=== PATIENT | male | born 1980 | race Caucasian/White ===

== ENCOUNTER → 2022-12-09 11:47 | Inpatient (IN) | payer MEDICAID, SELFPAY ==
[2021-09-30] MEDS: ACETAMINOPHEN 500 MG TABLET 1000 MG PO ×3 (07:15→19:26)
[2021-09-30] MEDS: polyethylene glycoL 238 GM BULK BOTTLE 17 GM PO (07:15)
[2021-09-30] MEDS: OXYCODONE 5 MG TABLET 10 MG PO (07:16)
[2021-09-30] MEDS: DOLUTEGRAVIR 50 MG 1 EACH PO ×2 (07:16→15:59)
[2021-09-30] MEDS: ESCITALOPRAM 20 MG TABLET 1 EACH PO (07:16)
[2021-09-30] MEDS: OXYCODONE 5 MG TABLET PO ×2 (11:57→19:26)
[2021-09-30 16:00] VITALS: TEMP 36.8; O2SAT 96
[2021-10-01] MEDS: DOLUTEGRAVIR 50 MG 1 EACH PO ×2 (07:20→15:34)
[2021-10-01] MEDS: ACETAMINOPHEN 500 MG TABLET 1000 MG PO ×3 (07:20→19:34)
[2021-10-01] MEDS: polyethylene glycoL 238 GM BULK BOTTLE 17 GM PO (07:20)
[2021-10-01] MEDS: OXYCODONE 5 MG TABLET 10 MG PO (07:21)
[2021-10-01] MEDS: ESCITALOPRAM 20 MG TABLET 1 EACH PO (07:21)
[2021-10-01] MEDS: OXYCODONE 5 MG TABLET PO ×3 (09:50→19:35)
--- NOTE | 2021-10-01 13:42 | PC.NURSE ---
Pain-Right hand noted to have slight edema present, when hand was elevated resident jerked hand away and moaned, when asked if having pain stated Oh Tamiko pain medication was given obtained relief.
[2021-10-01 14:08] VITALS: BP 110/63; PULSE 72; RESP 16; TEMP 36.1; O2SAT 97
[2021-10-01 16:00] VITALS: TEMP 36.6; O2SAT 99
[2021-10-02] MEDS: polyethylene glycoL 238 GM BULK BOTTLE 17 GM PO (08:24)
[2021-10-02] MEDS: ACETAMINOPHEN 500 MG TABLET 1000 MG PO ×3 (08:24→19:29)
[2021-10-02] MEDS: ESCITALOPRAM 20 MG TABLET 1 EACH PO (08:24)
[2021-10-02] MEDS: DOLUTEGRAVIR 50 MG 1 EACH PO ×2 (08:25→15:33)
[2021-10-02] MEDS: OXYCODONE 5 MG TABLET 10 MG PO (08:26)
[2021-10-02] MEDS: OXYCODONE 5 MG TABLET PO ×2 (11:53→19:29)
--- NOTE | 2021-10-02 14:26 | PC.PHA ---
Pharmacy Review ~ Patient taking oxycodone tid and acetaminophen tid with prn oxycodone. As needed use of oxycodone remain stable to decreased comparing August and September MARs. Antivirals for HIV continue and [facility] is no longer following patient per family request. Drug monitoring of antivirals will be reviewed by proposal lead writer.
[2021-10-02 16:00] VITALS: TEMP 36.2; O2SAT 95
[2021-10-03] MEDS: polyethylene glycoL 238 GM BULK BOTTLE 17 GM PO (07:28)
[2021-10-03] MEDS: DOLUTEGRAVIR 50 MG 1 EACH PO ×2 (07:28→15:25)
[2021-10-03] MEDS: ACETAMINOPHEN 500 MG TABLET 1000 MG PO ×3 (07:28→19:19)
[2021-10-03] MEDS: ESCITALOPRAM 20 MG TABLET 1 EACH PO (07:28)
[2021-10-03] MEDS: OXYCODONE 5 MG TABLET 10 MG PO (07:28)
[2021-10-03] MEDS: OXYCODONE 5 MG TABLET PO ×2 (12:15→19:19)
[2021-10-03 16:43] VITALS: TEMP 37.1; O2SAT 95
[2021-10-04] MEDS: ESCITALOPRAM 20 MG TABLET 1 EACH PO (08:18)
[2021-10-04] MEDS: polyethylene glycoL 238 GM BULK BOTTLE 17 GM PO (08:18)
[2021-10-04] MEDS: ACETAMINOPHEN 500 MG TABLET 1000 MG PO ×3 (08:18→19:27)
[2021-10-04] MEDS: DOLUTEGRAVIR 50 MG 1 EACH PO ×2 (08:18→15:01)
[2021-10-04] MEDS: OXYCODONE 5 MG TABLET 10 MG PO (08:18)
[2021-10-04] MEDS: OXYCODONE 5 MG TABLET PO ×2 (11:46→19:27)
[2021-10-04 16:00] VITALS: TEMP 36.6; O2SAT 98
[2021-10-05] MEDS: ACETAMINOPHEN 500 MG TABLET 1000 MG PO ×3 (07:22→19:53)
[2021-10-05] MEDS: ESCITALOPRAM 20 MG TABLET 1 EACH PO (07:23)
[2021-10-05] MEDS: OXYCODONE 5 MG TABLET 10 MG PO (07:23)
[2021-10-05] MEDS: DOLUTEGRAVIR 50 MG 1 EACH PO ×2 (07:23→15:15)
[2021-10-05] MEDS: polyethylene glycoL 238 GM BULK BOTTLE 17 GM PO (07:23)
[2021-10-05] MEDS: OXYCODONE 5 MG TABLET PO ×2 (11:34→19:53)
[2021-10-05 16:00] VITALS: TEMP 36.2; O2SAT 96
[2021-10-06] MEDS: DOLUTEGRAVIR 50 MG 1 EACH PO ×2 (07:31→15:57)
[2021-10-06] MEDS: OXYCODONE 5 MG TABLET 10 MG PO (07:31)
[2021-10-06] MEDS: polyethylene glycoL 238 GM BULK BOTTLE 17 GM PO (07:31)
[2021-10-06] MEDS: ACETAMINOPHEN 500 MG TABLET 1000 MG PO ×3 (07:31→19:08)
[2021-10-06] MEDS: ESCITALOPRAM 20 MG TABLET 1 EACH PO (07:32)
[2021-10-06] MEDS: OXYCODONE 5 MG TABLET PO ×2 (11:22→19:09)
[2021-10-06 16:20] VITALS: TEMP 36.5; O2SAT 96
[2021-10-07] MEDS: ACETAMINOPHEN 500 MG TABLET 1000 MG PO ×3 (07:42→19:22)
[2021-10-07] MEDS: polyethylene glycoL 238 GM BULK BOTTLE 17 GM PO (07:43)
[2021-10-07] MEDS: DOLUTEGRAVIR 50 MG 1 EACH PO ×2 (07:44→15:56)
[2021-10-07] MEDS: ESCITALOPRAM 20 MG TABLET 1 EACH PO (07:44)
[2021-10-07] MEDS: OXYCODONE 5 MG TABLET 10 MG PO (07:46)
[2021-10-07] MEDS: OXYCODONE 5 MG TABLET PO ×2 (11:26→19:22)
[2021-10-07 15:00] VITALS: TEMP 36.6; O2SAT 100
[2021-10-07 16:00] VITALS: TEMP 36.6; O2SAT 100
--- NOTE | 2021-10-08 01:13 | PC.NURSE ---
Week #1: Care Plan problems #1-19 and temporary care plan reviewed. No changes made to care plan at this time. Pain is managed with schedule Acetaminophen, PRN/scheduled Oxycodone, and non-pharmacological intervention including repositioning. No pain reported at this time. Resident sleeps through the night.
[2021-10-08] MEDS: OXYCODONE 5 MG TABLET 10 MG PO (07:17)
[2021-10-08] MEDS: polyethylene glycoL 238 GM BULK BOTTLE 17 GM PO (07:19)
[2021-10-08] MEDS: ACETAMINOPHEN 500 MG TABLET 1000 MG PO ×3 (07:19→19:15)
[2021-10-08] MEDS: ESCITALOPRAM 20 MG TABLET 1 EACH PO (07:19)
[2021-10-08] MEDS: DOLUTEGRAVIR 50 MG 1 EACH PO ×2 (07:19→15:28)
[2021-10-08 10:47] VITALS: BP 107/71; PULSE 78; RESP 18; TEMP 36.6; O2SAT 92
[2021-10-08] MEDS: OXYCODONE 5 MG TABLET PO ×2 (11:19→19:15)
--- NOTE | 2021-10-08 12:51 | PC.NURSE ---
Weekly Week #1: Vital signs reviewed with no issues. Resident does have pain at times with prn oxycodone being effective. Temporary care plan reviewed with no changes. Care plan problems #1-19 reviewed with no changes made Is total assist with dressing and grooming, eating
[2021-10-08 16:29] VITALS: TEMP 36.2; O2SAT 96
[2021-10-09] MEDS: ACETAMINOPHEN 500 MG TABLET 1000 MG PO ×3 (07:45→20:04)
[2021-10-09] MEDS: ESCITALOPRAM 20 MG TABLET 1 EACH PO (07:45)
[2021-10-09] MEDS: polyethylene glycoL 238 GM BULK BOTTLE 17 GM PO (07:45)
[2021-10-09] MEDS: OXYCODONE 5 MG TABLET 10 MG PO (07:46)
[2021-10-09] MEDS: DOLUTEGRAVIR 50 MG 1 EACH PO ×2 (07:46→15:33)
[2021-10-09] MEDS: OXYCODONE 5 MG TABLET PO ×2 (11:49→20:04)
[2021-10-09 16:32] VITALS: TEMP 36.6; O2SAT 96
[2021-10-10] MEDS: OXYCODONE 5 MG TABLET 10 MG PO (07:55)
[2021-10-10] MEDS: polyethylene glycoL 238 GM BULK BOTTLE 17 GM PO (07:56)
[2021-10-10] MEDS: DOLUTEGRAVIR 50 MG 1 EACH PO ×2 (07:56→15:13)
[2021-10-10] MEDS: ESCITALOPRAM 20 MG TABLET 1 EACH PO (07:56)
[2021-10-10] MEDS: ACETAMINOPHEN 500 MG TABLET 1000 MG PO ×3 (07:56→19:53)
[2021-10-10] MEDS: OXYCODONE 5 MG TABLET PO ×2 (11:32→19:53)
[2021-10-10 21:37] VITALS: TEMP 36.5; O2SAT 96
[2021-10-11] MEDS: DOLUTEGRAVIR 50 MG 1 EACH PO ×2 (07:26→15:38)
[2021-10-11] MEDS: polyethylene glycoL 238 GM BULK BOTTLE 17 GM PO (07:26)
[2021-10-11] MEDS: ACETAMINOPHEN 500 MG TABLET 1000 MG PO ×3 (07:26→19:47)
[2021-10-11] MEDS: ESCITALOPRAM 20 MG TABLET 1 EACH PO (07:27)
[2021-10-11] MEDS: OXYCODONE 5 MG TABLET 10 MG PO (07:27)
[2021-10-11] MEDS: OXYCODONE 5 MG TABLET PO ×2 (11:28→19:47)
[2021-10-11 18:16] VITALS: TEMP 36.1; O2SAT 95
[2021-10-12] MEDS: ACETAMINOPHEN 500 MG TABLET 1000 MG PO ×3 (08:33→20:16)
[2021-10-12] MEDS: OXYCODONE 5 MG TABLET 10 MG PO (08:34)
[2021-10-12] MEDS: DOLUTEGRAVIR 50 MG 1 EACH PO ×2 (08:34→15:42)
[2021-10-12] MEDS: ESCITALOPRAM 20 MG TABLET 1 EACH PO (08:34)
[2021-10-12] MEDS: polyethylene glycoL 238 GM BULK BOTTLE 17 GM PO (08:34)
[2021-10-12] MEDS: OXYCODONE 5 MG TABLET PO ×2 (11:50→20:16)
[2021-10-12 16:00] VITALS: TEMP 36.4; O2SAT 98
[2021-10-13] MEDS: ACETAMINOPHEN 500 MG TABLET 1000 MG PO ×3 (07:05→19:43)
[2021-10-13] MEDS: ESCITALOPRAM 20 MG TABLET 1 EACH PO (07:05)
[2021-10-13] MEDS: DOLUTEGRAVIR 50 MG 1 EACH PO ×2 (07:05→15:12)
[2021-10-13] MEDS: polyethylene glycoL 238 GM BULK BOTTLE 17 GM PO (07:05)
[2021-10-13] MEDS: OXYCODONE 5 MG TABLET 10 MG PO (07:05)
[2021-10-13] MEDS: OXYCODONE 5 MG TABLET PO ×2 (11:57→19:47)
[2021-10-13 21:26] VITALS: TEMP 36.5; O2SAT 98
--- NOTE | 2021-10-13 21:40 | PC.NURSE ---
Skin: No new skin concerns.
[2021-10-14] MEDS: OXYCODONE 5 MG TABLET 10 MG PO (07:09)
[2021-10-14] MEDS: DOLUTEGRAVIR 50 MG 1 EACH PO ×2 (07:09→16:13)
[2021-10-14] MEDS: ESCITALOPRAM 20 MG TABLET 1 EACH PO (07:09)
[2021-10-14] MEDS: ACETAMINOPHEN 500 MG TABLET 1000 MG PO ×3 (07:09→19:24)
[2021-10-14] MEDS: polyethylene glycoL 238 GM BULK BOTTLE 17 GM PO (07:09)
[2021-10-14] MEDS: OXYCODONE 5 MG TABLET PO ×2 (12:16→19:24)
[2021-10-14 13:15] VITALS: TEMP 37; O2SAT 97
[2021-10-14 16:00] VITALS: TEMP 36.7; O2SAT 99
[2021-10-14 23:00] VITALS: TEMP 35.8; O2SAT 94
--- NOTE | 2021-10-15 01:50 | PC.NURSE ---
Week #2---care plan problems #20-29 reviewed. No changes made. Nothing added to temporary care plan. Does not get out of bed at [facility]. Is able to make small changes to his position himself. Is turned side to side by staff for pad and linen changes x 2. No pillows used to prop him. Only 1 pillow under his head. EZ positioner to move res. up in bed. Is checked on q hour to be sure he is centered in the bed. Falls---no falls this past month. Is a low fall risk according to assessment done on 09/11/21.
[2021-10-15 07:00] VITALS: TEMP 36.9; O2SAT 97
[2021-10-15] MEDS: polyethylene glycoL 238 GM BULK BOTTLE 17 GM PO (07:02)
[2021-10-15] MEDS: DOLUTEGRAVIR 50 MG 1 EACH PO ×2 (07:02→15:29)
[2021-10-15] MEDS: ESCITALOPRAM 20 MG TABLET 1 EACH PO (07:02)
[2021-10-15] MEDS: OXYCODONE 5 MG TABLET 10 MG PO (07:02)
[2021-10-15] MEDS: ACETAMINOPHEN 500 MG TABLET 1000 MG PO ×3 (07:02→20:36)
[2021-10-15] MEDS: OXYCODONE 5 MG TABLET PO ×2 (11:49→20:36)
--- NOTE | 2021-10-15 21:08 | PC.NURSE ---
Week #2: Fall summary: Resident is a fall risk. Has had no falls in the last month. Temporary care plan reviewed, no change. Care plan reviewed no change. Bed mobility: Resident needs two assist and Srikanth lift for all transfers and, 1-2 assist for bed transfers.
[2021-10-15 21:53] VITALS: BP 102/70; PULSE 75; RESP 16; TEMP 36.3; O2SAT 94
[2021-10-15 23:00] VITALS: TEMP 35.9; O2SAT 94
[2021-10-16] MEDS: ACETAMINOPHEN 500 MG TABLET 1000 MG PO ×3 (07:23→20:10)
[2021-10-16] MEDS: ESCITALOPRAM 20 MG TABLET 1 EACH PO (07:24)
[2021-10-16] MEDS: polyethylene glycoL 238 GM BULK BOTTLE 17 GM PO (07:26)
[2021-10-16] MEDS: DOLUTEGRAVIR 50 MG 1 EACH PO ×2 (07:26→16:08)
[2021-10-16] MEDS: OXYCODONE 5 MG TABLET 10 MG PO (07:28)
[2021-10-16 10:34] VITALS: TEMP 36.6; O2SAT 98
[2021-10-16] MEDS: OXYCODONE 5 MG TABLET PO ×2 (11:31→20:10)
[2021-10-16 19:46] LABS: SARS PCR* Negative SARS-CoV-2 (Negative)
[2021-10-16 21:31] VITALS: TEMP 36.2; O2SAT 95
[2021-10-16 23:00] VITALS: TEMP 36.3; O2SAT 95
[2021-10-17 07:00] VITALS: TEMP 37.1; O2SAT 97
[2021-10-17] MEDS: DOLUTEGRAVIR 50 MG 1 EACH PO ×2 (07:23→15:25)
[2021-10-17] MEDS: ESCITALOPRAM 20 MG TABLET 1 EACH PO (07:23)
[2021-10-17] MEDS: ACETAMINOPHEN 500 MG TABLET 1000 MG PO ×3 (07:23→20:24)
[2021-10-17] MEDS: OXYCODONE 5 MG TABLET 10 MG PO (07:23)
[2021-10-17] MEDS: polyethylene glycoL 238 GM BULK BOTTLE 17 GM PO (07:23)
[2021-10-17] MEDS: OXYCODONE 5 MG TABLET PO ×2 (11:57→20:24)
[2021-10-17 21:16] VITALS: TEMP 36.1; O2SAT 95
[2021-10-17 23:00] VITALS: TEMP 36.2; O2SAT 96
[2021-10-18 07:00] VITALS: TEMP 36.6; O2SAT 98
[2021-10-18] MEDS: polyethylene glycoL 238 GM BULK BOTTLE 17 GM PO (07:02)
[2021-10-18] MEDS: DOLUTEGRAVIR 50 MG 1 EACH PO ×2 (07:02→15:24)
[2021-10-18] MEDS: ESCITALOPRAM 20 MG TABLET 1 EACH PO (07:02)
[2021-10-18] MEDS: ACETAMINOPHEN 500 MG TABLET 1000 MG PO ×3 (07:02→20:00)
[2021-10-18] MEDS: OXYCODONE 5 MG TABLET 10 MG PO (07:02)
[2021-10-18] MEDS: OXYCODONE 5 MG TABLET PO ×2 (11:48→20:00)
[2021-10-18 21:24] VITALS: TEMP 36.4; O2SAT 99
[2021-10-18 23:00] VITALS: TEMP 36.4; O2SAT 97
[2021-10-19 07:00] VITALS: TEMP 37.1; O2SAT 98
[2021-10-19] MEDS: DOLUTEGRAVIR 50 MG 1 EACH PO ×2 (07:33→15:25)
[2021-10-19] MEDS: polyethylene glycoL 238 GM BULK BOTTLE 17 GM PO (07:33)
[2021-10-19] MEDS: ACETAMINOPHEN 500 MG TABLET 1000 MG PO ×3 (07:33→19:57)
[2021-10-19] MEDS: ESCITALOPRAM 20 MG TABLET 1 EACH PO (07:34)
[2021-10-19] MEDS: OXYCODONE 5 MG TABLET 10 MG PO (07:34)
[2021-10-19] MEDS: OXYCODONE 5 MG TABLET PO ×2 (11:44→19:57)
[2021-10-19 21:10] VITALS: TEMP 36.3; O2SAT 98
[2021-10-19 23:00] VITALS: TEMP 36.7; O2SAT 96
[2021-10-20] MEDS: ESCITALOPRAM 20 MG TABLET 1 EACH PO (07:09)
[2021-10-20] MEDS: DOLUTEGRAVIR 50 MG 1 EACH PO ×2 (07:09→15:29)
[2021-10-20] MEDS: OXYCODONE 5 MG TABLET 10 MG PO (07:09)
[2021-10-20] MEDS: ACETAMINOPHEN 500 MG TABLET 1000 MG PO ×3 (07:09→19:23)
[2021-10-20] MEDS: polyethylene glycoL 238 GM BULK BOTTLE 17 GM PO (07:09)
[2021-10-20] MEDS: OXYCODONE 5 MG TABLET PO ×2 (11:22→19:23)
[2021-10-20 13:32] VITALS: TEMP 37.2; O2SAT 99
[2021-10-20 14:48] LABS: SARS PCR* Negative SARS-CoV-2 (Negative)
[2021-10-20 21:24] VITALS: TEMP 36.3; O2SAT 94
[2021-10-20 23:00] VITALS: TEMP 36.6; O2SAT 95
[2021-10-21] MEDS: ESCITALOPRAM 20 MG TABLET 1 EACH PO (07:15)
[2021-10-21] MEDS: DOLUTEGRAVIR 50 MG 1 EACH PO ×2 (07:15→16:06)
[2021-10-21] MEDS: ACETAMINOPHEN 500 MG TABLET 1000 MG PO ×3 (07:15→19:50)
[2021-10-21] MEDS: polyethylene glycoL 238 GM BULK BOTTLE 17 GM PO (07:15)
[2021-10-21] MEDS: OXYCODONE 5 MG TABLET 10 MG PO (07:15)
--- NOTE | 2021-10-21 11:07 | PC.NURSE ---
Late Entry for 10/17/22: Recert Visit. Resident seen by Dr. Curtis. Order reviewed and renewed of 75 days without changes.
[2021-10-21] MEDS: OXYCODONE 5 MG TABLET PO ×2 (12:22→19:50)
[2021-10-21 15:00] VITALS: TEMP 36.6; O2SAT 97
[2021-10-21 23:00] VITALS: TEMP 36.3; O2SAT 96
--- NOTE | 2021-10-22 03:10 | PC.NURSE ---
Week #3---care plan problems #30-39 reviewed. No changes made. Nothing added to temporary care plan. Remains incont. of B and B. Wears an xlg brief with a UG which is managed by staff. Is checked and changed on 1st and 3rd rounds. All pericare done by staff. Skin---no issues at this time.
[2021-10-22] MEDS: ACETAMINOPHEN 500 MG TABLET 1000 MG PO ×3 (08:43→19:35)
[2021-10-22] MEDS: ESCITALOPRAM 20 MG TABLET 1 EACH PO (08:43)
[2021-10-22] MEDS: polyethylene glycoL 238 GM BULK BOTTLE 17 GM PO (08:44)
[2021-10-22] MEDS: DOLUTEGRAVIR 50 MG 1 EACH PO ×2 (08:44→16:03)
[2021-10-22] MEDS: OXYCODONE 5 MG TABLET 10 MG PO (08:46)
--- NOTE | 2021-10-22 09:02 | PC.NURSE ---
Week #3: Care plan problems 30-39 and temporary care plan reviewed. No changes made. Nothing added to temporary care plan. Resident is incontinent of bowel & bladder. Needs total assist wit all toileting needs. Does not use the toilet. Staff to check and change as needed by 0700, before/after meals. Wears xlg briefs. Pads, anel cares, clothing adjustment managed by staff. Skin: No issues at this time. Skin is checked routinely during cares & baths
[2021-10-22 10:42] VITALS: BP 104/71; PULSE 71; RESP 12; TEMP 36.5; O2SAT 97
[2021-10-22] MEDS: OXYCODONE 5 MG TABLET PO ×2 (11:45→19:36)
--- NOTE | 2021-10-22 15:28 | PC.PHA ---
Pharmacy Review~Patient continues on same medication regimen with only one dose of prn oxycodone need since 10/01/21.
[2021-10-22 21:40] VITALS: TEMP 36.4; O2SAT 95
[2021-10-22 23:00] VITALS: TEMP 36; O2SAT 95
[2021-10-23 07:00] VITALS: TEMP 36.8; O2SAT 97
[2021-10-23] MEDS: ESCITALOPRAM 20 MG TABLET 1 EACH PO (08:39)
[2021-10-23] MEDS: OXYCODONE 5 MG TABLET 10 MG PO (08:39)
[2021-10-23] MEDS: DOLUTEGRAVIR 50 MG 1 EACH PO ×2 (08:39→15:30)
[2021-10-23] MEDS: ACETAMINOPHEN 500 MG TABLET 1000 MG PO ×3 (08:39→19:39)
[2021-10-23] MEDS: polyethylene glycoL 238 GM BULK BOTTLE 17 GM PO (08:39)
--- NOTE | 2021-10-23 08:59 | PC.SPIRITC ---
Late Entry ? met with resident for connection and support on 10/22/21.
--- NOTE | 2021-10-23 09:00 | PC.SPIRITC ---
Late Entry ? met with resident for connection and support on 10/22/21.
[2021-10-23] MEDS: OXYCODONE 5 MG TABLET PO ×2 (11:56→19:39)
[2021-10-23 21:24] VITALS: TEMP 36.2; O2SAT 99
[2021-10-23 23:00] VITALS: TEMP 36.1; O2SAT 97
[2021-10-24] VITALS (8 sets, daily range): BP systolic 95–132; BP diastolic 64–72; PULSE 65–81; RESP 16–18; TEMP 36.1–36.9; O2SAT 94–97
--- NOTE | 2021-10-24 06:40 | LTC.FALL ---
Addendum entered by Cyndi Gaona RN 10/24/21 07:59: Correction: Ganesh slide is used to assist move resident up in bed not for transfers. Original Note: [facility] Fall Note: o Fall Date: 10/24/21 o Fall Time: 0630 o What happened? Found on the floor o Who found the resident and who responded? SOLUTIONS SALES CONSULTANT, Nurses o What was the resident doing? Was in bed when last checked @ 0610 o How the resident was found (knees, left side, arm under them), any hazards (cords, objects, nonskid slippers) brakes on? Proper equipment? Found laying flat in the floor by the sink side, legs crossed, with head on the bed foot part, laughing. o Did you assess for head trauma, spinal injuries, skeletal injuries, neurological changes and status, and head and neck pain? What did you find? Yes. No evidence of injuries noted. No barnett/redness. o Did you assess ROM in shoulders, elbows, hips, knees, any other affected areas, unless there is suspected spinal injury. Yes.ROM to UE's & LE's done, within his normal limit. o Did you Assess for pain or discomfort? Yes. No noted pain/discomfort. Resident denies, giggling during the entire assessment. o What are the injuries and how are they being treated? Check VS Q4H X 72H o How was the resident transferred from the floor? Was transferred with a deandre lift and 3 assists to bed. o Did you call the MD or put a note in the LUMBER YARD WORKER book? Message left in the LUMBER YARD WORKER book. o Enter vital signs. T-97.6 BP-132/72 P-81 RR-18 02 sat-96% RA o Did you notify family? Will notify o What was the root cause of the fall? Why did it happen? Slid from the bed d/t EZ positioner pad. o Create an IMMEDIATE INTERVENTION to ensure that this won't immediately happen again. (Put in temporary care plan too) Remove the EZ positioner. Use ganesh pad for transfers o Complete Safety report and huddle (now one form) o If resident is seen in ED or fractured something, note that you started a [facility] Report process. Instructions are at the East nurse's desk in a red binder labeled [facility] report.
[2021-10-24] MEDS: OXYCODONE 5 MG TABLET 10 MG PO (07:20)
[2021-10-24] MEDS: polyethylene glycoL 238 GM BULK BOTTLE 17 GM PO (07:20)
[2021-10-24] MEDS: ACETAMINOPHEN 500 MG TABLET 1000 MG PO ×3 (07:20→20:04)
[2021-10-24] MEDS: DOLUTEGRAVIR 50 MG 1 EACH PO ×2 (07:21→15:26)
[2021-10-24] MEDS: ESCITALOPRAM 20 MG TABLET 1 EACH PO (07:21)
--- NOTE | 2021-10-24 08:26 | PC.NURSE ---
Family Update: Father, Chau contacted and updated of fall.
--- NOTE | 2021-10-24 10:33 | PC.NURSE ---
Status: Dr. Curtis updated of fall.
[2021-10-24] MEDS: OXYCODONE 5 MG TABLET PO ×2 (11:07→20:04)
--- NOTE | 2021-10-24 12:32 | PC.NURSE ---
Fall F/U: Vitals taken and charted, ROM good, hand grasps equal, unable to assess DUGLAS. Resident has been smiling and laughing when asked if he has pain
--- NOTE | 2021-10-24 14:55 | PC.NURSE ---
Fall Follow-up: Resident is alert. Cognition remains per baseline. Uncooperative with neuro assessment at this time - will reproach. Vitals signs WNL. No new concerns, relating to fall fall incident, noted at this time.
--- NOTE | 2021-10-24 21:45 | PC.NURSE ---
Fall F/U: VSS and ROM WNL. Neuro check done PERRL. Hand grasps equal and strong per baseline. Resident denies any pain or discomfort. Vital Signs Temp Pulse Resp BP Pulse Ox 10/24/21 21:04 97.3 F L 77 16 101/70 96 10/24/21 14:53 98.5 F 70 18 95/64 10/24/21 12:31 98 F 74 16 126/66 94 10/24/21 10:08 98 F 94
[2021-10-25] VITALS (8 sets, daily range): BP systolic 114–140; BP diastolic 60–76; PULSE 64–78; RESP 16–18; TEMP 35.7–36.6; O2SAT 94–98
--- NOTE | 2021-10-25 01:00 | PC.NURSE ---
Fall f/u for 2229---Lying in bed awake. VS stable. Would not cooperate with neuro checks. Would pinch his eyes shut tightly. Laughed when asked about pain. No apparent injuries.
--- NOTE | 2021-10-25 02:56 | PC.NURSE ---
Fall f/u for 229----Awakens easily for VS. Continues to not cooperate with neuro checks. Usual level of alertness. Moving extremities per res. baseline.
--- NOTE | 2021-10-25 06:30 | PC.NURSE ---
Addendum entered by Gregoria Thompson LPN 10/25/21 12:29: Vitals taken, unable to do neuros. Resident is up and ready for breakfast Original Note: Fall F/U:
[2021-10-25] MEDS: DOLUTEGRAVIR 50 MG 1 EACH PO ×2 (07:11→15:55)
[2021-10-25] MEDS: OXYCODONE 5 MG TABLET 10 MG PO (07:11)
[2021-10-25] MEDS: polyethylene glycoL 238 GM BULK BOTTLE 17 GM PO (07:11)
[2021-10-25] MEDS: ACETAMINOPHEN 500 MG TABLET 1000 MG PO ×3 (07:11→19:48)
[2021-10-25] MEDS: ESCITALOPRAM 20 MG TABLET 1 EACH PO (07:11)
[2021-10-25] MEDS: OXYCODONE 5 MG TABLET PO ×2 (11:15→19:48)
--- NOTE | 2021-10-25 12:26 | PC.NURSE ---
Fall F/U: Vitals taken and charted, hand grasps equal, unable to assess any other neuros. Resident is at baseline, laughing and smiling with no nonverbal s/s of pain
--- NOTE | 2021-10-25 22:18 | PC.NURSE ---
Fall F/U: VSS and ROM WNL. Unable to assess neuros. Resident would not grab speech writer's hands to assess strength. Laughing and smiling per usual behavior. Resident denies pain or discomfort.
--- NOTE | 2021-10-26 01:06 | PC.NURSE ---
Fall f/u for 2229---Lying in bed awake. Laughs when questioned about pain. Unable to do hand grasps. EMIL.
[2021-10-26 02:30] VITALS: BP 98/66; PULSE 76; RESP 16; TEMP 36.8; O2SAT 95
--- NOTE | 2021-10-26 02:57 | PC.NURSE ---
Fall f/u for 229---Sleeping well. Awakens easily. Would not cooperate with neuro checks this time. No apparent pain.
--- NOTE | 2021-10-26 06:30 | PC.NURSE ---
Fall F/U: Vitals done and charted. Resident shows no s/s of pain from fall
[2021-10-26 06:32] VITALS: BP 120/64; PULSE 82; RESP 16; TEMP 36.3; O2SAT 94
[2021-10-26] MEDS: bisacodyL 10 MG SUPP.RECT PR (06:34)
[2021-10-26] MEDS: ESCITALOPRAM 20 MG TABLET 1 EACH PO (07:20)
[2021-10-26] MEDS: OXYCODONE 5 MG TABLET 10 MG PO (07:20)
[2021-10-26] MEDS: DOLUTEGRAVIR 50 MG 1 EACH PO ×2 (07:20→15:57)
[2021-10-26] MEDS: ACETAMINOPHEN 500 MG TABLET 1000 MG PO ×3 (07:20→19:19)
[2021-10-26] MEDS: polyethylene glycoL 238 GM BULK BOTTLE 17 GM PO (07:20)
[2021-10-26 09:48] VITALS: BP 126/64; PULSE 82; RESP 18; TEMP 36.3; TEMP 36.9; O2SAT 94
[2021-10-26] MEDS: OXYCODONE 5 MG TABLET PO ×2 (11:09→19:19)
[2021-10-26 15:00] VITALS: TEMP 36.2; O2SAT 96
[2021-10-26 23:00] VITALS: TEMP 36.1; O2SAT 93
[2021-10-27] MEDS: DOLUTEGRAVIR 50 MG 1 EACH PO ×2 (07:32→15:22)
[2021-10-27] MEDS: polyethylene glycoL 238 GM BULK BOTTLE 17 GM PO (07:32)
[2021-10-27] MEDS: OXYCODONE 5 MG TABLET 10 MG PO (07:32)
[2021-10-27] MEDS: ACETAMINOPHEN 500 MG TABLET 1000 MG PO ×3 (07:32→19:36)
[2021-10-27] MEDS: ESCITALOPRAM 20 MG TABLET 1 EACH PO (07:32)
[2021-10-27] MEDS: OXYCODONE 5 MG TABLET PO ×2 (11:24→19:36)
[2021-10-27 13:23] VITALS: TEMP 36.6; O2SAT 96
[2021-10-27 20:32] VITALS: TEMP 36.4; O2SAT 96
[2021-10-27 21:03] LABS: SARS PCR* Negative SARS-CoV-2 (Negative)
[2021-10-27 23:00] VITALS: TEMP 37; O2SAT 96
[2021-10-28 07:00] VITALS: TEMP 37.1; O2SAT 97
[2021-10-28] MEDS: ACETAMINOPHEN 500 MG TABLET 1000 MG PO ×3 (07:29→19:48)
[2021-10-28] MEDS: DOLUTEGRAVIR 50 MG 1 EACH PO ×2 (07:30→15:39)
[2021-10-28] MEDS: ESCITALOPRAM 20 MG TABLET 1 EACH PO (07:30)
[2021-10-28] MEDS: OXYCODONE 5 MG TABLET 10 MG PO (07:30)
[2021-10-28] MEDS: polyethylene glycoL 238 GM BULK BOTTLE 17 GM PO (07:30)
[2021-10-28] MEDS: OXYCODONE 5 MG TABLET PO ×2 (11:58→19:48)
[2021-10-28 15:00] VITALS: TEMP 36.2; O2SAT 99
[2021-10-28 23:00] VITALS: TEMP 36.3; O2SAT 94
--- NOTE | 2021-10-29 02:01 | PC.NURSE ---
Week #4---care plan problems #40+ reviewed. No changes made. Nothing added to temporary care plan. Does not use call light. All needs anticipated by staff. No changes noted in hearing, vision, or orientation. No behavior problems at noc this past month. Sleeps between cares. Continues on Escitalopram 20 mg qd with no adverse effects noted.
[2021-10-29] MEDS: ESCITALOPRAM 20 MG TABLET 1 EACH PO (07:18)
[2021-10-29] MEDS: ACETAMINOPHEN 500 MG TABLET 1000 MG PO ×3 (07:18→19:48)
[2021-10-29] MEDS: polyethylene glycoL 238 GM BULK BOTTLE 17 GM PO (07:18)
[2021-10-29] MEDS: DOLUTEGRAVIR 50 MG 1 EACH PO ×2 (07:18→15:38)
[2021-10-29] MEDS: OXYCODONE 5 MG TABLET 10 MG PO (07:19)
--- NOTE | 2021-10-29 07:23 | PC.NURSE ---
Week #4: Care plan problems 40-119 and temporary care plan reviewed. No changes made. Nothing added to temporary care plan. No change in communication, hearing, vision & orientation. Needs anticipated by staff. Does not use the call light & not able to verbalize needs. Vision & hearing are fine. Chronic health condition stable. Has dementia. Is not able to self administer medications. Mood/Behavior: No issues. Continues on Escitalopram 20mg daily. No adverse effects noted. Has no change in medication.
[2021-10-29] MEDS: OXYCODONE 5 MG TABLET PO ×3 (10:40→19:48)
[2021-10-29 16:00] VITALS: TEMP 36.5; O2SAT 96
[2021-10-30] MEDS: DOLUTEGRAVIR 50 MG 1 EACH PO ×2 (07:12→15:00)
[2021-10-30] MEDS: polyethylene glycoL 238 GM BULK BOTTLE 17 GM PO (07:12)
[2021-10-30] MEDS: ESCITALOPRAM 20 MG TABLET 1 EACH PO (07:12)
[2021-10-30] MEDS: ACETAMINOPHEN 500 MG TABLET 1000 MG PO ×3 (07:12→19:36)
[2021-10-30] MEDS: OXYCODONE 5 MG TABLET 10 MG PO (07:12)
[2021-10-30] MEDS: OXYCODONE 5 MG TABLET PO ×2 (11:08→19:36)
[2021-10-30 21:31] VITALS: BP 102/64; PULSE 76; RESP 18; TEMP 36.2; O2SAT 95
[2021-10-30 21:37] VITALS: TEMP 36.2; O2SAT 96
[2021-10-31] MEDS: ACETAMINOPHEN 500 MG TABLET 1000 MG PO ×3 (07:08→20:25)
[2021-10-31] MEDS: OXYCODONE 5 MG TABLET 10 MG PO (07:09)
[2021-10-31] MEDS: ESCITALOPRAM 20 MG TABLET 1 EACH PO (07:09)
[2021-10-31] MEDS: polyethylene glycoL 238 GM BULK BOTTLE 17 GM PO (07:09)
[2021-10-31] MEDS: DOLUTEGRAVIR 50 MG 1 EACH PO ×2 (07:09→15:06)
[2021-10-31] MEDS: OXYCODONE 5 MG TABLET PO ×2 (11:46→20:25)
[2021-10-31 16:00] VITALS: TEMP 36.5; O2SAT 96
[2021-11-01] MEDS: DOLUTEGRAVIR 50 MG 1 EACH PO ×2 (08:56→15:30)
[2021-11-01] MEDS: polyethylene glycoL 238 GM BULK BOTTLE 17 GM PO (08:56)
[2021-11-01] MEDS: ACETAMINOPHEN 500 MG TABLET 1000 MG PO ×3 (08:56→20:01)
[2021-11-01] MEDS: ESCITALOPRAM 20 MG TABLET 1 EACH PO (08:57)
[2021-11-01] MEDS: OXYCODONE 5 MG TABLET 10 MG PO (08:57)
[2021-11-01] MEDS: OXYCODONE 5 MG TABLET PO ×2 (11:55→20:01)
[2021-11-01 21:13] VITALS: TEMP 36.4; O2SAT 99
[2021-11-02] MEDS: DOLUTEGRAVIR 50 MG 1 EACH PO ×2 (07:03→15:15)
[2021-11-02] MEDS: OXYCODONE 5 MG TABLET 10 MG PO (07:03)
[2021-11-02] MEDS: ACETAMINOPHEN 500 MG TABLET 1000 MG PO ×3 (07:03→19:59)
[2021-11-02] MEDS: ESCITALOPRAM 20 MG TABLET 1 EACH PO (07:03)
[2021-11-02] MEDS: polyethylene glycoL 238 GM BULK BOTTLE 17 GM PO (07:03)
[2021-11-02] MEDS: OXYCODONE 5 MG TABLET PO ×3 (09:50→19:59)
[2021-11-02 21:11] VITALS: TEMP 36.5; O2SAT 97
[2021-11-03] MEDS: DOLUTEGRAVIR 50 MG 1 EACH PO ×2 (07:51→15:26)
[2021-11-03] MEDS: polyethylene glycoL 238 GM BULK BOTTLE 17 GM PO (07:51)
[2021-11-03] MEDS: ACETAMINOPHEN 500 MG TABLET 1000 MG PO ×3 (07:51→19:48)
[2021-11-03] MEDS: OXYCODONE 5 MG TABLET 10 MG PO (07:51)
[2021-11-03] MEDS: ESCITALOPRAM 20 MG TABLET 1 EACH PO (07:51)
[2021-11-03] MEDS: OXYCODONE 5 MG TABLET PO ×2 (11:10→19:48)
[2021-11-03 21:27] VITALS: TEMP 36.3; O2SAT 99
[2021-11-04] MEDS: OXYCODONE 5 MG TABLET 10 MG PO (07:20)
[2021-11-04] MEDS: polyethylene glycoL 238 GM BULK BOTTLE 17 GM PO (07:20)
[2021-11-04] MEDS: DOLUTEGRAVIR 50 MG 1 EACH PO ×2 (07:20→15:52)
[2021-11-04] MEDS: ACETAMINOPHEN 500 MG TABLET 1000 MG PO ×3 (07:20→19:43)
[2021-11-04] MEDS: ESCITALOPRAM 20 MG TABLET 1 EACH PO (07:20)
[2021-11-04] MEDS: OXYCODONE 5 MG TABLET PO ×2 (12:19→19:43)
[2021-11-04 16:00] VITALS: TEMP 36.7; O2SAT 96
--- NOTE | 2021-11-05 02:13 | PC.NURSE ---
Week #1---care plan problems #1-19 reviewed. No changes made. Nothing added to temporary care plan. Staff offer res. a drink of water with cares. He will take only a tiny sip or refuse altogether. Pain---no pain at noc this past month. Continues on the following for pain control: Tylenol 1000 mg tid and Oxycodone 10 mg at 0800, 5 mg at 1200 and 2000, and 5 mg q6h prn.
--- NOTE | 2021-11-05 07:13 | PC.NURSE ---
Week #1: Care plan problems 1-19 and temporary care plan reviewed. No changes made. Nothing added to temporary care plan. Resident needs 1-2 assists with dressing and bathing, one assist with grooming, oral cares and feeding. Is on regular diet, soft & bite sized texture. No problems noted with chewing or swallowing. Resident needs reminder at times to chew foods. Pain: No pain this past month. Pain is controlled with Tylenol 1000mg TID, Oxycodone 10mg @ 08, 5mg @ 1200 & 2000 and Q6H PRN. Staff anticipate needs as he is not able to verbally communicate.
[2021-11-05] MEDS: polyethylene glycoL 238 GM BULK BOTTLE 17 GM PO (07:19)
[2021-11-05] MEDS: OXYCODONE 5 MG TABLET 10 MG PO (07:19)
[2021-11-05] MEDS: ESCITALOPRAM 20 MG TABLET 1 EACH PO (07:19)
[2021-11-05] MEDS: DOLUTEGRAVIR 50 MG 1 EACH PO ×2 (07:19→15:19)
[2021-11-05] MEDS: ACETAMINOPHEN 500 MG TABLET 1000 MG PO ×3 (07:19→19:55)
[2021-11-05 09:53] VITALS: TEMP 37
--- NOTE | 2021-11-05 09:53 | PC.NURSE ---
Cough-Was being fed breakfast had some eggs in his mouth and started to laugh, coughed on food lasting 2 mins , face turned red, had a episode of clear phlegm coming from nose after coughing, during episode was able to speak, will check temp and LS x3 days.
[2021-11-05] MEDS: OXYCODONE 5 MG TABLET PO ×2 (11:48→19:55)
--- NOTE | 2021-11-05 13:09 | PC.NURSE ---
F/U-No problems with swallowing or chewing food at lunch, when checking LS resident started to grimace, when asked if having pain stated Ya man PRN Oxycodone given
[2021-11-05 21:11] VITALS: TEMP 36.2; O2SAT 97
[2021-11-05 21:12] VITALS: TEMP 36.2
--- NOTE | 2021-11-06 02:34 | PC.NURSE ---
Assessment Q shift d/t laughing, choking episode during day shift. Lungs are clear, 97.8, 113/77, 77, 16 O2 sat 95%
[2021-11-06] MEDS: polyethylene glycoL 238 GM BULK BOTTLE 17 GM PO (07:02)
[2021-11-06] MEDS: OXYCODONE 5 MG TABLET 10 MG PO (07:02)
[2021-11-06] MEDS: ACETAMINOPHEN 500 MG TABLET 1000 MG PO ×3 (07:02→20:03)
[2021-11-06] MEDS: DOLUTEGRAVIR 50 MG 1 EACH PO ×2 (07:02→15:36)
[2021-11-06] MEDS: ESCITALOPRAM 20 MG TABLET 1 EACH PO (07:02)
[2021-11-06 10:21] VITALS: TEMP 37
[2021-11-06] MEDS: OXYCODONE 5 MG TABLET PO ×2 (11:28→20:03)
[2021-11-06 21:42] VITALS: TEMP 36.5; O2SAT 97
[2021-11-07 03:42] VITALS: TEMP 35.8
[2021-11-07] MEDS: polyethylene glycoL 238 GM BULK BOTTLE 17 GM PO (07:24)
[2021-11-07] MEDS: ACETAMINOPHEN 500 MG TABLET 1000 MG PO ×3 (07:24→19:37)
[2021-11-07] MEDS: ESCITALOPRAM 20 MG TABLET 1 EACH PO (07:24)
[2021-11-07] MEDS: DOLUTEGRAVIR 50 MG 1 EACH PO ×2 (07:24→15:37)
[2021-11-07] MEDS: OXYCODONE 5 MG TABLET 10 MG PO (07:24)
[2021-11-07] MEDS: OXYCODONE 5 MG TABLET PO ×2 (11:21→19:37)
[2021-11-07 13:03] VITALS: TEMP 36.4
[2021-11-07 16:00] VITALS: TEMP 36; O2SAT 96
[2021-11-07 21:19] VITALS: TEMP 36
--- NOTE | 2021-11-07 21:21 | PC.NURSE ---
Status: Temperature and lung sounds assessment q shift. Temp is 96.8. Lung sounds clear throughout. No episodes of choking while being fed dinner this evening.
[2021-11-08 03:58] VITALS: TEMP 35.8
[2021-11-08] MEDS: DOLUTEGRAVIR 50 MG 1 EACH PO ×2 (07:17→15:39)
[2021-11-08] MEDS: polyethylene glycoL 238 GM BULK BOTTLE 17 GM PO (07:17)
[2021-11-08] MEDS: OXYCODONE 5 MG TABLET 10 MG PO (07:17)
[2021-11-08] MEDS: ESCITALOPRAM 20 MG TABLET 1 EACH PO (07:17)
[2021-11-08] MEDS: ACETAMINOPHEN 500 MG TABLET 1000 MG PO ×3 (07:17→19:28)
[2021-11-08 10:00] VITALS: TEMP 36.4
[2021-11-08] MEDS: OXYCODONE 5 MG TABLET PO ×2 (11:12→19:28)
[2021-11-08 16:00] VITALS: TEMP 36.6; O2SAT 99
[2021-11-09] MEDS: ACETAMINOPHEN 500 MG TABLET 1000 MG PO ×3 (07:12→19:15)
[2021-11-09] MEDS: ESCITALOPRAM 20 MG TABLET 1 EACH PO (07:14)
[2021-11-09] MEDS: OXYCODONE 5 MG TABLET 10 MG PO (07:14)
[2021-11-09] MEDS: polyethylene glycoL 238 GM BULK BOTTLE 17 GM PO (07:14)
[2021-11-09] MEDS: DOLUTEGRAVIR 50 MG 1 EACH PO ×2 (07:14→16:01)
[2021-11-09] MEDS: OXYCODONE 5 MG TABLET PO ×2 (11:09→19:15)
[2021-11-09 16:00] VITALS: TEMP 36.5; O2SAT 99
[2021-11-10] MEDS: DOLUTEGRAVIR 50 MG 1 EACH PO ×2 (07:17→15:22)
[2021-11-10] MEDS: polyethylene glycoL 238 GM BULK BOTTLE 17 GM PO (07:17)
[2021-11-10] MEDS: ACETAMINOPHEN 500 MG TABLET 1000 MG PO ×3 (07:17→19:44)
[2021-11-10] MEDS: OXYCODONE 5 MG TABLET 10 MG PO (07:18)
[2021-11-10] MEDS: ESCITALOPRAM 20 MG TABLET 1 EACH PO (07:18)
[2021-11-10] MEDS: OXYCODONE 5 MG TABLET PO ×2 (11:34→19:44)
[2021-11-10 21:20] VITALS: TEMP 36.2; O2SAT 97
[2021-11-10 23:00] VITALS: TEMP 36.3; O2SAT 97
[2021-11-11 07:00] VITALS: TEMP 37.1; O2SAT 98
[2021-11-11] MEDS: ACETAMINOPHEN 500 MG TABLET 1000 MG PO ×3 (07:13→19:40)
[2021-11-11] MEDS: polyethylene glycoL 238 GM BULK BOTTLE 17 GM PO (07:13)
[2021-11-11] MEDS: ESCITALOPRAM 20 MG TABLET 1 EACH PO (07:14)
[2021-11-11] MEDS: DOLUTEGRAVIR 50 MG 1 EACH PO ×2 (07:14→15:56)
[2021-11-11] MEDS: OXYCODONE 5 MG TABLET 10 MG PO (07:14)
[2021-11-11] MEDS: OXYCODONE 5 MG TABLET PO ×2 (12:02→19:40)
[2021-11-11 15:00] VITALS: TEMP 36.6; O2SAT 98
[2021-11-11 23:00] VITALS: TEMP 37.1; O2SAT 94
--- NOTE | 2021-11-12 03:25 | PC.NURSE ---
Week #2---care plan problems #20-29 reviewed. No changes made. Nothing added to temporary care plan. Does not get out of bed during the noc. Is repositioned from side to side on 1st and 3rd rounds for pad changes. No pillows used to prop him in bed. Checked on q hour to be sure he is centered in the bed. Top siderails up. Falls---had a fall from bed on 10/24/21. EZ positioner was removed from bed. Staff will use Rowan Slide to move res up in bed. Remains a low fall risk according to assessment done on 09/11/21.
[2021-11-12] MEDS: polyethylene glycoL 238 GM BULK BOTTLE 17 GM PO (07:12)
[2021-11-12] MEDS: ACETAMINOPHEN 500 MG TABLET 1000 MG PO ×3 (07:12→19:37)
[2021-11-12] MEDS: DOLUTEGRAVIR 50 MG 1 EACH PO ×2 (07:13→16:33)
[2021-11-12] MEDS: ESCITALOPRAM 20 MG TABLET 1 EACH PO (07:13)
[2021-11-12] MEDS: OXYCODONE 5 MG TABLET 10 MG PO (07:13)
[2021-11-12 09:54] LABS: SARS PCR* Negative SARS-CoV-2 (Negative)
[2021-11-12] MEDS: OXYCODONE 5 MG TABLET PO ×3 (09:55→19:37)
[2021-11-12 10:08] LABS: Chloride* 107 mmol/L (96-114)
[2021-11-12 10:09] LABS: Sodium* 141 mmol/L (135-149)
[2021-11-12 10:11] LABS: Creatinine* 0.7 mg/dL (0.5-1.5); Est. Creatinine Clearance* 153.97; Estimated Glomerular Filt Rate 119 ml/min
[2021-11-12 10:12] LABS: Blood Urea Nitrogen* 16 mg/dL (5-24); Calcium* 9.1 mg/dL (8.4-10.6); Carbon Dioxide* 25 mmol/L (20-32); Glucose* 127 mg/dL (60-115)
[2021-11-12 10:47] VITALS: TEMP 36.4; O2SAT 96
--- NOTE | 2021-11-12 13:54 | PC.NURSE ---
Status-Color pale all shift, has been sleeping off and on, appetite fair, VS have been stable and has been afebrile, T-98.6, SATS 96% on R/A, when transferring was moaning PRN pain medication given for general discomfort obtained relief.
[2021-11-12 21:11] LABS: SARS PCR* Negative SARS-CoV-2 (Negative)
[2021-11-12 21:31] VITALS: TEMP 36.9; O2SAT 97
--- NOTE | 2021-11-12 21:59 | PC.NURSE ---
Status: Resident in room and audible sneezing is heard from hallway. Has runny nose. Color is pale. No c/o pain or discomfort. COVID nasal swab completed and taken to lab. Results are negative. Did have good appetite and ate 100% of dinner. No further issues or symptoms are observed this shift.
[2021-11-12 23:00] VITALS: TEMP 36.8; O2SAT 96
[2021-11-13] MEDS: polyethylene glycoL 238 GM BULK BOTTLE 17 GM PO (07:59)
[2021-11-13] MEDS: ESCITALOPRAM 20 MG TABLET 1 EACH PO (07:59)
[2021-11-13] MEDS: ACETAMINOPHEN 500 MG TABLET 1000 MG PO ×3 (07:59→19:56)
[2021-11-13] MEDS: OXYCODONE 5 MG TABLET 10 MG PO (07:59)
[2021-11-13] MEDS: DOLUTEGRAVIR 50 MG 1 EACH PO ×2 (07:59→15:18)
[2021-11-13] MEDS: OXYCODONE 5 MG TABLET PO ×2 (12:21→19:56)
[2021-11-13 12:43] LABS: Influenza Type A Negative (Negative); Influenza Type B Negative (Negative)
[2021-11-13 15:00] VITALS: TEMP 36.6; O2SAT 96
[2021-11-13 21:51] VITALS: BP 104/73; PULSE 68; RESP 16; TEMP 36.6; O2SAT 96
[2021-11-13 23:00] VITALS: TEMP 36.9; O2SAT 96
[2021-11-14] MEDS: bisacodyL 10 MG SUPP.RECT PR (07:52)
[2021-11-14] MEDS: ESCITALOPRAM 20 MG TABLET 1 EACH PO (07:57)
[2021-11-14] MEDS: OXYCODONE 5 MG TABLET 10 MG PO (07:57)
[2021-11-14] MEDS: polyethylene glycoL 238 GM BULK BOTTLE 17 GM PO (07:57)
[2021-11-14] MEDS: DOLUTEGRAVIR 50 MG 1 EACH PO ×2 (07:57→15:04)
[2021-11-14] MEDS: ACETAMINOPHEN 500 MG TABLET 1000 MG PO ×3 (07:57→19:45)
[2021-11-14] MEDS: OXYCODONE 5 MG TABLET PO ×3 (11:00→19:45)
[2021-11-14 21:31] VITALS: TEMP 37.1; O2SAT 98
[2021-11-15 01:10] VITALS: TEMP 36.6; O2SAT 94
[2021-11-15 07:00] VITALS: TEMP 37.7; O2SAT 95
[2021-11-15] MEDS: ESCITALOPRAM 20 MG TABLET 1 EACH PO (07:38)
[2021-11-15] MEDS: DOLUTEGRAVIR 50 MG 1 EACH PO ×2 (07:38→15:28)
[2021-11-15] MEDS: polyethylene glycoL 238 GM BULK BOTTLE 17 GM PO (07:38)
[2021-11-15] MEDS: OXYCODONE 5 MG TABLET 10 MG PO (07:38)
[2021-11-15] MEDS: ACETAMINOPHEN 500 MG TABLET 1000 MG PO ×3 (07:38→19:23)
[2021-11-15 10:34] LABS: PCR FLU A Negative PCR FLU A (Negative); PCR FLU B Negative PCR FLU B (Negative); SARS PCR* POSITIVE SARS-CoV-2 (Negative)
[2021-11-15] MEDS: OXYCODONE 5 MG TABLET PO ×2 (10:40→11:44)
--- NOTE | 2021-11-15 13:05 | PC.NURSE ---
Status-Noted @ 0845 face flushed, skin warm to the touch, T-99.8 occ's cough is audible along with sneezing, appearance is lethargic, swabbed for Covid,Flu @ 0900 return test came back positive, Isolation was set-up, resident's dad was called and updated, ate well for breakfast, placed in bed had mod loose stool, slept till 1230 then placed in W/C for lunch ate fair. T-99.7. At present is laying in bed resting comfortable.
--- NOTE | 2021-11-15 13:22 | PC.NURSE ---
Loose BM was around 1045 this AM
[2021-11-15 15:00] VITALS: TEMP 35.9; O2SAT 96
[2021-11-15] MEDS: OXYCODONE 5 MG TABLET 2.5 MG PO (19:23)
--- NOTE | 2021-11-15 21:46 | PC.NURSE ---
Sat level 96% in RA, afebrile, no indication of pain or discomfort or SOB, awake and resting on his bed during this time. Ate part of his meal during supper and he was encouraged to drink plenty of fluids during this shift. Took scheduled meds without any issue.
[2021-11-15 23:00] VITALS: TEMP 36.6; O2SAT 93
[2021-11-16 07:00] VITALS: TEMP 36.9; O2SAT 91
[2021-11-16] MEDS: ESCITALOPRAM 20 MG TABLET 1 EACH PO (08:00)
[2021-11-16] MEDS: DOLUTEGRAVIR 50 MG 1 EACH PO ×2 (08:00→16:18)
[2021-11-16] MEDS: polyethylene glycoL 238 GM BULK BOTTLE 17 GM PO (08:00)
[2021-11-16] MEDS: OXYCODONE 5 MG TABLET PO ×2 (08:00→12:21)
[2021-11-16] MEDS: ACETAMINOPHEN 500 MG TABLET 1000 MG PO ×3 (08:00→19:55)
--- NOTE | 2021-11-16 11:53 | PC.NURSE ---
Dad updated on 11/15 on status and test results
[2021-11-16] MEDS: OXYCODONE 5 MG TABLET 2.5 MG PO ×2 (12:17→19:55)
[2021-11-16 16:37] VITALS: TEMP 36.7; O2SAT 98
[2021-11-16 23:00] VITALS: TEMP 36.4; O2SAT 97
[2021-11-17] MEDS: OXYCODONE 5 MG TABLET PO (07:53)
[2021-11-17] MEDS: ACETAMINOPHEN 500 MG TABLET 1000 MG PO ×3 (07:56→20:29)
[2021-11-17] MEDS: polyethylene glycoL 238 GM BULK BOTTLE 17 GM PO (07:56)
[2021-11-17] MEDS: DOLUTEGRAVIR 50 MG 1 EACH PO ×2 (07:56→15:57)
[2021-11-17] MEDS: ESCITALOPRAM 20 MG TABLET 1 EACH PO (07:56)
[2021-11-17 10:15] VITALS: TEMP 36.6; O2SAT 95
[2021-11-17] MEDS: OXYCODONE 5 MG TABLET 2.5 MG PO ×2 (11:22→20:29)
--- NOTE | 2021-11-17 14:49 | PC.NURSE ---
Spoke to infectious disease provider at [facility] Dr. Rosenberg who has replaced the previous provider that the resident was seeing. The recommendations given. Start Paxlovid-this has been done, wait 20 days, give Evusheld, wait 2 weeks, give 4th booster. When series complete make an appt to be seen at the infectious disease clinic. Infectious disease nurse at [facility] updated on plan.
[2021-11-17 16:39] VITALS: TEMP 36.8; O2SAT 91
--- NOTE | 2021-11-17 17:04 | PC.NURSE ---
Medication: Scheduled 1600 meds given to Theron Florian RN to administer.
--- NOTE | 2021-11-17 21:45 | PC.NURSE ---
Medication: Resident's scheduled 20:00 meds given to Jayro Rizvi BUSINESS PROJECT ANALYST to administer.
[2021-11-17 23:00] VITALS: TEMP 36.2; O2SAT 93
[2021-11-18] MEDS: ACETAMINOPHEN 500 MG TABLET 1000 MG PO ×3 (07:52→19:37)
[2021-11-18] MEDS: ESCITALOPRAM 20 MG TABLET 1 EACH PO (07:52)
[2021-11-18] MEDS: DOLUTEGRAVIR 50 MG 1 EACH PO ×2 (07:53→16:20)
[2021-11-18] MEDS: OXYCODONE 5 MG TABLET PO (07:55)
[2021-11-18] MEDS: OXYCODONE 5 MG TABLET 2.5 MG PO ×2 (11:25→19:37)
[2021-11-18 21:26] VITALS: TEMP 36.8; O2SAT 92
[2021-11-18 23:00] VITALS: TEMP 36.2; O2SAT 92
--- NOTE | 2021-11-19 02:56 | PC.NURSE ---
Week #3---care plan problems #30-39 reviewed. No changes made. Temporary care plan updated re: is currently Covid positive and on isolation. Receiving Paxlovid. Continues to be incont. of B and B. Wears an xlg brief with a UG which is managed by staff. Checked and changed on 1st and 3rd rounds. All pericare done by staff. Skin---no issues at this time.
[2021-11-19] MEDS: ESCITALOPRAM 20 MG TABLET 1 EACH PO (07:10)
[2021-11-19] MEDS: DOLUTEGRAVIR 50 MG 1 EACH PO ×2 (07:10→15:18)
[2021-11-19] MEDS: polyethylene glycoL 238 GM BULK BOTTLE 17 GM PO (07:10)
[2021-11-19] MEDS: ACETAMINOPHEN 500 MG TABLET 1000 MG PO ×3 (07:10→19:12)
[2021-11-19] MEDS: OXYCODONE 5 MG TABLET PO (07:10)
[2021-11-19 09:44] VITALS: BP 135/65; PULSE 65; RESP 12; TEMP 36.7; O2SAT 96
--- NOTE | 2021-11-19 10:43 | PC.NURSE ---
Status-No cough is audible, color pale, appetite is good, eats 100%, has increase lethargy, afebrile 98.6
[2021-11-19] MEDS: OXYCODONE 5 MG TABLET 2.5 MG PO ×2 (12:12→19:12)
--- NOTE | 2021-11-19 17:02 | PC.NURSE ---
Medication: Dolutegravir 50mg and Paxlovid administered by Krystyna Carreno RN @ 15:18.
[2021-11-19 20:53] VITALS: TEMP 36.6; O2SAT 97
--- NOTE | 2021-11-19 21:48 | PC.NURSE ---
Medication: Resident's HS meds administered by Lionel Carreno RN @ 19:12.
[2021-11-19 23:00] VITALS: TEMP 36.2; O2SAT 93
[2021-11-20 07:00] VITALS: TEMP 36.2; O2SAT 97
[2021-11-20] MEDS: ACETAMINOPHEN 500 MG TABLET 1000 MG PO ×3 (07:28→19:54)
[2021-11-20] MEDS: ESCITALOPRAM 20 MG TABLET 1 EACH PO (07:29)
[2021-11-20] MEDS: DOLUTEGRAVIR 50 MG 1 EACH PO ×2 (07:29→15:39)
[2021-11-20] MEDS: OXYCODONE 5 MG TABLET PO ×2 (07:29→10:30)
[2021-11-20] MEDS: OXYCODONE 5 MG TABLET 2.5 MG PO ×2 (12:02→19:54)
--- NOTE | 2021-11-20 17:00 | PC.NURSE ---
Meds administered by Ericka Proctor LPN.
[2021-11-20 17:14] VITALS: TEMP 37; O2SAT 94
--- NOTE | 2021-11-20 22:09 | PC.NURSE ---
Status: resident had 75% of dinner. Got bed bath. Skin looks good. No covid symptoms.
[2021-11-20 23:00] VITALS: TEMP 36.4; O2SAT 96
[2021-11-21 07:00] VITALS: TEMP 36.8; O2SAT 97
[2021-11-21] MEDS: OXYCODONE 5 MG TABLET PO (07:05)
[2021-11-21] MEDS: ESCITALOPRAM 20 MG TABLET 1 EACH PO (07:05)
[2021-11-21] MEDS: ACETAMINOPHEN 500 MG TABLET 1000 MG PO ×3 (07:05→19:28)
[2021-11-21] MEDS: DOLUTEGRAVIR 50 MG 1 EACH PO ×2 (07:05→16:28)
[2021-11-21] MEDS: polyethylene glycoL 238 GM BULK BOTTLE 17 GM PO (07:05)
--- NOTE | 2021-11-21 10:05 | PC.NURSE ---
Medications given by Jayro Martínez RN
[2021-11-21] MEDS: OXYCODONE 5 MG TABLET 2.5 MG PO ×2 (11:16→19:28)
[2021-11-21 15:00] VITALS: TEMP 36.8; O2SAT 98
--- NOTE | 2021-11-21 21:42 | PC.NURSE ---
Status: Medications administered by Ashlee Martínez RN.
[2021-11-21 23:00] VITALS: TEMP 36.3
[2021-11-22] MEDS: DOLUTEGRAVIR 50 MG 1 EACH PO ×2 (07:06→15:17)
[2021-11-22] MEDS: ACETAMINOPHEN 500 MG TABLET 1000 MG PO ×3 (07:06→19:47)
[2021-11-22] MEDS: ESCITALOPRAM 20 MG TABLET 1 EACH PO (07:06)
[2021-11-22] MEDS: OXYCODONE 5 MG TABLET PO (07:06)
[2021-11-22] MEDS: polyethylene glycoL 238 GM BULK BOTTLE 17 GM PO (07:06)
[2021-11-22 10:25] VITALS: TEMP 36.6; O2SAT 96
[2021-11-22] MEDS: OXYCODONE 5 MG TABLET 2.5 MG PO ×2 (11:09→19:47)
[2021-11-22 16:29] VITALS: TEMP 36.7; O2SAT 95
[2021-11-22 23:00] VITALS: TEMP 36.1; O2SAT 94
[2021-11-23] MEDS: DOLUTEGRAVIR 50 MG 1 EACH PO ×2 (07:24→16:13)
[2021-11-23] MEDS: ACETAMINOPHEN 500 MG TABLET 1000 MG PO ×3 (07:24→20:03)
[2021-11-23] MEDS: ESCITALOPRAM 20 MG TABLET 1 EACH PO (07:24)
[2021-11-23] MEDS: polyethylene glycoL 238 GM BULK BOTTLE 17 GM PO (07:24)
[2021-11-23] MEDS: OXYCODONE 5 MG TABLET PO (07:25)
[2021-11-23 10:20] VITALS: TEMP 36.3; O2SAT 95
[2021-11-23] MEDS: OXYCODONE 5 MG TABLET 2.5 MG PO ×2 (11:15→20:04)
[2021-11-23 17:26] VITALS: TEMP 36.7; O2SAT 94
--- NOTE | 2021-11-23 21:23 | PC.NURSE ---
Medications administered by Ericka Proctor LPN.
[2021-11-23 23:00] VITALS: TEMP 36.8; O2SAT 94
[2021-11-24 07:00] VITALS: TEMP 36.7; O2SAT 96
[2021-11-24] MEDS: polyethylene glycoL 238 GM BULK BOTTLE 17 GM PO (07:23)
[2021-11-24] MEDS: DOLUTEGRAVIR 50 MG 1 EACH PO ×2 (07:23→16:42)
[2021-11-24] MEDS: ACETAMINOPHEN 500 MG TABLET 1000 MG PO ×3 (07:23→19:45)
[2021-11-24] MEDS: ESCITALOPRAM 20 MG TABLET 1 EACH PO (07:23)
[2021-11-24] MEDS: OXYCODONE 5 MG TABLET 10 MG PO (07:24)
[2021-11-24] MEDS: OXYCODONE 5 MG TABLET PO ×2 (12:09→19:45)
--- NOTE | 2021-11-24 13:49 | PC.NURSE ---
Status-Alert, responds to conversation without problem, appetite was good, Noted to have discomfort when turning resident during care's. placed into recliner for meals, tolerated well.
[2021-11-24 15:00] VITALS: TEMP 36.6; O2SAT 90
[2021-11-24] MEDS: bisacodyL 10 MG SUPP.RECT PR (16:42)
--- NOTE | 2021-11-24 21:22 | PC.NURSE ---
Status: Resident has emesis at 1620 was washed up changed and put in bed. No further emesis.
[2021-11-24 23:00] VITALS: TEMP 36.8; O2SAT 92
[2021-11-25 07:00] VITALS: TEMP 36.6; O2SAT 97
[2021-11-25] MEDS: ACETAMINOPHEN 500 MG TABLET 1000 MG PO ×3 (07:20→19:04)
[2021-11-25] MEDS: OXYCODONE 5 MG TABLET 10 MG PO (07:20)
[2021-11-25] MEDS: polyethylene glycoL 238 GM BULK BOTTLE 17 GM PO (07:20)
[2021-11-25] MEDS: ESCITALOPRAM 20 MG TABLET 1 EACH PO (07:20)
[2021-11-25] MEDS: DOLUTEGRAVIR 50 MG 1 EACH PO ×2 (07:20→15:31)
[2021-11-25] MEDS: OXYCODONE 5 MG TABLET PO ×2 (12:10→19:04)
--- NOTE | 2021-11-25 14:00 | PC.NURSE ---
Spoke with [facility] for Evusheild dosing information fax number and provider to send it to. Given information. Information faxed. Paperwork in CHEMICAL RECOVERY OPERATOR office. Will await response.
[2021-11-25 20:09] VITALS: TEMP 36.6; O2SAT 96
[2021-11-25 23:00] VITALS: TEMP 36.1; O2SAT 96
--- NOTE | 2021-11-26 02:55 | PC.NURSE ---
Week #4---care plan problems #40+ reviewed. No changes made. Nothing added to temporary care plan. Res. remains on isolation due to having Covid and being immunocompromised. Does not use call light. All needs anticipated by staff. No changes in hearing, vision, or orientation reported. No behavior problems at [facility]. Sleeping well. Continues on Escitalopram 20 mg qd with no adverse effects noted.
[2021-11-26] MEDS: OXYCODONE 5 MG TABLET 10 MG PO (07:26)
[2021-11-26] MEDS: ACETAMINOPHEN 500 MG TABLET 1000 MG PO ×3 (07:26→20:19)
[2021-11-26] MEDS: DOLUTEGRAVIR 50 MG 1 EACH PO ×2 (07:26→15:59)
[2021-11-26] MEDS: ESCITALOPRAM 20 MG TABLET 1 EACH PO (07:26)
[2021-11-26] MEDS: polyethylene glycoL 238 GM BULK BOTTLE 17 GM PO (07:26)
[2021-11-26] MEDS: OXYCODONE 5 MG TABLET PO ×3 (10:40→20:19)
[2021-11-26 13:41] VITALS: TEMP 36.6; O2SAT 97
[2021-11-26 19:36] VITALS: BP 138/90; PULSE 68; RESP 16; TEMP 36.7; O2SAT 97
--- NOTE | 2021-11-26 21:44 | PC.NURSE ---
Week #4---care plan problems #40+ reviewed.? No changes made.? Nothing added to temporary care plan.? Res. remains on isolation due to having Covid and being immunocompromised.? Does not use call light.? All needs anticipated by staff.? No changes in hearing, vision, or orientation reported. No behavior problems noted. Continues on Escitalopram 20 mg qd with no adverse effects noted.
[2021-11-26 23:00] VITALS: TEMP 36.5; O2SAT 94
[2021-11-27 07:00] VITALS: TEMP 36.9; O2SAT 95
[2021-11-27] MEDS: polyethylene glycoL 238 GM BULK BOTTLE 17 GM PO (07:55)
[2021-11-27] MEDS: DOLUTEGRAVIR 50 MG 1 EACH PO ×2 (07:55→16:00)
[2021-11-27] MEDS: ESCITALOPRAM 20 MG TABLET 1 EACH PO (07:55)
[2021-11-27] MEDS: ACETAMINOPHEN 500 MG TABLET 1000 MG PO ×3 (07:55→19:50)
[2021-11-27] MEDS: OXYCODONE 5 MG TABLET 10 MG PO (07:55)
[2021-11-27] MEDS: OXYCODONE 5 MG TABLET PO ×2 (11:21→19:50)
--- NOTE | 2021-11-27 13:20 | PC.NURSE ---
Medications administered by Ashlee Martínez RN.
[2021-11-27 21:17] VITALS: TEMP 36.5; O2SAT 96; BMI 31.3
[2021-11-27 23:00] VITALS: TEMP 36.6; O2SAT 95
[2021-11-28 07:00] VITALS: TEMP 36.9; O2SAT 96
[2021-11-28] MEDS: OXYCODONE 5 MG TABLET 10 MG PO (07:12)
[2021-11-28] MEDS: ACETAMINOPHEN 500 MG TABLET 1000 MG PO ×3 (07:12→20:07)
[2021-11-28] MEDS: DOLUTEGRAVIR 50 MG 1 EACH PO ×2 (07:12→16:21)
[2021-11-28] MEDS: ESCITALOPRAM 20 MG TABLET 1 EACH PO (07:12)
[2021-11-28] MEDS: polyethylene glycoL 238 GM BULK BOTTLE 17 GM PO (07:12)
[2021-11-28] MEDS: OXYCODONE 5 MG TABLET PO ×3 (10:20→20:07)
[2021-11-28 18:05] VITALS: TEMP 36.6; O2SAT 95
[2021-11-28 23:00] VITALS: TEMP 36.6; O2SAT 98
[2021-11-29] MEDS: polyethylene glycoL 238 GM BULK BOTTLE 17 GM PO (07:27)
[2021-11-29] MEDS: DOLUTEGRAVIR 50 MG 1 EACH PO ×2 (07:28→15:59)
[2021-11-29] MEDS: OXYCODONE 5 MG TABLET 10 MG PO (07:28)
[2021-11-29] MEDS: ESCITALOPRAM 20 MG TABLET 1 EACH PO (08:51)
[2021-11-29] MEDS: ACETAMINOPHEN 500 MG TABLET 1000 MG PO ×3 (08:51→20:25)
[2021-11-29] MEDS: OXYCODONE 5 MG TABLET PO ×2 (11:47→20:25)
--- NOTE | 2021-11-29 13:13 | PC.NURSE ---
Status-Appetite has decreased for past 3 days, taking just bite's of meal's, when food offered will shake head back and forth, refusing to eat, needs much encouragement to drink fluids, sleeps off and on, when turning in bed from side to side for care's will wince in pain, face will turn red,Occ's will moan. PRN pain medication with relief.
[2021-11-29 15:00] VITALS: TEMP 37.1; O2SAT 96
[2021-11-30 00:28] VITALS: TEMP 36; O2SAT 94
[2021-11-30 07:00] VITALS: TEMP 36.9; O2SAT 97
[2021-11-30] MEDS: DOLUTEGRAVIR 50 MG 1 EACH PO ×2 (07:14→16:03)
[2021-11-30] MEDS: ACETAMINOPHEN 500 MG TABLET 1000 MG PO ×3 (07:14→20:25)
[2021-11-30] MEDS: OXYCODONE 5 MG TABLET 10 MG PO (07:14)
[2021-11-30] MEDS: ESCITALOPRAM 20 MG TABLET 1 EACH PO (07:14)
[2021-11-30] MEDS: OXYCODONE 5 MG TABLET PO ×2 (11:58→20:25)
--- NOTE | 2021-11-30 13:18 | PC.NURSE ---
Status-Ate 100% of breakfast drank all fluids, refused lunch, took sips of fluids, color is good afebrile 98.4.
[2021-11-30 21:48] VITALS: TEMP 36.4; O2SAT 98
[2021-11-30 23:00] VITALS: TEMP 36.3; O2SAT 95
[2021-12-01] MEDS: OXYCODONE 5 MG TABLET 10 MG PO (07:16)
[2021-12-01] MEDS: ACETAMINOPHEN 500 MG TABLET 1000 MG PO ×3 (07:17→19:38)
[2021-12-01] MEDS: DOLUTEGRAVIR 50 MG 1 EACH PO ×2 (07:17→16:25)
[2021-12-01] MEDS: polyethylene glycoL 238 GM BULK BOTTLE 17 GM PO (07:17)
[2021-12-01] MEDS: ESCITALOPRAM 20 MG TABLET 1 EACH PO (07:18)
[2021-12-01 10:49] VITALS: TEMP 36.3; O2SAT 94
[2021-12-01] MEDS: OXYCODONE 5 MG TABLET PO ×2 (11:13→19:38)
--- NOTE | 2021-12-01 13:18 | PC.NURSE ---
Status: Resident refused breakfast but did eat 25% of lunch. Temp 97.4 O2 94% on room air
[2021-12-01 21:08] VITALS: TEMP 36.2; O2SAT 92; BMI 31.1
[2021-12-01 23:00] VITALS: TEMP 36; O2SAT 94
[2021-12-02 07:00] VITALS: TEMP 37; O2SAT 97
[2021-12-02] MEDS: polyethylene glycoL 238 GM BULK BOTTLE 17 GM PO (07:06)
[2021-12-02] MEDS: ACETAMINOPHEN 500 MG TABLET 1000 MG PO ×3 (07:06→19:54)
[2021-12-02] MEDS: DOLUTEGRAVIR 50 MG 1 EACH PO ×2 (07:06→15:43)
[2021-12-02] MEDS: ESCITALOPRAM 20 MG TABLET 1 EACH PO (07:07)
[2021-12-02] MEDS: OXYCODONE 5 MG TABLET 10 MG PO (07:07)
[2021-12-02] MEDS: OXYCODONE 5 MG TABLET PO ×2 (11:48→19:54)
--- NOTE | 2021-12-02 11:53 | PC.SPIRITC ---
provided visit for connection.
[2021-12-02 15:00] VITALS: TEMP 36.6; O2SAT 97
--- NOTE | 2021-12-02 15:00 | PC.NURSE ---
CARE CONFERENCE: meeting held with care team members from nursing, dietary, activities and social welfare clerk. Family did not attend. Family does visit regularly. Brother Odell and NAKITA have taken over guardianship recently for resident. Resident recently has had COVID without any adverse effects. Nursing is following up on Evusheld infusion. Nursing reviewed that resident continues to need 2 ALLEN total assistance with dressing, grooming, mobility and bathing. Propelled by staff in wheelchair to and from activities. Dietary advised weights are stable and we have seen a slight decrease. SS updated that mood is stable and no concerns at this time. POLST reviewed. Is DNR/DNI. Uses no restraints. Does use 2 side rails up to assist with positioning. Medications administered by nurse. Vulnerability- is at risk for being harmed due to mobility limitations and cognition. There are no discharge plans.
[2021-12-02 15:38] VITALS: BMI 31.1
[2021-12-02 23:00] VITALS: TEMP 35.8; O2SAT 92
[2021-12-03 07:00] VITALS: TEMP 36.8; O2SAT 97
[2021-12-03] MEDS: polyethylene glycoL 238 GM BULK BOTTLE 17 GM PO (07:37)
[2021-12-03] MEDS: DOLUTEGRAVIR 50 MG 1 EACH PO ×2 (07:37→15:42)
[2021-12-03] MEDS: ACETAMINOPHEN 500 MG TABLET 1000 MG PO ×3 (07:37→19:41)
[2021-12-03] MEDS: ESCITALOPRAM 20 MG TABLET 1 EACH PO (07:37)
[2021-12-03] MEDS: OXYCODONE 5 MG TABLET 10 MG PO (07:37)
[2021-12-03] MEDS: OXYCODONE 5 MG TABLET PO ×2 (11:53→19:41)
--- NOTE | 2021-12-03 14:00 | PC.NURSE ---
Father updated via phone call from social service assistant yesterday that staff is wanting to speak with him about Evusheld infusion per recommendations from [facility] provider. Today did not hear back from father. Have sent an email with consent form and information facts about Evusheld via email for signature and advised to call with any questions/concerns. Will await response from father.
[2021-12-03 15:00] VITALS: TEMP 36.5; O2SAT 97
--- NOTE | 2021-12-03 18:41 | REH.OT ---
Addendum entered by Nicky Matthews RN 02/06/22 10:34: Hot Liquid Assessment: Resident needs to be seated at a table with staff assist due to cognitive and physical deficits. Does NOT use a covered mug. Addendum entered and electronically signed by LARRY Fleming/Chelsie 12/05/21 12:23: Patient needs staff assistance with hot liquids. Original Note: Hot Beverage Assessment: The patient requires be seated at table with covered mug due to cognitive and physical deficits.
[2021-12-03 23:00] VITALS: TEMP 35.8; O2SAT 94
[2021-12-04] MEDS: ESCITALOPRAM 20 MG TABLET 1 EACH PO (07:18)
[2021-12-04] MEDS: ACETAMINOPHEN 500 MG TABLET 1000 MG PO ×3 (07:18→19:37)
[2021-12-04] MEDS: DOLUTEGRAVIR 50 MG 1 EACH PO ×2 (07:18→15:26)
[2021-12-04] MEDS: polyethylene glycoL 238 GM BULK BOTTLE 17 GM PO (07:18)
[2021-12-04] MEDS: OXYCODONE 5 MG TABLET 10 MG PO (07:19)
[2021-12-04 10:41] VITALS: TEMP 36.6; O2SAT 94
[2021-12-04] MEDS: OXYCODONE 5 MG TABLET PO ×2 (11:29→19:37)
[2021-12-04 21:43] VITALS: TEMP 36.2; O2SAT 96; BMI 18.3
[2021-12-04 23:00] VITALS: TEMP 36.4; O2SAT 94
[2021-12-05] MEDS: ESCITALOPRAM 20 MG TABLET 1 EACH PO (07:14)
[2021-12-05] MEDS: DOLUTEGRAVIR 50 MG 1 EACH PO ×2 (07:14→15:45)
[2021-12-05] MEDS: polyethylene glycoL 238 GM BULK BOTTLE 17 GM PO (07:14)
[2021-12-05] MEDS: OXYCODONE 5 MG TABLET 10 MG PO (07:14)
[2021-12-05] MEDS: ACETAMINOPHEN 500 MG TABLET 1000 MG PO ×3 (07:14→20:18)
[2021-12-05] MEDS: MAGNESIUM HYDROXIDE 30 ML ORAL.SUSP PO (10:38)
[2021-12-05 10:41] VITALS: TEMP 36.6; O2SAT 96
[2021-12-05] MEDS: OXYCODONE 5 MG TABLET PO ×2 (11:23→20:18)
--- NOTE | 2021-12-05 13:40 | PC.NURSE ---
Father Chau left a message that his son Odell is now the court appointed POA for resident. Have updated S.S. Odell called and updated on need for court paperwork to be sent to the care center as well as discussion about Evusheld to be administered if family feels appropriate. Will await response.
[2021-12-05 16:00] VITALS: TEMP 36.2; O2SAT 98
--- NOTE | 2021-12-05 21:32 | PC.NURSE ---
Resident has 2 cm scratch that is HILL on right temporal scalp. Denies any pain or discomfort. Intervention in place to monitor.
[2021-12-06] MEDS: ACETAMINOPHEN 500 MG TABLET 1000 MG PO ×3 (07:19→20:05)
[2021-12-06] MEDS: polyethylene glycoL 238 GM BULK BOTTLE 17 GM PO (07:19)
[2021-12-06] MEDS: DOLUTEGRAVIR 50 MG 1 EACH PO ×2 (07:20→15:57)
[2021-12-06] MEDS: OXYCODONE 5 MG TABLET 10 MG PO (07:20)
[2021-12-06] MEDS: ESCITALOPRAM 20 MG TABLET 1 EACH PO (07:20)
[2021-12-06] MEDS: OXYCODONE 5 MG TABLET PO ×2 (11:18→20:05)
[2021-12-06 16:00] VITALS: TEMP 36.2; O2SAT 98
[2021-12-07] MEDS: DOLUTEGRAVIR 50 MG 1 EACH PO ×2 (07:20→15:43)
[2021-12-07] MEDS: ACETAMINOPHEN 500 MG TABLET 1000 MG PO ×3 (07:20→19:21)
[2021-12-07] MEDS: polyethylene glycoL 238 GM BULK BOTTLE 17 GM PO (07:20)
[2021-12-07] MEDS: OXYCODONE 5 MG TABLET 10 MG PO (07:21)
[2021-12-07] MEDS: ESCITALOPRAM 20 MG TABLET 1 EACH PO (07:21)
[2021-12-07] MEDS: OXYCODONE 5 MG TABLET PO ×2 (11:12→19:21)
[2021-12-07 16:00] VITALS: TEMP 36.6; O2SAT 96
[2021-12-08] MEDS: ACETAMINOPHEN 500 MG TABLET 1000 MG PO ×3 (07:04→19:54)
[2021-12-08] MEDS: OXYCODONE 5 MG TABLET 10 MG PO (07:04)
[2021-12-08] MEDS: ESCITALOPRAM 20 MG TABLET 1 EACH PO (07:04)
[2021-12-08] MEDS: polyethylene glycoL 238 GM BULK BOTTLE 17 GM PO (07:04)
[2021-12-08] MEDS: DOLUTEGRAVIR 50 MG 1 EACH PO ×2 (07:04→15:03)
[2021-12-08] MEDS: OXYCODONE 5 MG TABLET PO ×2 (12:02→19:54)
[2021-12-08 16:00] VITALS: TEMP 36.6; O2SAT 97
[2021-12-08 21:46] VITALS: BMI 31.6
[2021-12-09] MEDS: OXYCODONE 5 MG TABLET 10 MG PO (07:02)
[2021-12-09] MEDS: DOLUTEGRAVIR 50 MG 1 EACH PO ×2 (07:02→16:09)
[2021-12-09] MEDS: ACETAMINOPHEN 500 MG TABLET 1000 MG PO ×3 (07:02→19:27)
[2021-12-09] MEDS: polyethylene glycoL 238 GM BULK BOTTLE 17 GM PO (07:02)
[2021-12-09] MEDS: ESCITALOPRAM 20 MG TABLET 1 EACH PO (07:02)
--- NOTE | 2021-12-09 10:38 | PC.NURSE ---
Skin-Scab present on temporal area will D/C monitoring.
[2021-12-09] MEDS: OXYCODONE 5 MG TABLET PO ×2 (11:49→19:27)
[2021-12-09 21:38] VITALS: TEMP 36.3; O2SAT 97
--- NOTE | 2021-12-10 03:24 | PC.NURSE ---
Week #1---care plan problems #1-19 reviewed. No changes made. Temporary care plan updated re: has recovered from Covid 19. Staff cont. to offer res. a drink of water with cares but he usually refuses. Pain---no apparent pain at noc this past month. Continues to receive the following pain meds: Tylenol 1000 mg tid and Oxycodone 10 mg at 0800, 5 mg at 1200 and 2000, and 5 mg q6h prn.
[2021-12-10] MEDS: ACETAMINOPHEN 500 MG TABLET 1000 MG PO ×3 (06:59→19:00)
[2021-12-10] MEDS: DOLUTEGRAVIR 50 MG 1 EACH PO ×2 (07:00→16:16)
[2021-12-10] MEDS: polyethylene glycoL 238 GM BULK BOTTLE 17 GM PO (07:00)
[2021-12-10] MEDS: ESCITALOPRAM 20 MG TABLET 1 EACH PO (07:00)
[2021-12-10] MEDS: OXYCODONE 5 MG TABLET 10 MG PO (07:02)
--- NOTE | 2021-12-10 09:31 | PC.NURSE ---
Week #1: Care plan problems 1-19 and temporary care plan reviewed. No changes made. Nothing added to temporary care plan. Resident needs 1-2 assists with dressing and bathing, one assist with grooming, oral cares and feeding. Is on regular diet, soft & bite sized texture. No problems noted with chewing or swallowing. Resident needs reminder at times to chew foods & take time to swallow. Pain: No pain this past month. Pain is controlled with Tylenol 1000mg TID, Oxycodone 10mg @ 08, 5mg @ 1200 & 2000 and Q6H PRN. Staff anticipate needs as he is not able to verbally communicate.
[2021-12-10] MEDS: OXYCODONE 5 MG TABLET PO ×2 (11:26→19:00)
[2021-12-10 16:00] VITALS: TEMP 36.2; O2SAT 95
[2021-12-10 21:37] VITALS: BP 101/69; PULSE 74; RESP 16; TEMP 36.6; O2SAT 95
[2021-12-11] MEDS: ACETAMINOPHEN 500 MG TABLET 1000 MG PO ×3 (07:24→19:38)
[2021-12-11] MEDS: DOLUTEGRAVIR 50 MG 1 EACH PO ×2 (07:25→15:10)
[2021-12-11] MEDS: polyethylene glycoL 238 GM BULK BOTTLE 17 GM PO (07:25)
[2021-12-11] MEDS: ESCITALOPRAM 20 MG TABLET 1 EACH PO (07:25)
[2021-12-11] MEDS: OXYCODONE 5 MG TABLET 10 MG PO (07:25)
[2021-12-11] MEDS: OXYCODONE 5 MG TABLET PO ×2 (11:08→19:38)
[2021-12-11 15:00] VITALS: BMI 31.6
[2021-12-11 16:00] VITALS: TEMP 36.4; O2SAT 96
[2021-12-12] MEDS: ESCITALOPRAM 20 MG TABLET 1 EACH PO (08:34)
[2021-12-12] MEDS: ACETAMINOPHEN 500 MG TABLET 1000 MG PO ×3 (08:34→20:21)
[2021-12-12] MEDS: polyethylene glycoL 238 GM BULK BOTTLE 17 GM PO (08:36)
[2021-12-12] MEDS: OXYCODONE 5 MG TABLET 10 MG PO (08:36)
[2021-12-12] MEDS: DOLUTEGRAVIR 50 MG 1 EACH PO ×2 (08:36→15:55)
--- NOTE | 2021-12-12 11:55 | PC.NURSE ---
MDS clarification: Reviewed MDS ADL charting for CAITLYN 11/28-12/04, noted to have inconsistent charting. Interviewed NARs and determined that errors were made. Reviewed with staff. Resident uses total assist of 2 with bed, transfers, hygiene and dressing. Resident uses total assist of 1 with locomotion in w/c, resident is checked and changed in bed. Resident incontinent of B&B. Resident is non ambulatory. Resident needs assist of 1 with eating. At times can use finger foods. Coded as such in MDS.
[2021-12-12] MEDS: OXYCODONE 5 MG TABLET PO ×2 (12:12→20:21)
[2021-12-12 21:14] VITALS: TEMP 36; O2SAT 97
[2021-12-13] MEDS: ACETAMINOPHEN 500 MG TABLET 1000 MG PO ×3 (07:36→19:28)
[2021-12-13] MEDS: ESCITALOPRAM 20 MG TABLET 1 EACH PO (07:38)
[2021-12-13] MEDS: DOLUTEGRAVIR 50 MG 1 EACH PO ×2 (07:38→15:11)
[2021-12-13] MEDS: polyethylene glycoL 238 GM BULK BOTTLE 17 GM PO (07:38)
[2021-12-13] MEDS: OXYCODONE 5 MG TABLET 10 MG PO (07:40)
[2021-12-13] MEDS: OXYCODONE 5 MG TABLET PO ×2 (11:19→19:28)
[2021-12-13 21:04] VITALS: TEMP 36.3; O2SAT 98
[2021-12-14] MEDS: ACETAMINOPHEN 500 MG TABLET 1000 MG PO ×3 (07:33→19:30)
[2021-12-14] MEDS: ESCITALOPRAM 20 MG TABLET 1 EACH PO (07:34)
[2021-12-14] MEDS: polyethylene glycoL 238 GM BULK BOTTLE 17 GM PO (07:35)
[2021-12-14] MEDS: DOLUTEGRAVIR 50 MG 1 EACH PO ×2 (07:35→15:53)
[2021-12-14] MEDS: OXYCODONE 5 MG TABLET 10 MG PO (07:37)
[2021-12-14] MEDS: OXYCODONE 5 MG TABLET PO ×2 (11:23→19:30)
[2021-12-14 21:30] VITALS: TEMP 36; O2SAT 97
[2021-12-15] MEDS: ACETAMINOPHEN 500 MG TABLET 1000 MG PO ×3 (07:27→20:05)
[2021-12-15] MEDS: polyethylene glycoL 238 GM BULK BOTTLE 17 GM PO (07:27)
[2021-12-15] MEDS: ESCITALOPRAM 20 MG TABLET 1 EACH PO (07:28)
[2021-12-15] MEDS: OXYCODONE 5 MG TABLET 10 MG PO (07:28)
[2021-12-15] MEDS: DOLUTEGRAVIR 50 MG 1 EACH PO ×2 (07:28→15:43)
[2021-12-15] MEDS: OXYCODONE 5 MG TABLET PO ×2 (11:23→20:06)
[2021-12-15 16:50] VITALS: TEMP 36.1; O2SAT 96
[2021-12-16] MEDS: ESCITALOPRAM 20 MG TABLET 1 EACH PO (07:58)
[2021-12-16] MEDS: polyethylene glycoL 238 GM BULK BOTTLE 17 GM PO (07:58)
[2021-12-16] MEDS: OXYCODONE 5 MG TABLET 10 MG PO (07:58)
[2021-12-16] MEDS: DOLUTEGRAVIR 50 MG 1 EACH PO ×2 (07:58→16:07)
[2021-12-16] MEDS: ACETAMINOPHEN 500 MG TABLET 1000 MG PO ×3 (07:58→19:13)
--- NOTE | 2021-12-16 11:08 | PC.NURSE ---
Week #2: Care plan problems - and temporary care plan reviewed. No changes made. Nothing added to temporary care plan. Resident is non ambulatory. Transfers with a deandre lift with 2 assists. Is able to wheel self without a purpose. Staff to propel to meals and activities. He can make slight changes in positioning. Staff to make sure resident make significant changes in positioning every 2 hours. Top side rails up to aid for positioning. No alarms. Fall: No falls this past month. Is a low fall risk according to assessment done on 12/04/21.
[2021-12-16] MEDS: OXYCODONE 5 MG TABLET PO ×2 (11:16→19:13)
[2021-12-16 16:00] VITALS: TEMP 36.7; O2SAT 97
--- NOTE | 2021-12-17 01:29 | PC.NURSE ---
Week #2: Fall summary: Resident is a low fall risk per the assessment done on 09/11/21. Is on hourly visual checks. Has had no falls in the past month. Temporary care plan reviewed, no change. Care plan reviewed, no change. Bed mobility: Resident is total assist for bed mobility and a two assist with deandre for all transfers.
[2021-12-17] MEDS: DOLUTEGRAVIR 50 MG 1 EACH PO ×2 (07:25→16:02)
[2021-12-17] MEDS: ACETAMINOPHEN 500 MG TABLET 1000 MG PO ×3 (07:25→19:39)
[2021-12-17] MEDS: polyethylene glycoL 238 GM BULK BOTTLE 17 GM PO (07:25)
[2021-12-17] MEDS: ESCITALOPRAM 20 MG TABLET 1 EACH PO (07:25)
[2021-12-17] MEDS: OXYCODONE 5 MG TABLET 10 MG PO (07:26)
[2021-12-17 10:19] VITALS: BP 97/65; PULSE 78; RESP 16; TEMP 36.6; O2SAT 96
[2021-12-17] MEDS: OXYCODONE 5 MG TABLET PO ×2 (11:44→19:39)
[2021-12-17 16:00] VITALS: TEMP 36.5; O2SAT 96
[2021-12-18] MEDS: ACETAMINOPHEN 500 MG TABLET 1000 MG PO ×3 (07:10→19:01)
[2021-12-18] MEDS: DOLUTEGRAVIR 50 MG 1 EACH PO ×2 (07:11→16:16)
[2021-12-18] MEDS: polyethylene glycoL 238 GM BULK BOTTLE 17 GM PO (07:11)
[2021-12-18] MEDS: ESCITALOPRAM 20 MG TABLET 1 EACH PO (07:12)
[2021-12-18] MEDS: OXYCODONE 5 MG TABLET 10 MG PO (07:20)
[2021-12-18] MEDS: bisacodyL 10 MG SUPP.RECT PR (10:37)
[2021-12-18] MEDS: OXYCODONE 5 MG TABLET PO ×2 (11:28→19:01)
[2021-12-18 15:00] VITALS: BMI 31.4
[2021-12-18 16:00] VITALS: TEMP 36.8; O2SAT 96
[2021-12-19] MEDS: ACETAMINOPHEN 500 MG TABLET 1000 MG PO ×3 (07:40→21:14)
[2021-12-19] MEDS: OXYCODONE 5 MG TABLET 10 MG PO (07:41)
[2021-12-19] MEDS: DOLUTEGRAVIR 50 MG 1 EACH PO ×2 (07:41→15:30)
[2021-12-19] MEDS: polyethylene glycoL 238 GM BULK BOTTLE 17 GM PO (07:41)
[2021-12-19] MEDS: ESCITALOPRAM 20 MG TABLET 1 EACH PO (07:41)
--- NOTE | 2021-12-19 10:05 | PC.NURSE ---
Spoke to Dr. Curtis on Evusheld infusion per infusion centers request for provider information to be given to family before infusion can take place. Dr. Curtis advised that residents infectious disease provider at [facility] be updated to give information to family.
[2021-12-19] MEDS: OXYCODONE 5 MG TABLET PO ×2 (11:10→21:15)
[2021-12-19 16:00] VITALS: TEMP 36.6; O2SAT 98
[2021-12-20] MEDS: ACETAMINOPHEN 500 MG TABLET 1000 MG PO ×3 (08:40→19:50)
[2021-12-20] MEDS: polyethylene glycoL 238 GM BULK BOTTLE 17 GM PO (08:40)
[2021-12-20] MEDS: ESCITALOPRAM 20 MG TABLET 1 EACH PO (08:40)
[2021-12-20] MEDS: OXYCODONE 5 MG TABLET 10 MG PO (08:40)
[2021-12-20] MEDS: DOLUTEGRAVIR 50 MG 1 EACH PO ×2 (08:40→15:28)
[2021-12-20] MEDS: OXYCODONE 5 MG TABLET PO ×2 (11:17→19:50)
[2021-12-20 17:01] VITALS: TEMP 36.8; O2SAT 95
[2021-12-21] MEDS: DOLUTEGRAVIR 50 MG 1 EACH PO ×2 (08:26→15:26)
[2021-12-21] MEDS: polyethylene glycoL 238 GM BULK BOTTLE 17 GM PO (08:26)
[2021-12-21] MEDS: ESCITALOPRAM 20 MG TABLET 1 EACH PO (08:26)
[2021-12-21] MEDS: OXYCODONE 5 MG TABLET 10 MG PO (08:26)
[2021-12-21] MEDS: ACETAMINOPHEN 500 MG TABLET 1000 MG PO ×3 (08:26→20:02)
[2021-12-21] MEDS: OXYCODONE 5 MG TABLET PO ×2 (11:10→20:02)
[2021-12-21 16:29] VITALS: TEMP 36.6; O2SAT 98
[2021-12-22] MEDS: ACETAMINOPHEN 500 MG TABLET 1000 MG PO ×3 (07:18→19:40)
[2021-12-22] MEDS: OXYCODONE 5 MG TABLET 10 MG PO (07:19)
[2021-12-22] MEDS: ESCITALOPRAM 20 MG TABLET 1 EACH PO (07:19)
[2021-12-22] MEDS: polyethylene glycoL 238 GM BULK BOTTLE 17 GM PO (07:19)
[2021-12-22] MEDS: DOLUTEGRAVIR 50 MG 1 EACH PO ×2 (07:19→16:14)
[2021-12-22] MEDS: OXYCODONE 5 MG TABLET PO ×2 (11:15→19:41)
[2021-12-22 15:00] VITALS: BMI 31.4
--- NOTE | 2021-12-22 15:00 | PC.NURSE ---
Spoke to infectious disease clinic at [facility] about the information on Evusheld that needs to be given to family by a provider before infusion can take place. Nurse stated she would talk with team and provider about this issue and return call later in the week. Will await phone call.
[2021-12-22 17:23] VITALS: TEMP 36.9; O2SAT 91
[2021-12-23] MEDS: OXYCODONE 5 MG TABLET 10 MG PO (07:18)
[2021-12-23] MEDS: ESCITALOPRAM 20 MG TABLET 1 EACH PO (07:21)
[2021-12-23] MEDS: polyethylene glycoL 238 GM BULK BOTTLE 17 GM PO (07:21)
[2021-12-23] MEDS: ACETAMINOPHEN 500 MG TABLET 1000 MG PO ×3 (07:21→19:21)
[2021-12-23] MEDS: DOLUTEGRAVIR 50 MG 1 EACH PO ×2 (07:21→15:53)
[2021-12-23] MEDS: OXYCODONE 5 MG TABLET PO ×2 (12:19→19:21)
[2021-12-23 16:00] VITALS: TEMP 36.6; O2SAT 97
[2021-12-24 01:56] VITALS: TEMP 36.2; O2SAT 96
--- NOTE | 2021-12-24 02:10 | PC.NURSE ---
Week #3---care plan problems #30-39 reviewed.? No changes made.? Temporary care plan updated. Continues to be incontinent of bladder and bowel.? Wears an xlg brief with a UG which is managed by staff.? Checked and changed on 1st and 3rd rounds.? All pericare done by staff. Skin---no issues at this time.
[2021-12-24] MEDS: polyethylene glycoL 238 GM BULK BOTTLE 17 GM PO (08:26)
[2021-12-24] MEDS: OXYCODONE 5 MG TABLET 10 MG PO (08:26)
[2021-12-24] MEDS: DOLUTEGRAVIR 50 MG 1 EACH PO ×2 (08:26→14:59)
[2021-12-24] MEDS: ESCITALOPRAM 20 MG TABLET 1 EACH PO (08:26)
[2021-12-24] MEDS: ACETAMINOPHEN 500 MG TABLET 1000 MG PO ×3 (08:26→19:18)
[2021-12-24 10:00] VITALS: BP 106/64; PULSE 64; RESP 16; TEMP 36.6; O2SAT 98
[2021-12-24 10:47] VITALS: TEMP 36; O2SAT 95
[2021-12-24] MEDS: OXYCODONE 5 MG TABLET PO ×2 (12:10→19:18)
--- NOTE | 2021-12-24 13:35 | PC.PHA ---
Pharmacy Review ~ Patient completed Paxlovid regimen in November for Covid-19. Pain medication regimen of scheduled and prn oxycodone continues. Need for prn oxycodone order increased November but he has not needed thus far in December. Cornelia and Francoise continue for HIV.
[2021-12-24 15:00] VITALS: TEMP 36.6; O2SAT 98
--- NOTE | 2021-12-24 22:47 | PC.NURSE ---
Week #3: Care plan problems 30-39 and temporary care plan reviewed. No changes made. Nothing added to temporary care plan. Resident is incontinent of bowel & bladder. Needs total assist wit all toileting needs. Does not use the toilet. Staff to check and change as needed by 0700, before/after meals. Wears xlg briefs. Pads, anel cares, clothing adjustment managed by staff. Skin: Had scratch to right temporal scalp on 12/08/21 that has resolved. No issues at this time. Skin is checked routinely during cares & baths.
[2021-12-25 03:27] VITALS: TEMP 36.1; O2SAT 94
[2021-12-25] MEDS: ESCITALOPRAM 20 MG TABLET 1 EACH PO (07:24)
[2021-12-25] MEDS: ACETAMINOPHEN 500 MG TABLET 1000 MG PO ×3 (07:24→21:04)
[2021-12-25] MEDS: OXYCODONE 5 MG TABLET 10 MG PO (07:24)
[2021-12-25] MEDS: DOLUTEGRAVIR 50 MG 1 EACH PO ×2 (07:24→15:03)
[2021-12-25] MEDS: polyethylene glycoL 238 GM BULK BOTTLE 17 GM PO (07:24)
[2021-12-25] MEDS: MAGNESIUM HYDROXIDE 30 ML ORAL.SUSP PO (09:22)
[2021-12-25 09:41] VITALS: TEMP 36.4; O2SAT 94
--- NOTE | 2021-12-25 09:45 | PC.NURSE ---
COVID OUTBREAK TESTING: Resident was excluded from testing d/t recent COVID+ status. Testing will resume after 90 days from positive test result.
[2021-12-25] MEDS: OXYCODONE 5 MG TABLET PO ×2 (11:06→21:04)
[2021-12-25 15:00] VITALS: TEMP 36.4; O2SAT 94; BMI 31.6
[2021-12-26 04:05] VITALS: TEMP 36.1; O2SAT 93
[2021-12-26] MEDS: polyethylene glycoL 238 GM BULK BOTTLE 17 GM PO (07:12)
[2021-12-26] MEDS: OXYCODONE 5 MG TABLET 10 MG PO (07:12)
[2021-12-26] MEDS: DOLUTEGRAVIR 50 MG 1 EACH PO ×2 (07:12→15:35)
[2021-12-26] MEDS: ACETAMINOPHEN 500 MG TABLET 1000 MG PO ×3 (07:12→19:12)
[2021-12-26] MEDS: ESCITALOPRAM 20 MG TABLET 1 EACH PO (07:12)
[2021-12-26] MEDS: bisacodyL 10 MG SUPP.RECT PR (09:34)
[2021-12-26 10:40] VITALS: TEMP 36.4; O2SAT 93
[2021-12-26] MEDS: OXYCODONE 5 MG TABLET PO ×2 (11:48→19:12)
[2021-12-26 15:00] VITALS: TEMP 36.7; O2SAT 95
[2021-12-27 00:23] VITALS: TEMP 36.6; O2SAT 97
[2021-12-27] MEDS: DOLUTEGRAVIR 50 MG 1 EACH PO ×2 (07:29→16:14)
[2021-12-27] MEDS: OXYCODONE 5 MG TABLET 10 MG PO (07:29)
[2021-12-27] MEDS: ACETAMINOPHEN 500 MG TABLET 1000 MG PO ×3 (07:29→19:18)
[2021-12-27] MEDS: polyethylene glycoL 238 GM BULK BOTTLE 17 GM PO (07:29)
[2021-12-27] MEDS: ESCITALOPRAM 20 MG TABLET 1 EACH PO (08:28)
[2021-12-27 10:02] VITALS: TEMP 36.2; O2SAT 94
[2021-12-27] MEDS: OXYCODONE 5 MG TABLET PO ×2 (11:14→19:18)
[2021-12-27 15:00] VITALS: TEMP 36.6; O2SAT 97
[2021-12-28 02:08] VITALS: TEMP 36.4; O2SAT 96
[2021-12-28] MEDS: ACETAMINOPHEN 500 MG TABLET 1000 MG PO ×3 (07:26→20:49)
[2021-12-28] MEDS: DOLUTEGRAVIR 50 MG 1 EACH PO ×2 (07:26→15:49)
[2021-12-28] MEDS: polyethylene glycoL 238 GM BULK BOTTLE 17 GM PO (07:26)
[2021-12-28] MEDS: OXYCODONE 5 MG TABLET 10 MG PO (07:26)
[2021-12-28] MEDS: ESCITALOPRAM 20 MG TABLET 1 EACH PO (07:26)
[2021-12-28 10:20] VITALS: TEMP 36.8; O2SAT 96
[2021-12-28] MEDS: OXYCODONE 5 MG TABLET PO ×2 (11:47→20:49)
[2021-12-28 21:20] VITALS: TEMP 36.8; O2SAT 98
[2021-12-28 23:00] VITALS: TEMP 36.2; O2SAT 95
[2021-12-29] MEDS: polyethylene glycoL 238 GM BULK BOTTLE 17 GM PO (08:06)
[2021-12-29] MEDS: DOLUTEGRAVIR 50 MG 1 EACH PO ×2 (08:06→15:48)
[2021-12-29] MEDS: ESCITALOPRAM 20 MG TABLET 1 EACH PO (08:06)
[2021-12-29] MEDS: ACETAMINOPHEN 500 MG TABLET 1000 MG PO ×3 (08:06→19:52)
[2021-12-29] MEDS: OXYCODONE 5 MG TABLET 10 MG PO (08:06)
[2021-12-29 10:12] VITALS: TEMP 36.4; O2SAT 96
--- NOTE | 2021-12-29 10:49 | PC.NURSE ---
COVID OUTBREAK TESTING: Resident was excluded from testing d/t recent COVID+ status. Testing will resume after 90 days from positive test result.
[2021-12-29] MEDS: OXYCODONE 5 MG TABLET PO ×2 (11:32→19:52)
[2021-12-29 21:30] VITALS: TEMP 36.6; O2SAT 94
[2021-12-29 21:34] VITALS: BMI 31.4
[2021-12-30 04:02] VITALS: TEMP 36.2; O2SAT 95
[2021-12-30] MEDS: ACETAMINOPHEN 500 MG TABLET 1000 MG PO ×3 (07:00→19:53)
[2021-12-30] MEDS: polyethylene glycoL 238 GM BULK BOTTLE 17 GM PO (07:00)
[2021-12-30] MEDS: ESCITALOPRAM 20 MG TABLET 1 EACH PO (07:01)
[2021-12-30] MEDS: DOLUTEGRAVIR 50 MG 1 EACH PO ×2 (07:01→15:32)
[2021-12-30] MEDS: OXYCODONE 5 MG TABLET 10 MG PO (07:01)
[2021-12-30] MEDS: OXYCODONE 5 MG TABLET PO ×2 (11:47→19:53)
[2021-12-30] MEDS: bisacodyL 10 MG SUPP.RECT PR (13:27)
[2021-12-30 13:38] VITALS: TEMP 36.1; O2SAT 95
[2021-12-30 15:11] VITALS: TEMP 36.6; O2SAT 96
--- NOTE | 2021-12-31 01:07 | PC.NURSE ---
Week #4: Mood/Behavior: No concerns/ changes in mood/behavior on NOC. Is on Escitalopram 20mg Daily. No adverse side effects noted. Temporary care plan reviewed, no change. Care plan 40-119 reviewed, no change. Communication: Resident is unable to communicate needs. Staff to anticipate needs. No change in medication, can not self admin.
[2021-12-31 03:47] VITALS: TEMP 35.9; O2SAT 96
[2021-12-31] MEDS: ACETAMINOPHEN 500 MG TABLET 1000 MG PO ×3 (08:21→19:45)
[2021-12-31] MEDS: ESCITALOPRAM 20 MG TABLET 1 EACH PO (08:22)
[2021-12-31] MEDS: polyethylene glycoL 238 GM BULK BOTTLE 17 GM PO (08:22)
[2021-12-31] MEDS: DOLUTEGRAVIR 50 MG 1 EACH PO ×2 (08:22→15:45)
[2021-12-31] MEDS: OXYCODONE 5 MG TABLET 10 MG PO (08:24)
[2021-12-31 09:57] VITALS: TEMP 36.4; O2SAT 97
[2021-12-31] MEDS: OXYCODONE 5 MG TABLET PO ×2 (11:26→19:45)
--- NOTE | 2021-12-31 13:40 | PC.NURSE ---
Week #4:Care plan 40-119 reviewed, no change.Temporary care plan reviewed, no change Mood/Behavior: No concerns/ changes in mood/behavior. Is on Escitalopram 20mg Daily. No adverse side effects noted. Communication: Resident is unable to communicate needs. Staff to anticipate needs. No change in medication, can not self admin.
[2021-12-31 13:56] VITALS: BP 128/82; PULSE 78; RESP 20; TEMP 36.6; O2SAT 96
[2021-12-31 15:00] VITALS: TEMP 36.5; O2SAT 96
[2022-01-01 03:40] VITALS: TEMP 36.9; O2SAT 96
[2022-01-01] MEDS: ACETAMINOPHEN 500 MG TABLET 1000 MG PO ×3 (08:08→19:35)
[2022-01-01] MEDS: DOLUTEGRAVIR 50 MG 1 EACH PO ×2 (08:11→15:57)
[2022-01-01] MEDS: ESCITALOPRAM 20 MG TABLET 1 EACH PO (08:11)
[2022-01-01] MEDS: polyethylene glycoL 238 GM BULK BOTTLE 17 GM PO (08:11)
[2022-01-01] MEDS: OXYCODONE 5 MG TABLET 10 MG PO (08:13)
[2022-01-01] MEDS: OXYCODONE 5 MG TABLET PO ×2 (11:39→19:35)
[2022-01-01 13:09] VITALS: TEMP 36.2; O2SAT 96
--- NOTE | 2022-01-01 13:15 | PC.NURSE ---
FLU VACCINE: Resident was given flu vaccine today at 10am. Order is not built in [facility] for regular dose vaccine, will document when it is built.
[2022-01-01 15:00] VITALS: TEMP 36.9; O2SAT 98; BMI 31.4
[2022-01-01 23:00] VITALS: TEMP 36.6; O2SAT 96
[2022-01-02] MEDS: ACETAMINOPHEN 500 MG TABLET 1000 MG PO ×3 (08:18→19:27)
[2022-01-02] MEDS: OXYCODONE 5 MG TABLET 10 MG PO (08:20)
[2022-01-02] MEDS: polyethylene glycoL 238 GM BULK BOTTLE 17 GM PO (08:20)
[2022-01-02] MEDS: DOLUTEGRAVIR 50 MG 1 EACH PO ×2 (08:20→15:19)
[2022-01-02] MEDS: ESCITALOPRAM 20 MG TABLET 1 EACH PO (08:20)
[2022-01-02 10:59] VITALS: TEMP 36.3; O2SAT 95
[2022-01-02] MEDS: OXYCODONE 5 MG TABLET PO ×2 (11:38→19:27)
[2022-01-02 21:21] VITALS: TEMP 36.2; O2SAT 96
[2022-01-03 03:59] VITALS: TEMP 36.6; O2SAT 95
[2022-01-03] MEDS: OXYCODONE 5 MG TABLET 10 MG PO (08:14)
[2022-01-03] MEDS: ACETAMINOPHEN 500 MG TABLET 1000 MG PO ×3 (08:14→19:39)
[2022-01-03] MEDS: polyethylene glycoL 238 GM BULK BOTTLE 17 GM PO (08:14)
[2022-01-03] MEDS: DOLUTEGRAVIR 50 MG 1 EACH PO ×2 (08:14→15:53)
[2022-01-03] MEDS: ESCITALOPRAM 20 MG TABLET 1 EACH PO (08:14)
[2022-01-03 10:50] VITALS: TEMP 36.1; O2SAT 96
[2022-01-03] MEDS: OXYCODONE 5 MG TABLET PO ×2 (11:54→19:39)
[2022-01-03 15:00] VITALS: TEMP 36.1; O2SAT 97
[2022-01-03 23:00] VITALS: TEMP 36.4; O2SAT 95
[2022-01-04 07:00] VITALS: TEMP 36.3; O2SAT 97
[2022-01-04] MEDS: ACETAMINOPHEN 500 MG TABLET 1000 MG PO ×3 (07:22→19:40)
[2022-01-04] MEDS: polyethylene glycoL 238 GM BULK BOTTLE 17 GM PO (07:22)
[2022-01-04] MEDS: DOLUTEGRAVIR 50 MG 1 EACH PO ×2 (07:22→15:22)
[2022-01-04] MEDS: OXYCODONE 5 MG TABLET 10 MG PO (07:23)
[2022-01-04] MEDS: ESCITALOPRAM 20 MG TABLET 1 EACH PO (07:23)
[2022-01-04] MEDS: OXYCODONE 5 MG TABLET PO ×2 (12:21→19:40)
[2022-01-04 15:00] VITALS: TEMP 36.6; O2SAT 96
[2022-01-05 02:53] VITALS: TEMP 36.2; O2SAT 93
[2022-01-05] MEDS: ACETAMINOPHEN 500 MG TABLET 1000 MG PO ×3 (07:10→19:53)
[2022-01-05] MEDS: polyethylene glycoL 238 GM BULK BOTTLE 17 GM PO (07:11)
[2022-01-05] MEDS: DOLUTEGRAVIR 50 MG 1 EACH PO ×2 (07:11→15:25)
[2022-01-05] MEDS: OXYCODONE 5 MG TABLET 10 MG PO (07:11)
[2022-01-05] MEDS: ESCITALOPRAM 20 MG TABLET 1 EACH PO (07:11)
[2022-01-05] MEDS: MAGNESIUM HYDROXIDE 30 ML ORAL.SUSP PO (08:38)
[2022-01-05 10:43] VITALS: TEMP 36; O2SAT 96
[2022-01-05] MEDS: OXYCODONE 5 MG TABLET PO ×2 (11:20→19:54)
[2022-01-05 16:46] VITALS: TEMP 36.4; O2SAT 95
[2022-01-05 16:47] VITALS: BMI 31.7
[2022-01-05 16:52] VITALS: BP 108/68; PULSE 88; RESP 29; TEMP 36.6; O2SAT 95
[2022-01-06 06:43] VITALS: TEMP 37; O2SAT 95
[2022-01-06] MEDS: DOLUTEGRAVIR 50 MG 1 EACH PO ×2 (07:42→16:04)
[2022-01-06] MEDS: ESCITALOPRAM 20 MG TABLET 1 EACH PO (07:42)
[2022-01-06] MEDS: ACETAMINOPHEN 500 MG TABLET 1000 MG PO ×3 (07:42→19:05)
[2022-01-06] MEDS: OXYCODONE 5 MG TABLET 10 MG PO (07:42)
[2022-01-06] MEDS: polyethylene glycoL 238 GM BULK BOTTLE 17 GM PO (07:42)
[2022-01-06 10:41] VITALS: TEMP 36.7; O2SAT 97
[2022-01-06] MEDS: bisacodyL 10 MG SUPP.RECT PR (10:41)
[2022-01-06] MEDS: OXYCODONE 5 MG TABLET PO ×2 (11:25→19:05)
[2022-01-06 15:00] VITALS: TEMP 36.2; O2SAT 97
--- NOTE | 2022-01-07 00:21 | PC.NURSE ---
Week #1---care plan problems #1-19 reviewed. No changes made.?Care plan reviewed. No changes made. Pain Management: Receives Tylenol 1000 mg tid and Oxycodone 10 mg at 0800, 5 mg at 1200 and 2000, and 5 mg Q6h PRN. Good control of pain with the current medication. No c/o pain in the past month. Resident is incontinent of bladder and bowels and he is 1 assist with his cares at night.
[2022-01-07 01:36] VITALS: TEMP 36.6; O2SAT 96
[2022-01-07] MEDS: polyethylene glycoL 238 GM BULK BOTTLE 17 GM PO (07:24)
[2022-01-07] MEDS: ACETAMINOPHEN 500 MG TABLET 1000 MG PO ×3 (07:24→19:31)
[2022-01-07] MEDS: DOLUTEGRAVIR 50 MG 1 EACH PO ×2 (07:25→16:14)
[2022-01-07] MEDS: OXYCODONE 5 MG TABLET 10 MG PO (07:25)
[2022-01-07] MEDS: ESCITALOPRAM 20 MG TABLET 1 EACH PO (07:25)
[2022-01-07] MEDS: OXYCODONE 5 MG TABLET PO ×2 (11:23→19:31)
[2022-01-07 11:51] VITALS: TEMP 36.8; O2SAT 96
[2022-01-07 15:00] VITALS: TEMP 36.8; O2SAT 96
[2022-01-08 03:39] VITALS: TEMP 36.3; O2SAT 94
[2022-01-08] MEDS: DOLUTEGRAVIR 50 MG 1 EACH PO ×2 (07:25→15:27)
[2022-01-08] MEDS: polyethylene glycoL 238 GM BULK BOTTLE 17 GM PO (07:25)
[2022-01-08] MEDS: OXYCODONE 5 MG TABLET 10 MG PO (07:25)
[2022-01-08] MEDS: ACETAMINOPHEN 500 MG TABLET 1000 MG PO ×3 (07:25→19:32)
[2022-01-08] MEDS: ESCITALOPRAM 20 MG TABLET 1 EACH PO (07:25)
[2022-01-08 10:41] VITALS: TEMP 36.6; O2SAT 94
[2022-01-08] MEDS: OXYCODONE 5 MG TABLET PO ×2 (11:44→19:32)
[2022-01-08 15:00] VITALS: TEMP 36.5; O2SAT 96
[2022-01-08 17:14] VITALS: BP 101/66; PULSE 61; RESP 16; TEMP 36.6; O2SAT 97
[2022-01-09 02:27] VITALS: TEMP 35.7; O2SAT 97
[2022-01-09] MEDS: DOLUTEGRAVIR 50 MG 1 EACH PO ×2 (07:11→16:06)
[2022-01-09] MEDS: polyethylene glycoL 238 GM BULK BOTTLE 17 GM PO (07:11)
[2022-01-09] MEDS: ACETAMINOPHEN 500 MG TABLET 1000 MG PO ×3 (07:11→19:30)
[2022-01-09] MEDS: OXYCODONE 5 MG TABLET 10 MG PO (07:12)
[2022-01-09] MEDS: ESCITALOPRAM 20 MG TABLET 1 EACH PO (07:12)
[2022-01-09 10:29] VITALS: TEMP 36.6; O2SAT 97
[2022-01-09] MEDS: OXYCODONE 5 MG TABLET PO ×2 (11:33→19:30)
[2022-01-09 15:00] VITALS: TEMP 36.5; O2SAT 97
[2022-01-10 02:45] VITALS: TEMP 36.6; O2SAT 95
[2022-01-10 07:00] VITALS: TEMP 36.2; O2SAT 96
[2022-01-10] MEDS: DOLUTEGRAVIR 50 MG 1 EACH PO ×2 (07:52→15:57)
[2022-01-10] MEDS: polyethylene glycoL 238 GM BULK BOTTLE 17 GM PO (07:52)
[2022-01-10] MEDS: ACETAMINOPHEN 500 MG TABLET 1000 MG PO ×3 (07:52→19:23)
[2022-01-10] MEDS: ESCITALOPRAM 20 MG TABLET 1 EACH PO (07:53)
[2022-01-10] MEDS: OXYCODONE 5 MG TABLET 10 MG PO (07:53)
[2022-01-10] MEDS: OXYCODONE 5 MG TABLET PO ×2 (11:39→19:23)
[2022-01-10 15:00] VITALS: TEMP 36.2; O2SAT 96
[2022-01-10 23:00] VITALS: TEMP 36.4; O2SAT 96
[2022-01-11 07:00] VITALS: TEMP 36.7; O2SAT 97
[2022-01-11] MEDS: OXYCODONE 5 MG TABLET 10 MG PO (08:30)
[2022-01-11] MEDS: ESCITALOPRAM 20 MG TABLET 1 EACH PO (08:30)
[2022-01-11] MEDS: polyethylene glycoL 238 GM BULK BOTTLE 17 GM PO (08:30)
[2022-01-11] MEDS: ACETAMINOPHEN 500 MG TABLET 1000 MG PO ×3 (08:30→19:36)
[2022-01-11] MEDS: DOLUTEGRAVIR 50 MG 1 EACH PO ×2 (08:30→15:41)
[2022-01-11] MEDS: OXYCODONE 5 MG TABLET PO ×2 (11:49→19:36)
[2022-01-11 13:28] VITALS: TEMP 36.7; O2SAT 97
[2022-01-11 23:00] VITALS: TEMP 35.6; O2SAT 95
[2022-01-12] MEDS: ACETAMINOPHEN 500 MG TABLET 1000 MG PO ×3 (07:15→19:20)
[2022-01-12] MEDS: OXYCODONE 5 MG TABLET 10 MG PO (07:16)
[2022-01-12] MEDS: ESCITALOPRAM 20 MG TABLET 1 EACH PO (07:16)
[2022-01-12] MEDS: polyethylene glycoL 238 GM BULK BOTTLE 17 GM PO (07:16)
[2022-01-12] MEDS: DOLUTEGRAVIR 50 MG 1 EACH PO ×2 (07:16→15:31)
--- NOTE | 2022-01-12 10:06 | PC.NURSE ---
Skin: Was reported by BRAZING MACHINE TENDER that resident received two skin abrasions on his left llamas over the weekend which were reported to the nurse. Unknown how it happened. One in the middle of the llamas measuring 2.5cm x 1.5cm and one under that measuring 5.0cm x 3.0cm. Incident report filed and intervention set up. JAVA J2EE TECHNICAL LEAD updated
[2022-01-12] MEDS: OXYCODONE 5 MG TABLET PO ×2 (11:30→19:21)
--- NOTE | 2022-01-12 12:00 | PC.NURSE ---
[facility] provider Dr. Leigh Ann Potter called and advised that patient needs to have a follow up appointment scheduled. Would like orders CD4 count, HIV RNA, CMC, CMP. METAL FABRICATION SUPERVISOR binder updated will be reviewed tomorrow. Results will be gone over with [facility] provider. Family called and updated on appointment needed to be made.
[2022-01-12 13:02] VITALS: TEMP 36.6; O2SAT 94
[2022-01-12] MEDS: MAGNESIUM HYDROXIDE 30 ML ORAL.SUSP PO (13:13)
--- NOTE | 2022-01-12 16:06 | PC.NURSE ---
COVID OUTBREAK TESTING: Resident was excluded from testing d/t recent COVID+ status. Testing will resume after 90 days from positive test result.
[2022-01-12 16:57] VITALS: TEMP 36.6; O2SAT 95
[2022-01-12 17:00] VITALS: BP 124/70; PULSE 76; RESP 20; TEMP 36.6; O2SAT 97
[2022-01-13 02:36] VITALS: TEMP 35.9; O2SAT 94
[2022-01-13] MEDS: OXYCODONE 5 MG TABLET 10 MG PO (07:44)
[2022-01-13] MEDS: DOLUTEGRAVIR 50 MG 1 EACH PO ×2 (07:47→15:28)
[2022-01-13] MEDS: polyethylene glycoL 238 GM BULK BOTTLE 17 GM PO (07:47)
[2022-01-13] MEDS: ACETAMINOPHEN 500 MG TABLET 1000 MG PO ×3 (07:47→19:24)
[2022-01-13] MEDS: ESCITALOPRAM 20 MG TABLET 1 EACH PO (07:48)
--- NOTE | 2022-01-13 09:00 | PC.NURSE ---
Appointment: virtual appointment with [facility] provider will be held on 01/15/22 @ 4pm, with family also on virtual appointment. Staff will be present. Calendar updated. Labs to be drawn on 01/14/22 per providers request and Evusheild to be discussed.
[2022-01-13 10:24] VITALS: TEMP 36.6; O2SAT 97
[2022-01-13] MEDS: OXYCODONE 5 MG TABLET PO ×2 (11:17→19:25)
--- NOTE | 2022-01-13 11:24 | PC.SPIRITC ---
Skin Fitter provided visit for support and connection.
--- NOTE | 2022-01-13 12:00 | PC.NURSE ---
Order: Triamcinolone Cream 0.1% to rash on feet @ HS X 14 days, Labs 01/14/22.
[2022-01-13 16:24] VITALS: TEMP 36.3; O2SAT 96
[2022-01-13 23:00] VITALS: TEMP 36; O2SAT 94
--- NOTE | 2022-01-14 01:00 | PC.NURSE ---
Week #2: Resident is a low fall risk, has had no falls in the last month. Is on hourly visual safety checks. Temporary care plan reviewed, no change. Care plan reviewed, no change. Resident is one assist for bed mobility, is laying on a reposition sheet. Is Srikanth lift for transfers Does have range of motion in the right upper extremity BID.
--- NOTE | 2022-01-14 07:14 | PC.NURSE ---
Week #2: Care plan problems - and temporary care plan reviewed. No changes made. Nothing added to temporary care plan. Resident is non ambulatory. Transfers with a deandre lift with 2 assists. Is able to wheel self without a purpose. Staff to propel to meals and activities. He can make slight changes in positioning. Staff to make sure resident make significant changes in positioning every 2 hours. Top side rails up to aid for positioning.?ROM to (R) upper extremity by staff BID. No alarms. Fall: No falls this past month. Is a low fall risk according to assessment done on 12/04/21.
[2022-01-14 08:11] LABS: Basophils Absolute Auto 0.02 K/uL (0.00-0.30); Basophils Percent Auto 0.4 % (0.0-3.0); Eosinophils Absolute Auto 0.09 K/uL (0.00-0.50); Eosinophils Percent Auto 1.8 % (0.0-7.0); Hematocrit 44.7 % (37.0-53.0); Hemoglobin* 15.3 gm/dL (13.5-17.5); Lymphocytes Absolute Auto 1.54 K/uL (0.90-2.90); Lymphocytes Percent Auto 30.2 % (20-44); Mean Corpuscular HGB Conc 34 gm/dL (32-36); Mean Corpuscular Hemoglobin 33 pg (26-34); Mean Corpuscular Volume 95 fL (80-100); Monocytes Percent Auto 6.5 % (0.0-11.0); Neutrophils Absolute Auto 3.12 K/uL (1.7-7.0); Neutrophils Percent Auto 61.1 % (42.0-72.0); Platelet Count* 195 K/uL (140-440); RDW Coefficient of Variation % 11.8 % (11.5-15.5); Red Blood Count 4.69 m/uL (4.30-5.90)
[2022-01-14 08:20] LABS: Slide Review Reflex No
[2022-01-14] MEDS: ACETAMINOPHEN 500 MG TABLET 1000 MG PO ×3 (08:43→20:03)
[2022-01-14] MEDS: polyethylene glycoL 238 GM BULK BOTTLE 17 GM PO (08:44)
[2022-01-14] MEDS: DOLUTEGRAVIR 50 MG 1 EACH PO ×2 (08:45→15:03)
[2022-01-14] MEDS: ESCITALOPRAM 20 MG TABLET 1 EACH PO (08:45)
[2022-01-14] MEDS: OXYCODONE 5 MG TABLET 10 MG PO (08:50)
[2022-01-14 08:58] LABS: Albumin* 4.4 g/dL (3.3-5.0); Chloride* 107 mmol/L (96-114); Sodium* 140 mmol/L (135-149)
[2022-01-14 08:59] LABS: Potassium* 4.1 mmol/L (3.6-5.1)
[2022-01-14 09:01] LABS: Alanine Aminotransferase* 33 U/L (4-50); Alkaline Phosphatase* 85 U/L (40-150); Aspartate Amino Transferase* 43 U/L (12-35); Bilirubin Total* 0.6 mg/dL (0.1-1.5); Blood Urea Nitrogen* 12 mg/dL (5-24); Carbon Dioxide* 24 mmol/L (20-32); Creatinine* 0.7 mg/dL (0.5-1.5); Est. Creatinine Clearance* 152.43; Estimated Glomerular Filt Rate 119 ml/min; Glucose* 92 mg/dL (60-115); Total Protein* 7.2 g/dL (6.0-8.3)
[2022-01-14 09:02] LABS: Calcium* 9.4 mg/dL (8.4-10.6)
[2022-01-14 10:51] VITALS: TEMP 36.7; O2SAT 97
[2022-01-14] MEDS: OXYCODONE 5 MG TABLET PO ×2 (11:45→20:03)
[2022-01-14 15:00] VITALS: TEMP 36.6; O2SAT 98
[2022-01-14] MEDS: TRIAMCINOLONE ACETONIDE CREAM 0.1 % 1 APPLIC TOPICAL (21:15)
[2022-01-14 23:00] VITALS: TEMP 36.6; O2SAT 97
[2022-01-15] MEDS: ESCITALOPRAM 20 MG TABLET 1 EACH PO (08:42)
[2022-01-15] MEDS: DOLUTEGRAVIR 50 MG 1 EACH PO ×2 (08:42→15:32)
[2022-01-15] MEDS: ACETAMINOPHEN 500 MG TABLET 1000 MG PO ×3 (08:42→20:49)
[2022-01-15] MEDS: OXYCODONE 5 MG TABLET 10 MG PO (08:42)
[2022-01-15] MEDS: polyethylene glycoL 238 GM BULK BOTTLE 17 GM PO (08:42)
[2022-01-15] MEDS: OXYCODONE 5 MG TABLET PO ×2 (11:21→20:50)
[2022-01-15 12:34] VITALS: TEMP 36.6; O2SAT 96
[2022-01-15 15:00] VITALS: TEMP 36.6; O2SAT 98
[2022-01-15] MEDS: TRIAMCINOLONE ACETONIDE CREAM 0.1 % 1 APPLIC TOPICAL (20:50)
[2022-01-15 23:00] VITALS: TEMP 36.6; O2SAT 98
[2022-01-16] MEDS: OXYCODONE 5 MG TABLET 10 MG PO (07:14)
[2022-01-16] MEDS: ESCITALOPRAM 20 MG TABLET 1 EACH PO (07:14)
[2022-01-16] MEDS: polyethylene glycoL 238 GM BULK BOTTLE 17 GM PO (07:14)
[2022-01-16] MEDS: ACETAMINOPHEN 500 MG TABLET 1000 MG PO ×3 (07:14→19:33)
[2022-01-16] MEDS: DOLUTEGRAVIR 50 MG 1 EACH PO ×2 (07:14→17:20)
[2022-01-16 09:23] LABS: Absolute CD3 1193 cells/uL (570-2400); Absolute CD4:CD8 Ratio 0.53 ratio (0.80-3.90); Absolute CD8 779 cells/uL (210-1200)
[2022-01-16] MEDS: OXYCODONE 5 MG TABLET PO ×2 (11:38→19:33)
[2022-01-16 13:15] VITALS: TEMP 36.1; O2SAT 94
[2022-01-16] MEDS: TRIAMCINOLONE ACETONIDE CREAM 0.1 % 1 APPLIC TOPICAL (19:33)
[2022-01-16 21:55] VITALS: TEMP 36.6; O2SAT 98
[2022-01-16 23:00] VITALS: TEMP 35.8; O2SAT 95
[2022-01-17] MEDS: ESCITALOPRAM 20 MG TABLET 1 EACH PO (07:35)
[2022-01-17] MEDS: DOLUTEGRAVIR 50 MG 1 EACH PO ×2 (07:35→16:54)
[2022-01-17] MEDS: polyethylene glycoL 238 GM BULK BOTTLE 17 GM PO (07:35)
[2022-01-17] MEDS: OXYCODONE 5 MG TABLET 10 MG PO (07:35)
[2022-01-17] MEDS: ACETAMINOPHEN 500 MG TABLET 1000 MG PO ×3 (07:35→19:50)
[2022-01-17 10:52] VITALS: TEMP 36.2; O2SAT 96
[2022-01-17] MEDS: OXYCODONE 5 MG TABLET PO ×2 (11:24→19:50)
[2022-01-17 15:00] VITALS: TEMP 36.6; O2SAT 96
[2022-01-17] MEDS: TRIAMCINOLONE ACETONIDE CREAM 0.1 % 1 APPLIC TOPICAL (19:50)
[2022-01-17 23:00] VITALS: TEMP 36.4; O2SAT 91
[2022-01-18] MEDS: polyethylene glycoL 238 GM BULK BOTTLE 17 GM PO (08:23)
[2022-01-18] MEDS: ACETAMINOPHEN 500 MG TABLET 1000 MG PO ×3 (08:23→19:04)
[2022-01-18] MEDS: DOLUTEGRAVIR 50 MG 1 EACH PO ×2 (08:23→14:59)
[2022-01-18] MEDS: ESCITALOPRAM 20 MG TABLET 1 EACH PO (08:23)
[2022-01-18] MEDS: OXYCODONE 5 MG TABLET 10 MG PO (08:23)
[2022-01-18] MEDS: OXYCODONE 5 MG TABLET PO ×2 (11:30→19:04)
[2022-01-18 13:13] VITALS: TEMP 36.2; O2SAT 96
[2022-01-18 15:00] VITALS: TEMP 36.5; O2SAT 97
[2022-01-18] MEDS: TRIAMCINOLONE ACETONIDE CREAM 0.1 % 1 APPLIC TOPICAL (19:04)
[2022-01-18 23:00] VITALS: TEMP 36.8; O2SAT 95
[2022-01-19] MEDS: ACETAMINOPHEN 500 MG TABLET 1000 MG PO ×3 (07:19→19:38)
[2022-01-19] MEDS: OXYCODONE 5 MG TABLET 10 MG PO (07:20)
[2022-01-19] MEDS: DOLUTEGRAVIR 50 MG 1 EACH PO ×2 (07:20→15:32)
[2022-01-19] MEDS: ESCITALOPRAM 20 MG TABLET 1 EACH PO (07:20)
[2022-01-19] MEDS: polyethylene glycoL 238 GM BULK BOTTLE 17 GM PO (07:20)
[2022-01-19 10:26] VITALS: TEMP 36.8; O2SAT 94
[2022-01-19] MEDS: OXYCODONE 5 MG TABLET PO ×2 (11:08→19:38)
--- NOTE | 2022-01-19 14:07 | PC.NURSE ---
COVID OUTBREAK TESTING: Resident was excluded from testing d/t recent COVID+ status. Testing will resume after 90 days from positive test result.
[2022-01-19 16:25] VITALS: TEMP 36.2; O2SAT 96
[2022-01-19 16:30] VITALS: BP 112/76; PULSE 69; RESP 20; TEMP 36.2; O2SAT 96
[2022-01-19] MEDS: TRIAMCINOLONE ACETONIDE CREAM 0.1 % 1 APPLIC TOPICAL (19:38)
[2022-01-20 00:13] VITALS: TEMP 36.4; O2SAT 95
[2022-01-20] MEDS: ACETAMINOPHEN 500 MG TABLET 1000 MG PO ×3 (07:09→19:26)
[2022-01-20] MEDS: polyethylene glycoL 238 GM BULK BOTTLE 17 GM PO (07:09)
[2022-01-20] MEDS: DOLUTEGRAVIR 50 MG 1 EACH PO ×2 (07:09→16:36)
[2022-01-20] MEDS: ESCITALOPRAM 20 MG TABLET 1 EACH PO (07:10)
[2022-01-20] MEDS: OXYCODONE 5 MG TABLET 10 MG PO (07:10)
[2022-01-20 10:34] VITALS: TEMP 36.3; O2SAT 94
[2022-01-20] MEDS: OXYCODONE 5 MG TABLET PO ×2 (11:17→19:26)
[2022-01-20 15:00] VITALS: TEMP 36.5; O2SAT 94
[2022-01-20] MEDS: TRIAMCINOLONE ACETONIDE CREAM 0.1 % 1 APPLIC TOPICAL (19:26)
[2022-01-21 00:55] VITALS: TEMP 36.4; O2SAT 95
--- NOTE | 2022-01-21 01:45 | PC.NURSE ---
Week #3---care plan problems #30-39 reviewed. No changes made.?Temporary care plan changes updated. noted 2 skin abrasion on his left llamas which have already healed and only left scab. Continues to be incontinent of bladder and bowel.? Wears a brief which is managed by staff .Checked and changed on 1st and 3rd rounds.? All pericare done by staff. Skin---abrasion on left llamas healed and continue to apply Triam cream 0.1% to rash on his feet.
[2022-01-21] MEDS: ESCITALOPRAM 20 MG TABLET 1 EACH PO (07:09)
[2022-01-21] MEDS: polyethylene glycoL 238 GM BULK BOTTLE 17 GM PO (07:09)
[2022-01-21] MEDS: ACETAMINOPHEN 500 MG TABLET 1000 MG PO ×3 (07:09→19:36)
[2022-01-21] MEDS: DOLUTEGRAVIR 50 MG 1 EACH PO ×2 (07:09→15:21)
[2022-01-21] MEDS: OXYCODONE 5 MG TABLET 10 MG PO (07:09)
[2022-01-21] MEDS: OXYCODONE 5 MG TABLET PO ×2 (11:31→19:36)
--- NOTE | 2022-01-21 14:44 | PC.PHA ---
Pharmacy Review ~ No recent medication changes. As needed oxycodone not needed since late November. Antivirals for HIV treatment continue Oseltamivir Dosing: Treatment:75 mg po bid for 5 days Prophylaxis:75 mg po Daily for 14 days or longer (see policy).
[2022-01-21] MEDS: TRIAMCINOLONE ACETONIDE CREAM 0.1 % 1 APPLIC TOPICAL (19:36)
[2022-01-22] MEDS: ACETAMINOPHEN 500 MG TABLET 1000 MG PO ×3 (07:15→19:46)
[2022-01-22] MEDS: polyethylene glycoL 238 GM BULK BOTTLE 17 GM PO (07:15)
[2022-01-22] MEDS: ESCITALOPRAM 20 MG TABLET 1 EACH PO (07:16)
[2022-01-22] MEDS: DOLUTEGRAVIR 50 MG 1 EACH PO ×2 (07:16→15:38)
[2022-01-22] MEDS: OXYCODONE 5 MG TABLET 10 MG PO (07:16)
[2022-01-22] MEDS: OXYCODONE 5 MG TABLET PO ×2 (11:29→19:46)
[2022-01-22] MEDS: TRIAMCINOLONE ACETONIDE CREAM 0.1 % 1 APPLIC TOPICAL (19:46)
[2022-01-23] MEDS: polyethylene glycoL 238 GM BULK BOTTLE 17 GM PO (07:55)
[2022-01-23] MEDS: ESCITALOPRAM 20 MG TABLET 1 EACH PO (07:55)
[2022-01-23] MEDS: OXYCODONE 5 MG TABLET 10 MG PO (07:55)
[2022-01-23] MEDS: DOLUTEGRAVIR 50 MG 1 EACH PO ×2 (07:55→16:06)
[2022-01-23] MEDS: ACETAMINOPHEN 500 MG TABLET 1000 MG PO ×3 (07:55→20:37)
[2022-01-23] MEDS: OXYCODONE 5 MG TABLET PO ×2 (11:23→20:37)
[2022-01-23] MEDS: TRIAMCINOLONE ACETONIDE CREAM 0.1 % 1 APPLIC TOPICAL (20:37)
[2022-01-24] MEDS: DOLUTEGRAVIR 50 MG 1 EACH PO ×2 (07:28→15:21)
[2022-01-24] MEDS: polyethylene glycoL 238 GM BULK BOTTLE 17 GM PO (07:28)
[2022-01-24] MEDS: ACETAMINOPHEN 500 MG TABLET 1000 MG PO ×3 (07:28→20:21)
[2022-01-24] MEDS: OXYCODONE 5 MG TABLET 10 MG PO (07:29)
[2022-01-24] MEDS: ESCITALOPRAM 20 MG TABLET 1 EACH PO (07:29)
[2022-01-24] MEDS: OXYCODONE 5 MG TABLET PO ×2 (11:21→20:21)
[2022-01-24] MEDS: TRIAMCINOLONE ACETONIDE CREAM 0.1 % 1 APPLIC TOPICAL (20:21)
[2022-01-25] MEDS: OXYCODONE 5 MG TABLET 10 MG PO (07:04)
[2022-01-25] MEDS: ESCITALOPRAM 20 MG TABLET 1 EACH PO (07:04)
[2022-01-25] MEDS: polyethylene glycoL 238 GM BULK BOTTLE 17 GM PO (07:04)
[2022-01-25] MEDS: ACETAMINOPHEN 500 MG TABLET 1000 MG PO ×3 (07:04→19:09)
[2022-01-25] MEDS: DOLUTEGRAVIR 50 MG 1 EACH PO ×2 (07:04→15:21)
[2022-01-25] MEDS: OXYCODONE 5 MG TABLET PO ×2 (11:33→19:10)
[2022-01-25] MEDS: TRIAMCINOLONE ACETONIDE CREAM 0.1 % 1 APPLIC TOPICAL (19:10)
[2022-01-26] MEDS: polyethylene glycoL 238 GM BULK BOTTLE 17 GM PO (08:20)
[2022-01-26] MEDS: ACETAMINOPHEN 500 MG TABLET 1000 MG PO ×3 (08:20→20:09)
[2022-01-26] MEDS: DOLUTEGRAVIR 50 MG 1 EACH PO ×2 (08:20→15:20)
[2022-01-26] MEDS: ESCITALOPRAM 20 MG TABLET 1 EACH PO (08:20)
[2022-01-26] MEDS: OXYCODONE 5 MG TABLET 10 MG PO (08:20)
[2022-01-26] MEDS: OXYCODONE 5 MG TABLET PO ×2 (11:21→20:14)
[2022-01-26] MEDS: TRIAMCINOLONE ACETONIDE CREAM 0.1 % 1 APPLIC TOPICAL (20:14)
[2022-01-26 21:08] VITALS: BP 101/61; PULSE 55; RESP 18; TEMP 36.1; O2SAT 97
[2022-01-27] MEDS: ACETAMINOPHEN 500 MG TABLET 1000 MG PO ×3 (07:58→19:26)
[2022-01-27] MEDS: polyethylene glycoL 238 GM BULK BOTTLE 17 GM PO (07:58)
[2022-01-27] MEDS: ESCITALOPRAM 20 MG TABLET 1 EACH PO (07:59)
[2022-01-27] MEDS: DOLUTEGRAVIR 50 MG 1 EACH PO ×2 (07:59→15:42)
[2022-01-27] MEDS: OXYCODONE 5 MG TABLET 10 MG PO (07:59)
--- NOTE | 2022-01-27 09:44 | PC.NURSE ---
Faxed labs to [place] provider per request. Fax number [phone].
[2022-01-27] MEDS: OXYCODONE 5 MG TABLET PO ×2 (11:29→19:26)
--- NOTE | 2022-01-27 14:30 | PC.NURSE ---
Elle injection: development writer and [facility] nurse spoke to NAKITA Smiley about the risks and benefits of the injection today. She agreed over speaker phone that she understands and has no questions/concerns on the injection. She also stated she went over this information at his last [facility] telehealth appointment. [facility] followed their protocol as if resident was at the clinic to receive the injection. Injection given by [facility] nurse and charted in eMAR at this time. Insurance Office Supervisor will sit with resident and watch for allergic reaction for one hour.
[2022-01-27 14:49] VITALS: BP 106/72; PULSE 60; RESP 16; O2SAT 95
[2022-01-27 15:30] VITALS: BP 108/73; PULSE 56; RESP 16; O2SAT 95
--- NOTE | 2022-01-27 15:30 | PC.NURSE ---
Resident monitored for allergic reaction for 1 hr after receiving Evusheld. Residents vital signs stable. Charted. Nursing updated that injection was given in bilateral, upper, gluteal muscles. Resident may experience pain, bruising and soreness at site. NAKITA Gudinot updated that injections and after care went well.
--- NOTE | 2022-01-27 21:41 | PC.NURSE ---
Resident had XL BM, x2. Loose and soft. Copious amounts of corn kernels witnessed which is contradictory to diet orders. No c/o discomfort, baseline positive spirits.
--- NOTE | 2022-01-28 02:40 | PC.NURSE ---
Week #4: No changes noted to mood/behavior. Receives escitalopram 20mg daily with no adverse effects noted. Temporary care plan and care plan problems 40-119 reviewed with no changes or additions. No changes to communication, hearing, vision, or orientation. Unable to communicate needs r/t dementia. No hearing or visual impairment. No chronic health condition or medication changes. All medications administered by nursing staff. Will grab at staff during cares at times.
--- NOTE | 2022-01-28 07:11 | PC.NURSE ---
Week #4: Care plan problems 40-119 and temporary care plan reviewed. No changes made. Nothing added to temporary care plan. No changes in communication, hearing, vision, orientation and chronic health condition. Needs anticipated by staff. Does not use the call light, not able to verbalize needs. Vision & hearing are fine. Chronic health condition stable. Staff administers medications. Mood/Behavior: Has no issues. Continues on Lexapro 20mg daily with no adverse effects noted. No change in medication.
[2022-01-28] MEDS: ACETAMINOPHEN 500 MG TABLET 1000 MG PO ×3 (07:16→19:15)
[2022-01-28] MEDS: polyethylene glycoL 238 GM BULK BOTTLE 17 GM PO (07:16)
[2022-01-28] MEDS: DOLUTEGRAVIR 50 MG 1 EACH PO ×2 (07:17→15:22)
[2022-01-28] MEDS: ESCITALOPRAM 20 MG TABLET 1 EACH PO (07:17)
[2022-01-28] MEDS: OXYCODONE 5 MG TABLET 10 MG PO (07:19)
[2022-01-28] MEDS: OXYCODONE 5 MG TABLET PO ×2 (11:13→19:16)
[2022-01-29] MEDS: ACETAMINOPHEN 500 MG TABLET 1000 MG PO ×3 (07:43→19:13)
[2022-01-29] MEDS: polyethylene glycoL 238 GM BULK BOTTLE 17 GM PO (07:44)
[2022-01-29] MEDS: OXYCODONE 5 MG TABLET 10 MG PO (07:44)
[2022-01-29] MEDS: ESCITALOPRAM 20 MG TABLET 1 EACH PO (07:44)
[2022-01-29] MEDS: DOLUTEGRAVIR 50 MG 1 EACH PO ×2 (07:44→15:15)
[2022-01-29] MEDS: OXYCODONE 5 MG TABLET PO ×2 (11:15→19:14)
[2022-01-30] MEDS: MAG HYDROX/ALUMINUM HYD/SIMETH 30 ML ORAL.SUSP PO (07:48)
[2022-01-30] MEDS: polyethylene glycoL 238 GM BULK BOTTLE 17 GM PO (07:49)
[2022-01-30] MEDS: ACETAMINOPHEN 500 MG TABLET 1000 MG PO ×3 (07:49→19:39)
[2022-01-30] MEDS: DOLUTEGRAVIR 50 MG 1 EACH PO ×2 (07:50→16:06)
[2022-01-30] MEDS: ESCITALOPRAM 20 MG TABLET 1 EACH PO (07:51)
[2022-01-30] MEDS: OXYCODONE 5 MG TABLET 10 MG PO (07:53)
--- NOTE | 2022-01-30 11:17 | PC.NURSE ---
Recert Visit: Resident seen by Dr. Curtis. Orders/chart reviewed & renewed of 75 days without changes.
[2022-01-30] MEDS: OXYCODONE 5 MG TABLET PO ×2 (11:22→19:39)
[2022-01-31] MEDS: ACETAMINOPHEN 500 MG TABLET 1000 MG PO ×3 (07:46→19:37)
[2022-01-31] MEDS: polyethylene glycoL 238 GM BULK BOTTLE 17 GM PO (07:47)
[2022-01-31] MEDS: ESCITALOPRAM 20 MG TABLET 1 EACH PO (07:47)
[2022-01-31] MEDS: OXYCODONE 5 MG TABLET 10 MG PO (07:47)
[2022-01-31] MEDS: DOLUTEGRAVIR 50 MG 1 EACH PO ×2 (07:47→16:56)
[2022-01-31] MEDS: bisacodyL 10 MG SUPP.RECT PR (09:58)
[2022-01-31] MEDS: OXYCODONE 5 MG TABLET PO ×2 (11:06→19:37)
[2022-02-01] MEDS: ESCITALOPRAM 20 MG TABLET 1 EACH PO (07:42)
[2022-02-01] MEDS: ACETAMINOPHEN 500 MG TABLET 1000 MG PO ×3 (07:42→19:02)
[2022-02-01] MEDS: OXYCODONE 5 MG TABLET 10 MG PO (07:42)
[2022-02-01] MEDS: DOLUTEGRAVIR 50 MG 1 EACH PO ×2 (07:42→15:39)
[2022-02-01] MEDS: polyethylene glycoL 238 GM BULK BOTTLE 17 GM PO (07:42)
[2022-02-01] MEDS: OXYCODONE 5 MG TABLET PO ×2 (11:09→19:02)
[2022-02-02] MEDS: DOLUTEGRAVIR 50 MG 1 EACH PO ×2 (07:56→15:25)
[2022-02-02] MEDS: polyethylene glycoL 238 GM BULK BOTTLE 17 GM PO (07:56)
[2022-02-02] MEDS: ACETAMINOPHEN 500 MG TABLET 1000 MG PO ×3 (07:56→19:55)
[2022-02-02] MEDS: OXYCODONE 5 MG TABLET 10 MG PO (07:57)
[2022-02-02] MEDS: ESCITALOPRAM 20 MG TABLET 1 EACH PO (07:57)
[2022-02-02] MEDS: OXYCODONE 5 MG TABLET PO ×2 (11:18→19:58)
[2022-02-02 16:17] VITALS: BP 81/56; PULSE 66; RESP 18; TEMP 36.5; O2SAT 97
[2022-02-02 16:19] VITALS: BMI 30.8
[2022-02-03] MEDS: DOLUTEGRAVIR 50 MG 1 EACH PO ×2 (07:35→15:33)
[2022-02-03] MEDS: ESCITALOPRAM 20 MG TABLET 1 EACH PO (07:35)
[2022-02-03] MEDS: polyethylene glycoL 238 GM BULK BOTTLE 17 GM PO (07:35)
[2022-02-03] MEDS: OXYCODONE 5 MG TABLET 10 MG PO (07:35)
[2022-02-03] MEDS: ACETAMINOPHEN 500 MG TABLET 1000 MG PO ×3 (07:35→20:05)
[2022-02-03] MEDS: OXYCODONE 5 MG TABLET PO ×2 (11:16→20:05)
--- NOTE | 2022-02-04 02:13 | PC.NURSE ---
Week#1: Care plan problems 1-19 and temporary care plan reviewed with no changes. Currently receives acetaminophen 1000mg TID, oxycodone 10mg at 0800 and 5mg at 1200 and 2000 as well as 5mg Q6 hours PRN. Current main management regimen is effective. Total assist with all ADLs. On a regular IDDSI level 6 (soft and bite sized.) Requires assist with eating. Potential for choking/swallowing problems r/t laughing and swallowing foods whole. Staff remind resident to chew food thoroughly. .
[2022-02-04] MEDS: ESCITALOPRAM 20 MG TABLET 1 EACH PO (07:41)
[2022-02-04] MEDS: DOLUTEGRAVIR 50 MG 1 EACH PO ×2 (07:41→16:17)
[2022-02-04] MEDS: polyethylene glycoL 238 GM BULK BOTTLE 17 GM PO (07:41)
[2022-02-04] MEDS: ACETAMINOPHEN 500 MG TABLET 1000 MG PO ×3 (07:41→19:10)
[2022-02-04] MEDS: OXYCODONE 5 MG TABLET 10 MG PO (07:41)
--- NOTE | 2022-02-04 10:41 | PC.NURSE ---
Week #1: Care plan problems 1-19 and temporary care plan reviewed. No changes made. Nothing added to temporary care plan. Resident needs 1-2 assists with dressing, grooming, and bathing. One assist with oral cares and feeding. Is on regular diet, soft and bite sized texture. Is feed by staff. Is able to hold cups/glass and put drinks in mouth. Staff not to feed when resident is laughing as it will hinder his swallowing. So far, no problems noted with swallowing/chewing. Pain: Has chronic pain. No pain noted the past month. Continues on Tylenol 1000mg TID, Oxycodone 5mg @ 1200 & 2000, 10mg @ 0800. And 5mg Q6H PRN, last used 2 months ago. Needs anticipated by staff as resident does not communicate verbally.
[2022-02-04] MEDS: OXYCODONE 5 MG TABLET PO ×2 (11:41→19:11)
[2022-02-05] MEDS: ACETAMINOPHEN 500 MG TABLET 1000 MG PO ×3 (07:54→19:42)
[2022-02-05] MEDS: OXYCODONE 5 MG TABLET 10 MG PO (07:55)
[2022-02-05] MEDS: DOLUTEGRAVIR 50 MG 1 EACH PO ×2 (07:55→15:00)
[2022-02-05] MEDS: ESCITALOPRAM 20 MG TABLET 1 EACH PO (07:55)
[2022-02-05] MEDS: polyethylene glycoL 238 GM BULK BOTTLE 17 GM PO (07:55)
[2022-02-05] MEDS: MAG HYDROX/ALUMINUM HYD/SIMETH 30 ML ORAL.SUSP PO (10:10)
[2022-02-05] MEDS: OXYCODONE 5 MG TABLET PO ×2 (11:22→19:42)
[2022-02-06] MEDS: ACETAMINOPHEN 500 MG TABLET 1000 MG PO ×3 (08:28→19:21)
[2022-02-06] MEDS: polyethylene glycoL 238 GM BULK BOTTLE 17 GM PO (08:29)
[2022-02-06] MEDS: ESCITALOPRAM 20 MG TABLET 1 EACH PO (08:29)
[2022-02-06] MEDS: DOLUTEGRAVIR 50 MG 1 EACH PO ×2 (08:30→15:25)
[2022-02-06] MEDS: OXYCODONE 5 MG TABLET 10 MG PO (08:34)
[2022-02-06] MEDS: OXYCODONE 5 MG TABLET PO ×2 (12:00→19:21)
[2022-02-06] MEDS: bisacodyL 10 MG SUPP.RECT PR (14:00)
[2022-02-07] MEDS: ACETAMINOPHEN 500 MG TABLET 1000 MG PO ×3 (08:31→19:19)
[2022-02-07] MEDS: DOLUTEGRAVIR 50 MG 1 EACH PO ×2 (08:33→15:21)
[2022-02-07] MEDS: ESCITALOPRAM 20 MG TABLET 1 EACH PO (08:33)
[2022-02-07] MEDS: polyethylene glycoL 238 GM BULK BOTTLE 17 GM PO (08:33)
[2022-02-07] MEDS: OXYCODONE 5 MG TABLET 10 MG PO (08:36)
[2022-02-07] MEDS: OXYCODONE 5 MG TABLET PO ×2 (12:00→19:19)
[2022-02-08] MEDS: ACETAMINOPHEN 500 MG TABLET 1000 MG PO ×3 (08:30→19:35)
[2022-02-08] MEDS: polyethylene glycoL 238 GM BULK BOTTLE 17 GM PO (08:30)
[2022-02-08] MEDS: DOLUTEGRAVIR 50 MG 1 EACH PO ×2 (08:31→15:11)
[2022-02-08] MEDS: ESCITALOPRAM 20 MG TABLET 1 EACH PO (08:32)
[2022-02-08] MEDS: OXYCODONE 5 MG TABLET 10 MG PO (08:32)
[2022-02-08] MEDS: OXYCODONE 5 MG TABLET PO ×2 (12:29→19:35)
--- NOTE | 2022-02-08 21:12 | PC.NURSE ---
Broda Chair recommendation: Constantly assuming reclining sitting position in his non-recline wheel chair, boosting or repositioning resident in his wheel chair has become frequent task that is taking a toll on staff's lower backs. In other words, resident is mostly in a bad posture. Resident needs Broda chair if possible.
[2022-02-09] MEDS: polyethylene glycoL 238 GM BULK BOTTLE 17 GM PO (08:02)
[2022-02-09] MEDS: ACETAMINOPHEN 500 MG TABLET 1000 MG PO ×3 (08:02→19:40)
[2022-02-09] MEDS: DOLUTEGRAVIR 50 MG 1 EACH PO ×2 (08:02→15:08)
[2022-02-09] MEDS: ESCITALOPRAM 20 MG TABLET 1 EACH PO (08:03)
[2022-02-09] MEDS: OXYCODONE 5 MG TABLET 10 MG PO (08:03)
--- NOTE | 2022-02-09 09:14 | PC.NURSE ---
Change in diet order: Now will be regular diet with staff cutting food into pieces. Discussed with NAKITA Smiley the risks and benefits of resident changing to a regular diet. Verbalized understanding and PHARMACIST HELPER updated and changed diet to regular due to residents preference and not enjoying/eating the recommended diet from ST.
[2022-02-09] MEDS: OXYCODONE 5 MG TABLET PO ×2 (11:04→19:42)
[2022-02-09 20:18] VITALS: BP 104/72; PULSE 63; RESP 16; TEMP 36.2; O2SAT 95; BMI 30.7
[2022-02-10] MEDS: polyethylene glycoL 238 GM BULK BOTTLE 17 GM PO (07:18)
[2022-02-10] MEDS: DOLUTEGRAVIR 50 MG 1 EACH PO ×2 (07:18→16:16)
[2022-02-10] MEDS: ACETAMINOPHEN 500 MG TABLET 1000 MG PO ×3 (07:18→19:49)
[2022-02-10] MEDS: ESCITALOPRAM 20 MG TABLET 1 EACH PO (07:20)
[2022-02-10] MEDS: OXYCODONE 5 MG TABLET 10 MG PO (07:20)
--- NOTE | 2022-02-10 09:10 | PC.NURSE ---
Addendum entered by Nicky Matthews RN 02/10/22 11:49: ERROR: OT to assess Original Note: Physical therapy department updated that resident is sliding down in his w/c. Need for eval and possible new w/c for better positioning.
[2022-02-10] MEDS: OXYCODONE 5 MG TABLET PO ×2 (11:38→19:49)
[2022-02-10 16:08] VITALS: BMI 30.7
--- NOTE | 2022-02-11 00:51 | PC.NURSE ---
Week #2 Charting: Care plan problems -, Temporary Care Plan, and vital signs reviewed. No changes made and nothing added to Temporary Care Plan at this time. Resident is non ambulatory. Transfers with a Srikanth lift with 2 assists, but no transfers at [facility] since resident sleeps through the night, and is check/change in bed. Resident is repositioned every 2 hours, and or during NOC rounds. Top side rails up to support positioning. No alarms at this time. Fall: No fall incidents reported or noted this past month. Resident remains low fall risk based on assessment done on 12/04/21.
--- NOTE | 2022-02-11 07:08 | PC.NURSE ---
Week #2: Mobility: Care pal reviewed, no changes made. Nothing added to temporary care plan. Resident is non ambulatory. Transfers with 2 assists using the deandre lift. Can wheel self at times short distance without a purpose. Staff wheels to all destinations. Can make slight changes in body positioning. Make sure resident make significant changes every 2.5 hours. Top side rails up in bed to aid for positioning. No alarms.Staff to do ROM of (R) upper extremity BID. Fall: No falls the past month. Is a low fall risk according to assessment done on 12/04/21. Resident observed frequent instance of sliding in w/c. Frequent checks & repositioning done. Dycem maintenance journeyman pad in place. Issue addressed.
[2022-02-11] MEDS: ESCITALOPRAM 20 MG TABLET 1 EACH PO (07:59)
[2022-02-11] MEDS: ACETAMINOPHEN 500 MG TABLET 1000 MG PO ×3 (07:59→19:26)
[2022-02-11] MEDS: DOLUTEGRAVIR 50 MG 1 EACH PO ×2 (07:59→16:05)
[2022-02-11] MEDS: polyethylene glycoL 238 GM BULK BOTTLE 17 GM PO (07:59)
[2022-02-11] MEDS: OXYCODONE 5 MG TABLET 10 MG PO (08:00)
[2022-02-11] MEDS: OXYCODONE 5 MG TABLET PO ×2 (11:54→19:26)
[2022-02-11] MEDS: bisacodyL 10 MG SUPP.RECT PR (14:25)
[2022-02-12] MEDS: ESCITALOPRAM 10 MG TABLET 20 MG PO (08:19)
[2022-02-12] MEDS: ACETAMINOPHEN 500 MG TABLET 1000 MG PO ×3 (08:19→19:27)
[2022-02-12] MEDS: DOLUTEGRAVIR 50 MG 1 EACH PO ×2 (08:20→15:55)
[2022-02-12] MEDS: polyethylene glycoL 238 GM BULK BOTTLE 17 GM PO (08:20)
[2022-02-12] MEDS: OXYCODONE 5 MG TABLET 10 MG PO (08:21)
[2022-02-12] MEDS: OXYCODONE 5 MG TABLET PO ×2 (11:59→19:27)
--- NOTE | 2022-02-12 13:59 | PC.NURSE ---
Left llamas abrasions x2 healed. Completed intervention.
--- NOTE | 2022-02-12 14:22 | PC.NURSE ---
Hot liquid evaluation: due to physical impairment such as altered muscle strength, range of motion and the ability to process staff cues as well as dementia Resident needs staff assistance with drinking hot liquids.
--- NOTE | 2022-02-12 16:41 | REH.OT ---
w/c positioning assessed. Pt. scoots pelvis forward in chair to posterior pelvic tilt despite dycem above and below seat cushion. Resident. is in w/c with reclining back which increases posterior tilt. Resident needs w/c that is [id number]. Will look for his original manual chair. He needs a seat cushion that is wedged to promote better posture and prevent sliding out of w/c. Follow up next week.
--- NOTE | 2022-02-12 22:30 | PC.NURSE ---
Skin Concern : Resident has redness and dryness to right side foot.
[2022-02-13] MEDS: ACETAMINOPHEN 500 MG TABLET 1000 MG PO ×3 (08:16→19:34)
[2022-02-13] MEDS: polyethylene glycoL 238 GM BULK BOTTLE 17 GM PO (08:17)
[2022-02-13] MEDS: OXYCODONE 5 MG TABLET 10 MG PO (08:17)
[2022-02-13] MEDS: ESCITALOPRAM 10 MG TABLET 20 MG PO (08:17)
[2022-02-13] MEDS: DOLUTEGRAVIR 50 MG 1 EACH PO ×2 (08:17→15:41)
[2022-02-13] MEDS: OXYCODONE 5 MG TABLET PO ×2 (11:06→19:34)
[2022-02-14] MEDS: ACETAMINOPHEN 500 MG TABLET 1000 MG PO ×3 (07:53→19:21)
[2022-02-14] MEDS: OXYCODONE 5 MG TABLET 10 MG PO (07:53)
[2022-02-14] MEDS: DOLUTEGRAVIR 50 MG 1 EACH PO ×2 (07:53→15:00)
[2022-02-14] MEDS: ESCITALOPRAM 10 MG TABLET 20 MG PO (07:53)
[2022-02-14] MEDS: polyethylene glycoL 238 GM BULK BOTTLE 17 GM PO (07:53)
[2022-02-14] MEDS: OXYCODONE 5 MG TABLET PO ×2 (11:23→19:21)
[2022-02-15] MEDS: ACETAMINOPHEN 500 MG TABLET 1000 MG PO ×3 (08:15→19:57)
[2022-02-15] MEDS: DOLUTEGRAVIR 50 MG 1 EACH PO ×2 (08:15→15:32)
[2022-02-15] MEDS: ESCITALOPRAM 10 MG TABLET 20 MG PO (08:15)
[2022-02-15] MEDS: OXYCODONE 5 MG TABLET 10 MG PO (08:15)
[2022-02-15] MEDS: polyethylene glycoL 238 GM BULK BOTTLE 17 GM PO (08:15)
[2022-02-15] MEDS: OXYCODONE 5 MG TABLET PO ×2 (11:24→19:57)
[2022-02-16] MEDS: DOLUTEGRAVIR 50 MG 1 EACH PO ×2 (08:24→16:08)
[2022-02-16] MEDS: OXYCODONE 5 MG TABLET 10 MG PO (08:24)
[2022-02-16] MEDS: ESCITALOPRAM 10 MG TABLET 20 MG PO (08:24)
[2022-02-16] MEDS: ACETAMINOPHEN 500 MG TABLET 1000 MG PO ×3 (08:24→19:58)
[2022-02-16] MEDS: polyethylene glycoL 238 GM BULK BOTTLE 17 GM PO (08:24)
[2022-02-16] MEDS: OXYCODONE 5 MG TABLET PO ×2 (11:24→19:59)
--- NOTE | 2022-02-16 13:03 | REH.OT ---
Wedge seat cushion has been ordered for his w/c. Anti-roll mat was placed on top of seat cusion to reduce forward slide in w/c.
[2022-02-16 13:06] VITALS: BP 103/65; PULSE 70; RESP 14; TEMP 36.5; O2SAT 97
[2022-02-16 21:27] VITALS: BMI 31.0
[2022-02-17] MEDS: ESCITALOPRAM 10 MG TABLET 20 MG PO (07:35)
[2022-02-17] MEDS: ACETAMINOPHEN 500 MG TABLET 1000 MG PO ×3 (07:35→19:16)
[2022-02-17] MEDS: OXYCODONE 5 MG TABLET 10 MG PO (07:36)
[2022-02-17] MEDS: DOLUTEGRAVIR 50 MG 1 EACH PO ×2 (07:36→15:32)
[2022-02-17] MEDS: polyethylene glycoL 238 GM BULK BOTTLE 17 GM PO (07:36)
--- NOTE | 2022-02-17 09:50 | PC.SPIRITC ---
School Counsellor provided visit for support and connection.
[2022-02-17] MEDS: OXYCODONE 5 MG TABLET PO ×2 (11:31→19:16)
--- NOTE | 2022-02-18 02:42 | PC.NURSE ---
Addendum entered by Kaye Skelton RN 02/18/22 03:02: Has red/dry area present on side of right foot. Area is monitored and lotion is applied daily. No other skin integrity concerns. Original Note: WEEKLY CHARTING - WEEK 3: Vital signs reviewed with no significant deviations from defined parameters. Temporary care plan reviewed with change made. Abrasions to right llamas resolved. Comprehensive care plan reviewed with no changes. Is incontinent of bowel and bladder. Requires total assist of 1-2 to check and change incontinent product in bed. Wears XL brief with ultra guard in place. Staff monitor bowel pattern.
--- NOTE | 2022-02-18 06:52 | PC.NURSE ---
Week #3 - Toileting: Care plan reviewed, no changes made. Nothing added to temporary care plan. Resident is incontinent of bowel & bladder. Needs total assist with all toileting - pads, pericares, and clothing adjustment. Does not use the toilet. Is checked and changed by 0700, before and after meals. Wears x-large briefs with ultra guard in place. VS reviewed, no concerns, within his baseline. Skin: Has a red, dry area on side of (R) foot monitored daily and lotion @ HS. Skin is checked during cares and on bath days.
[2022-02-18] MEDS: ACETAMINOPHEN 500 MG TABLET 1000 MG PO ×3 (08:23→20:16)
[2022-02-18] MEDS: polyethylene glycoL 238 GM BULK BOTTLE 17 GM PO (08:24)
[2022-02-18] MEDS: OXYCODONE 5 MG TABLET 10 MG PO (08:24)
[2022-02-18] MEDS: DOLUTEGRAVIR 50 MG 1 EACH PO ×2 (08:24→15:16)
[2022-02-18] MEDS: ESCITALOPRAM 10 MG TABLET 20 MG PO (08:24)
--- NOTE | 2022-02-18 09:28 | REH.OT ---
antiroll insert is not assisting with positioning. OT awaiting arrival of wedge cushion. Resident will trial new cushion in his original chair which has been placed in his bathroom. Nsg will alert OT when cushion arrives.
[2022-02-18] MEDS: OXYCODONE 5 MG TABLET PO ×2 (11:16→20:16)
[2022-02-19] MEDS: OXYCODONE 5 MG TABLET 10 MG PO (08:29)
[2022-02-19] MEDS: ESCITALOPRAM 10 MG TABLET 20 MG PO (08:30)
[2022-02-19] MEDS: DOLUTEGRAVIR 50 MG 1 EACH PO ×2 (08:30→15:35)
[2022-02-19] MEDS: polyethylene glycoL 238 GM BULK BOTTLE 17 GM PO (08:30)
[2022-02-19] MEDS: ACETAMINOPHEN 500 MG TABLET 1000 MG PO ×3 (08:30→19:01)
[2022-02-19] MEDS: MAG HYDROX/ALUMINUM HYD/SIMETH 30 ML ORAL.SUSP PO (10:15)
[2022-02-19] MEDS: OXYCODONE 5 MG TABLET PO ×2 (11:09→19:01)
--- NOTE | 2022-02-19 17:57 | PC.NURSE ---
MDS clarfication: Reviewed MDS ADL charting for CAITLYN of 02/12/22. Noted incorrect/inconsistent charting. Spoke to NARS and education given on appropriate ADL charting. Charting reviewed and changed to match appropriate ADL needs and charted as such in MDS.
[2022-02-20] MEDS: ACETAMINOPHEN 500 MG TABLET 1000 MG PO ×3 (07:56→19:08)
[2022-02-20] MEDS: ESCITALOPRAM 10 MG TABLET 20 MG PO (07:57)
[2022-02-20] MEDS: DOLUTEGRAVIR 50 MG 1 EACH PO ×2 (07:57→16:00)
[2022-02-20] MEDS: OXYCODONE 5 MG TABLET 10 MG PO (07:57)
[2022-02-20] MEDS: polyethylene glycoL 238 GM BULK BOTTLE 17 GM PO (07:57)
[2022-02-20] MEDS: OXYCODONE 5 MG TABLET PO ×2 (12:03→19:08)
[2022-02-20] MEDS: bisacodyL 10 MG SUPP.RECT PR (14:08)
[2022-02-21] MEDS: polyethylene glycoL 238 GM BULK BOTTLE 17 GM PO (07:51)
[2022-02-21] MEDS: ACETAMINOPHEN 500 MG TABLET 1000 MG PO ×3 (07:51→19:11)
[2022-02-21] MEDS: ESCITALOPRAM 10 MG TABLET 20 MG PO (07:51)
[2022-02-21] MEDS: DOLUTEGRAVIR 50 MG 1 EACH PO ×2 (07:52→16:10)
[2022-02-21] MEDS: OXYCODONE 5 MG TABLET 10 MG PO (07:54)
[2022-02-21] MEDS: OXYCODONE 5 MG TABLET PO ×2 (12:16→19:11)
[2022-02-22] MEDS: polyethylene glycoL 238 GM BULK BOTTLE 17 GM PO (08:15)
[2022-02-22] MEDS: DOLUTEGRAVIR 50 MG 1 EACH PO ×2 (08:15→16:12)
[2022-02-22] MEDS: ACETAMINOPHEN 500 MG TABLET 1000 MG PO ×3 (08:15→20:00)
[2022-02-22] MEDS: ESCITALOPRAM 10 MG TABLET 20 MG PO (08:15)
[2022-02-22] MEDS: OXYCODONE 5 MG TABLET 10 MG PO (08:16)
[2022-02-22] MEDS: OXYCODONE 5 MG TABLET PO ×2 (12:00→20:00)
[2022-02-23] MEDS: ESCITALOPRAM 10 MG TABLET 20 MG PO (07:51)
[2022-02-23] MEDS: polyethylene glycoL 238 GM BULK BOTTLE 17 GM PO (07:51)
[2022-02-23] MEDS: ACETAMINOPHEN 500 MG TABLET 1000 MG PO ×3 (07:51→20:12)
[2022-02-23] MEDS: DOLUTEGRAVIR 50 MG 1 EACH PO ×2 (07:51→15:22)
[2022-02-23] MEDS: OXYCODONE 5 MG TABLET 10 MG PO (07:58)
[2022-02-23] MEDS: OXYCODONE 5 MG TABLET PO ×2 (12:00→20:14)
--- NOTE | 2022-02-23 14:40 | PC.NURSE ---
Wheelchair positioning: Discussed at IDT: Continue to wait for rolled cushion ordered by therapy department last week.
[2022-02-23 21:23] VITALS: BP 96/63; PULSE 58; RESP 16; TEMP 36.4; O2SAT 95; BMI 30.8
--- NOTE | 2022-02-23 21:39 | PC.NURSE ---
Skin: Resident has a red area on the joint of the right big toe. Monitoring.
[2022-02-24] MEDS: ESCITALOPRAM 10 MG TABLET 20 MG PO (07:13)
[2022-02-24] MEDS: ACETAMINOPHEN 500 MG TABLET 1000 MG PO ×3 (07:13→19:54)
[2022-02-24] MEDS: polyethylene glycoL 238 GM BULK BOTTLE 17 GM PO (07:13)
[2022-02-24] MEDS: DOLUTEGRAVIR 50 MG 1 EACH PO ×2 (07:13→16:09)
[2022-02-24] MEDS: OXYCODONE 5 MG TABLET 10 MG PO (07:17)
[2022-02-24] MEDS: OXYCODONE 5 MG TABLET PO ×2 (11:38→19:56)
--- NOTE | 2022-02-24 12:33 | REH.OT ---
Wedge cushion arrived and was placed in Regan?s original w/c for trial.? Dycem was placed above and below cushion to prevent slipping.? Staff will trial cushion next time Regan is up in his w/c and report results to OT.
[2022-02-24] MEDS: bisacodyL 10 MG SUPP.RECT PR (12:35)
--- NOTE | 2022-02-24 14:01 | PC.NURSE ---
CARE CONFERENCE: meeting held with care team members from nursing, dietary, activities and social insurance administrator. NAKITA Smiley present via phone. Family does visit regularly. This quarter resident completed Evusheld infusion and visit with ID doctor at [facility]. NAKITA notes that she will notify nursing when his next follow up visit is scheduled--she is hoping to do this virtually again. Nursing reviewed that resident continues to need 2 ALLEN total assistance with dressing, grooming, mobility and bathing. Propelled by staff in wheelchair to and from activities. Is able to self propel himself short distances on the unit at times. Dietary advised weights are stable. Recently switched to a regular diet per families wishes/residents preference for certain foods that did not fall under his previous diet order. Family understands the risks and benefits. SS updated that mood is stable and no concerns at this time. POLST reviewed. Is DNR/DNI. Uses no restraints. As of today is trying a wedge cushion in his wheelchair to assist with positioning--OT will follow up on this. Does use 2 side rails up to assist with positioning. Medications are administered by nurse. NAKITA denies medication list at this time. Vulnerability- is at risk for being harmed due to mobility limitations and cognition. There are no discharge plans.
--- NOTE | 2022-02-24 16:12 | PC.SOCIAL ---
Resident's care conference was held today. Resident's [id number] Sherice attended. Resident remains stable. Sherice plans to make resident's next infectious disease appointment at [facility] again since resident is not able to travel that far. Resident's mood remains stable no s/s of depression noted. Family is supportive.
--- NOTE | 2022-02-25 02:31 | PC.NURSE ---
WEEKLY CHARTING - WEEK 4: Vital signs reviewed - no concerns. Temporary and comprehensive care plan reviewed - no changes. No documented behaviors in the last month. Currently receives escitalopram 20mg daily with no adverse effects. Resident is unable to communicate needs. Staff anticipate needs, watch for non-verbal communication, and ask yes/no questions when able. Is oriented to self. Dx of dementia r/t HIV/Aids. Is resistive with cares at times. No problems with hearing or vision. NO med changes. All medications administered by staff. No change in chronic health conditions.
[2022-02-25] MEDS: ACETAMINOPHEN 500 MG TABLET 1000 MG PO ×3 (07:34→19:02)
[2022-02-25] MEDS: polyethylene glycoL 238 GM BULK BOTTLE 17 GM PO (07:34)
[2022-02-25] MEDS: DOLUTEGRAVIR 50 MG 1 EACH PO ×2 (07:34→15:03)
[2022-02-25] MEDS: ESCITALOPRAM 10 MG TABLET 20 MG PO (07:34)
[2022-02-25] MEDS: OXYCODONE 5 MG TABLET 10 MG PO (07:35)
--- NOTE | 2022-02-25 11:18 | PC.PHA ---
Medication Review~ Medication monitoring: Escitalopram 20 mg Comments: Patient was placed on escitalopram for sadness,sexual behaviors and outbursts in dinning room. Suggested course: Based on patient's age and continued positive behaviors (smiling, interacting with staff, no sexual behaviors or outbursts) GDR is clinically contraindicated at this time. Other medications: Antivirals continue to be indicated for HIV and patient is being followed by [facility]. Oxycodone scheduled three times daily with no need for prn. Could consider stopping prn oxycodone. Laxatives: Patient getting miralax daily for constipation with frequent needs for prn laxatives. Is patient consuming enough water for a bulk forming laxative like miralax to be effective? Suggested Course: Give patient's chronic need for oxycodone, please re-evaluate current bowel regimen. Bulk forming laxative is appropriate if water consumption addequate but with opiod use may need low dose senna (stimulant).
[2022-02-25] MEDS: OXYCODONE 5 MG TABLET PO ×2 (11:54→19:02)
--- NOTE | 2022-02-25 13:10 | PC.NURSE ---
Week #4: Care plan reviewed, no changes made. Nothing added to temporary care plan. No changes noted in communication, hearing, vision, or orientation. Resident does not communicate needs. Needs anticipated by staff. Hearing and vision adequate. 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 Chronic health condition stable. Is not able to self administer medications. Vital signs reviewed, has few low values but is not new. Continue weekly VS. Refer to COTTON FARMER/MD as needed. Mood/Behavior: No issues the past month. Continues on Escitalopram 20 mg daily with no adverse effects noted. No change in medication.
--- NOTE | 2022-02-25 22:03 | PC.NURSE ---
Resident has cushion in w/c. Still continuing to slide back in chair. Staff has boosted and readjusted him twice in w/c this shift.
[2022-02-26] MEDS: polyethylene glycoL 238 GM BULK BOTTLE 17 GM PO (08:08)
[2022-02-26] MEDS: OXYCODONE 5 MG TABLET 10 MG PO (08:08)
[2022-02-26] MEDS: DOLUTEGRAVIR 50 MG 1 EACH PO ×2 (08:09→15:39)
[2022-02-26] MEDS: ACETAMINOPHEN 500 MG TABLET 1000 MG PO ×3 (08:09→19:41)
[2022-02-26] MEDS: ESCITALOPRAM 10 MG TABLET 20 MG PO (08:09)
[2022-02-26] MEDS: OXYCODONE 5 MG TABLET PO ×2 (11:09→19:43)
[2022-02-27] MEDS: DOLUTEGRAVIR 50 MG 1 EACH PO ×2 (08:25→16:39)
[2022-02-27] MEDS: ESCITALOPRAM 10 MG TABLET 20 MG PO (08:25)
[2022-02-27] MEDS: ACETAMINOPHEN 500 MG TABLET 1000 MG PO ×3 (08:25→19:01)
[2022-02-27] MEDS: OXYCODONE 5 MG TABLET 10 MG PO (08:25)
[2022-02-27] MEDS: polyethylene glycoL 238 GM BULK BOTTLE 17 GM PO (08:25)
[2022-02-27] MEDS: OXYCODONE 5 MG TABLET PO ×2 (11:08→19:01)
[2022-02-28] MEDS: ESCITALOPRAM 10 MG TABLET 20 MG PO (08:25)
[2022-02-28] MEDS: ACETAMINOPHEN 500 MG TABLET 1000 MG PO ×3 (08:25→19:11)
[2022-02-28] MEDS: OXYCODONE 5 MG TABLET 10 MG PO (08:26)
[2022-02-28] MEDS: DOLUTEGRAVIR 50 MG 1 EACH PO ×2 (08:26→15:05)
[2022-02-28] MEDS: polyethylene glycoL 238 GM BULK BOTTLE 17 GM PO (08:26)
[2022-02-28] MEDS: OXYCODONE 5 MG TABLET PO ×2 (11:11→19:11)
[2022-03-01] MEDS: ACETAMINOPHEN 500 MG TABLET 1000 MG PO ×3 (08:22→19:22)
[2022-03-01] MEDS: OXYCODONE 5 MG TABLET 10 MG PO (08:23)
[2022-03-01] MEDS: ESCITALOPRAM 10 MG TABLET 20 MG PO (08:23)
[2022-03-01] MEDS: DOLUTEGRAVIR 50 MG 1 EACH PO ×2 (08:23→16:18)
[2022-03-01] MEDS: polyethylene glycoL 238 GM BULK BOTTLE 17 GM PO (08:23)
[2022-03-01] MEDS: OXYCODONE 5 MG TABLET PO ×2 (11:42→19:23)
[2022-03-02] MEDS: OXYCODONE 5 MG TABLET 10 MG PO (08:01)
[2022-03-02] MEDS: ESCITALOPRAM 10 MG TABLET 20 MG PO (08:02)
[2022-03-02] MEDS: DOLUTEGRAVIR 50 MG 1 EACH PO ×2 (08:02→16:03)
[2022-03-02] MEDS: ACETAMINOPHEN 500 MG TABLET 1000 MG PO ×3 (08:02→19:26)
[2022-03-02] MEDS: polyethylene glycoL 238 GM BULK BOTTLE 17 GM PO (08:02)
[2022-03-02] MEDS: MAG HYDROX/ALUMINUM HYD/SIMETH 30 ML ORAL.SUSP PO (10:14)
[2022-03-02] MEDS: OXYCODONE 5 MG TABLET PO ×2 (11:10→19:27)
[2022-03-02 15:00] VITALS: BP 106/72; PULSE 69; RESP 18; TEMP 36.5
[2022-03-02 21:02] VITALS: BMI 31.1
[2022-03-03] MEDS: OXYCODONE 5 MG TABLET 10 MG PO (07:47)
[2022-03-03] MEDS: ESCITALOPRAM 10 MG TABLET 20 MG PO (07:47)
[2022-03-03] MEDS: polyethylene glycoL 238 GM BULK BOTTLE 17 GM PO (07:47)
[2022-03-03] MEDS: ACETAMINOPHEN 500 MG TABLET 1000 MG PO ×3 (07:47→20:10)
[2022-03-03] MEDS: DOLUTEGRAVIR 50 MG 1 EACH PO ×2 (07:47→16:39)
[2022-03-03] MEDS: OXYCODONE 5 MG TABLET PO ×2 (11:37→20:10)
[2022-03-03] MEDS: bisacodyL 10 MG SUPP.RECT PR (12:50)
[2022-03-04] MEDS: OXYCODONE 5 MG TABLET 10 MG PO (07:43)
[2022-03-04] MEDS: DOLUTEGRAVIR 50 MG 1 EACH PO ×2 (07:43→15:01)
[2022-03-04] MEDS: polyethylene glycoL 238 GM BULK BOTTLE 17 GM PO (07:43)
[2022-03-04] MEDS: ESCITALOPRAM 10 MG TABLET 20 MG PO (07:43)
[2022-03-04] MEDS: ACETAMINOPHEN 500 MG TABLET 1000 MG PO ×3 (07:43→19:55)
[2022-03-04] MEDS: OXYCODONE 5 MG TABLET PO ×2 (11:42→19:55)
[2022-03-05] MEDS: MAG HYDROX/ALUMINUM HYD/SIMETH 30 ML ORAL.SUSP PO (08:07)
[2022-03-05] MEDS: polyethylene glycoL 238 GM BULK BOTTLE 17 GM PO (08:08)
[2022-03-05] MEDS: ESCITALOPRAM 10 MG TABLET 20 MG PO (08:08)
[2022-03-05] MEDS: OXYCODONE 5 MG TABLET 10 MG PO (08:08)
[2022-03-05] MEDS: DOLUTEGRAVIR 50 MG 1 EACH PO ×2 (08:08→15:15)
[2022-03-05] MEDS: ACETAMINOPHEN 500 MG TABLET 1000 MG PO ×3 (08:15→20:45)
[2022-03-05] MEDS: OXYCODONE 5 MG TABLET PO ×2 (11:16→20:45)
--- NOTE | 2022-03-06 05:41 | PC.NURSE ---
BEHAVIOR- During first rounds, resident was noted in bed, digging in BM and smearing it on himself. Staff redirected and assisted resident with brief change and cleaning up. No further behavioral concerns this shift.
[2022-03-06] MEDS: ESCITALOPRAM 10 MG TABLET 20 MG PO (08:05)
[2022-03-06] MEDS: ACETAMINOPHEN 500 MG TABLET 1000 MG PO ×3 (08:05→19:12)
[2022-03-06] MEDS: polyethylene glycoL 238 GM BULK BOTTLE 17 GM PO (08:06)
[2022-03-06] MEDS: DOLUTEGRAVIR 50 MG 1 EACH PO ×2 (08:06→15:15)
[2022-03-06] MEDS: OXYCODONE 5 MG TABLET 10 MG PO (08:11)
[2022-03-06] MEDS: OXYCODONE 5 MG TABLET PO ×2 (11:47→19:12)
[2022-03-07] MEDS: ACETAMINOPHEN 500 MG TABLET 1000 MG PO ×3 (08:26→19:27)
[2022-03-07] MEDS: polyethylene glycoL 238 GM BULK BOTTLE 17 GM PO (08:27)
[2022-03-07] MEDS: ESCITALOPRAM 10 MG TABLET 20 MG PO (08:27)
[2022-03-07] MEDS: OXYCODONE 5 MG TABLET 10 MG PO (08:29)
[2022-03-07] MEDS: DOLUTEGRAVIR 50 MG 1 EACH PO ×2 (08:29→15:11)
[2022-03-07] MEDS: OXYCODONE 5 MG TABLET PO ×2 (12:38→19:28)
[2022-03-08] MEDS: OXYCODONE 5 MG TABLET 10 MG PO (07:13)
[2022-03-08] MEDS: ACETAMINOPHEN 500 MG TABLET 1000 MG PO ×3 (07:13→19:13)
[2022-03-08] MEDS: polyethylene glycoL 238 GM BULK BOTTLE 17 GM PO (07:13)
[2022-03-08] MEDS: ESCITALOPRAM 10 MG TABLET 20 MG PO (07:13)
[2022-03-08] MEDS: DOLUTEGRAVIR 50 MG 1 EACH PO ×2 (07:13→15:32)
[2022-03-08] MEDS: OXYCODONE 5 MG TABLET PO ×2 (12:04→19:13)
[2022-03-09] MEDS: polyethylene glycoL 238 GM BULK BOTTLE 17 GM PO (08:27)
[2022-03-09] MEDS: ACETAMINOPHEN 500 MG TABLET 1000 MG PO ×3 (08:27→20:16)
[2022-03-09] MEDS: ESCITALOPRAM 10 MG TABLET 20 MG PO (08:27)
[2022-03-09] MEDS: OXYCODONE 5 MG TABLET 10 MG PO (08:33)
[2022-03-09] MEDS: DOLUTEGRAVIR 50 MG 1 EACH PO ×2 (08:33→16:17)
[2022-03-09] MEDS: MAG HYDROX/ALUMINUM HYD/SIMETH 30 ML ORAL.SUSP PO (10:02)
[2022-03-09] MEDS: OXYCODONE 5 MG TABLET PO ×2 (11:15→20:17)
[2022-03-09 15:00] VITALS: BP 88/56; PULSE 62; RESP 16; TEMP 36.3; O2SAT 98; BMI 30.4
[2022-03-10] MEDS: OXYCODONE 5 MG TABLET 10 MG PO (07:40)
[2022-03-10] MEDS: DOLUTEGRAVIR 50 MG 1 EACH PO ×2 (07:40→15:48)
[2022-03-10] MEDS: polyethylene glycoL 238 GM BULK BOTTLE 17 GM PO (07:40)
[2022-03-10] MEDS: ESCITALOPRAM 10 MG TABLET 20 MG PO (07:40)
[2022-03-10] MEDS: ACETAMINOPHEN 500 MG TABLET 1000 MG PO ×3 (07:40→20:07)
[2022-03-10] MEDS: OXYCODONE 5 MG TABLET PO ×2 (11:49→20:08)
--- NOTE | 2022-03-11 02:45 | PC.NURSE ---
WEEKLY CHARTING - WEEK 1: Vital signs reviewed. Low BP values noted. Temporary and comprehensive care plan reviewed with no change. Hx of right arm pain. Receives acetaminophen 1000mg TID and oxycodone 10mg at 0800 and 5mg at 1200 & 2000. Has order for PRN oxycodone 5mg Q 6 hours with no use in last 30 days. Total assist of 2 with dressing, grooming, and bathing. Total assist of 1 with oral care. Regular diet, regular texture, thin liquids. Total assist for meals. Staff must remind resident to chew food. Weight is stable at this time.
[2022-03-11] MEDS: ACETAMINOPHEN 500 MG TABLET 1000 MG PO ×3 (08:05→19:30)
[2022-03-11] MEDS: ESCITALOPRAM 10 MG TABLET 20 MG PO (08:05)
[2022-03-11] MEDS: DOLUTEGRAVIR 50 MG 1 EACH PO ×2 (08:06→15:10)
[2022-03-11] MEDS: polyethylene glycoL 238 GM BULK BOTTLE 17 GM PO (08:06)
[2022-03-11] MEDS: OXYCODONE 5 MG TABLET 10 MG PO (08:07)
--- NOTE | 2022-03-11 10:13 | PC.NURSE ---
Week #1: Comprehensive care plan reviewed, no changes made. Nothing added to temporary care plan. Resident needs 1-2 assists with dressing, grooming and bathing. One assist with oral cares and feeding. Is on regular diet, regular texture, thin liquids. No problems noted with chewing/swallowing. Resident needs reminder to chew food . Staff to feed. Able to drink liquids from cup/glass. Vital signs reviewed, no concerns. BP's on the low side, within his range. Not on any BP medications. Pain: Chronic pain is controlled with Tylenol 1000mg TID, Oxycodone 10mg @ 0800, 5mg @ 1999 & Q6H PRN. Need for pain is anticipated by staff.
[2022-03-11] MEDS: OXYCODONE 5 MG TABLET PO ×2 (12:02→19:30)
[2022-03-12] MEDS: ESCITALOPRAM 10 MG TABLET 20 MG PO (08:01)
[2022-03-12] MEDS: ACETAMINOPHEN 500 MG TABLET 1000 MG PO ×3 (08:01→19:39)
[2022-03-12] MEDS: OXYCODONE 5 MG TABLET 10 MG PO (08:01)
[2022-03-12] MEDS: polyethylene glycoL 238 GM BULK BOTTLE 17 GM PO (08:01)
[2022-03-12] MEDS: DOLUTEGRAVIR 50 MG 1 EACH PO ×2 (08:01→15:39)
[2022-03-12] MEDS: OXYCODONE 5 MG TABLET PO ×2 (11:49→19:39)
[2022-03-13] MEDS: polyethylene glycoL 238 GM BULK BOTTLE 17 GM PO (08:40)
[2022-03-13] MEDS: ESCITALOPRAM 10 MG TABLET 20 MG PO (08:40)
[2022-03-13] MEDS: ACETAMINOPHEN 500 MG TABLET 1000 MG PO ×3 (08:40→19:06)
[2022-03-13] MEDS: DOLUTEGRAVIR 50 MG 1 EACH PO ×2 (08:41→15:34)
[2022-03-13] MEDS: OXYCODONE 5 MG TABLET 10 MG PO (08:41)
[2022-03-13] MEDS: OXYCODONE 5 MG TABLET PO ×2 (11:05→19:06)
--- NOTE | 2022-03-13 11:27 | PC.NURSE ---
W/C positioning: After OT coming and making adjustments on residents chair he has better body mechanics while sitting in his w/c. No further follow up needed at this time.
[2022-03-13] MEDS: MAG HYDROX/ALUMINUM HYD/SIMETH 30 ML ORAL.SUSP PO (11:35)
[2022-03-14] MEDS: ESCITALOPRAM 10 MG TABLET 20 MG PO (08:11)
[2022-03-14] MEDS: polyethylene glycoL 238 GM BULK BOTTLE 17 GM PO (08:11)
[2022-03-14] MEDS: ACETAMINOPHEN 500 MG TABLET 1000 MG PO ×3 (08:11→20:20)
[2022-03-14] MEDS: DOLUTEGRAVIR 50 MG 1 EACH PO ×2 (08:14→15:18)
[2022-03-14] MEDS: OXYCODONE 5 MG TABLET 10 MG PO (08:16)
[2022-03-14] MEDS: OXYCODONE 5 MG TABLET PO ×2 (11:09→20:23)
[2022-03-15] MEDS: DOLUTEGRAVIR 50 MG 1 EACH PO ×2 (08:17→15:04)
[2022-03-15] MEDS: polyethylene glycoL 238 GM BULK BOTTLE 17 GM PO (08:17)
[2022-03-15] MEDS: ACETAMINOPHEN 500 MG TABLET 1000 MG PO ×3 (08:17→20:17)
[2022-03-15] MEDS: ESCITALOPRAM 10 MG TABLET 20 MG PO (08:17)
[2022-03-15] MEDS: OXYCODONE 5 MG TABLET 10 MG PO (08:17)
[2022-03-15] MEDS: OXYCODONE 5 MG TABLET PO ×2 (11:34→20:27)
[2022-03-16] MEDS: ACETAMINOPHEN 500 MG TABLET 1000 MG PO ×3 (08:39→20:13)
[2022-03-16] MEDS: DOLUTEGRAVIR 50 MG 1 EACH PO ×2 (08:40→15:12)
[2022-03-16] MEDS: ESCITALOPRAM 10 MG TABLET 20 MG PO (08:40)
[2022-03-16] MEDS: polyethylene glycoL 238 GM BULK BOTTLE 17 GM PO (08:40)
[2022-03-16] MEDS: OXYCODONE 5 MG TABLET 10 MG PO (08:40)
[2022-03-16] MEDS: OXYCODONE 5 MG TABLET PO ×2 (11:13→20:15)
[2022-03-16 21:09] VITALS: BP 100/69; PULSE 59; RESP 16; TEMP 36.3; O2SAT 96; BMI 31.1
[2022-03-17] MEDS: ESCITALOPRAM 10 MG TABLET 20 MG PO (07:43)
[2022-03-17] MEDS: ACETAMINOPHEN 500 MG TABLET 1000 MG PO ×3 (07:43→19:28)
[2022-03-17] MEDS: DOLUTEGRAVIR 50 MG 1 EACH PO ×2 (07:43→15:28)
[2022-03-17] MEDS: OXYCODONE 5 MG TABLET 10 MG PO (07:43)
[2022-03-17] MEDS: polyethylene glycoL 238 GM BULK BOTTLE 17 GM PO (07:43)
[2022-03-17] MEDS: OXYCODONE 5 MG TABLET PO ×2 (11:42→19:29)
--- NOTE | 2022-03-18 01:54 | PC.NURSE ---
WEEKLY CHARTING - WEEK 2: Vital signs reviewed. BP values mildly hypotensive a times. Total assist of 1 for w/c mobility. Assist of 2 with full mechanical lift for transfers. Assist of 2 for turning/repositioning. Half side rails bilaterally. Is at low risk for falls per fall risk assessment. Staff complete hourly checks for safety. Is on a ROM program BID. Per documentation is completed at least daily.
--- NOTE | 2022-03-18 07:09 | PC.NURSE ---
Week #2: Mobility: Care plan reviewed, no changes made. Nothing added to temporary care plan. Resident is non ambulatory. Transfers with 2 assists using the deandre lift. Can wheel self at times short distance without a purpose. Staff wheels to all destinations. Can make slight changes in body positioning. Staff to check and assist resident make significant changes every 2.5 hours. Top side rails up in bed to aid for positioning. No alarms. Staff to do ROM of (R) upper extremity BID. Vital signs reviewed, occasional low values BP otherwise within his range. Fall: No falls the past month. Remains a low fall risk according to assessment done on 02/12/22.
[2022-03-18] MEDS: ACETAMINOPHEN 500 MG TABLET 1000 MG PO ×3 (07:53→19:19)
[2022-03-18] MEDS: polyethylene glycoL 238 GM BULK BOTTLE 17 GM PO (07:53)
[2022-03-18] MEDS: ESCITALOPRAM 10 MG TABLET 20 MG PO (07:53)
[2022-03-18] MEDS: DOLUTEGRAVIR 50 MG 1 EACH PO ×2 (07:54→15:02)
[2022-03-18] MEDS: OXYCODONE 5 MG TABLET 10 MG PO (07:54)
[2022-03-18] MEDS: OXYCODONE 5 MG TABLET PO ×2 (11:34→19:19)
--- NOTE | 2022-03-18 12:36 | PC.NURSE ---
Coughing/Choking: Choked on a piece of chicken. Was laughing a little bit watching TV. Check temps and lungs q shift x 3 days.
--- NOTE | 2022-03-18 13:21 | PC.PHA ---
MEDICATION REVIEW: MEDICATION MONITORING: Escitalopram 20 mg daily continues in 41 year old male patient, GDR attempted in past years. Oxycodone, acetaminophen and Miralax scheduled. No prn medication orders this review. IRREGULARITY OR COMMENTS: Patient is stable, though per nursing notes in early March patient continues to have compulsive behaviors, therefore GDR of escitalopram clinically contraindicated. No antibiotics or benzodiazepines prescribed since last review. SUGGESTED COURSE OF ACTION: No medication recommendations for March.
[2022-03-18 13:48] VITALS: TEMP 36.4
[2022-03-19 05:43] VITALS: TEMP 36.6
[2022-03-19] MEDS: ACETAMINOPHEN 500 MG TABLET 1000 MG PO ×3 (08:02→19:39)
[2022-03-19] MEDS: ESCITALOPRAM 10 MG TABLET 20 MG PO (08:02)
[2022-03-19] MEDS: polyethylene glycoL 238 GM BULK BOTTLE 17 GM PO (08:02)
[2022-03-19] MEDS: DOLUTEGRAVIR 50 MG 1 EACH PO ×2 (08:02→16:14)
[2022-03-19] MEDS: OXYCODONE 5 MG TABLET 10 MG PO (08:02)
--- NOTE | 2022-03-19 08:40 | PC.SPIRITC ---
Late entry from March 18, 2022. provided visit for connection and support.
[2022-03-19 09:52] VITALS: TEMP 36.2
--- NOTE | 2022-03-19 10:26 | PC.NURSE ---
Behavior: Resident in the dining room. This travel writer was feeding table mate, resident grabbed the behind 2x. When told his behavior was inappropriate/unacceptable resident look at the travel writer and giggle. Behavior did improve. Resident was closely monitored.
[2022-03-19] MEDS: OXYCODONE 5 MG TABLET PO ×2 (11:10→19:39)
[2022-03-19 21:10] VITALS: BMI 31.1
[2022-03-19 21:52] VITALS: TEMP 36.6
[2022-03-20 06:33] VITALS: TEMP 36.7
[2022-03-20] MEDS: ACETAMINOPHEN 500 MG TABLET 1000 MG PO ×3 (08:01→20:25)
[2022-03-20] MEDS: OXYCODONE 5 MG TABLET 10 MG PO (08:01)
[2022-03-20] MEDS: polyethylene glycoL 238 GM BULK BOTTLE 17 GM PO (08:01)
[2022-03-20] MEDS: DOLUTEGRAVIR 50 MG 1 EACH PO ×2 (08:01→16:10)
[2022-03-20] MEDS: ESCITALOPRAM 10 MG TABLET 20 MG PO (08:01)
--- NOTE | 2022-03-20 10:47 | PC.NURSE ---
F/U choking : Lung sound clear both expiratory and inspiratory. Temp : 97.6
[2022-03-20] MEDS: OXYCODONE 5 MG TABLET PO ×2 (11:37→20:25)
[2022-03-20] MEDS: MAGNESIUM HYDROXIDE 30 ML ORAL.SUSP PO (13:16)
[2022-03-21 00:55] VITALS: TEMP 36.6
[2022-03-21] MEDS: ESCITALOPRAM 10 MG TABLET 20 MG PO (08:19)
[2022-03-21] MEDS: polyethylene glycoL 238 GM BULK BOTTLE 17 GM PO (08:19)
[2022-03-21] MEDS: ACETAMINOPHEN 500 MG TABLET 1000 MG PO ×3 (08:19→19:33)
[2022-03-21] MEDS: DOLUTEGRAVIR 50 MG 1 EACH PO ×2 (08:19→15:23)
[2022-03-21] MEDS: OXYCODONE 5 MG TABLET 10 MG PO (08:21)
[2022-03-21] MEDS: OXYCODONE 5 MG TABLET PO ×2 (12:16→19:33)
--- NOTE | 2022-03-22 00:13 | PC.NURSE ---
Temp and lung sounds have been monitored since coughing episode on 03/18. Has been afebrile and lung sounds have been clear. Intervention completed.
[2022-03-22] MEDS: ACETAMINOPHEN 500 MG TABLET 1000 MG PO ×3 (07:33→19:55)
[2022-03-22] MEDS: polyethylene glycoL 238 GM BULK BOTTLE 17 GM PO (07:33)
[2022-03-22] MEDS: ESCITALOPRAM 10 MG TABLET 20 MG PO (07:33)
[2022-03-22] MEDS: OXYCODONE 5 MG TABLET 10 MG PO (07:33)
[2022-03-22] MEDS: DOLUTEGRAVIR 50 MG 1 EACH PO ×2 (07:33→15:18)
[2022-03-22] MEDS: OXYCODONE 5 MG TABLET PO ×2 (11:54→19:56)
[2022-03-23] MEDS: DOLUTEGRAVIR 50 MG 1 EACH PO ×2 (08:31→15:16)
[2022-03-23] MEDS: polyethylene glycoL 238 GM BULK BOTTLE 17 GM PO (08:31)
[2022-03-23] MEDS: ESCITALOPRAM 10 MG TABLET 20 MG PO (08:31)
[2022-03-23] MEDS: ACETAMINOPHEN 500 MG TABLET 1000 MG PO ×3 (08:31→20:04)
[2022-03-23] MEDS: OXYCODONE 5 MG TABLET 10 MG PO (08:34)
[2022-03-23] MEDS: OXYCODONE 5 MG TABLET PO ×2 (11:16→20:07)
[2022-03-23 15:00] VITALS: BP 90/63; PULSE 58; RESP 16; TEMP 36.8; O2SAT 98; BMI 30.7
[2022-03-24] MEDS: OXYCODONE 5 MG TABLET 10 MG PO (07:55)
[2022-03-24] MEDS: ESCITALOPRAM 10 MG TABLET 20 MG PO (07:55)
[2022-03-24] MEDS: polyethylene glycoL 238 GM BULK BOTTLE 17 GM PO (07:55)
[2022-03-24] MEDS: DOLUTEGRAVIR 50 MG 1 EACH PO ×2 (07:55→15:20)
[2022-03-24] MEDS: ACETAMINOPHEN 500 MG TABLET 1000 MG PO ×3 (07:55→20:39)
[2022-03-24] MEDS: OXYCODONE 5 MG TABLET PO ×2 (11:25→20:41)
--- NOTE | 2022-03-24 11:36 | PC.NURSE ---
Recert Visit: Resident seen by Mars BECKER. Orders reviewed and renewed of 75 days with changes. Order: Discontinue Oxycodone 5mg Q6H PRN.
[2022-03-24] MEDS: MAGNESIUM HYDROXIDE 30 ML ORAL.SUSP PO (13:30)
--- NOTE | 2022-03-25 02:16 | PC.NURSE ---
WEEKLY CHARTING - WEEK 3: Vital signs reviewed. No significant concerns. BP slightly low at times. Temporary and comprehensive care plan reviewed with no change. Currently has areas of reddened dry areas on right foot with tx in place to apply lotion and monitor. Is incontinent of bowel and bladder. Wears XL brief. Requires total assist of 1-2 to check/change brief and provide anel-cares. During the night is checked/changed on first and last rounds. Is allowed to sleep through second rounds.
--- NOTE | 2022-03-25 07:41 | PC.NURSE ---
Week #3 - Toileting: Comprehensive care plan reviewed, no changes made. Nothing added to temporary care plan. Resident is incontinent of bowel and bladder. Does not use the toilet. Needs 1-2 assists with toileting needs. Is to be checked & changed as needed by 0700, before/after meals. Wears X-LG briefs. Pads, anel cares, clothing managed by staff. Vital signs reviewed, WNL. Skin: No issues at this time. Skin is checked routinely on bath day and during cares.
[2022-03-25] MEDS: ACETAMINOPHEN 500 MG TABLET 1000 MG PO ×3 (08:04→19:44)
[2022-03-25] MEDS: DOLUTEGRAVIR 50 MG 1 EACH PO ×2 (08:04→15:59)
[2022-03-25] MEDS: polyethylene glycoL 238 GM BULK BOTTLE 17 GM PO (08:04)
[2022-03-25] MEDS: ESCITALOPRAM 10 MG TABLET 20 MG PO (08:04)
[2022-03-25] MEDS: OXYCODONE 5 MG TABLET 10 MG PO (08:10)
[2022-03-25] MEDS: OXYCODONE 5 MG TABLET PO ×2 (11:33→19:44)
--- NOTE | 2022-03-25 12:01 | PC.SPIRITC ---
Healthcare Administrative Assistant provided visit for support and connection.
[2022-03-26] MEDS: ESCITALOPRAM 10 MG TABLET 20 MG PO (08:18)
[2022-03-26] MEDS: polyethylene glycoL 238 GM BULK BOTTLE 17 GM PO (08:18)
[2022-03-26] MEDS: ACETAMINOPHEN 500 MG TABLET 1000 MG PO ×3 (08:18→19:35)
[2022-03-26] MEDS: DOLUTEGRAVIR 50 MG 1 EACH PO ×2 (08:18→16:17)
[2022-03-26] MEDS: OXYCODONE 5 MG TABLET 10 MG PO (08:18)
[2022-03-26] MEDS: OXYCODONE 5 MG TABLET PO ×2 (11:40→19:35)
[2022-03-27] MEDS: ACETAMINOPHEN 500 MG TABLET 1000 MG PO ×3 (08:15→19:23)
[2022-03-27] MEDS: ESCITALOPRAM 10 MG TABLET 20 MG PO (08:16)
[2022-03-27] MEDS: OXYCODONE 5 MG TABLET 10 MG PO (08:16)
[2022-03-27] MEDS: DOLUTEGRAVIR 50 MG 1 EACH PO ×2 (08:16→15:11)
[2022-03-27] MEDS: polyethylene glycoL 238 GM BULK BOTTLE 17 GM PO (08:16)
[2022-03-27] MEDS: OXYCODONE 5 MG TABLET PO ×2 (11:46→19:23)
--- NOTE | 2022-03-27 11:56 | PC.NURSE ---
Wound : Noted small open work ( laceration) on resident`s scrotum due to scratching. Applied sensicare cream till heal.
[2022-03-27 19:30] VITALS: BP 113/73; PULSE 60; RESP 20; TEMP 37; O2SAT 98
--- NOTE | 2022-03-27 20:25 | LTC.FALL ---
[facility] Fall Note: o Fall Date: 03/27/22 o Fall Time: 1919 o What happened? resident slid down from his wheel chair o Who found the resident and who responded? Blossom(RN) Linnette (RN) ( witness fall) o What was the resident doing? Watching TV while cares are done to other residents o How the resident was found (knees, left side, arm under them), any hazards (cords, objects, nonskid slippers) brakes on? Proper equipment? Slide at the edge of the wheel chair.Unable to prevent the fall. o Did you assess for head trauma, spinal injuries, skeletal injuries, neurological changes and status, and head and neck pain? What did you find? Manage to lower down resident safely o Did you assess ROM in shoulders, elbows, hips, knees, any other affected areas, unless there is suspected spinal injury. No injury. Manage to lower down resident safely to the floor o Did you Assess for pain or discomfort? Yes . No pain or discomfort o What are the injuries and how are they being treated? No injuries ( Staff was unable to lift him on the wheel chair prior to sliding down) o How was the resident transferred from the floor? Using [employer] with 3 Assist o Did you call the MD or put a note in the BLAST FURNACE HELPER book? Yes o Enter vital signs. T: 97.6, P 60 R 16 B/P 113/73, O2 98% o Did you notify family? No o What was the root cause of the fall? Why did it happen? Need to conduct assessment for the wheel chair or cushion o Create an IMMEDIATE INTERVENTION to ensure that this won't immediately happen again. (Put in temporary care plan too) o Complete Safety report and huddle (now one form) o If resident is seen in ED or fractured something, note that you started a [facility] Report process. Instructions are at the East nurse's desk in a red binder labeled [facility] report.
--- NOTE | 2022-03-27 21:17 | PC.NURSE ---
Fall F/U : Resident is alert . No injuries noted as he was assisted to the floor. Vitals are WNL. T: 97.6, P:60, R: 16, B/P 113/73 and O2 98% ( RA) Incident and nurses report done. Updated care plan and N/P book. Resident denies any pain .
--- NOTE | 2022-03-27 21:31 | LTC.FALL ---
[facility] Fall Note: o Fall Date: o Fall Time: o What happened? o Who found the resident and who responded? o What was the resident doing? o How the resident was found (knees, left side, arm under them), any hazards (cords, objects, nonskid slippers) brakes on? Proper equipment? o Did you assess for head trauma, spinal injuries, skeletal injuries, neurological changes and status, and head and neck pain? What did you find? o Did you assess ROM in shoulders, elbows, hips, knees, any other affected areas, unless there is suspected spinal injury. o Did you Assess for pain or discomfort? o What are the injuries and how are they being treated? o How was the resident transferred from the floor? o Did you call the MD or put a note in the PRESENTATION MANAGER book? o Enter vital signs. o Did you notify family? o What was the root cause of the fall? Why did it happen? o Create an IMMEDIATE INTERVENTION to ensure that this won't immediately happen again. (Put in temporary care plan too) o Complete Safety report and huddle (now one form) o If resident is seen in ED or fractured something, note that you started a [facility] Report process. Instructions are at the East nurse's desk in a red binder labeled [facility] report.
[2022-03-28 00:10] VITALS: PULSE 72; RESP 18; TEMP 36.3; O2SAT 94
[2022-03-28 03:34] VITALS: BP 106/71; PULSE 72; RESP 18; TEMP 36.4; O2SAT 92
[2022-03-28] MEDS: ACETAMINOPHEN 500 MG TABLET 1000 MG PO ×3 (07:50→19:03)
[2022-03-28] MEDS: ESCITALOPRAM 10 MG TABLET 20 MG PO (07:51)
[2022-03-28] MEDS: polyethylene glycoL 238 GM BULK BOTTLE 17 GM PO (07:51)
[2022-03-28] MEDS: DOLUTEGRAVIR 50 MG 1 EACH PO ×2 (07:51→15:55)
[2022-03-28] MEDS: OXYCODONE 5 MG TABLET 10 MG PO (07:51)
[2022-03-28] MEDS: OXYCODONE 5 MG TABLET PO ×2 (11:33→19:03)
[2022-03-28 12:14] VITALS: BP 130/76; PULSE 70; RESP 18; TEMP 36.3; O2SAT 95
--- NOTE | 2022-03-28 13:13 | PC.NURSE ---
Fall F/U : Resident is alert. Vital are WNL. Resident denies pain or any discomfort.
[2022-03-29] MEDS: ESCITALOPRAM 10 MG TABLET 20 MG PO (07:32)
[2022-03-29] MEDS: ACETAMINOPHEN 500 MG TABLET 1000 MG PO ×3 (07:32→19:37)
[2022-03-29] MEDS: OXYCODONE 5 MG TABLET 10 MG PO (07:33)
[2022-03-29] MEDS: polyethylene glycoL 238 GM BULK BOTTLE 17 GM PO (07:33)
[2022-03-29] MEDS: DOLUTEGRAVIR 50 MG 1 EACH PO ×2 (07:33→15:55)
[2022-03-29] MEDS: OXYCODONE 5 MG TABLET PO ×2 (11:48→19:37)
[2022-03-30] MEDS: ACETAMINOPHEN 500 MG TABLET 1000 MG PO ×3 (08:12→19:16)
[2022-03-30] MEDS: ESCITALOPRAM 10 MG TABLET 20 MG PO (08:13)
[2022-03-30] MEDS: polyethylene glycoL 238 GM BULK BOTTLE 17 GM PO (08:13)
[2022-03-30] MEDS: DOLUTEGRAVIR 50 MG 1 EACH PO ×2 (08:13→15:49)
[2022-03-30] MEDS: OXYCODONE 5 MG TABLET 10 MG PO (08:13)
[2022-03-30] MEDS: OXYCODONE 5 MG TABLET PO ×2 (11:59→19:16)
[2022-03-30 15:00] VITALS: BP 96/62; PULSE 68; RESP 16; TEMP 36.2; O2SAT 96; BMI 30.4
[2022-03-31] MEDS: ACETAMINOPHEN 500 MG TABLET 1000 MG PO ×3 (07:59→19:40)
[2022-03-31] MEDS: ESCITALOPRAM 10 MG TABLET 20 MG PO (07:59)
[2022-03-31] MEDS: polyethylene glycoL 238 GM BULK BOTTLE 17 GM PO (08:00)
[2022-03-31] MEDS: DOLUTEGRAVIR 50 MG 1 EACH PO ×2 (08:00→16:09)
[2022-03-31] MEDS: OXYCODONE 5 MG TABLET 10 MG PO (08:01)
[2022-03-31] MEDS: OXYCODONE 5 MG TABLET PO ×2 (12:06→19:40)
--- NOTE | 2022-04-01 03:12 | PC.NURSE ---
WEEKLY CHARTING - WEEK 4: Vital signs reviewed with no concerns. Temporary and comprehensive care plan reviewed - no change. Two documented behaviors in the last month. Currently receives escitalopram 20mg daily with no noted adverse effects. Is not able to communicate needs. Staff anticipate needs. No hearing or vision problems. All medications administered by licensed nurse.
[2022-04-01] MEDS: DOLUTEGRAVIR 50 MG 1 EACH PO ×2 (07:41→15:17)
[2022-04-01] MEDS: ESCITALOPRAM 10 MG TABLET 20 MG PO (07:41)
[2022-04-01] MEDS: polyethylene glycoL 238 GM BULK BOTTLE 17 GM PO (07:41)
[2022-04-01] MEDS: ACETAMINOPHEN 500 MG TABLET 1000 MG PO ×3 (07:41→19:24)
[2022-04-01] MEDS: OXYCODONE 5 MG TABLET 10 MG PO (07:41)
--- NOTE | 2022-04-01 07:45 | PC.NURSE ---
Week #4: Comprehensive care plan reviewed. No changes made. Nothing added to temporary care plan. No changes noted in communication, hearing, vision, or orientation. Needs anticipated by staff. Does not communicate needs. No hearing and visual problems. Is oriented to self. Chronic health condition stable. All medications administered by Nurse. Vital signs reviewed, within his range. Mood/Behavior: No issues documented in the last month. On occasions manifest obsessive/compulsive behavior. Continues on Escitalopram 20mg daily with no adverse effects noted.
[2022-04-01] MEDS: OXYCODONE 5 MG TABLET PO ×2 (11:37→19:25)
[2022-04-02] MEDS: OXYCODONE 5 MG TABLET 10 MG PO (07:03)
[2022-04-02] MEDS: ACETAMINOPHEN 500 MG TABLET 1000 MG PO ×3 (07:03→19:37)
[2022-04-02] MEDS: ESCITALOPRAM 10 MG TABLET 20 MG PO (07:03)
[2022-04-02] MEDS: DOLUTEGRAVIR 50 MG 1 EACH PO ×2 (07:03→15:18)
[2022-04-02] MEDS: polyethylene glycoL 238 GM BULK BOTTLE 17 GM PO (07:03)
[2022-04-02] MEDS: OXYCODONE 5 MG TABLET PO ×2 (11:26→19:37)
[2022-04-03] MEDS: ESCITALOPRAM 10 MG TABLET 20 MG PO (07:19)
[2022-04-03] MEDS: OXYCODONE 5 MG TABLET 10 MG PO (07:19)
[2022-04-03] MEDS: ACETAMINOPHEN 500 MG TABLET 1000 MG PO ×3 (07:19→19:55)
[2022-04-03] MEDS: polyethylene glycoL 238 GM BULK BOTTLE 17 GM PO (07:19)
[2022-04-03] MEDS: DOLUTEGRAVIR 50 MG 1 EACH PO ×2 (07:19→15:40)
[2022-04-03] MEDS: OXYCODONE 5 MG TABLET PO ×2 (11:48→19:55)
[2022-04-04] MEDS: ESCITALOPRAM 10 MG TABLET 20 MG PO (08:08)
[2022-04-04] MEDS: ACETAMINOPHEN 500 MG TABLET 1000 MG PO ×3 (08:08→20:34)
[2022-04-04] MEDS: polyethylene glycoL 238 GM BULK BOTTLE 17 GM PO (08:08)
[2022-04-04] MEDS: DOLUTEGRAVIR 50 MG 1 EACH PO ×2 (08:08→15:16)
[2022-04-04] MEDS: OXYCODONE 5 MG TABLET 10 MG PO (08:09)
[2022-04-04] MEDS: OXYCODONE 5 MG TABLET PO ×2 (11:51→20:34)
[2022-04-05] MEDS: ACETAMINOPHEN 500 MG TABLET 1000 MG PO ×3 (08:25→21:00)
[2022-04-05] MEDS: OXYCODONE 5 MG TABLET 10 MG PO (08:26)
[2022-04-05] MEDS: polyethylene glycoL 238 GM BULK BOTTLE 17 GM PO (08:26)
[2022-04-05] MEDS: ESCITALOPRAM 10 MG TABLET 20 MG PO (08:26)
[2022-04-05] MEDS: DOLUTEGRAVIR 50 MG 1 EACH PO ×2 (08:26→15:30)
[2022-04-05] MEDS: OXYCODONE 5 MG TABLET PO ×2 (11:17→21:00)
--- NOTE | 2022-04-05 21:35 | PC.NURSE ---
Skin: Laceration to scrotum, redness and flakey skin on feet and, redness to right great toe joint has all resolved and intervention completed
[2022-04-06] MEDS: DOLUTEGRAVIR 50 MG 1 EACH PO ×2 (07:49→15:22)
[2022-04-06] MEDS: OXYCODONE 5 MG TABLET 10 MG PO (07:49)
[2022-04-06] MEDS: polyethylene glycoL 238 GM BULK BOTTLE 17 GM PO (07:50)
[2022-04-06] MEDS: ACETAMINOPHEN 500 MG TABLET 1000 MG PO ×3 (07:50→19:21)
[2022-04-06] MEDS: ESCITALOPRAM 10 MG TABLET 20 MG PO (07:50)
[2022-04-06 09:18] VITALS: TEMP 36.6; O2SAT 98
[2022-04-06] MEDS: OXYCODONE 5 MG TABLET PO ×2 (12:06→19:22)
--- NOTE | 2022-04-06 13:27 | PC.NURSE ---
Addendum entered by Nicky Matthews RN 04/06/22 19:25: 04/04/22: Residents NAKITA Smiley gave consent for COVID testing until outbreak status is complete Original Note: COVID OUTBREAK TESTING: Resident provided verbal consent for outbreak COVID testing. Resident is currently asymptomatic. Resident/family will be notified only if resident is positive.
[2022-04-06 16:23] VITALS: BP 114/77; PULSE 80; RESP 20; TEMP 36.9; O2SAT 96; BMI 30.6
[2022-04-06 16:44] LABS: SARS PCR* Negative SARS-CoV-2 (Negative)
[2022-04-06 17:05] VITALS: TEMP 36.6; O2SAT 95
[2022-04-06 23:00] VITALS: TEMP 36.2; O2SAT 98
[2022-04-07 07:00] VITALS: TEMP 36.8; O2SAT 97
[2022-04-07] MEDS: ESCITALOPRAM 10 MG TABLET 20 MG PO (07:38)
[2022-04-07] MEDS: ACETAMINOPHEN 500 MG TABLET 1000 MG PO ×3 (07:38→19:31)
[2022-04-07] MEDS: OXYCODONE 5 MG TABLET 10 MG PO (07:39)
[2022-04-07] MEDS: DOLUTEGRAVIR 50 MG 1 EACH PO ×2 (07:39→15:53)
[2022-04-07] MEDS: polyethylene glycoL 238 GM BULK BOTTLE 17 GM PO (07:39)
[2022-04-07] MEDS: OXYCODONE 5 MG TABLET PO ×2 (11:43→19:31)
[2022-04-07 15:00] VITALS: TEMP 37; O2SAT 97
[2022-04-07 23:00] VITALS: TEMP 36.3; O2SAT 97
--- NOTE | 2022-04-08 03:15 | PC.NURSE ---
WEEKLY CHARTING -WEEK 1: Vital signs reviewed with no concerns. Temporary and comprehensive care plan reviewed - no change. Hx of right arm pain. Receives scheduled acetaminophen and oxycodone for pain management. Requires 2 total assist with dressing, grooming, bathing, and oral care. Total assist with meals. Receive a regular diet. Hx of laughing during meals. Appetite is good.
[2022-04-08] MEDS: polyethylene glycoL 238 GM BULK BOTTLE 17 GM PO (08:29)
[2022-04-08] MEDS: OXYCODONE 5 MG TABLET 10 MG PO (08:29)
[2022-04-08] MEDS: ESCITALOPRAM 10 MG TABLET 20 MG PO (08:29)
[2022-04-08] MEDS: ACETAMINOPHEN 500 MG TABLET 1000 MG PO ×3 (08:29→19:02)
[2022-04-08] MEDS: DOLUTEGRAVIR 50 MG 1 EACH PO ×2 (08:29→15:28)
[2022-04-08 10:31] VITALS: TEMP 36.4; O2SAT 95
[2022-04-08] MEDS: OXYCODONE 5 MG TABLET PO ×2 (11:49→19:02)
[2022-04-08 15:00] VITALS: TEMP 36.5; O2SAT 97
[2022-04-08 23:00] VITALS: TEMP 36.7; O2SAT 95
[2022-04-09] MEDS: ACETAMINOPHEN 500 MG TABLET 1000 MG PO ×3 (07:27→19:00)
[2022-04-09] MEDS: ESCITALOPRAM 10 MG TABLET 20 MG PO (07:28)
[2022-04-09] MEDS: polyethylene glycoL 238 GM BULK BOTTLE 17 GM PO (07:28)
[2022-04-09] MEDS: OXYCODONE 5 MG TABLET 10 MG PO (07:28)
[2022-04-09] MEDS: DOLUTEGRAVIR 50 MG 1 EACH PO ×2 (07:28→15:57)
--- NOTE | 2022-04-09 08:39 | PC.NURSE ---
LABS: per Dr. Clemens and Pearl Crews CHROME PLATER HELPER draw labs: CD4 count for immune monitoring and HIV-1 RNA Detect/Quant. DX: HIV asymptomatic.Labs will be faxed and reviewed by Dr. Clemens before next appointment.
[2022-04-09 10:22] VITALS: TEMP 36.4; O2SAT 97
[2022-04-09] MEDS: OXYCODONE 5 MG TABLET PO ×2 (11:36→19:00)
[2022-04-09 15:00] VITALS: TEMP 36.8; O2SAT 97
[2022-04-09 23:00] VITALS: TEMP 36.3; O2SAT 94
[2022-04-10] MEDS: OXYCODONE 5 MG TABLET 10 MG PO (08:51)
[2022-04-10] MEDS: ACETAMINOPHEN 500 MG TABLET 1000 MG PO ×3 (08:52→20:15)
[2022-04-10] MEDS: polyethylene glycoL 238 GM BULK BOTTLE 17 GM PO (08:53)
[2022-04-10] MEDS: ESCITALOPRAM 10 MG TABLET 20 MG PO (08:53)
[2022-04-10] MEDS: DOLUTEGRAVIR 50 MG 1 EACH PO ×2 (08:53→15:39)
[2022-04-10 10:36] VITALS: TEMP 36.3; O2SAT 96
[2022-04-10] MEDS: OXYCODONE 5 MG TABLET PO ×2 (11:39→20:15)
--- NOTE | 2022-04-10 13:06 | PC.NURSE ---
Skin: Was noted that resident has small .25cm round bump with scratch above L eyebrow. Area washed and intervention set up
[2022-04-10 15:00] VITALS: TEMP 36.5; O2SAT 96
[2022-04-10 23:00] VITALS: TEMP 36.2; O2SAT 96
[2022-04-11] MEDS: ACETAMINOPHEN 500 MG TABLET 1000 MG PO ×3 (08:17→19:17)
[2022-04-11] MEDS: polyethylene glycoL 238 GM BULK BOTTLE 17 GM PO (08:18)
[2022-04-11] MEDS: DOLUTEGRAVIR 50 MG 1 EACH PO ×2 (08:18→15:34)
[2022-04-11] MEDS: OXYCODONE 5 MG TABLET 10 MG PO (08:18)
[2022-04-11] MEDS: ESCITALOPRAM 10 MG TABLET 20 MG PO (08:18)
[2022-04-11 10:23] VITALS: TEMP 36.7; O2SAT 97
[2022-04-11] MEDS: OXYCODONE 5 MG TABLET PO ×2 (11:09→19:17)
[2022-04-11 15:00] VITALS: TEMP 36.5; O2SAT 96
[2022-04-11 23:00] VITALS: TEMP 36.5; O2SAT 96
[2022-04-12] MEDS: polyethylene glycoL 238 GM BULK BOTTLE 17 GM PO (07:43)
[2022-04-12] MEDS: ACETAMINOPHEN 500 MG TABLET 1000 MG PO ×3 (07:43→19:05)
[2022-04-12] MEDS: ESCITALOPRAM 10 MG TABLET 20 MG PO (07:43)
[2022-04-12] MEDS: DOLUTEGRAVIR 50 MG 1 EACH PO ×2 (07:43→15:31)
[2022-04-12] MEDS: OXYCODONE 5 MG TABLET 10 MG PO (07:43)
[2022-04-12 09:37] LABS: Absolute CD3 1149 cells/uL (570-2400); Absolute CD4:CD8 Ratio 0.57 ratio (0.80-3.90); Absolute CD8 723 cells/uL (210-1200)
[2022-04-12] MEDS: OXYCODONE 5 MG TABLET PO ×2 (11:33→19:05)
[2022-04-12 12:54] VITALS: TEMP 36.8; O2SAT 94
[2022-04-12 15:00] VITALS: TEMP 36.6; O2SAT 96
[2022-04-12 23:00] VITALS: TEMP 35.8; O2SAT 94
[2022-04-13] MEDS: ACETAMINOPHEN 500 MG TABLET 1000 MG PO ×3 (08:33→19:07)
[2022-04-13] MEDS: ESCITALOPRAM 10 MG TABLET 20 MG PO (08:34)
[2022-04-13] MEDS: DOLUTEGRAVIR 50 MG 1 EACH PO ×2 (08:34→15:51)
[2022-04-13] MEDS: OXYCODONE 5 MG TABLET 10 MG PO (08:34)
[2022-04-13] MEDS: OXYCODONE 5 MG TABLET PO ×2 (11:29→19:08)
--- NOTE | 2022-04-13 11:33 | PC.NURSE ---
Loose stool - Pt experienced loose stool episode 04/12/22. 3 loose stool episodes. Implemented isolation precautions for pt. All staff to wear contact precaution PPE. Used standing orders for COVID/FLU A&B test. Called [facility] - Order sent for RSV and Norovirus tests. Family notified. T: 96.4. No other symptoms.
[2022-04-13 11:58] LABS: PCR FLU A Negative PCR FLU A (Negative); PCR FLU B Negative PCR FLU B (Negative); PCR RSV Negative PCR RSV (Negative)
[2022-04-13 12:11] LABS: SARS PCR* Negative SARS-CoV-2 (Negative)
[2022-04-13 13:21] VITALS: TEMP 36.3; O2SAT 94
--- NOTE | 2022-04-13 13:22 | PC.NURSE ---
Status: Resident had no intake at breakfast but did eat lunch with about 200cc of fluid intake. Did have 1 very lg loose BM
[2022-04-13 21:09] VITALS: TEMP 36.1; O2SAT 94
[2022-04-13 21:16] VITALS: BP 112/72; PULSE 70; RESP 18; TEMP 36.1; O2SAT 94
[2022-04-13 23:00] VITALS: TEMP 36.8; O2SAT 91
[2022-04-14 05:06] VITALS: TEMP 36.6; O2SAT 98
--- NOTE | 2022-04-14 05:28 | PC.NURSE ---
Resident did not have any loose stool or emesis at this shift, keeping on isolation.
--- NOTE | 2022-04-14 05:45 | PC.NURSE ---
Resident did not have any loose stool or emesis overnight. Continue with isolation.
[2022-04-14] MEDS: ACETAMINOPHEN 500 MG TABLET 1000 MG PO ×3 (07:48→19:24)
[2022-04-14] MEDS: ESCITALOPRAM 10 MG TABLET 20 MG PO (07:48)
[2022-04-14] MEDS: DOLUTEGRAVIR 50 MG 1 EACH PO ×2 (07:49→16:16)
[2022-04-14] MEDS: OXYCODONE 5 MG TABLET 10 MG PO (07:49)
--- NOTE | 2022-04-14 11:02 | PC.NURSE ---
Resident status : Resident was alert today. No episode of vomiting or diarrhoea. Appetite is good. Lying on his bed and watching TV most of the time.
[2022-04-14] MEDS: OXYCODONE 5 MG TABLET PO ×2 (11:42→19:24)
[2022-04-14 12:16] VITALS: TEMP 36.4; O2SAT 95
[2022-04-14 15:00] VITALS: TEMP 36.7; O2SAT 97
[2022-04-14 23:00] VITALS: TEMP 36.5; O2SAT 94
--- NOTE | 2022-04-15 03:59 | PC.NURSE ---
WEEKLY CHARTING - WEEK 2: Vital signs reviewed. Temporary and comprehensive care plan reviewed - no change. Total assist of 2 with full mechanical lift for all transfers. Total assist for w/c mobility. 2 assist with bed mobility. Per fall risk assessment, resident is at low risk for falls. Fall interventions include: Not to be left alone in w/c when in room, no pillows for bed positioning, check and change Q AM by 0700, hourly safety checks, bed in lowest position.
[2022-04-15] MEDS: ACETAMINOPHEN 500 MG TABLET 1000 MG PO ×3 (07:35→19:56)
[2022-04-15] MEDS: polyethylene glycoL 238 GM BULK BOTTLE 17 GM PO (07:35)
[2022-04-15] MEDS: ESCITALOPRAM 10 MG TABLET 20 MG PO (07:35)
[2022-04-15] MEDS: DOLUTEGRAVIR 50 MG 1 EACH PO ×2 (07:36→15:43)
[2022-04-15] MEDS: OXYCODONE 5 MG TABLET 10 MG PO (07:36)
--- NOTE | 2022-04-15 10:42 | PC.NURSE ---
Week #2: Mobility: Care plan reviewed, no changes made. Nothing added to temporary care plan. Resident is non ambulatory. Transfers with 2 assists using the deandre lift. Can wheel self at times short distance without a purpose. Staff wheels to all destinations. Can make slight changes in body positioning. Staff to check and assist resident make significant changes every 2.5 hours. No alarms. Staff to do ROM of (R) upper extremity BID. Vital signs reviewed, occasional low values BP.. Not on antihypertensive medications. Continue weekly VS monitoring. Fall: No falls the past month. Remains? a low fall risk according to assessment done on 02/12/22.
[2022-04-15] MEDS: OXYCODONE 5 MG TABLET PO ×2 (11:42→19:56)
[2022-04-15 14:46] VITALS: TEMP 36.4; O2SAT 95
[2022-04-15 15:00] VITALS: TEMP 36.4; O2SAT 96
[2022-04-15 23:00] VITALS: TEMP 36.4; O2SAT 94
[2022-04-16] MEDS: ESCITALOPRAM 10 MG TABLET 20 MG PO (08:21)
[2022-04-16] MEDS: DOLUTEGRAVIR 50 MG 1 EACH PO ×2 (08:21→15:46)
[2022-04-16] MEDS: polyethylene glycoL 238 GM BULK BOTTLE 17 GM PO (08:21)
[2022-04-16] MEDS: ACETAMINOPHEN 500 MG TABLET 1000 MG PO ×3 (08:21→19:24)
[2022-04-16] MEDS: OXYCODONE 5 MG TABLET 10 MG PO (08:22)
[2022-04-16 10:06] VITALS: TEMP 36.8; O2SAT 96
--- NOTE | 2022-04-16 10:37 | PC.NURSE ---
Requested labs from 04/10/22 sent to [facility] per request.
[2022-04-16] MEDS: OXYCODONE 5 MG TABLET PO ×2 (11:07→19:24)
[2022-04-16 15:00] VITALS: TEMP 36.5; O2SAT 96
--- NOTE | 2022-04-16 22:09 | PC.NURSE ---
Resident refused to eat supper. Offered him another meal choice but he did not eat any. Toll Patrolman asked if he was hungry and he stated, no. Offered snacks after supper but refused this as well.
[2022-04-16 23:00] VITALS: TEMP 36.2; O2SAT 93
[2022-04-17] MEDS: polyethylene glycoL 238 GM BULK BOTTLE 17 GM PO (07:46)
[2022-04-17] MEDS: DOLUTEGRAVIR 50 MG 1 EACH PO ×2 (07:46→16:19)
[2022-04-17] MEDS: ACETAMINOPHEN 500 MG TABLET 1000 MG PO ×3 (07:46→19:17)
[2022-04-17] MEDS: ESCITALOPRAM 10 MG TABLET 20 MG PO (07:46)
[2022-04-17] MEDS: OXYCODONE 5 MG TABLET 10 MG PO (07:51)
[2022-04-17 10:34] VITALS: TEMP 36.1; O2SAT 93
[2022-04-17] MEDS: OXYCODONE 5 MG TABLET PO ×2 (11:19→19:17)
[2022-04-17 15:00] VITALS: TEMP 36.6; O2SAT 98
[2022-04-17 23:00] VITALS: TEMP 36.1; O2SAT 93
[2022-04-18 07:00] VITALS: TEMP 36.4; O2SAT 95
[2022-04-18] MEDS: ACETAMINOPHEN 500 MG TABLET 1000 MG PO ×3 (07:42→19:47)
[2022-04-18] MEDS: ESCITALOPRAM 10 MG TABLET 20 MG PO (07:43)
[2022-04-18] MEDS: polyethylene glycoL 238 GM BULK BOTTLE 17 GM PO (07:43)
[2022-04-18] MEDS: DOLUTEGRAVIR 50 MG 1 EACH PO ×2 (07:43→16:05)
[2022-04-18] MEDS: OXYCODONE 5 MG TABLET 10 MG PO (07:45)
[2022-04-18] MEDS: OXYCODONE 5 MG TABLET PO ×2 (11:39→19:47)
[2022-04-18 15:00] VITALS: TEMP 36.8; O2SAT 96
--- NOTE | 2022-04-18 21:04 | PC.NURSE ---
Alert! Resident has been pocketing food in his mouth. Approximately, 1630, this author and padmini VILLA were providing cares to resident when it was observed that resident was holding food from lunch in his mouth whilst in bed. Resident was encouraged to spit out the content, which contained two chunks of cut meat and three bow tie pasta. Resident's mouth need to be inspected after meals before lying in bed.
[2022-04-18 23:00] VITALS: TEMP 36.3; O2SAT 96
[2022-04-19 07:00] VITALS: TEMP 36.2; O2SAT 96
[2022-04-19] MEDS: ESCITALOPRAM 10 MG TABLET 20 MG PO (07:46)
[2022-04-19] MEDS: ACETAMINOPHEN 500 MG TABLET 1000 MG PO ×3 (07:46→19:34)
[2022-04-19] MEDS: polyethylene glycoL 238 GM BULK BOTTLE 17 GM PO (07:47)
[2022-04-19] MEDS: DOLUTEGRAVIR 50 MG 1 EACH PO ×2 (07:47→15:27)
[2022-04-19] MEDS: OXYCODONE 5 MG TABLET 10 MG PO (07:47)
[2022-04-19] MEDS: OXYCODONE 5 MG TABLET PO ×2 (12:02→19:34)
[2022-04-19] MEDS: bisacodyL 10 MG SUPP.RECT PR (14:37)
[2022-04-19 15:00] VITALS: TEMP 36.4; O2SAT 98
[2022-04-19 23:00] VITALS: TEMP 36.3; O2SAT 94
[2022-04-20] MEDS: ACETAMINOPHEN 500 MG TABLET 1000 MG PO ×3 (08:30→20:05)
[2022-04-20] MEDS: ESCITALOPRAM 10 MG TABLET 20 MG PO (08:31)
[2022-04-20] MEDS: polyethylene glycoL 238 GM BULK BOTTLE 17 GM PO (08:31)
[2022-04-20] MEDS: OXYCODONE 5 MG TABLET 10 MG PO (08:31)
[2022-04-20] MEDS: DOLUTEGRAVIR 50 MG 1 EACH PO ×2 (08:31→15:04)
[2022-04-20 10:28] VITALS: TEMP 36.8; O2SAT 96
[2022-04-20] MEDS: OXYCODONE 5 MG TABLET PO ×2 (11:14→20:05)
--- NOTE | 2022-04-20 11:56 | PC.NURSE ---
COVID OUTBREAK TESTING (Antigen): Resident provided verbal consent for outbreak COVID testing. Resident is currently asymptomatic.? Resident/family will be notified only if resident is positive.
[2022-04-20 12:24] LABS: SARS PCR* Negative SARS-CoV-2 (Negative)
[2022-04-20 21:30] VITALS: BP 88/60; PULSE 58; RESP 16; TEMP 36.3; O2SAT 93
--- NOTE | 2022-04-20 21:43 | PC.NURSE ---
Status: Resident has a liquid stool and an emesis on the PM shift. Implementing precautions.
[2022-04-20 23:00] VITALS: TEMP 36.3; O2SAT 94
[2022-04-21] MEDS: ACETAMINOPHEN 500 MG TABLET 1000 MG PO ×3 (07:57→19:36)
[2022-04-21] MEDS: ESCITALOPRAM 10 MG TABLET 20 MG PO (07:58)
[2022-04-21] MEDS: DOLUTEGRAVIR 50 MG 1 EACH PO ×2 (07:59→15:51)
[2022-04-21] MEDS: OXYCODONE 5 MG TABLET 10 MG PO (07:59)
[2022-04-21 11:25] VITALS: TEMP 36.3; O2SAT 96
[2022-04-21] MEDS: OXYCODONE 5 MG TABLET PO ×2 (11:40→19:36)
--- NOTE | 2022-04-21 13:34 | PC.NURSE ---
Resident Status : Resident refused his breakfast this morning, however he took his lunch 100%. No diarrhoea and vomiting. Laxative Miralax was omitted today. Vitals are WNL and continue to implement isolation as per protocol.
[2022-04-21 21:08] VITALS: TEMP 36; O2SAT 94
[2022-04-21 21:14] VITALS: BMI 29.3
--- NOTE | 2022-04-21 21:25 | PC.NURSE ---
Status: Resident has no emesis or diarrhea on the PM shift. Ate 100% of dinner.
[2022-04-21 23:00] VITALS: TEMP 35.8; O2SAT 92
--- NOTE | 2022-04-22 03:31 | PC.NURSE ---
WEEKLY CHARTING - WEEK 3: Vital signs reviewed. Temporary and comprehensive care plan reviewed - no change. No documented skin integrity concerns. Is incontinent of bowel and bladder. Wears large brief. Is checked and changed on 1st and 3rd rounds at night. Requires total assist for clothing/pad management and anel-cares.
[2022-04-22 07:00] VITALS: TEMP 36.4; O2SAT 93
[2022-04-22] MEDS: polyethylene glycoL 238 GM BULK BOTTLE 17 GM PO (08:06)
[2022-04-22] MEDS: OXYCODONE 5 MG TABLET 10 MG PO (08:06)
[2022-04-22] MEDS: ESCITALOPRAM 10 MG TABLET 20 MG PO (08:06)
[2022-04-22] MEDS: DOLUTEGRAVIR 50 MG 1 EACH PO ×2 (08:06→16:23)
[2022-04-22] MEDS: ACETAMINOPHEN 500 MG TABLET 1000 MG PO ×3 (08:06→19:06)
--- NOTE | 2022-04-22 08:21 | PC.NURSE ---
Week #3-Toileting: Comprehensive care plan reviewed, no changes made. Nothing added to temporary care plan.Resident is incontinent of bowel and bladder. Is checked and changed in bed every 2 hours and PRN. Wears XLG briefs. Needs 2 assists with all toileting needs including pad, anel cares and clothing management. Vital signs reviewed, no concerns. Skin: No issues at this time. Skin is checked routinely during cares and on bath days.
--- NOTE | 2022-04-22 09:14 | PC.PHA ---
MEDICATION REVIEW MEDICATION MONITORING: Escitalopram 20 mg daily antivirals - emtricitabine-tenofovir 200/25 mg daily and dolutegravir 50 mg bid IRREGULARITY/COMMENTS: All of the above medication are being properly monitored. Patient's recent labs are being monitored by infectious disease in [place] and facility provider. Review of nursing notes shows some continued behaviors and therefore no GDR for escitalopram clinically indicated this review. SUGGESTED COURSE OF ACTION: No recommendations for April.
[2022-04-22 10:41] VITALS: BMI 29.5
[2022-04-22] MEDS: OXYCODONE 5 MG TABLET PO ×2 (12:35→19:06)
[2022-04-22 15:00] VITALS: TEMP 36.6; O2SAT 96
--- NOTE | 2022-04-22 21:54 | PC.NURSE ---
Status: No emesis or diarrhea this shift. Poor appetite. Staff reported he ate less than 25% of meal. Was offered additional snacks and refused.
[2022-04-22 23:00] VITALS: TEMP 36.4; O2SAT 94
[2022-04-23 07:00] VITALS: TEMP 36.4; O2SAT 95
[2022-04-23] MEDS: ESCITALOPRAM 10 MG TABLET 20 MG PO (08:37)
[2022-04-23] MEDS: ACETAMINOPHEN 500 MG TABLET 1000 MG PO ×3 (08:37→19:22)
[2022-04-23] MEDS: polyethylene glycoL 238 GM BULK BOTTLE 17 GM PO (08:38)
[2022-04-23] MEDS: DOLUTEGRAVIR 50 MG 1 EACH PO ×2 (08:38→16:19)
[2022-04-23] MEDS: OXYCODONE 5 MG TABLET 10 MG PO (08:40)
[2022-04-23] MEDS: OXYCODONE 5 MG TABLET PO ×2 (12:11→19:23)
[2022-04-23 15:00] VITALS: TEMP 36.9; O2SAT 95
[2022-04-23 23:00] VITALS: TEMP 36.3; O2SAT 94
--- NOTE | 2022-04-24 04:06 | PC.NURSE ---
Last loose stool and emesis on 04/20. Has been >72 hours. Isolation precautions discontinued at this time.
[2022-04-24] MEDS: ESCITALOPRAM 10 MG TABLET 20 MG PO (08:01)
[2022-04-24] MEDS: ACETAMINOPHEN 500 MG TABLET 1000 MG PO ×3 (08:01→19:36)
[2022-04-24] MEDS: polyethylene glycoL 238 GM BULK BOTTLE 17 GM PO (08:01)
[2022-04-24] MEDS: OXYCODONE 5 MG TABLET 10 MG PO (08:01)
[2022-04-24] MEDS: DOLUTEGRAVIR 50 MG 1 EACH PO ×2 (08:01→16:59)
[2022-04-24 10:14] VITALS: TEMP 36.4; O2SAT 96
[2022-04-24] MEDS: OXYCODONE 5 MG TABLET PO ×2 (11:19→19:36)
[2022-04-24 15:00] VITALS: TEMP 36.6; O2SAT 96
[2022-04-24 23:00] VITALS: TEMP 36.4; O2SAT 95
[2022-04-25] MEDS: ACETAMINOPHEN 500 MG TABLET 1000 MG PO ×3 (08:44→19:24)
[2022-04-25] MEDS: ESCITALOPRAM 10 MG TABLET 20 MG PO (08:44)
[2022-04-25] MEDS: OXYCODONE 5 MG TABLET 10 MG PO (08:45)
[2022-04-25] MEDS: DOLUTEGRAVIR 50 MG 1 EACH PO ×2 (08:45→17:00)
[2022-04-25] MEDS: polyethylene glycoL 238 GM BULK BOTTLE 17 GM PO (08:45)
[2022-04-25 10:06] VITALS: TEMP 36.6; O2SAT 94
[2022-04-25] MEDS: OXYCODONE 5 MG TABLET PO ×2 (11:15→19:24)
[2022-04-25 15:00] VITALS: TEMP 36.6; O2SAT 96
[2022-04-25 23:00] VITALS: TEMP 36.5; O2SAT 97
[2022-04-26] MEDS: DOLUTEGRAVIR 50 MG 1 EACH PO ×2 (08:00→16:41)
[2022-04-26] MEDS: ACETAMINOPHEN 500 MG TABLET 1000 MG PO ×3 (08:00→19:05)
[2022-04-26] MEDS: polyethylene glycoL 238 GM BULK BOTTLE 17 GM PO (08:00)
[2022-04-26] MEDS: ESCITALOPRAM 10 MG TABLET 20 MG PO (08:00)
[2022-04-26] MEDS: OXYCODONE 5 MG TABLET 10 MG PO (08:00)
[2022-04-26 10:00] VITALS: TEMP 36.3; O2SAT 97
[2022-04-26] MEDS: OXYCODONE 5 MG TABLET PO ×2 (11:20→19:05)
[2022-04-26 15:00] VITALS: TEMP 36.4; O2SAT 94
[2022-04-26 23:00] VITALS: TEMP 36.3; O2SAT 97
[2022-04-27] MEDS: ACETAMINOPHEN 500 MG TABLET 1000 MG PO ×3 (08:20→20:12)
[2022-04-27] MEDS: OXYCODONE 5 MG TABLET 10 MG PO (08:23)
[2022-04-27] MEDS: polyethylene glycoL 238 GM BULK BOTTLE 17 GM PO (08:23)
[2022-04-27] MEDS: ESCITALOPRAM 10 MG TABLET 20 MG PO (08:23)
[2022-04-27] MEDS: DOLUTEGRAVIR 50 MG 1 EACH PO ×2 (08:23→15:26)
[2022-04-27] MEDS: OXYCODONE 5 MG TABLET PO ×2 (11:20→20:12)
[2022-04-27 13:59] VITALS: TEMP 36.4; O2SAT 94
[2022-04-27 14:11] LABS: SARS PCR* Negative SARS-CoV-2 (Negative)
[2022-04-27 21:07] VITALS: BP 134/77; PULSE 65; RESP 16; TEMP 36.6; O2SAT 95
[2022-04-27 21:08] VITALS: BMI 30.1
[2022-04-27 23:00] VITALS: TEMP 36.2; O2SAT 95
[2022-04-28] MEDS: polyethylene glycoL 238 GM BULK BOTTLE 17 GM PO (07:17)
[2022-04-28] MEDS: ACETAMINOPHEN 500 MG TABLET 1000 MG PO ×3 (07:17→19:16)
[2022-04-28] MEDS: OXYCODONE 5 MG TABLET 10 MG PO (07:17)
[2022-04-28] MEDS: DOLUTEGRAVIR 50 MG 1 EACH PO ×2 (07:17→16:11)
[2022-04-28] MEDS: ESCITALOPRAM 10 MG TABLET 20 MG PO (07:17)
[2022-04-28] MEDS: OXYCODONE 5 MG TABLET PO ×2 (11:56→19:17)
[2022-04-28 13:48] VITALS: TEMP 36.4; O2SAT 95
[2022-04-28 15:00] VITALS: TEMP 36.6; O2SAT 100
[2022-04-28 23:00] VITALS: TEMP 36.4; O2SAT 94
--- NOTE | 2022-04-29 02:56 | PC.NURSE ---
WEEKLY CHARTING - WEEK 4: Vital signs reviewed - no concerns. Temporary and comprehensive care plan reviewed with no change. Documented behavior x1 in the last month. Currently receives escitalopram 20mg daily with no noted adverse effects. Unable to communicate needs. Staff anticipate needs. No hearing or vision problems. All medications administered by licensed nurse. No change to health condition.
--- NOTE | 2022-04-29 07:09 | PC.NURSE ---
Week #4: Comprehensive care plan reviewed. No changes made. Nothing added to temporary care plan. No changes noted in communication, hearing, vision, or orientation. Needs anticipated by staff. Does not communicate needs. No hearing and visual problems. Is oriented to self. Chronic health condition stable. All medications administered by Nurse. Vital signs reviewed,occasional low BP. Continue with weekly VS monitoring. Mood/Behavior: No issues documented in the last month. Continues on Escitalopram 20mg daily with no adverse effects noted. No change in medication.
[2022-04-29] MEDS: DOLUTEGRAVIR 50 MG 1 EACH PO ×2 (07:46→16:24)
[2022-04-29] MEDS: ESCITALOPRAM 10 MG TABLET 20 MG PO (07:46)
[2022-04-29] MEDS: polyethylene glycoL 238 GM BULK BOTTLE 17 GM PO (07:46)
[2022-04-29] MEDS: ACETAMINOPHEN 500 MG TABLET 1000 MG PO ×3 (07:46→20:15)
[2022-04-29] MEDS: OXYCODONE 5 MG TABLET 10 MG PO (07:46)
[2022-04-29 08:45] VITALS: TEMP 36.3; O2SAT 97
[2022-04-29] MEDS: OXYCODONE 5 MG TABLET PO ×2 (11:40→20:13)
[2022-04-29 15:00] VITALS: TEMP 36.9; O2SAT 97
[2022-04-29 23:00] VITALS: TEMP 36.5; O2SAT 95
[2022-04-30] MEDS: OXYCODONE 5 MG TABLET 10 MG PO (08:07)
[2022-04-30] MEDS: ESCITALOPRAM 10 MG TABLET 20 MG PO (08:07)
[2022-04-30] MEDS: ACETAMINOPHEN 500 MG TABLET 1000 MG PO ×3 (08:07→19:54)
[2022-04-30] MEDS: DOLUTEGRAVIR 50 MG 1 EACH PO ×2 (08:07→15:04)
[2022-04-30] MEDS: polyethylene glycoL 238 GM BULK BOTTLE 17 GM PO (08:07)
[2022-04-30 10:24] VITALS: TEMP 36.6; O2SAT 96
[2022-04-30] MEDS: MAG HYDROX/ALUMINUM HYD/SIMETH 30 ML ORAL.SUSP PO (10:26)
--- NOTE | 2022-04-30 11:10 | PC.NURSE ---
[facility] appt.: Resident was seen via telehealth with provider at [facility]. NAKITA Sherice and justowriter operator present via telehealth as well. Provider stated no changes in HIV labs at this time. No need for medication/tx plan at this time. Resident to follow up with [facility] provider in 3 months. [facility] staff will reach out to [facility] and facility with next appt information to be set up. Will only be doing telehealth appointments at this time.
[2022-04-30] MEDS: OXYCODONE 5 MG TABLET PO ×2 (11:12→19:54)
[2022-04-30 21:30] VITALS: TEMP 36.3; O2SAT 93
[2022-04-30 23:00] VITALS: TEMP 36.6; O2SAT 93
[2022-05-01 07:00] VITALS: TEMP 36.6; O2SAT 96
[2022-05-01] MEDS: ESCITALOPRAM 10 MG TABLET 20 MG PO (07:23)
[2022-05-01] MEDS: ACETAMINOPHEN 500 MG TABLET 1000 MG PO ×3 (07:23→19:21)
[2022-05-01] MEDS: DOLUTEGRAVIR 50 MG 1 EACH PO ×2 (07:23→15:39)
[2022-05-01] MEDS: polyethylene glycoL 238 GM BULK BOTTLE 17 GM PO (07:23)
[2022-05-01] MEDS: OXYCODONE 5 MG TABLET 10 MG PO (07:25)
[2022-05-01] MEDS: OXYCODONE 5 MG TABLET PO ×2 (12:07→19:21)
[2022-05-01 15:00] VITALS: TEMP 36.5; O2SAT 95
[2022-05-01 23:00] VITALS: TEMP 36.5; O2SAT 95
[2022-05-02 07:00] VITALS: TEMP 36.6; O2SAT 97
[2022-05-02] MEDS: OXYCODONE 5 MG TABLET 10 MG PO (07:42)
[2022-05-02] MEDS: ACETAMINOPHEN 500 MG TABLET 1000 MG PO ×3 (07:42→19:45)
[2022-05-02] MEDS: polyethylene glycoL 238 GM BULK BOTTLE 17 GM PO (07:42)
[2022-05-02] MEDS: ESCITALOPRAM 10 MG TABLET 20 MG PO (07:42)
[2022-05-02] MEDS: DOLUTEGRAVIR 50 MG 1 EACH PO ×2 (07:42→16:32)
[2022-05-02] MEDS: OXYCODONE 5 MG TABLET PO ×2 (11:56→19:45)
[2022-05-02 15:00] VITALS: TEMP 36.6; O2SAT 97
[2022-05-02 23:00] VITALS: TEMP 36.3; O2SAT 96
[2022-05-03 07:00] VITALS: TEMP 36.3; O2SAT 94
[2022-05-03] MEDS: ESCITALOPRAM 10 MG TABLET 20 MG PO (08:41)
[2022-05-03] MEDS: DOLUTEGRAVIR 50 MG 1 EACH PO ×2 (08:41→15:57)
[2022-05-03] MEDS: polyethylene glycoL 238 GM BULK BOTTLE 17 GM PO (08:41)
[2022-05-03] MEDS: OXYCODONE 5 MG TABLET 10 MG PO (08:41)
[2022-05-03] MEDS: ACETAMINOPHEN 500 MG TABLET 1000 MG PO ×3 (08:41→19:11)
[2022-05-03] MEDS: OXYCODONE 5 MG TABLET PO ×2 (12:18→19:11)
[2022-05-03 15:00] VITALS: TEMP 36.3; O2SAT 94
[2022-05-03 23:00] VITALS: TEMP 36.5; O2SAT 93
[2022-05-04] MEDS: DOLUTEGRAVIR 50 MG 1 EACH PO ×2 (08:19→15:25)
[2022-05-04] MEDS: polyethylene glycoL 238 GM BULK BOTTLE 17 GM PO (08:19)
[2022-05-04] MEDS: ACETAMINOPHEN 500 MG TABLET 1000 MG PO ×3 (08:19→19:17)
[2022-05-04] MEDS: ESCITALOPRAM 10 MG TABLET 20 MG PO (08:19)
[2022-05-04] MEDS: OXYCODONE 5 MG TABLET 10 MG PO (08:20)
--- NOTE | 2022-05-04 10:10 | PC.NURSE ---
COVID OUTBREAK TESTING Residents NAKITA provided verbal consent for outbreak COVID testing. Resident is currently asymptomatic.? Resident/family will be notified only if resident is positive.
[2022-05-04 10:40] VITALS: TEMP 36.2; O2SAT 92
[2022-05-04] MEDS: OXYCODONE 5 MG TABLET PO ×2 (11:09→19:17)
--- NOTE | 2022-05-04 11:53 | PC.SPIRITC ---
I provided brief visit for connection.
[2022-05-04 12:00] LABS: SARS PCR* Negative SARS-CoV-2 (Negative)
[2022-05-04 21:25] VITALS: BP 99/65; PULSE 63; RESP 16; TEMP 35.8; O2SAT 96; BMI 31.1
[2022-05-04 23:00] VITALS: TEMP 36.4; O2SAT 95
[2022-05-05] MEDS: OXYCODONE 5 MG TABLET 10 MG PO (07:45)
[2022-05-05] MEDS: ACETAMINOPHEN 500 MG TABLET 1000 MG PO ×3 (07:45→19:19)
[2022-05-05] MEDS: ESCITALOPRAM 10 MG TABLET 20 MG PO (07:45)
[2022-05-05] MEDS: DOLUTEGRAVIR 50 MG 1 EACH PO ×2 (07:45→17:39)
[2022-05-05] MEDS: polyethylene glycoL 238 GM BULK BOTTLE 17 GM PO (07:45)
[2022-05-05 10:42] VITALS: TEMP 36.9; O2SAT 96
[2022-05-05] MEDS: OXYCODONE 5 MG TABLET PO ×2 (11:43→19:19)
[2022-05-05 14:25] VITALS: BMI 31.0
[2022-05-05 15:00] VITALS: TEMP 36.8; O2SAT 97
[2022-05-05 23:00] VITALS: TEMP 36.4; O2SAT 93
[2022-05-06] MEDS: DOLUTEGRAVIR 50 MG 1 EACH PO ×2 (07:49→15:07)
[2022-05-06] MEDS: polyethylene glycoL 238 GM BULK BOTTLE 17 GM PO (07:49)
[2022-05-06] MEDS: ACETAMINOPHEN 500 MG TABLET 1000 MG PO ×3 (07:49→19:47)
[2022-05-06] MEDS: OXYCODONE 5 MG TABLET 10 MG PO (07:49)
[2022-05-06] MEDS: ESCITALOPRAM 10 MG TABLET 20 MG PO (07:49)
[2022-05-06 10:56] VITALS: TEMP 36.6; O2SAT 95
[2022-05-06] MEDS: OXYCODONE 5 MG TABLET PO ×2 (11:31→19:47)
[2022-05-06 15:00] VITALS: TEMP 36.2; O2SAT 96
[2022-05-06 23:00] VITALS: TEMP 36.4; O2SAT 96
[2022-05-07] MEDS: DOLUTEGRAVIR 50 MG 1 EACH PO ×2 (07:08→15:29)
[2022-05-07] MEDS: ESCITALOPRAM 10 MG TABLET 20 MG PO (07:08)
[2022-05-07] MEDS: ACETAMINOPHEN 500 MG TABLET 1000 MG PO ×3 (07:08→19:39)
[2022-05-07] MEDS: OXYCODONE 5 MG TABLET 10 MG PO (07:08)
[2022-05-07] MEDS: polyethylene glycoL 238 GM BULK BOTTLE 17 GM PO (07:08)
[2022-05-07 10:12] VITALS: TEMP 36.8; O2SAT 96
[2022-05-07] MEDS: OXYCODONE 5 MG TABLET PO ×2 (11:58→19:42)
[2022-05-07 15:00] VITALS: TEMP 36.2; O2SAT 98
[2022-05-07 23:00] VITALS: TEMP 36.8; O2SAT 97
[2022-05-08] MEDS: polyethylene glycoL 238 GM BULK BOTTLE 17 GM PO (08:40)
[2022-05-08] MEDS: OXYCODONE 5 MG TABLET 10 MG PO (08:40)
[2022-05-08] MEDS: ACETAMINOPHEN 500 MG TABLET 1000 MG PO ×3 (08:40→19:31)
[2022-05-08] MEDS: ESCITALOPRAM 10 MG TABLET 20 MG PO (08:40)
[2022-05-08] MEDS: DOLUTEGRAVIR 50 MG 1 EACH PO ×2 (08:40→15:19)
[2022-05-08 10:46] VITALS: TEMP 36.2; O2SAT 94
[2022-05-08] MEDS: OXYCODONE 5 MG TABLET PO ×2 (11:30→19:31)
[2022-05-08 15:00] VITALS: TEMP 36.5; O2SAT 94
[2022-05-08 23:00] VITALS: TEMP 36.3; O2SAT 93
[2022-05-09] MEDS: ESCITALOPRAM 10 MG TABLET 20 MG PO (08:21)
[2022-05-09] MEDS: DOLUTEGRAVIR 50 MG 1 EACH PO ×2 (08:21→15:21)
[2022-05-09] MEDS: polyethylene glycoL 238 GM BULK BOTTLE 17 GM PO (08:21)
[2022-05-09] MEDS: ACETAMINOPHEN 500 MG TABLET 1000 MG PO ×3 (08:21→19:05)
[2022-05-09] MEDS: OXYCODONE 5 MG TABLET 10 MG PO (08:22)
[2022-05-09] MEDS: OXYCODONE 5 MG TABLET PO ×2 (11:16→19:05)
[2022-05-09 13:26] VITALS: TEMP 36.2; O2SAT 94
[2022-05-09 15:00] VITALS: TEMP 37.1; O2SAT 99
[2022-05-09 23:00] VITALS: TEMP 36.3; O2SAT 95
[2022-05-10] MEDS: ACETAMINOPHEN 500 MG TABLET 1000 MG PO ×3 (08:32→19:23)
[2022-05-10] MEDS: DOLUTEGRAVIR 50 MG 1 EACH PO ×2 (08:32→15:05)
[2022-05-10] MEDS: polyethylene glycoL 238 GM BULK BOTTLE 17 GM PO (08:32)
[2022-05-10] MEDS: OXYCODONE 5 MG TABLET 10 MG PO (08:32)
[2022-05-10] MEDS: ESCITALOPRAM 10 MG TABLET 20 MG PO (08:32)
[2022-05-10 11:05] VITALS: TEMP 36.2; O2SAT 94
[2022-05-10] MEDS: OXYCODONE 5 MG TABLET PO ×2 (11:25→19:23)
[2022-05-10 15:00] VITALS: TEMP 36.2; O2SAT 96
[2022-05-10 23:00] VITALS: TEMP 36.6; O2SAT 95
[2022-05-11] MEDS: OXYCODONE 5 MG TABLET 10 MG PO (08:34)
[2022-05-11] MEDS: ESCITALOPRAM 10 MG TABLET 20 MG PO (08:34)
[2022-05-11] MEDS: polyethylene glycoL 238 GM BULK BOTTLE 17 GM PO (08:34)
[2022-05-11] MEDS: ACETAMINOPHEN 500 MG TABLET 1000 MG PO ×3 (08:34→20:42)
[2022-05-11] MEDS: DOLUTEGRAVIR 50 MG 1 EACH PO ×2 (08:34→16:10)
--- NOTE | 2022-05-11 09:48 | PC.NURSE ---
COVID OUTBREAK TESTING Residents family gave verbal consent for outbreak COVID testing. Resident is currently asymptomatic.? Resident/family will be notified only if resident is positive.
[2022-05-11 09:55] VITALS: TEMP 36.2; O2SAT 94
[2022-05-11] MEDS: OXYCODONE 5 MG TABLET PO ×2 (11:22→20:42)
[2022-05-11 12:33] LABS: SARS PCR* Negative SARS-CoV-2 (Negative)
[2022-05-11 21:08] VITALS: BP 88/57; PULSE 73; RESP 16; TEMP 36.5; O2SAT 95; BMI 30.2
[2022-05-12 02:05] VITALS: TEMP 36.6; O2SAT 94
[2022-05-12] MEDS: DOLUTEGRAVIR 50 MG 1 EACH PO ×2 (08:19→15:29)
[2022-05-12] MEDS: polyethylene glycoL 238 GM BULK BOTTLE 17 GM PO (08:19)
[2022-05-12] MEDS: OXYCODONE 5 MG TABLET 10 MG PO (08:19)
[2022-05-12] MEDS: ESCITALOPRAM 10 MG TABLET 20 MG PO (08:19)
[2022-05-12] MEDS: ACETAMINOPHEN 500 MG TABLET 1000 MG PO ×3 (08:19→19:01)
[2022-05-12 10:50] VITALS: TEMP 36.6; O2SAT 94
[2022-05-12] MEDS: OXYCODONE 5 MG TABLET PO ×2 (11:33→19:01)
[2022-05-12 15:00] VITALS: TEMP 36.6; O2SAT 98
--- NOTE | 2022-05-12 15:00 | PC.NURSE ---
CARE CONFERENCE: meeting held with care team members from nursing, dietary, and social service agency director. NAKITA Smiley present over the phone. Nursing reviewed that resident continues to need 2 ALLEN total assistance with dressing, grooming, mobility and bathing. Propelled by staff in wheelchair to and from activities. Resident had episode of Norovirus over the past 90 days. Has recovered. Dietary advised weights are stable.? SS updated that mood is stable and no concerns at this time. POLST reviewed. Is DNR/DNI. Uses no restraints.?No longer using quarter side rails on bed. Medications administered by nurse. Family states they do not want/need a medication list at this time. Vulnerability- is at risk for being harmed due to mobility limitations and cognition. Family visits regularly. Will be brining in razor and new pants for resident in the future. There are no discharge plans. Family pleased with care. No further questions/concerns at this time.
--- NOTE | 2022-05-12 15:36 | PC.SOCIAL ---
Resident's care conference was held today and resident's [id number] Sherice attended via phone. Resident mood remains stable on Zoloft, no s/s of depression noted. Sherice asked if resident needed anything. Updated Sherice that resident is in need of larger pants and a new razor. Staff also suggested a firestick with Netflix for his room. Family is supportive and visits regularly.
[2022-05-12 23:00] VITALS: TEMP 36.3; O2SAT 100
[2022-05-13] MEDS: ACETAMINOPHEN 500 MG TABLET 1000 MG PO ×3 (07:41→19:29)
[2022-05-13] MEDS: ESCITALOPRAM 10 MG TABLET 20 MG PO (07:43)
[2022-05-13] MEDS: DOLUTEGRAVIR 50 MG 1 EACH PO ×2 (07:43→15:16)
[2022-05-13] MEDS: polyethylene glycoL 238 GM BULK BOTTLE 17 GM PO (07:43)
[2022-05-13] MEDS: OXYCODONE 5 MG TABLET 10 MG PO (07:43)
[2022-05-13 09:51] VITALS: TEMP 36.4; O2SAT 98
[2022-05-13] MEDS: OXYCODONE 5 MG TABLET PO ×2 (11:20→19:29)
--- NOTE | 2022-05-13 12:17 | PC.NURSE ---
Week #1: Comprehensive care plan reviewed, no changes made. Nothing added to temporary care plan. Resident needs 1-2 assists with dressing, grooming and bathing. One assist with oral cares and feeding. Is on regular diet, regular texture, thin liquids. No problems noted with chewing/swallowing. Resident needs reminder to chew food & swallow slowly. Staff to feed. Able to drink liquids from cup/glass. Vital signs reviewed, no concerns. Pain: Chronic pain is controlled with Tylenol 1000mg TID, Oxycodone 10mg @ 0800, 5mg @ 1999. No pain noted the last month. Need for pain is anticipated by staff through nonverbal cues
[2022-05-13 15:00] VITALS: TEMP 36.2; O2SAT 96
[2022-05-13 23:00] VITALS: TEMP 36.6; O2SAT 96
[2022-05-14] MEDS: polyethylene glycoL 238 GM BULK BOTTLE 17 GM PO (07:05)
[2022-05-14] MEDS: DOLUTEGRAVIR 50 MG 1 EACH PO ×2 (07:05→15:41)
[2022-05-14] MEDS: ESCITALOPRAM 10 MG TABLET 20 MG PO (07:05)
[2022-05-14] MEDS: ACETAMINOPHEN 500 MG TABLET 1000 MG PO ×3 (07:05→19:36)
[2022-05-14] MEDS: OXYCODONE 5 MG TABLET 10 MG PO (07:05)
[2022-05-14 09:45] VITALS: TEMP 36.9; O2SAT 96
[2022-05-14] MEDS: OXYCODONE 5 MG TABLET PO ×2 (11:08→19:36)
[2022-05-14 15:00] VITALS: TEMP 36.5; O2SAT 96
[2022-05-14 23:00] VITALS: TEMP 36.6; O2SAT 96
[2022-05-15] MEDS: ESCITALOPRAM 10 MG TABLET 20 MG PO (07:48)
[2022-05-15] MEDS: DOLUTEGRAVIR 50 MG 1 EACH PO ×2 (07:48→15:04)
[2022-05-15] MEDS: ACETAMINOPHEN 500 MG TABLET 1000 MG PO ×3 (07:48→19:17)
[2022-05-15] MEDS: polyethylene glycoL 238 GM BULK BOTTLE 17 GM PO (07:48)
[2022-05-15] MEDS: OXYCODONE 5 MG TABLET 10 MG PO (07:48)
[2022-05-15 11:02] VITALS: TEMP 36.9; O2SAT 97
[2022-05-15] MEDS: OXYCODONE 5 MG TABLET PO ×2 (11:31→19:17)
[2022-05-15 15:00] VITALS: TEMP 36.3; O2SAT 97
[2022-05-15 23:00] VITALS: TEMP 36.4; O2SAT 94
[2022-05-16] VITALS (7 sets, daily range): BP systolic 85–103; BP diastolic 56–70; TEMP 36.3–36.4; O2SAT 92–94
[2022-05-16] MEDS: ACETAMINOPHEN 500 MG TABLET 1000 MG PO ×3 (07:03→20:06)
[2022-05-16] MEDS: ESCITALOPRAM 10 MG TABLET 20 MG PO (07:04)
[2022-05-16] MEDS: polyethylene glycoL 238 GM BULK BOTTLE 17 GM PO (07:04)
[2022-05-16] MEDS: OXYCODONE 5 MG TABLET 10 MG PO (07:04)
[2022-05-16] MEDS: DOLUTEGRAVIR 50 MG 1 EACH PO ×2 (07:04→15:57)
[2022-05-16] MEDS: OXYCODONE 5 MG TABLET PO ×2 (11:36→20:06)
--- NOTE | 2022-05-16 13:58 | PC.NURSE ---
Health Status: During lunch time in the dinning room, in addition to refusing to eat, this author observed this resident had severe dry mouth, exhibited sleepiness, interacted less or none than usual, and skin appeared flushed/pale but non diaphoretic. Initial vital signs obtain are: BP- 85/56, P- 58, Temp- 97.1, O2- 96, Resp- 20. Resident was transfer back in bed to rest. Suspecting dehydration, fluid (water) was encouraged and offered. Resident consumed 720 ml, second blood result was 103/64, P- 64. Will continue to monitor.
--- NOTE | 2022-05-16 13:58 | PC.NURSE ---
Health Status: During lunch in the dinning room, in addition refusing to eat, this author observed this resident had severe dry mouth,, exhibited sleepiness, interacted less or none than usual, and skin appeared flushed/pale but non diaphoretic. Initial vital signs obtain are: BP- 85/56, P- 58, Temp- 97.1, O2- 96, Resp- 20. Resident was transfer back in bed to rest. Suspecting dehydration, fluid (water) was encouraged and offered. Resident consumed 720 ml, second blood result was 103/64, P- 64. Will continue to monitor.
--- NOTE | 2022-05-16 15:28 | PC.NURSE ---
follow -Up on Health Status: Manual blood pressure done at his time, and BP has dropped again from 103/64 to 88/70. Reviewing spread sheet on previous BP result, it appears resident has been having occasional drop in blood pressure since January. Spoke to Ermelinda NAIK, who indicated notifying Mars BECKER for a review on Wednesday. Ermelinda instructed to continue pushing fluids including Gatorade. Currently, resident is receiving POWER FRANK, which is similar to Gatorade, provided by dietary. Will continue to monitor.
[2022-05-17 05:49] VITALS: BP 100/58
--- NOTE | 2022-05-17 05:50 | PC.NURSE ---
Slept per baseline throughout the night. LOC at baseline with cares. Manual BP obtained: 100/58. Only took sips of water this shift. Will continue to monitor and encourage fluids.
[2022-05-17 07:00] VITALS: TEMP 36.6; O2SAT 96
[2022-05-17] MEDS: polyethylene glycoL 238 GM BULK BOTTLE 17 GM PO (07:11)
[2022-05-17] MEDS: ACETAMINOPHEN 500 MG TABLET 1000 MG PO ×3 (07:11→19:42)
[2022-05-17] MEDS: DOLUTEGRAVIR 50 MG 1 EACH PO ×2 (07:11→16:21)
[2022-05-17] MEDS: ESCITALOPRAM 10 MG TABLET 20 MG PO (07:11)
[2022-05-17] MEDS: OXYCODONE 5 MG TABLET 10 MG PO (07:12)
[2022-05-17] MEDS: OXYCODONE 5 MG TABLET PO ×2 (11:25→19:42)
[2022-05-17 15:00] VITALS: BP 99/57; TEMP 36.6; O2SAT 96
[2022-05-17 16:00] VITALS: BP 101/63
[2022-05-17 23:00] VITALS: TEMP 36.3; O2SAT 95
[2022-05-18] MEDS: OXYCODONE 5 MG TABLET 10 MG PO (08:05)
[2022-05-18] MEDS: ACETAMINOPHEN 500 MG TABLET 1000 MG PO ×3 (08:08→19:39)
[2022-05-18] MEDS: polyethylene glycoL 238 GM BULK BOTTLE 17 GM PO (08:08)
[2022-05-18] MEDS: DOLUTEGRAVIR 50 MG 1 EACH PO ×2 (08:08→15:15)
[2022-05-18] MEDS: ESCITALOPRAM 10 MG TABLET 20 MG PO (08:08)
[2022-05-18 10:24] VITALS: TEMP 36.7; O2SAT 86
--- NOTE | 2022-05-18 10:25 | PC.NURSE ---
Status: B/P today was 107/63, T98.1, O2 95%, P86, R18.
[2022-05-18 11:10] LABS: SARS PCR* Negative SARS-CoV-2 (Negative)
[2022-05-18] MEDS: OXYCODONE 5 MG TABLET PO ×2 (11:14→19:39)
--- NOTE | 2022-05-18 14:10 | PC.NURSE ---
COVID OUTBREAK TESTING Residents NAKITA gave verbal consent for outbreak COVID testing. Resident is currently asymptomatic.? Resident/family will be notified only if resident is positive.
[2022-05-18 15:00] VITALS: BP 98/64; PULSE 63; RESP 16; TEMP 36.4; TEMP 36.7; O2SAT 96
[2022-05-18 23:00] VITALS: TEMP 36.7; O2SAT 95
[2022-05-19 07:00] VITALS: TEMP 36.2; O2SAT 95
[2022-05-19] MEDS: ESCITALOPRAM 10 MG TABLET 20 MG PO (07:36)
[2022-05-19] MEDS: DOLUTEGRAVIR 50 MG 1 EACH PO ×2 (07:36→16:33)
[2022-05-19] MEDS: ACETAMINOPHEN 500 MG TABLET 1000 MG PO ×3 (07:36→19:20)
[2022-05-19] MEDS: polyethylene glycoL 238 GM BULK BOTTLE 17 GM PO (07:36)
[2022-05-19] MEDS: OXYCODONE 5 MG TABLET 10 MG PO (07:36)
[2022-05-19 10:39] LABS: Basophils Percent Auto 0.5 % (0.0-3.0); Eosinophils Percent Auto 1.1 % (0.0-7.0); Hematocrit 42.5 % (37.0-53.0); Hemoglobin* 14.7 gm/dL (13.5-17.5); Lymphocytes Percent Auto 34.9 % (20-44); Mean Corpuscular HGB Conc 35 gm/dL (32-36); Mean Corpuscular Hemoglobin 33 pg (26-34); Mean Corpuscular Volume 94 fL (80-100); Monocytes Percent Auto 5.5 % (0.0-11.0); Platelet Count* 187 K/uL (140-440); RDW Coefficient of Variation % 11.7 % (11.5-15.5); White Blood Count* 4.38 K/uL (4.50-11.00)
[2022-05-19 10:40] LABS: Slide Review Reflex No
[2022-05-19 10:56] LABS: Chloride* 112 mmol/L (96-114); Potassium* 4.1 mmol/L (3.6-5.1); Sodium* 141 mmol/L (135-149)
[2022-05-19 10:59] LABS: Blood Urea Nitrogen* 11 mg/dL (5-24); Carbon Dioxide* 24 mmol/L (20-32); Creatinine* 0.7 mg/dL (0.5-1.5); Est. Creatinine Clearance* 152.43; Estimated Glomerular Filt Rate 119 ml/min
[2022-05-19 11:00] LABS: Calcium* 8.9 mg/dL (8.4-10.6); Glucose* 91 mg/dL (60-115)
--- NOTE | 2022-05-19 11:17 | PC.NURSE ---
Addendum entered by Cyndi Gaona RN 05/19/22 12:38: CBC ordered by COMMUNITY ASSOCIATE & result reviewed. Original Note: Status/Order: Resident noted increase lethargy during the day. COMMUNITY ASSOCIATE here updated. Order: Oxycodone 5mg TID @ 08,,.
[2022-05-19] MEDS: OXYCODONE 5 MG TABLET PO ×2 (12:03→19:20)
[2022-05-19 15:00] VITALS: TEMP 36.6; O2SAT 95
[2022-05-19 23:00] VITALS: TEMP 36.7; O2SAT 93
--- NOTE | 2022-05-20 02:00 | PC.NURSE ---
WEEKLY CHARTING - WEEK 2: Vital signs reviewed - BP values low. DIRECTOR OF PLANNING aware. Temporary and comprehensive care plan reviewed - no change. Requires 2 assist with full mechanical lift for transfers. 2 assist with bed mobility. Able to propel self in w/c at times. Dependent on staff for purposeful w/c mobility. Per fall risk assessment, resident is at low risk for falls. Fall interventions: not left alone in room when in w/c, Dycem in w/c, no pillows for bed positioning, check and change Q AM by 0700, bed in low position with brakes locked, hourly visual checks.
[2022-05-20 07:00] VITALS: TEMP 36.3; O2SAT 95
[2022-05-20] MEDS: polyethylene glycoL 238 GM BULK BOTTLE 17 GM PO (07:23)
[2022-05-20] MEDS: ESCITALOPRAM 10 MG TABLET 20 MG PO (07:23)
[2022-05-20] MEDS: ACETAMINOPHEN 500 MG TABLET 1000 MG PO ×3 (07:23→19:16)
[2022-05-20] MEDS: DOLUTEGRAVIR 50 MG 1 EACH PO ×2 (07:23→15:01)
[2022-05-20] MEDS: OXYCODONE 5 MG TABLET PO ×3 (07:25→19:16)
--- NOTE | 2022-05-20 07:38 | PC.NURSE ---
Week #2: Mobility: Care plan reviewed, no changes made. Nothing added to temporary care plan. Resident is non ambulatory. Transfers with 2 assists using the deandre lift at all times. Can wheel self at times short distance without a purpose. Staff wheels to all destinations. Can make slight changes in body positioning. Staff to check and assist resident make significant changes.. Staff to check and assist resident make significant changes every 2 hours, reposition/offload. No alarms. Staff to do ROM of (R) upper extremity BID. Vital signs reviewed, has low BP values. AIR BATTLE MANAGER updated. Not on antihypertensive medications. Decrease Oxycodone. Continue weekly VS monitoring. Fall: No falls the past month. Remains? a low fall risk according to assessment done on 05/07/22.
--- NOTE | 2022-05-20 14:03 | PC.PHA1 ---
LIFE INSURANCE SPECIALIST PHARMACIST'S MEDICATION REVIEW: MEDICATION MONITORING:Escitalopram 20 mg daily antivirals - emtricitabine-tenofovir 200/25 mg daily and dolutegravir 50 mg bid IRREGULARITY OR COMMENTS:[facility] consult late April, no changes to current antiviral regimen needed. Young patient with history of behaviors so GDR of escitalopram clinically contraindicated. SUGGESTED COURSE OF ACTION TAKEN:No medication concerns or recommendations.
[2022-05-20 15:00] VITALS: TEMP 36.3; O2SAT 96
[2022-05-20 23:00] VITALS: TEMP 36.5; O2SAT 96
[2022-05-21 07:00] VITALS: TEMP 36.3; O2SAT 94
[2022-05-21] MEDS: DOLUTEGRAVIR 50 MG 1 EACH PO ×2 (07:44→15:47)
[2022-05-21] MEDS: OXYCODONE 5 MG TABLET PO ×3 (07:44→19:42)
[2022-05-21] MEDS: ACETAMINOPHEN 500 MG TABLET 1000 MG PO ×3 (07:44→19:42)
[2022-05-21] MEDS: ESCITALOPRAM 10 MG TABLET 20 MG PO (07:44)
[2022-05-21] MEDS: polyethylene glycoL 238 GM BULK BOTTLE 17 GM PO (07:44)
[2022-05-21 15:00] VITALS: TEMP 36.6; O2SAT 100
[2022-05-21 23:00] VITALS: TEMP 36.6; O2SAT 95
[2022-05-22] MEDS: OXYCODONE 5 MG TABLET PO ×3 (07:44→19:08)
[2022-05-22] MEDS: ESCITALOPRAM 10 MG TABLET 20 MG PO (07:45)
[2022-05-22] MEDS: polyethylene glycoL 238 GM BULK BOTTLE 17 GM PO (07:45)
[2022-05-22] MEDS: ACETAMINOPHEN 500 MG TABLET 1000 MG PO ×3 (07:45→19:08)
[2022-05-22] MEDS: DOLUTEGRAVIR 50 MG 1 EACH PO ×2 (07:45→15:31)
[2022-05-22 10:20] VITALS: TEMP 36.2; O2SAT 96
--- NOTE | 2022-05-22 13:56 | PC.NURSE ---
Recert Visit: Resident seen by Dr. Curtis. Orders reviewed and renewed of 75 days with no changes. MD updated of current status poor appetite, increase weakness and lethargy, seems he is not himself. Seen by EDUCATIONAL ADMINISTRATION TEACHER 05/21 stab CBC, BMP done, AM Oxycodone decreased to 5 mg, was seen by [facility] 04/30/22 via telehealth with no changes.
[2022-05-22 15:00] VITALS: TEMP 36.2; O2SAT 96
[2022-05-22 23:00] VITALS: TEMP 36.7; O2SAT 96
[2022-05-23] MEDS: ACETAMINOPHEN 500 MG TABLET 1000 MG PO ×3 (08:39→19:45)
[2022-05-23] MEDS: DOLUTEGRAVIR 50 MG 1 EACH PO ×2 (08:39→15:10)
[2022-05-23] MEDS: OXYCODONE 5 MG TABLET PO ×3 (08:39→19:45)
[2022-05-23] MEDS: polyethylene glycoL 238 GM BULK BOTTLE 17 GM PO (08:39)
[2022-05-23] MEDS: ESCITALOPRAM 10 MG TABLET 20 MG PO (08:39)
[2022-05-23 10:08] VITALS: TEMP 36.4; O2SAT 98
[2022-05-23 15:00] VITALS: TEMP 36.5; O2SAT 96
[2022-05-23 23:00] VITALS: TEMP 36.3; O2SAT 94
[2022-05-24] MEDS: ACETAMINOPHEN 500 MG TABLET 1000 MG PO ×3 (08:32→19:22)
[2022-05-24] MEDS: ESCITALOPRAM 10 MG TABLET 20 MG PO (08:32)
[2022-05-24] MEDS: polyethylene glycoL 238 GM BULK BOTTLE 17 GM PO (08:33)
[2022-05-24] MEDS: DOLUTEGRAVIR 50 MG 1 EACH PO ×2 (08:33→16:41)
[2022-05-24] MEDS: OXYCODONE 5 MG TABLET PO ×3 (08:33→19:22)
[2022-05-24 10:24] VITALS: TEMP 36; O2SAT 94
[2022-05-24 15:00] VITALS: TEMP 36.4; O2SAT 95
[2022-05-24 23:00] VITALS: TEMP 36.2; O2SAT 96
[2022-05-25] MEDS: OXYCODONE 5 MG TABLET PO ×3 (07:56→19:19)
[2022-05-25] MEDS: ACETAMINOPHEN 500 MG TABLET 1000 MG PO ×3 (07:56→19:19)
[2022-05-25] MEDS: polyethylene glycoL 238 GM BULK BOTTLE 17 GM PO (07:56)
[2022-05-25] MEDS: DOLUTEGRAVIR 50 MG 1 EACH PO ×2 (07:56→15:39)
[2022-05-25] MEDS: ESCITALOPRAM 10 MG TABLET 20 MG PO (07:56)
[2022-05-25 09:44] VITALS: TEMP 36.6; O2SAT 92
--- NOTE | 2022-05-25 11:24 | PC.NURSE ---
COVID OUTBREAK TESTING Residents NAKITA gave verbal consent for outbreak COVID testing. Resident is currently asymptomatic.? Resident/family will be notified only if resident is positive.
[2022-05-25 11:33] LABS: SARS PCR* Negative SARS-CoV-2 (Negative)
[2022-05-25 15:00] VITALS: BP 101/64; PULSE 60; RESP 18; TEMP 36.6; O2SAT 97; BMI 29.7
[2022-05-25 23:00] VITALS: TEMP 36.2; O2SAT 95
[2022-05-26] MEDS: ACETAMINOPHEN 500 MG TABLET 1000 MG PO ×3 (07:51→19:36)
[2022-05-26] MEDS: OXYCODONE 5 MG TABLET PO ×3 (07:52→19:36)
[2022-05-26] MEDS: polyethylene glycoL 238 GM BULK BOTTLE 17 GM PO (07:52)
[2022-05-26] MEDS: DOLUTEGRAVIR 50 MG 1 EACH PO ×2 (07:52→16:46)
[2022-05-26] MEDS: ESCITALOPRAM 10 MG TABLET 20 MG PO (07:52)
[2022-05-26 10:06] VITALS: TEMP 36.4; O2SAT 95
[2022-05-26 15:00] VITALS: TEMP 37; O2SAT 96
[2022-05-26 23:00] VITALS: TEMP 37; O2SAT 96
--- NOTE | 2022-05-27 03:02 | PC.NURSE ---
WEEKLY CHARTING - WEEK 3?(Toileting & Skin): Vital signs, summary of weekly skin assessment, and comprehensive/temporary care plans, reviewed. No changes made to care plans at this time. Resident is total assist of two for toileting needs. Wears extra large size heavy absorbency Quilted Adult Brief due to bladder and bowel incontinency. Skin: Findings from 05/26/22 on head-to-toe skin assessment summary conducted on day, indicates redness to right hip caused by tub chair, and reddened areas around neck, over upper lip, and under lower lip due to facial shaving. Will continue to monitor.
--- NOTE | 2022-05-27 06:52 | PC.NURSE ---
Week #3-Toileting: Comprehensive care plan reviewed, no changes made. Nothing added to temporary care plan.Resident is incontinent of bowel and bladder. Does not use the toilet. Is checked and changed in bed by 0700, before and after meals and PRN. Wears XLG briefs. Needs 2 assists with all toileting needs including pad, anel cares and clothing management. Vital signs reviewed, with some low blood pressures, noted by TUNNEL ELASTIC OPERATOR CHAINSTITCH. Skin: Redness on (R) hip from sliding on the tub chair, monitored daily. Skin is checked routinely during cares and on bath days.
[2022-05-27] MEDS: polyethylene glycoL 238 GM BULK BOTTLE 17 GM PO (07:48)
[2022-05-27] MEDS: ESCITALOPRAM 10 MG TABLET 20 MG PO (07:48)
[2022-05-27] MEDS: ACETAMINOPHEN 500 MG TABLET 1000 MG PO ×3 (07:48→19:27)
[2022-05-27] MEDS: OXYCODONE 5 MG TABLET PO ×3 (07:50→19:27)
[2022-05-27] MEDS: DOLUTEGRAVIR 50 MG 1 EACH PO ×2 (07:50→15:12)
[2022-05-27 10:32] VITALS: TEMP 36.4; O2SAT 97
[2022-05-27 15:00] VITALS: TEMP 36.4; O2SAT 95
[2022-05-27 23:53] VITALS: TEMP 36.4; O2SAT 95
[2022-05-28] MEDS: ACETAMINOPHEN 500 MG TABLET 1000 MG PO ×3 (07:05→19:11)
[2022-05-28] MEDS: ESCITALOPRAM 10 MG TABLET 20 MG PO (07:06)
[2022-05-28] MEDS: polyethylene glycoL 238 GM BULK BOTTLE 17 GM PO (07:06)
[2022-05-28] MEDS: DOLUTEGRAVIR 50 MG 1 EACH PO ×2 (07:06→15:25)
[2022-05-28] MEDS: OXYCODONE 5 MG TABLET PO ×3 (07:06→19:11)
[2022-05-28] MEDS: MAGNESIUM HYDROXIDE 30 ML ORAL.SUSP PO (07:07)
[2022-05-28 09:55] VITALS: TEMP 36.4; O2SAT 97
[2022-05-28 15:00] VITALS: TEMP 36.2; O2SAT 98
[2022-05-28 23:00] VITALS: TEMP 35.9; O2SAT 96
[2022-05-29 07:00] VITALS: TEMP 36.5; O2SAT 95
[2022-05-29] MEDS: polyethylene glycoL 238 GM BULK BOTTLE 17 GM PO (07:35)
[2022-05-29] MEDS: ESCITALOPRAM 10 MG TABLET 20 MG PO (07:35)
[2022-05-29] MEDS: ACETAMINOPHEN 500 MG TABLET 1000 MG PO ×3 (07:35→20:09)
[2022-05-29] MEDS: DOLUTEGRAVIR 50 MG 1 EACH PO ×2 (07:35→15:39)
[2022-05-29] MEDS: OXYCODONE 5 MG TABLET PO ×3 (07:39→20:09)
[2022-05-29 15:00] VITALS: TEMP 36.6; O2SAT 96
[2022-05-30 01:09] VITALS: TEMP 36.5; O2SAT 94
--- NOTE | 2022-05-30 05:14 | PC.NURSE ---
Skin: Resident has x5 small open and or raised areas on and around the lips predominately on the left side. Some appear to have a crust on top of them. Monitoring.
[2022-05-30 07:00] VITALS: TEMP 36.4; O2SAT 95
[2022-05-30] MEDS: ACETAMINOPHEN 500 MG TABLET 1000 MG PO ×3 (07:46→19:31)
[2022-05-30] MEDS: ESCITALOPRAM 10 MG TABLET 20 MG PO (07:46)
[2022-05-30] MEDS: polyethylene glycoL 238 GM BULK BOTTLE 17 GM PO (07:46)
[2022-05-30] MEDS: DOLUTEGRAVIR 50 MG 1 EACH PO ×2 (07:46→15:38)
[2022-05-30] MEDS: OXYCODONE 5 MG TABLET PO ×3 (07:47→19:31)
[2022-05-30 15:00] VITALS: TEMP 37; O2SAT 98
[2022-05-31 00:17] VITALS: TEMP 36.2; O2SAT 95
[2022-05-31 07:00] VITALS: TEMP 36.6; O2SAT 97
[2022-05-31] MEDS: DOLUTEGRAVIR 50 MG 1 EACH PO ×2 (07:42→16:01)
[2022-05-31] MEDS: polyethylene glycoL 238 GM BULK BOTTLE 17 GM PO (07:42)
[2022-05-31] MEDS: ACETAMINOPHEN 500 MG TABLET 1000 MG PO ×3 (07:42→20:08)
[2022-05-31] MEDS: ESCITALOPRAM 10 MG TABLET 20 MG PO (07:42)
[2022-05-31] MEDS: OXYCODONE 5 MG TABLET PO ×3 (07:48→20:08)
[2022-05-31 15:00] VITALS: TEMP 36.4; O2SAT 99
[2022-05-31 23:00] VITALS: TEMP 36.3; O2SAT 95
[2022-06-01] MEDS: MAGNESIUM HYDROXIDE 30 ML ORAL.SUSP PO (08:00)
[2022-06-01] MEDS: DOLUTEGRAVIR 50 MG 1 EACH PO ×2 (08:35→16:01)
[2022-06-01] MEDS: ESCITALOPRAM 10 MG TABLET 20 MG PO (08:35)
[2022-06-01] MEDS: polyethylene glycoL 238 GM BULK BOTTLE 17 GM PO (08:35)
[2022-06-01] MEDS: OXYCODONE 5 MG TABLET PO ×3 (08:35→19:15)
[2022-06-01] MEDS: ACETAMINOPHEN 500 MG TABLET 1000 MG PO ×3 (08:35→19:15)
[2022-06-01 10:57] VITALS: TEMP 36.4; O2SAT 92
--- NOTE | 2022-06-01 12:04 | PC.NURSE ---
COVID OUTBREAK TESTING Residents NAKITA gave verbal consent for outbreak COVID testing. Resident is currently asymptomatic.? Resident/family will be notified only if resident is positive.
[2022-06-01 15:00] VITALS: BP 105/75; PULSE 59; RESP 18; TEMP 36.1; O2SAT 97
[2022-06-01 15:43] LABS: SARS PCR* Negative SARS-CoV-2 (Negative)
[2022-06-01 23:00] VITALS: TEMP 36.4; O2SAT 94
[2022-06-02] MEDS: polyethylene glycoL 238 GM BULK BOTTLE 17 GM PO (08:48)
[2022-06-02] MEDS: OXYCODONE 5 MG TABLET PO ×3 (08:48→20:12)
[2022-06-02] MEDS: ESCITALOPRAM 10 MG TABLET 20 MG PO (08:48)
[2022-06-02] MEDS: DOLUTEGRAVIR 50 MG 1 EACH PO ×2 (08:48→15:38)
[2022-06-02] MEDS: ACETAMINOPHEN 500 MG TABLET 1000 MG PO ×3 (08:48→20:12)
[2022-06-02 10:38] VITALS: TEMP 36.3; O2SAT 94
[2022-06-02 21:06] VITALS: TEMP 36.3; O2SAT 97
[2022-06-02 23:00] VITALS: TEMP 36.3; O2SAT 94
--- NOTE | 2022-06-03 04:43 | PC.NURSE ---
WEEKLY CHARTING - WEEK 4: Vital signs reviewed - low BP values. Reviewed by PHYSICIAN PRACTICE MARKET MANAGER - encourage fluids. Temporary and comprehensive care plan reviewed with no change. Documented behavior x1 in the last month. Currently receives escitalopram 20mg daily with no noted adverse effects. Unable to communicate needs. Staff anticipate needs. No hearing or vision problems. All medications administered by licensed nurse. No change to health condition.
[2022-06-03 07:00] VITALS: TEMP 36.4; O2SAT 99
[2022-06-03] MEDS: ACETAMINOPHEN 500 MG TABLET 1000 MG PO ×3 (07:09→19:36)
[2022-06-03] MEDS: DOLUTEGRAVIR 50 MG 1 EACH PO ×2 (07:09→15:00)
[2022-06-03] MEDS: ESCITALOPRAM 10 MG TABLET 20 MG PO (07:09)
[2022-06-03] MEDS: OXYCODONE 5 MG TABLET PO ×3 (07:09→19:36)
[2022-06-03] MEDS: polyethylene glycoL 238 GM BULK BOTTLE 17 GM PO (07:09)
--- NOTE | 2022-06-03 13:24 | PC.NURSE ---
Week #4: Comprehensive & temporary care plan reviewed. No changes made. Nothing added to temporary care plan. No changes noted in communication, hearing, vision, or orientation. Needs anticipated by staff. Does not communicate needs. No hearing and visual problems. Is oriented to self. Chronic health condition stable. All medications administered by Nurse. Vital signs reviewed,occasional low BP noted by EDGE BRUSHER. Encourage fluids. Mood/Behavior: No issues documented in the last month. Continues on Escitalopram 20mg daily with no adverse effects noted. No change in medication.
[2022-06-03 15:00] VITALS: TEMP 36.7; O2SAT 94
[2022-06-03 23:00] VITALS: TEMP 36.3; O2SAT 95
[2022-06-04 07:00] VITALS: TEMP 36.8; O2SAT 96
[2022-06-04] MEDS: ACETAMINOPHEN 500 MG TABLET 1000 MG PO ×3 (07:05→20:44)
[2022-06-04] MEDS: DOLUTEGRAVIR 50 MG 1 EACH PO ×2 (07:06→15:57)
[2022-06-04] MEDS: polyethylene glycoL 238 GM BULK BOTTLE 17 GM PO (07:06)
[2022-06-04] MEDS: OXYCODONE 5 MG TABLET PO ×3 (07:06→20:44)
[2022-06-04] MEDS: ESCITALOPRAM 10 MG TABLET 20 MG PO (07:06)
[2022-06-04 15:00] VITALS: TEMP 36.8; O2SAT 96
[2022-06-04 23:00] VITALS: TEMP 36.4; O2SAT 95
[2022-06-05] MEDS: ACETAMINOPHEN 500 MG TABLET 1000 MG PO ×3 (08:53→19:29)
[2022-06-05] MEDS: OXYCODONE 5 MG TABLET PO ×3 (08:54→19:29)
[2022-06-05] MEDS: DOLUTEGRAVIR 50 MG 1 EACH PO ×2 (08:54→16:01)
[2022-06-05] MEDS: ESCITALOPRAM 10 MG TABLET 20 MG PO (08:54)
[2022-06-05] MEDS: polyethylene glycoL 238 GM BULK BOTTLE 17 GM PO (08:54)
[2022-06-05 10:37] VITALS: TEMP 36.4; O2SAT 97
[2022-06-05 15:00] VITALS: TEMP 36.6; O2SAT 96
[2022-06-05 23:00] VITALS: TEMP 36.1; O2SAT 95
[2022-06-06] MEDS: ESCITALOPRAM 10 MG TABLET 20 MG PO (08:25)
[2022-06-06] MEDS: DOLUTEGRAVIR 50 MG 1 EACH PO ×2 (08:25→16:36)
[2022-06-06] MEDS: ACETAMINOPHEN 500 MG TABLET 1000 MG PO ×3 (08:25→19:29)
[2022-06-06] MEDS: OXYCODONE 5 MG TABLET PO ×3 (08:25→19:29)
[2022-06-06] MEDS: polyethylene glycoL 238 GM BULK BOTTLE 17 GM PO (08:25)
[2022-06-06 13:00] VITALS: TEMP 36.6; O2SAT 94
[2022-06-06 15:00] VITALS: TEMP 36.6; O2SAT 96
[2022-06-06 23:00] VITALS: TEMP 36.2; O2SAT 96
[2022-06-07] MEDS: OXYCODONE 5 MG TABLET PO ×3 (08:34→19:27)
[2022-06-07] MEDS: ESCITALOPRAM 10 MG TABLET 20 MG PO (08:34)
[2022-06-07] MEDS: DOLUTEGRAVIR 50 MG 1 EACH PO ×2 (08:34→16:51)
[2022-06-07] MEDS: polyethylene glycoL 238 GM BULK BOTTLE 17 GM PO (08:34)
[2022-06-07] MEDS: ACETAMINOPHEN 500 MG TABLET 1000 MG PO ×3 (08:34→19:27)
[2022-06-07 10:32] VITALS: TEMP 36.4; O2SAT 94
[2022-06-07 15:00] VITALS: TEMP 37; O2SAT 95
[2022-06-07 23:00] VITALS: TEMP 36.7; O2SAT 95
[2022-06-08] MEDS: polyethylene glycoL 238 GM BULK BOTTLE 17 GM PO (07:59)
[2022-06-08] MEDS: OXYCODONE 5 MG TABLET PO ×3 (07:59→19:31)
[2022-06-08] MEDS: ACETAMINOPHEN 500 MG TABLET 1000 MG PO ×3 (08:01→19:31)
[2022-06-08] MEDS: DOLUTEGRAVIR 50 MG 1 EACH PO ×2 (08:01→16:43)
[2022-06-08] MEDS: ESCITALOPRAM 10 MG TABLET 20 MG PO (08:01)
--- NOTE | 2022-06-08 10:00 | PC.NURSE ---
COVID OUTBREAK TESTING Residents POA gave verbal consent for outbreak COVID testing. Resident is currently asymptomatic.? Resident/family will be notified only if resident is positive.
[2022-06-08 10:11] VITALS: TEMP 36; O2SAT 96
[2022-06-08 10:45] LABS: SARS PCR* Negative SARS-CoV-2 (Negative)
[2022-06-08 21:22] VITALS: BP 97/67; PULSE 64; RESP 16; TEMP 36.2; O2SAT 95
[2022-06-08 23:00] VITALS: TEMP 36.2; O2SAT 96
[2022-06-09] MEDS: OXYCODONE 5 MG TABLET PO ×3 (06:59→19:51)
[2022-06-09] MEDS: ACETAMINOPHEN 500 MG TABLET 1000 MG PO ×3 (06:59→19:51)
[2022-06-09] MEDS: ESCITALOPRAM 10 MG TABLET 20 MG PO (06:59)
[2022-06-09] MEDS: polyethylene glycoL 238 GM BULK BOTTLE 17 GM PO (06:59)
[2022-06-09] MEDS: DOLUTEGRAVIR 50 MG 1 EACH PO ×2 (06:59→16:09)
[2022-06-09 07:00] VITALS: TEMP 36.6; O2SAT 96
[2022-06-09 15:00] VITALS: TEMP 36.9; O2SAT 96
[2022-06-09 20:27] LABS: PCR FLU A Negative PCR FLU A (Negative); PCR FLU B Negative PCR FLU B (Negative)
[2022-06-09 20:33] LABS: SARS PCR* Negative SARS-CoV-2 (Negative)
--- NOTE | 2022-06-09 21:53 | PC.NURSE ---
cold symptoms: Resident coughing,sneezing and runny nose and both eyes very red and puffy with congunctivals red. Small amount of drainage from right eye. collected specimen for covid and influenza A&B which was negative. Will put precaution supplies outside his room per request from GUMARO.
[2022-06-09 23:00] VITALS: TEMP 37.3; O2SAT 95
--- NOTE | 2022-06-10 01:17 | PC.NURSE ---
WEEKLY CHARTING - WEEK 1: Vital signs reviewed - some lower BP values at times. Staff continue to encourage fluid intake. Temporary and comprehensive care plan reviewed no change. Hx of right arm pain r/t immobility. Staff observe for verbal and non-verbal s/sx of pain. Receives acetaminophen 1000mg TID and oxycodone 5mg TID for pain management. Requires extensive assist of 2 with dressing, grooming, bathing, and oral care. Requires feeding assist with meals. Appetite fair. Will turn head away and refuse to eat at times.
--- NOTE | 2022-06-10 05:32 | PC.NURSE ---
No noted coughing this shift. Sleeping soundly through the night. Temp 99.1.
[2022-06-10 06:55] VITALS: TEMP 36.8; O2SAT 93
[2022-06-10] MEDS: polyethylene glycoL 238 GM BULK BOTTLE 17 GM PO (07:01)
[2022-06-10] MEDS: DOLUTEGRAVIR 50 MG 1 EACH PO ×2 (07:01→15:48)
[2022-06-10] MEDS: ACETAMINOPHEN 500 MG TABLET 1000 MG PO ×3 (07:01→19:30)
[2022-06-10] MEDS: ESCITALOPRAM 10 MG TABLET 20 MG PO (07:01)
[2022-06-10] MEDS: OXYCODONE 5 MG TABLET PO ×3 (07:01→19:30)
--- NOTE | 2022-06-10 07:02 | PC.NURSE ---
Week #1: Comprehensive care plan reviewed, no changes made. Nothing added to temporary care plan. Resident needs 1-2 assists with dressing, grooming and bathing. One assist with oral cares and feeding. Is on regular diet, regular texture, thin liquids. No problems noted with chewing/swallowing. Resident needs reminder to chew food & swallow slowly. Staff to feed. Able to drink liquids from cup/glass. Vital signs reviewed, no concerns. Pain: Chronic pain is controlled with Tylenol 1000mg TID, Oxycodone 5mg TID. No pain noted the last month. Need for pain is anticipated by staff through verbal & nonverbal cues.
[2022-06-10 15:00] VITALS: TEMP 36.7; O2SAT 96
[2022-06-10 23:23] VITALS: TEMP 36.8; O2SAT 95
[2022-06-11] MEDS: ACETAMINOPHEN 500 MG TABLET 1000 MG PO ×3 (08:32→19:17)
[2022-06-11] MEDS: polyethylene glycoL 238 GM BULK BOTTLE 17 GM PO (08:33)
[2022-06-11] MEDS: OXYCODONE 5 MG TABLET PO ×3 (08:33→19:17)
[2022-06-11] MEDS: DOLUTEGRAVIR 50 MG 1 EACH PO ×2 (08:33→15:08)
[2022-06-11] MEDS: ESCITALOPRAM 10 MG TABLET 20 MG PO (08:33)
[2022-06-11 10:24] VITALS: TEMP 36.3; O2SAT 92
[2022-06-11 16:04] VITALS: TEMP 36.8; O2SAT 96
[2022-06-12] MEDS: ACETAMINOPHEN 500 MG TABLET 1000 MG PO ×3 (07:01→20:26)
[2022-06-12] MEDS: ESCITALOPRAM 10 MG TABLET 20 MG PO (07:01)
[2022-06-12] MEDS: polyethylene glycoL 238 GM BULK BOTTLE 17 GM PO (07:01)
[2022-06-12] MEDS: OXYCODONE 5 MG TABLET PO ×3 (07:02→20:26)
[2022-06-12] MEDS: DOLUTEGRAVIR 50 MG 1 EACH PO ×2 (07:02→15:14)
[2022-06-12 16:00] VITALS: TEMP 36.7; O2SAT 95
[2022-06-13] MEDS: ESCITALOPRAM 10 MG TABLET 20 MG PO (08:25)
[2022-06-13] MEDS: ACETAMINOPHEN 500 MG TABLET 1000 MG PO ×3 (08:25→19:32)
[2022-06-13] MEDS: polyethylene glycoL 238 GM BULK BOTTLE 17 GM PO (08:25)
[2022-06-13] MEDS: DOLUTEGRAVIR 50 MG 1 EACH PO ×2 (08:25→15:03)
[2022-06-13] MEDS: OXYCODONE 5 MG TABLET PO ×3 (08:26→19:33)
[2022-06-13 16:00] VITALS: TEMP 36.8; O2SAT 99
[2022-06-14] MEDS: polyethylene glycoL 238 GM BULK BOTTLE 17 GM PO (07:04)
[2022-06-14] MEDS: ACETAMINOPHEN 500 MG TABLET 1000 MG PO ×3 (07:04→19:56)
[2022-06-14] MEDS: ESCITALOPRAM 10 MG TABLET 20 MG PO (07:04)
[2022-06-14] MEDS: DOLUTEGRAVIR 50 MG 1 EACH PO ×2 (07:13→15:38)
[2022-06-14] MEDS: OXYCODONE 5 MG TABLET PO ×3 (07:15→19:56)
[2022-06-14 16:00] VITALS: TEMP 36.5
[2022-06-14 16:44] VITALS: TEMP 36.5; O2SAT 95
[2022-06-15] MEDS: OXYCODONE 5 MG TABLET PO ×3 (07:01→19:30)
[2022-06-15] MEDS: ACETAMINOPHEN 500 MG TABLET 1000 MG PO ×3 (07:01→19:42)
[2022-06-15] MEDS: ESCITALOPRAM 10 MG TABLET 20 MG PO (07:01)
[2022-06-15] MEDS: polyethylene glycoL 238 GM BULK BOTTLE 17 GM PO (07:01)
[2022-06-15] MEDS: DOLUTEGRAVIR 50 MG 1 EACH PO ×2 (07:01→15:38)
[2022-06-15 15:00] VITALS: BP 99/63; PULSE 68; RESP 18; TEMP 36.6
[2022-06-15 16:00] VITALS: TEMP 36.6; O2SAT 96
[2022-06-15 17:21] VITALS: BMI 29.5
[2022-06-16] MEDS: ACETAMINOPHEN 500 MG TABLET 1000 MG PO ×3 (07:27→19:30)
[2022-06-16] MEDS: ESCITALOPRAM 10 MG TABLET 20 MG PO (07:27)
[2022-06-16] MEDS: OXYCODONE 5 MG TABLET PO ×3 (07:27→19:31)
[2022-06-16] MEDS: DOLUTEGRAVIR 50 MG 1 EACH PO ×2 (07:27→16:09)
[2022-06-16] MEDS: polyethylene glycoL 238 GM BULK BOTTLE 17 GM PO (07:27)
[2022-06-16 15:19] VITALS: TEMP 36.5; O2SAT 94
--- NOTE | 2022-06-17 00:55 | PC.NURSE ---
WEEKLY CHARTING - WEEK 2: Vital signs reviewed - no concerns. Temporary and comprehensive care plan reviewed - no change. Requires full mechanical lift with assist of 2 for transfers. 2 assist with bed mobility. Propels self in w/c at times without purpose. Dependent on staff for purposeful w/c mobility. Per latest fall risk assessment, is at low risk for falls. Fall interventions: not left alone in room when in w/c, Dycem in w/c, no pillows for bed positioning, check and change Q AM by 0700, bed in low position with brakes locked, hourly visual checks.
[2022-06-17] MEDS: DOLUTEGRAVIR 50 MG 1 EACH PO ×2 (07:05→16:15)
[2022-06-17] MEDS: ACETAMINOPHEN 500 MG TABLET 1000 MG PO ×3 (07:05→19:52)
[2022-06-17] MEDS: OXYCODONE 5 MG TABLET PO ×3 (07:05→19:53)
[2022-06-17] MEDS: polyethylene glycoL 238 GM BULK BOTTLE 17 GM PO (07:05)
[2022-06-17] MEDS: ESCITALOPRAM 10 MG TABLET 20 MG PO (07:05)
--- NOTE | 2022-06-17 09:29 | PC.PHA1 ---
DISBURSING AGENT PHARMACIST'S MEDICATION REVIEW: MEDICATION MONITORING:Escitalopram 20 mg daily antivirals - emtricitabine-tenofovir 200/25 mg daily and dolutegravir 50 mg bid IRREGULARITY OR COMMENTS:Patient continues to need pain meds for shoulder pain and continues on antivirals for HIV, which continues to be followed by Maradiaga ROBIN (see MD request for note to be added to chart). Escitalopram 20 mg daily continues to be indicated for prevention of verbal and behavioral outbursts, for patient's continued wellbeing it certainly does seem clinically contraindicated to begin a GDR of escitalopram as past attempts prior to 2022 have failed. SUGGESTED COURSE OF ACTION TAKEN:No medication recommendations at this time.
[2022-06-17 16:00] VITALS: TEMP 36.2; O2SAT 96
--- NOTE | 2022-06-17 21:57 | PC.NURSE ---
Week #2: Mobility: Care plan reviewed, no changes made. Nothing added to temporary care plan. Resident is non ambulatory. Transfers with 2 assists using the deandre lift at all times. Can wheel self at times short distance without a purpose. Staff wheels to all destinations. Can make slight changes in body positioning. Staff to check and assist resident make significant changes. Staff to check and assist resident make significant changes every 2 hours, reposition/offload. No alarms. Staff to do ROM of (R) upper extremity BID. Vital signs reviewed, has low BP values. Encouraged to drinking additional fluids. Not on antihypertensive medications. Continue weekly VS monitoring. Fall: No falls the past month. Remains? a low fall risk according to assessment done on 05/07/22.
[2022-06-18] MEDS: ESCITALOPRAM 10 MG TABLET 20 MG PO (07:01)
[2022-06-18] MEDS: ACETAMINOPHEN 500 MG TABLET 1000 MG PO ×3 (07:01→19:54)
[2022-06-18] MEDS: OXYCODONE 5 MG TABLET PO ×3 (07:01→19:54)
[2022-06-18] MEDS: DOLUTEGRAVIR 50 MG 1 EACH PO ×2 (07:01→16:09)
--- NOTE | 2022-06-18 07:02 | PC.NURSE ---
AM dose of Miralax held today as ALLEN reported resident had a large loose incontinent stool noted during AM cares today.
--- NOTE | 2022-06-18 09:32 | PC.NURSE ---
Resident noted to have one small superficial scratch to R side of nose this morning measuring approximately 0.5 cm x 0.2 cm in size. No s/sx of infection or drainage observed. Scratch resembles resident scratched this side of his nose. Casting Machine Set Up Operator ensured resident's nails were trimmed. warehouse packer and AERIAL SPRAYER updated. Nursing to continue to observe until healed.
[2022-06-18 15:00] VITALS: TEMP 36.8; O2SAT 97
--- NOTE | 2022-06-18 16:05 | PC.NURSE ---
Antipsychotropic medication use: Spoke with MERCHANDISE SUPPORT ASSOCIATE Pearl Crews. Changes in Lexapro not appropriate at this time due to wt loss noted. Will review in September 2022 or sooner if needed.
[2022-06-18 23:51] VITALS: TEMP 36.8; O2SAT 92
--- NOTE | 2022-06-19 08:01 | PC.NURSE ---
Skin: superficial scratch side of nose seen by PLANT CLERK, Okay.
[2022-06-19] MEDS: ACETAMINOPHEN 500 MG TABLET 1000 MG PO ×3 (08:47→19:36)
[2022-06-19] MEDS: ESCITALOPRAM 10 MG TABLET 20 MG PO (08:47)
[2022-06-19] MEDS: DOLUTEGRAVIR 50 MG 1 EACH PO ×2 (08:47→15:01)
[2022-06-19] MEDS: OXYCODONE 5 MG TABLET PO ×3 (08:47→19:36)
[2022-06-19] MEDS: polyethylene glycoL 238 GM BULK BOTTLE 17 GM PO (08:47)
[2022-06-19 10:09] VITALS: TEMP 36.3; O2SAT 98
[2022-06-19 15:00] VITALS: TEMP 36.8; O2SAT 96
[2022-06-20 00:27] VITALS: TEMP 36.6; O2SAT 95
[2022-06-20] MEDS: ACETAMINOPHEN 500 MG TABLET 1000 MG PO ×3 (08:42→19:30)
[2022-06-20] MEDS: OXYCODONE 5 MG TABLET PO ×3 (08:43→19:30)
[2022-06-20] MEDS: polyethylene glycoL 238 GM BULK BOTTLE 17 GM PO (08:43)
[2022-06-20] MEDS: ESCITALOPRAM 10 MG TABLET 20 MG PO (08:43)
[2022-06-20] MEDS: DOLUTEGRAVIR 50 MG 1 EACH PO ×2 (08:43→16:25)
--- NOTE | 2022-06-20 09:51 | PC.NURSE ---
Status: Resident choked on eggs at breakfast this morning. Had eggs in his mouth when he started laughing at a staff member. Lungs clear and temp 97.8, will set up intervention
[2022-06-20 10:45] VITALS: TEMP 36.6; O2SAT 96
[2022-06-20 15:55] VITALS: TEMP 36.6; O2SAT 96
[2022-06-20 16:00] VITALS: TEMP 36.6
--- NOTE | 2022-06-20 22:30 | PC.NURSE ---
Status: Lung sounds clear throughout. Resident is afebrile. Will continue to monitor d/t choking episode.
[2022-06-21 00:11] VITALS: TEMP 36.6; O2SAT 95
[2022-06-21] MEDS: ESCITALOPRAM 10 MG TABLET 20 MG PO (08:59)
[2022-06-21] MEDS: ACETAMINOPHEN 500 MG TABLET 1000 MG PO ×3 (08:59→19:32)
[2022-06-21] MEDS: polyethylene glycoL 238 GM BULK BOTTLE 17 GM PO (08:59)
[2022-06-21] MEDS: DOLUTEGRAVIR 50 MG 1 EACH PO ×2 (08:59→15:23)
[2022-06-21] MEDS: OXYCODONE 5 MG TABLET PO ×3 (08:59→19:32)
[2022-06-21 10:52] VITALS: TEMP 36.9; O2SAT 97
[2022-06-21 15:00] VITALS: TEMP 36.6; O2SAT 96
--- NOTE | 2022-06-21 22:03 | PC.NURSE ---
Status: Resident had small emesis after dinner. Gave kenny lauren. VS T 98, P 60, RR16, BP 98/54, O2 sats 96 RA. In bed resting at this time. No further emesis this shift. Resident's lung sounds clear throughout.
[2022-06-21 23:54] VITALS: TEMP 36.6; O2SAT 96
[2022-06-22] MEDS: polyethylene glycoL 238 GM BULK BOTTLE 17 GM PO (08:01)
[2022-06-22] MEDS: ACETAMINOPHEN 500 MG TABLET 1000 MG PO ×3 (08:01→19:22)
[2022-06-22] MEDS: ESCITALOPRAM 10 MG TABLET 20 MG PO (08:01)
[2022-06-22] MEDS: DOLUTEGRAVIR 50 MG 1 EACH PO ×2 (08:01→15:59)
[2022-06-22] MEDS: OXYCODONE 5 MG TABLET PO ×3 (08:01→19:22)
--- NOTE | 2022-06-22 10:15 | PC.NURSE ---
COVID OUTBREAK TESTING Residents NAKITA gave verbal consent for outbreak COVID testing. Resident is currently asymptomatic.? Resident/family will be notified only if resident is positive.
[2022-06-22 10:49] VITALS: TEMP 36.4; O2SAT 96
[2022-06-22 12:31] LABS: SARS PCR* Negative SARS-CoV-2 (Negative)
[2022-06-22 15:11] VITALS: TEMP 36.6; O2SAT 95
[2022-06-22 16:44] VITALS: BP 90/60; PULSE 60; RESP 18; TEMP 36.6; O2SAT 95; BMI 29.2
[2022-06-23 00:03] VITALS: TEMP 36.5; O2SAT 95
[2022-06-23] MEDS: OXYCODONE 5 MG TABLET PO ×3 (07:09→19:20)
[2022-06-23] MEDS: ESCITALOPRAM 10 MG TABLET 20 MG PO (07:09)
[2022-06-23] MEDS: ACETAMINOPHEN 500 MG TABLET 1000 MG PO ×3 (07:09→19:20)
[2022-06-23] MEDS: DOLUTEGRAVIR 50 MG 1 EACH PO ×2 (07:09→16:30)
[2022-06-23] MEDS: polyethylene glycoL 238 GM BULK BOTTLE 17 GM PO (07:09)
[2022-06-23 10:08] VITALS: TEMP 36.6; O2SAT 96
[2022-06-23 15:00] VITALS: TEMP 36.3; O2SAT 96
[2022-06-23 23:00] VITALS: TEMP 36.3; O2SAT 95
--- NOTE | 2022-06-24 01:35 | PC.NURSE ---
WEEKLY CHARTING - WEEK 3: Vital signs reviewed - no concerns. Temporary and comprehensive care plan reviewed - no change. No documented skin integrity concerns at this time. Incontinent of bowel and bladder. Requires total assist of 2 for toileting needs including anel-cares, pad, and clothing management. Wears XL brief with ultra guard in place. Is checked and changed on first and third rounds at night.
[2022-06-24] MEDS: DOLUTEGRAVIR 50 MG 1 EACH PO ×2 (07:21→15:08)
[2022-06-24] MEDS: ESCITALOPRAM 10 MG TABLET 20 MG PO (07:21)
[2022-06-24] MEDS: ACETAMINOPHEN 500 MG TABLET 1000 MG PO ×3 (07:21→19:05)
[2022-06-24] MEDS: polyethylene glycoL 238 GM BULK BOTTLE 17 GM PO (07:21)
[2022-06-24] MEDS: OXYCODONE 5 MG TABLET PO ×3 (07:21→19:05)
[2022-06-24 10:36] VITALS: TEMP 36.6; O2SAT 96
[2022-06-24 15:00] VITALS: TEMP 36.2; O2SAT 95
[2022-06-24 23:00] VITALS: TEMP 36.6; O2SAT 93
[2022-06-25] MEDS: OXYCODONE 5 MG TABLET PO ×3 (08:27→19:10)
[2022-06-25] MEDS: ACETAMINOPHEN 500 MG TABLET 1000 MG PO ×3 (08:28→19:10)
[2022-06-25] MEDS: ESCITALOPRAM 10 MG TABLET 20 MG PO (08:29)
[2022-06-25] MEDS: DOLUTEGRAVIR 50 MG 1 EACH PO ×2 (08:29→15:29)
[2022-06-25] MEDS: polyethylene glycoL 238 GM BULK BOTTLE 17 GM PO (08:29)
[2022-06-25 10:02] VITALS: TEMP 36.3; O2SAT 96
[2022-06-25 15:00] VITALS: TEMP 36.4; O2SAT 96
[2022-06-25 23:00] VITALS: TEMP 36.3; O2SAT 95
[2022-06-26] MEDS: OXYCODONE 5 MG TABLET PO ×3 (07:35→19:05)
[2022-06-26] MEDS: ACETAMINOPHEN 500 MG TABLET 1000 MG PO ×3 (07:35→19:05)
[2022-06-26] MEDS: polyethylene glycoL 238 GM BULK BOTTLE 17 GM PO (07:35)
[2022-06-26] MEDS: ESCITALOPRAM 10 MG TABLET 20 MG PO (07:35)
[2022-06-26] MEDS: DOLUTEGRAVIR 50 MG 1 EACH PO ×2 (07:35→15:14)
[2022-06-26 10:19] VITALS: TEMP 36.8; O2SAT 96
[2022-06-26 15:00] VITALS: TEMP 36.7; O2SAT 92
[2022-06-26 23:00] VITALS: TEMP 36.7; O2SAT 92
[2022-06-27 07:00] VITALS: TEMP 37.3; O2SAT 92
[2022-06-27] MEDS: polyethylene glycoL 238 GM BULK BOTTLE 17 GM PO (07:11)
[2022-06-27] MEDS: ACETAMINOPHEN 500 MG TABLET 1000 MG PO ×3 (07:11→20:29)
[2022-06-27] MEDS: ESCITALOPRAM 10 MG TABLET 20 MG PO (07:11)
[2022-06-27] MEDS: DOLUTEGRAVIR 50 MG 1 EACH PO ×2 (07:12→15:08)
[2022-06-27] MEDS: OXYCODONE 5 MG TABLET PO ×3 (07:12→20:29)
[2022-06-27 15:00] VITALS: TEMP 36.7; O2SAT 100
[2022-06-27 23:00] VITALS: TEMP 36.8; O2SAT 94
[2022-06-28 06:38] VITALS: TEMP 37.1; O2SAT 95
[2022-06-28] MEDS: OXYCODONE 5 MG TABLET PO ×3 (07:00→20:52)
[2022-06-28] MEDS: ACETAMINOPHEN 500 MG TABLET 1000 MG PO ×3 (07:00→20:52)
[2022-06-28] MEDS: polyethylene glycoL 238 GM BULK BOTTLE 17 GM PO (07:00)
[2022-06-28] MEDS: ESCITALOPRAM 10 MG TABLET 20 MG PO (07:00)
[2022-06-28] MEDS: DOLUTEGRAVIR 50 MG 1 EACH PO ×2 (07:00→15:37)
--- NOTE | 2022-06-28 14:29 | PC.NURSE ---
Resident resistive with foods when encouraged at breakfast and lunch today. He ate less than 25% of food at lunch. Staff did provide him with Chocolate Ensure at lunch which he took approximately 4 oz of. Vital signs assessed after lunch: B/P 107/73, P 85, R 18, T 98.2, O2 sat 93% on RA. Evening staff updated.
[2022-06-28 15:00] VITALS: TEMP 36.6; O2SAT 94
[2022-06-28 23:00] VITALS: TEMP 36.9; O2SAT 93
[2022-06-29] MEDS: ACETAMINOPHEN 500 MG TABLET 1000 MG PO ×3 (08:17→19:26)
[2022-06-29] MEDS: OXYCODONE 5 MG TABLET PO ×3 (08:17→19:26)
[2022-06-29] MEDS: DOLUTEGRAVIR 50 MG 1 EACH PO ×2 (08:17→15:19)
[2022-06-29] MEDS: polyethylene glycoL 238 GM BULK BOTTLE 17 GM PO (08:17)
[2022-06-29] MEDS: ESCITALOPRAM 10 MG TABLET 20 MG PO (08:17)
[2022-06-29 10:23] VITALS: TEMP 36.4; O2SAT 94
--- NOTE | 2022-06-29 12:06 | PC.NURSE ---
COVID OUTBREAK TESTING Residents NAKITA gave verbal consent for outbreak COVID testing. Resident is currently asymptomatic.? Resident/family will be notified only if resident is positive.
[2022-06-29 12:39] LABS: SARS PCR* Negative SARS-CoV-2 (Negative)
[2022-06-29 15:46] VITALS: BP 107/65; PULSE 74; RESP 17; TEMP 36.7; O2SAT 96
[2022-06-29 18:46] VITALS: BMI 27.5
[2022-06-29 23:00] VITALS: TEMP 36.7; O2SAT 92
[2022-06-30] MEDS: polyethylene glycoL 238 GM BULK BOTTLE 17 GM PO (07:37)
[2022-06-30] MEDS: ESCITALOPRAM 10 MG TABLET 20 MG PO (07:37)
[2022-06-30] MEDS: ACETAMINOPHEN 500 MG TABLET 1000 MG PO ×3 (07:37→19:37)
[2022-06-30] MEDS: OXYCODONE 5 MG TABLET PO ×3 (07:38→19:38)
[2022-06-30] MEDS: DOLUTEGRAVIR 50 MG 1 EACH PO ×2 (07:38→15:30)
[2022-06-30 10:21] VITALS: TEMP 36.8; O2SAT 96
[2022-06-30 10:24] VITALS: BMI 29.4
[2022-06-30 15:00] VITALS: TEMP 36.4; O2SAT 95
[2022-06-30 23:00] VITALS: TEMP 36.4; O2SAT 92
--- NOTE | 2022-07-01 02:12 | PC.NURSE ---
WEEKLY CHARTING - WEEK 4: Vital signs reviewed - no concerns. Temporary and comprehensive care plan reviewed - no change. No behaviors documented in the last. Receives escitalopram 20mg daily with no noted adverse effects. Not able to communicate needs. Staff anticipate needs. No hearing or vision problems. All medications administered by licensed nurse. Health stable at this time.
[2022-07-01] MEDS: ESCITALOPRAM 10 MG TABLET 20 MG PO (07:03)
[2022-07-01] MEDS: ACETAMINOPHEN 500 MG TABLET 1000 MG PO ×3 (07:03→19:27)
[2022-07-01] MEDS: polyethylene glycoL 238 GM BULK BOTTLE 17 GM PO (07:03)
[2022-07-01] MEDS: DOLUTEGRAVIR 50 MG 1 EACH PO ×2 (07:04→15:01)
[2022-07-01] MEDS: OXYCODONE 5 MG TABLET PO ×3 (07:04→19:28)
--- NOTE | 2022-07-01 08:57 | PC.NURSE ---
Week #4: Comprehensive & temporary care plan reviewed. No changes made. Nothing added to temporary care plan. No changes noted in communication, hearing, vision, or orientation. Needs anticipated by staff. Does not communicate needs. No hearing and visual problems. Is oriented to self. Chronic health condition stable. All medications administered by Nurse. Vital signs reviewed, no concerns. Mood/Behavior: No issues documented in the last month. Continues on Escitalopram 20mg daily with no adverse effects noted. No change in medication.
[2022-07-01 10:06] VITALS: TEMP 36.9; O2SAT 96
[2022-07-01 15:00] VITALS: TEMP 36.3; O2SAT 94
[2022-07-01 23:00] VITALS: TEMP 36.8; O2SAT 94
[2022-07-02] MEDS: ACETAMINOPHEN 500 MG TABLET 1000 MG PO ×3 (07:14→19:55)
[2022-07-02] MEDS: ESCITALOPRAM 10 MG TABLET 20 MG PO (07:14)
[2022-07-02] MEDS: OXYCODONE 5 MG TABLET PO ×3 (07:15→19:55)
[2022-07-02] MEDS: DOLUTEGRAVIR 50 MG 1 EACH PO ×2 (07:15→15:41)
[2022-07-02 09:03] VITALS: TEMP 36.5; O2SAT 95
--- NOTE | 2022-07-02 09:09 | PC.SPIRITC ---
I provided visit for check in, support, and read Kurt's Easter cards to him.
--- NOTE | 2022-07-02 11:49 | PC.NURSE ---
WEEKLY CHARTING - WEEK 4: Vital signs reviewed - with new no concerns. Resident has had no behavioral concerns documented in the past weeks. Resident on scheduled escitalopram 20 mg daily with no adverse effects documented in the past weeks. Temporary and comprehensive care plan reviewed - with no changes. She is unable to communicate her needs with staff as staff anticipate needs. No hearing or vision concerns documented on the past. Health status is stable at this time. All medications administered by licensed nurse.
[2022-07-02 14:06] VITALS: TEMP 36.5
[2022-07-02 15:00] VITALS: TEMP 36.6; O2SAT 96
[2022-07-02 23:00] VITALS: TEMP 36.6; O2SAT 98
--- NOTE | 2022-07-03 00:29 | PC.NURSE ---
No noted s/sx of aspiration. Temp 97.9, SpO2 98% on RA. Lung sounds clear throughout. Will monitor.
[2022-07-03] MEDS: ACETAMINOPHEN 500 MG TABLET 1000 MG PO ×3 (08:20→19:42)
[2022-07-03] MEDS: OXYCODONE 5 MG TABLET PO ×3 (08:20→19:42)
[2022-07-03] MEDS: polyethylene glycoL 238 GM BULK BOTTLE 17 GM PO (08:20)
[2022-07-03] MEDS: ESCITALOPRAM 10 MG TABLET 20 MG PO (08:20)
[2022-07-03] MEDS: DOLUTEGRAVIR 50 MG 1 EACH PO ×2 (08:20→15:17)
[2022-07-03 10:32] VITALS: TEMP 36.6; O2SAT 94
[2022-07-03 15:00] VITALS: TEMP 36.8; O2SAT 96
--- NOTE | 2022-07-03 22:31 | PC.NURSE ---
Resident is afebrile. Lung sounds are clear throughout.
[2022-07-03 23:49] VITALS: TEMP 36.6; O2SAT 96
[2022-07-03 23:50] VITALS: TEMP 36.6
[2022-07-04] MEDS: DOLUTEGRAVIR 50 MG 1 EACH PO ×2 (08:10→15:37)
[2022-07-04] MEDS: OXYCODONE 5 MG TABLET PO ×3 (08:10→19:16)
[2022-07-04] MEDS: ACETAMINOPHEN 500 MG TABLET 1000 MG PO ×3 (08:10→19:16)
[2022-07-04] MEDS: ESCITALOPRAM 10 MG TABLET 20 MG PO (08:10)
[2022-07-04] MEDS: polyethylene glycoL 238 GM BULK BOTTLE 17 GM PO (08:10)
[2022-07-04 10:08] VITALS: TEMP 36.4; O2SAT 96
[2022-07-04 15:00] VITALS: TEMP 36.3; O2SAT 95
[2022-07-04 23:00] VITALS: TEMP 36.6
[2022-07-05 00:09] VITALS: TEMP 36.6; O2SAT 95
[2022-07-05] MEDS: polyethylene glycoL 238 GM BULK BOTTLE 17 GM PO (08:26)
[2022-07-05] MEDS: ACETAMINOPHEN 500 MG TABLET 1000 MG PO ×3 (08:26→19:26)
[2022-07-05] MEDS: ESCITALOPRAM 10 MG TABLET 20 MG PO (08:26)
[2022-07-05] MEDS: OXYCODONE 5 MG TABLET PO ×3 (08:26→19:26)
[2022-07-05] MEDS: DOLUTEGRAVIR 50 MG 1 EACH PO ×2 (08:26→15:12)
[2022-07-05 09:49] VITALS: TEMP 36.2; O2SAT 96
[2022-07-05 15:00] VITALS: TEMP 36.5; O2SAT 94
[2022-07-05 23:00] VITALS: TEMP 36.5
[2022-07-05 23:46] VITALS: TEMP 36.5; O2SAT 95
[2022-07-06 07:00] VITALS: TEMP 36.6; O2SAT 94
[2022-07-06] MEDS: ACETAMINOPHEN 500 MG TABLET 1000 MG PO ×3 (07:00→19:11)
[2022-07-06] MEDS: OXYCODONE 5 MG TABLET PO ×3 (07:00→19:12)
[2022-07-06] MEDS: ESCITALOPRAM 10 MG TABLET 20 MG PO (07:00)
[2022-07-06] MEDS: DOLUTEGRAVIR 50 MG 1 EACH PO ×2 (07:00→16:46)
[2022-07-06] MEDS: polyethylene glycoL 238 GM BULK BOTTLE 17 GM PO (07:00)
--- NOTE | 2022-07-06 10:55 | PC.NURSE ---
COVID OUTBREAK TESTING Resident and residents father gave verbal consent for outbreak COVID testing. Resident is currently asymptomatic.? Resident/family will be notified only if resident is positive.
[2022-07-06 13:34] LABS: SARS PCR* Negative SARS-CoV-2 (Negative)
--- NOTE | 2022-07-06 14:07 | PC.NURSE ---
Camouflage Assembler emailed [facility] requesting refill for Oxycodone 5 mg be provided as resident will need refill after current supply has been exhausted. Resident currently has 10 tabs remaining.
[2022-07-06 15:00] VITALS: BP 116/75; PULSE 75; RESP 18; TEMP 36.4; TEMP 36.6; O2SAT 95
[2022-07-07 01:23] VITALS: TEMP 36.7; O2SAT 95
[2022-07-07] MEDS: ACETAMINOPHEN 500 MG TABLET 1000 MG PO ×3 (08:34→19:32)
[2022-07-07] MEDS: ESCITALOPRAM 10 MG TABLET 20 MG PO (08:34)
[2022-07-07] MEDS: polyethylene glycoL 238 GM BULK BOTTLE 17 GM PO (08:34)
[2022-07-07] MEDS: DOLUTEGRAVIR 50 MG 1 EACH PO ×2 (08:34→15:32)
[2022-07-07] MEDS: OXYCODONE 5 MG TABLET PO ×3 (08:34→19:32)
[2022-07-07 10:23] VITALS: TEMP 36.3; O2SAT 96
[2022-07-07 15:00] VITALS: TEMP 36.7; O2SAT 100
[2022-07-07 23:00] VITALS: TEMP 36.4; O2SAT 97
--- NOTE | 2022-07-08 00:45 | PC.NURSE ---
WEEKLY CHARTING ? WEEK 1: Vital signs reviewed ? no concerns. Temporary and comprehensive care plan reviewed ? no change. Has hx of chronic right shoulder pain of unknown etiology. Receives oxycodone 5mg TID and acetaminophen 1000mg TID for pain management which is noted to be effective. Staff monitor/observe for non-verbal s/sx for pain with cares. Requires assist of 2 with dressing, grooming, bathing, and oral cares. Hx of laughing during meals, swallowing foods whole, and pocketing food in mouth. Is fed by staff with food cut up and reminders to chew thoroughly. Family declines mechanically altered diet. Gradual weight loss noted.
--- NOTE | 2022-07-08 06:54 | PC.NURSE ---
Week #1 ADL's: Comprehensive and temporary care plan reviewed. No changes made, and nothing added to temporary care plan. Resident needs 2 assists with dressing, grooming and bathing. Staff does oral cares. Is feed by staff. Is on regular diet & texture, thin liquids. Is able to drink liquids from glass/cup. Occasional coughing with meals noted. Resident will keep food in mouth. Needs a lot of coaxing to swallow. Appetite varies, but recently is noted not eating well.Vital signs reviewed, no concerns. Pain: Chronic pain is managed with Tylenol 1000mg TID, Oxycodone 5 mg TID. No pain noted. Staff anticipates need for pain through non verbal gestures as resident is not able to communicate needs.
[2022-07-08] MEDS: polyethylene glycoL 238 GM BULK BOTTLE 17 GM PO (07:30)
[2022-07-08] MEDS: ESCITALOPRAM 10 MG TABLET 20 MG PO (07:30)
[2022-07-08] MEDS: ACETAMINOPHEN 500 MG TABLET 1000 MG PO ×3 (07:30→19:48)
[2022-07-08] MEDS: OXYCODONE 5 MG TABLET PO ×3 (07:31→19:48)
[2022-07-08] MEDS: DOLUTEGRAVIR 50 MG 1 EACH PO ×2 (07:31→15:15)
[2022-07-08 09:56] VITALS: TEMP 36.8; O2SAT 96
[2022-07-08 15:00] VITALS: TEMP 36.5; O2SAT 95
[2022-07-08 23:00] VITALS: TEMP 36.5; O2SAT 92
[2022-07-09] MEDS: ACETAMINOPHEN 500 MG TABLET 1000 MG PO ×3 (08:35→19:11)
[2022-07-09] MEDS: ESCITALOPRAM 10 MG TABLET 20 MG PO (08:35)
[2022-07-09] MEDS: DOLUTEGRAVIR 50 MG 1 EACH PO ×2 (08:35→15:00)
[2022-07-09] MEDS: OXYCODONE 5 MG TABLET PO ×3 (08:35→19:11)
[2022-07-09] MEDS: polyethylene glycoL 238 GM BULK BOTTLE 17 GM PO (08:35)
[2022-07-09 10:27] VITALS: TEMP 36.3; O2SAT 94
--- NOTE | 2022-07-09 13:27 | PC.NURSE ---
Resident seen by FLAVOR TANK TENDERMars. Orders reviewed and renewed without changes.
[2022-07-09 15:00] VITALS: TEMP 36.2; O2SAT 95
[2022-07-09 23:00] VITALS: TEMP 36.4; O2SAT 94
[2022-07-10] MEDS: polyethylene glycoL 238 GM BULK BOTTLE 17 GM PO (07:18)
[2022-07-10] MEDS: ESCITALOPRAM 10 MG TABLET 20 MG PO (07:18)
[2022-07-10] MEDS: DOLUTEGRAVIR 50 MG 1 EACH PO ×2 (07:18→15:11)
[2022-07-10] MEDS: ACETAMINOPHEN 500 MG TABLET 1000 MG PO ×3 (07:18→20:04)
[2022-07-10] MEDS: OXYCODONE 5 MG TABLET PO ×3 (07:19→20:05)
[2022-07-10 10:17] VITALS: TEMP 36.6; O2SAT 96
[2022-07-10 15:00] VITALS: TEMP 36.7; O2SAT 99
[2022-07-10 23:00] VITALS: TEMP 36.7; O2SAT 92
[2022-07-11 07:00] VITALS: TEMP 36.7; O2SAT 98
[2022-07-11] MEDS: ESCITALOPRAM 10 MG TABLET 20 MG PO (07:12)
[2022-07-11] MEDS: ACETAMINOPHEN 500 MG TABLET 1000 MG PO ×3 (07:12→20:29)
[2022-07-11] MEDS: polyethylene glycoL 238 GM BULK BOTTLE 17 GM PO (07:13)
[2022-07-11] MEDS: DOLUTEGRAVIR 50 MG 1 EACH PO ×2 (07:13→15:37)
[2022-07-11] MEDS: OXYCODONE 5 MG TABLET PO ×3 (07:14→20:29)
[2022-07-11 15:00] VITALS: TEMP 36.5; O2SAT 96
[2022-07-11 23:00] VITALS: TEMP 36.5; O2SAT 93
[2022-07-12] MEDS: ESCITALOPRAM 10 MG TABLET 20 MG PO (08:07)
[2022-07-12] MEDS: DOLUTEGRAVIR 50 MG 1 EACH PO ×2 (08:07→15:32)
[2022-07-12] MEDS: OXYCODONE 5 MG TABLET PO ×3 (08:07→19:15)
[2022-07-12] MEDS: polyethylene glycoL 238 GM BULK BOTTLE 17 GM PO (08:07)
[2022-07-12] MEDS: ACETAMINOPHEN 500 MG TABLET 1000 MG PO ×3 (08:07→19:15)
[2022-07-12 09:52] VITALS: TEMP 36.9; O2SAT 96
[2022-07-12 15:00] VITALS: TEMP 36.1; O2SAT 95
[2022-07-12 23:00] VITALS: TEMP 36.6; O2SAT 95
[2022-07-13 07:00] VITALS: TEMP 36.9; O2SAT 94
[2022-07-13] MEDS: ACETAMINOPHEN 500 MG TABLET 1000 MG PO ×3 (07:18→19:27)
[2022-07-13] MEDS: polyethylene glycoL 238 GM BULK BOTTLE 17 GM PO (07:18)
[2022-07-13] MEDS: ESCITALOPRAM 10 MG TABLET 20 MG PO (07:18)
[2022-07-13] MEDS: OXYCODONE 5 MG TABLET PO ×3 (07:19→19:27)
[2022-07-13] MEDS: DOLUTEGRAVIR 50 MG 1 EACH PO ×2 (07:19→16:37)
--- NOTE | 2022-07-13 12:46 | PC.NURSE ---
COVID OUTBREAK TESTING Residents NAKITA gave verbal consent for outbreak COVID testing. Resident is currently asymptomatic.? Resident/family will be notified only if resident is positive.
[2022-07-13 14:38] LABS: SARS PCR* Negative SARS-CoV-2 (Negative)
[2022-07-13 15:00] VITALS: BP 103/61; RESP 18; TEMP 36.7; O2SAT 96
[2022-07-13 23:00] VITALS: TEMP 36.3; O2SAT 95
[2022-07-14] MEDS: OXYCODONE 5 MG TABLET PO ×3 (07:21→19:41)
[2022-07-14] MEDS: ACETAMINOPHEN 500 MG TABLET 1000 MG PO ×3 (07:21→19:41)
[2022-07-14] MEDS: DOLUTEGRAVIR 50 MG 1 EACH PO ×2 (07:21→15:39)
[2022-07-14] MEDS: polyethylene glycoL 238 GM BULK BOTTLE 17 GM PO (07:21)
[2022-07-14] MEDS: ESCITALOPRAM 10 MG TABLET 20 MG PO (07:21)
[2022-07-14 10:42] VITALS: TEMP 36.8; O2SAT 95
--- NOTE | 2022-07-14 11:47 | PC.SPIRITC ---
provided visit for connection and support.
[2022-07-14 15:59] VITALS: TEMP 36.3; O2SAT 96
[2022-07-14 23:00] VITALS: TEMP 36.4; O2SAT 92
--- NOTE | 2022-07-15 01:38 | PC.NURSE ---
WEEKLY CHARTING - WEEK 2: Vital signs reviewed - no concerns. Temporary and comprehensive care plan reviewed - no change. Assist of 2 with full mechanical lift for all transfers. 2 assist with bed mobility. At times, will propel w/c independently without purpose. Total assist for purposeful w/c mobility. At low risk for falls per last fall risk assessment. Fall interventions: hourly visual safety checks, is not left in room alone when in w/c, no pillows to be used for positioning in bed, check and change Q AM by 0700, bed in low position with brakes locked, Dycem in place in w/c.
[2022-07-15 06:54] VITALS: TEMP 36.7; O2SAT 96
[2022-07-15] MEDS: ACETAMINOPHEN 500 MG TABLET 1000 MG PO ×3 (07:00→19:16)
[2022-07-15] MEDS: DOLUTEGRAVIR 50 MG 1 EACH PO ×2 (07:00→15:04)
[2022-07-15] MEDS: ESCITALOPRAM 10 MG TABLET 20 MG PO (07:00)
[2022-07-15] MEDS: OXYCODONE 5 MG TABLET PO ×3 (07:00→19:17)
[2022-07-15] MEDS: polyethylene glycoL 238 GM BULK BOTTLE 17 GM PO (07:00)
--- NOTE | 2022-07-15 07:20 | PC.NURSE ---
Weekly Charting, week 2: Mobility: Comprehensive and temporary care plan reviewed. No changes made and nothing added to temporary care plan. Resident is non ambulatory. Transfers with 2 assists using the deandre lift at all times. Can wheel self at times short distance without a purpose. Staff wheels to all destinations. Can make slight changes in body positioning. Staff to check and assist resident make significant changes.. Staff to check and assist resident make significant changes every 2 hours, reposition/offload. No alarms. Staff to do ROM of (R) upper extremity BID. Vital signs reviewed, no concerns. Continue weekly VS monitoring. Fall: No falls the past month. Remains? a low fall risk according to assessment done on 05/07/22. Fall interventions: call light within reach, bed in low position with brakes locked, not to be left alone in room in w/c, hourly visual checks for safety, dycem in place in wheelchair, check/change in bed by 0700.
--- NOTE | 2022-07-15 12:58 | PC.PHA1 ---
RAIL GANG SUPERVISOR PHARMACIST'S MEDICATION REVIEW: MEDICATION MONITORING:Escitalopram 20 mg daily antivirals - emtricitabine-tenofovir 200/25 mg daily and dolutegravir 50 mg bid IRREGULARITY OR COMMENTS:No changes since last month to patient's medication profile. Nursing notes report that patient has not been eating well therefore GDR of escitalopram clinically contraindicated. SUGGESTED COURSE OF ACTION TAKEN:If weight loss continues due to poor appetite pharmacologic intervention may be necessary.
[2022-07-15 16:01] VITALS: TEMP 36.8; O2SAT 96
--- NOTE | 2022-07-15 16:17 | PC.SPIRITC ---
Cosmetologist provided visit for support and connection.
[2022-07-15 23:00] VITALS: TEMP 36.3; O2SAT 94
[2022-07-16] MEDS: polyethylene glycoL 238 GM BULK BOTTLE 17 GM PO (08:09)
[2022-07-16] MEDS: OXYCODONE 5 MG TABLET PO ×3 (08:09→20:52)
[2022-07-16] MEDS: ACETAMINOPHEN 500 MG TABLET 1000 MG PO ×3 (08:09→20:52)
[2022-07-16] MEDS: DOLUTEGRAVIR 50 MG 1 EACH PO ×2 (08:09→15:38)
[2022-07-16] MEDS: ESCITALOPRAM 10 MG TABLET 20 MG PO (08:09)
[2022-07-16 10:24] VITALS: TEMP 36.4; O2SAT 99
[2022-07-16 15:00] VITALS: TEMP 36.6; O2SAT 97
[2022-07-16 23:00] VITALS: TEMP 36.5; O2SAT 94
[2022-07-17] MEDS: DOLUTEGRAVIR 50 MG 1 EACH PO ×2 (07:14→15:52)
[2022-07-17] MEDS: polyethylene glycoL 238 GM BULK BOTTLE 17 GM PO (07:14)
[2022-07-17] MEDS: OXYCODONE 5 MG TABLET PO ×3 (07:14→20:28)
[2022-07-17] MEDS: ESCITALOPRAM 10 MG TABLET 20 MG PO (07:14)
[2022-07-17] MEDS: ACETAMINOPHEN 500 MG TABLET 1000 MG PO ×3 (07:14→20:28)
[2022-07-17 10:45] VITALS: TEMP 36.6; O2SAT 96
[2022-07-17 15:00] VITALS: TEMP 36.4; O2SAT 93
[2022-07-18 00:14] VITALS: TEMP 36.2; O2SAT 96
[2022-07-18] MEDS: DOLUTEGRAVIR 50 MG 1 EACH PO ×2 (08:33→15:32)
[2022-07-18] MEDS: ACETAMINOPHEN 500 MG TABLET 1000 MG PO ×3 (08:33→19:03)
[2022-07-18] MEDS: polyethylene glycoL 238 GM BULK BOTTLE 17 GM PO (08:33)
[2022-07-18] MEDS: ESCITALOPRAM 10 MG TABLET 20 MG PO (08:33)
[2022-07-18] MEDS: OXYCODONE 5 MG TABLET PO ×3 (08:33→19:03)
[2022-07-18 10:39] VITALS: TEMP 36.2; O2SAT 96
[2022-07-18 15:00] VITALS: TEMP 36.9; O2SAT 95
[2022-07-18 23:54] VITALS: TEMP 36.6; O2SAT 96
[2022-07-19] MEDS: ACETAMINOPHEN 500 MG TABLET 1000 MG PO ×3 (08:24→19:11)
[2022-07-19] MEDS: polyethylene glycoL 238 GM BULK BOTTLE 17 GM PO (08:25)
[2022-07-19] MEDS: ESCITALOPRAM 10 MG TABLET 20 MG PO (08:25)
[2022-07-19] MEDS: DOLUTEGRAVIR 50 MG 1 EACH PO ×2 (08:25→15:00)
[2022-07-19] MEDS: OXYCODONE 5 MG TABLET PO ×3 (08:25→19:11)
[2022-07-19 10:42] VITALS: TEMP 36.3; O2SAT 96
[2022-07-19 15:00] VITALS: TEMP 36.2; O2SAT 96
[2022-07-19 23:52] VITALS: TEMP 36.7; O2SAT 96
[2022-07-20] MEDS: polyethylene glycoL 238 GM BULK BOTTLE 17 GM PO (08:09)
[2022-07-20] MEDS: OXYCODONE 5 MG TABLET PO ×3 (08:09→19:51)
[2022-07-20] MEDS: DOLUTEGRAVIR 50 MG 1 EACH PO ×2 (08:09→15:41)
[2022-07-20] MEDS: ESCITALOPRAM 10 MG TABLET 20 MG PO (08:09)
[2022-07-20] MEDS: ACETAMINOPHEN 500 MG TABLET 1000 MG PO ×3 (08:09→19:51)
[2022-07-20 10:41] VITALS: TEMP 36.2; O2SAT 96
[2022-07-20 12:35] LABS: SARS PCR* Negative SARS-CoV-2 (Negative)
[2022-07-20 15:08] VITALS: BP 100/60; PULSE 63; RESP 18; TEMP 36.7; O2SAT 96
[2022-07-20 23:00] VITALS: TEMP 36.3; O2SAT 97
[2022-07-21 06:42] VITALS: TEMP 37; O2SAT 94
[2022-07-21 07:00] VITALS: BMI 29.4
[2022-07-21] MEDS: ESCITALOPRAM 10 MG TABLET 20 MG PO (07:05)
[2022-07-21] MEDS: polyethylene glycoL 238 GM BULK BOTTLE 17 GM PO (07:05)
[2022-07-21] MEDS: ACETAMINOPHEN 500 MG TABLET 1000 MG PO ×3 (07:05→19:06)
[2022-07-21] MEDS: DOLUTEGRAVIR 50 MG 1 EACH PO ×2 (07:06→15:04)
[2022-07-21] MEDS: OXYCODONE 5 MG TABLET PO ×3 (07:07→19:07)
--- NOTE | 2022-07-21 10:19 | PC.NURSE ---
ALLEN reported resident had a large BM on 07/20/22. He is therefore not on bowel protocol today.
[2022-07-21 13:28] VITALS: BMI 29.4
[2022-07-21 15:00] VITALS: TEMP 36.8; O2SAT 96
[2022-07-21 23:00] VITALS: TEMP 36.3; O2SAT 93
--- NOTE | 2022-07-22 02:29 | PC.NURSE ---
WEEKLY CHARTING WEEK 3 Vital signs reviewed. no concerns Comprehensive care plan and Temporary care plan reviewed, No changes made. Toileting: Res is incontinent both bowel and bladder. Staff check and change during first round and 3rd round. Wears X- large brief with Ultra guard in place. Janice cares, incontinent pad, clothing manage by staff. Skin: Skin is clear, dry and intact. Skin check during bath days and during cares.
[2022-07-22] MEDS: ACETAMINOPHEN 500 MG TABLET 1000 MG PO ×3 (07:05→19:33)
[2022-07-22] MEDS: OXYCODONE 5 MG TABLET PO ×3 (07:05→19:34)
[2022-07-22] MEDS: DOLUTEGRAVIR 50 MG 1 EACH PO ×2 (07:05→15:02)
[2022-07-22] MEDS: polyethylene glycoL 238 GM BULK BOTTLE 17 GM PO (07:05)
[2022-07-22] MEDS: ESCITALOPRAM 10 MG TABLET 20 MG PO (07:05)
--- NOTE | 2022-07-22 10:21 | PC.NURSE ---
WEEKLY CHARTING -WEEK 3 : Toileting & Skin : Vital signs reviewed and there is no concern. Comprehensive and temporary care plan reviewed. No changes made, & nothing added to temporary care plan. Resident is incontinent of bowel and bladder. He is 2 assist with transfer using Srikanth. Does not use the toilet and is changed in bed with 1 assist in the morning ,after all meals and PRN. He requires x-large briefs with ultra guard in place. Continue with weekly monitoring. Skin: No issues at this time. Skin is routinely checked during cares and on bath days.
[2022-07-23] MEDS: polyethylene glycoL 238 GM BULK BOTTLE 17 GM PO (08:33)
[2022-07-23] MEDS: ESCITALOPRAM 10 MG TABLET 20 MG PO (08:33)
[2022-07-23] MEDS: OXYCODONE 5 MG TABLET PO ×3 (08:33→19:04)
[2022-07-23] MEDS: DOLUTEGRAVIR 50 MG 1 EACH PO ×2 (08:33→15:34)
[2022-07-23] MEDS: ACETAMINOPHEN 500 MG TABLET 1000 MG PO ×3 (08:33→19:04)
--- NOTE | 2022-07-23 10:31 | PC.SPIRITC ---
I provided visit for support and connection.
--- NOTE | 2022-07-23 17:40 | PC.NURSE ---
[facility] appointment completed with resident, provider, nurse/proposal lead writer, and NAKITA Smiley. Discussed that over the past 9 months Regan has had approximately 20# wt loss. It has been gradual. Resident has had a lack of appetite. Pain has been controlled and no behaviors noted. Resident at time does appear tired/worn out. Provider is not concerned of weight loss at this time and feels resident is stable. He would like to have labs done and will send over order. Nursing to fax over results to [place] provider when complete. Family and nursing discussed if appointments could be pushed out to 6 months. At this time provider feels it is still necessary to see him every 3 months. NAKITA will set up appointments and update nursing staff of appt date/time in the future.
[2022-07-24] MEDS: DOLUTEGRAVIR 50 MG 1 EACH PO ×2 (07:00→15:40)
[2022-07-24] MEDS: polyethylene glycoL 238 GM BULK BOTTLE 17 GM PO (07:00)
[2022-07-24] MEDS: ESCITALOPRAM 10 MG TABLET 20 MG PO (07:00)
[2022-07-24] MEDS: OXYCODONE 5 MG TABLET PO ×3 (07:00→19:20)
[2022-07-24] MEDS: ACETAMINOPHEN 500 MG TABLET 1000 MG PO ×3 (07:00→19:20)
[2022-07-25] MEDS: ESCITALOPRAM 10 MG TABLET 20 MG PO (07:10)
[2022-07-25] MEDS: ACETAMINOPHEN 500 MG TABLET 1000 MG PO ×3 (07:10→19:31)
[2022-07-25] MEDS: DOLUTEGRAVIR 50 MG 1 EACH PO ×2 (07:11→15:05)
[2022-07-25] MEDS: polyethylene glycoL 238 GM BULK BOTTLE 17 GM PO (07:11)
[2022-07-25] MEDS: OXYCODONE 5 MG TABLET PO ×3 (07:12→19:31)
[2022-07-26] MEDS: ESCITALOPRAM 10 MG TABLET 20 MG PO (07:00)
[2022-07-26] MEDS: polyethylene glycoL 238 GM BULK BOTTLE 17 GM PO (07:00)
[2022-07-26] MEDS: ACETAMINOPHEN 500 MG TABLET 1000 MG PO ×3 (07:00→19:48)
[2022-07-26] MEDS: DOLUTEGRAVIR 50 MG 1 EACH PO ×2 (07:00→16:19)
[2022-07-26] MEDS: OXYCODONE 5 MG TABLET PO ×3 (07:00→19:48)
[2022-07-27] MEDS: ACETAMINOPHEN 500 MG TABLET 1000 MG PO ×3 (08:22→19:44)
[2022-07-27] MEDS: ESCITALOPRAM 10 MG TABLET 20 MG PO (08:22)
[2022-07-27] MEDS: DOLUTEGRAVIR 50 MG 1 EACH PO ×2 (08:22→15:06)
[2022-07-27] MEDS: polyethylene glycoL 238 GM BULK BOTTLE 17 GM PO (08:22)
[2022-07-27] MEDS: OXYCODONE 5 MG TABLET PO ×3 (08:22→19:44)
[2022-07-27 16:01] VITALS: BP 102/69; PULSE 72; RESP 17; TEMP 36.7; O2SAT 98
[2022-07-27 16:03] VITALS: BMI 30.2
[2022-07-28] MEDS: ESCITALOPRAM 10 MG TABLET 20 MG PO (07:05)
[2022-07-28] MEDS: OXYCODONE 5 MG TABLET PO ×3 (07:05→19:06)
[2022-07-28] MEDS: ACETAMINOPHEN 500 MG TABLET 1000 MG PO ×3 (07:05→19:06)
[2022-07-28] MEDS: polyethylene glycoL 238 GM BULK BOTTLE 17 GM PO (07:05)
[2022-07-28] MEDS: DOLUTEGRAVIR 50 MG 1 EACH PO ×2 (07:05→15:13)
[2022-07-28 10:15] VITALS: BMI 31.0
--- NOTE | 2022-07-28 10:28 | PC.NURSE ---
Labs: Lipid panel,Syphilis Ig, CD4 Count, HIV-1RNA, CBC/Diff, BMP, HCV Ab Scrn ordered per Hiren JACKSON, approved by Mars BECKER.
--- NOTE | 2022-07-28 11:57 | PC.SPIRITC ---
I provided visit for connection and support.
--- NOTE | 2022-07-28 15:00 | PC.NURSE ---
CARE CONFERENCE: meeting held with care team members from nursing, dietary activities, and social media senior associate. NAKITA Sherice unable to attend. SS will send an email with update. Nursing reviewed that resident continues to need 2 ALLEN total assistance with dressing, grooming, mobility and bathing. Propelled by staff in wheelchair to and from activities. Dietary advised weights are stable but gradually decreasing.?SS updated that mood is stable and no concerns at this time. POLST reviewed. Is DNR/DNI. Uses no restraints.?Medications administered by nurse. Vulnerability- is at risk for being harmed due to mobility limitations and cognition. Family visits regularly. NAKITA recently asked about dental needs. Advised that if she would like resident to see the dentist that arrangements with SS can be made for a list of dentists that provider care with [facility] payment source and help with transport. There are no discharge plans. No further questions/concerns at this time.
--- NOTE | 2022-07-28 15:34 | PC.SOCIAL ---
Resident's care conference was held today with all members of the team present. Resident's [id number] was unable to attend due to vacation and requested an e-mail update after the care conference. Resident's mood remains stable no s/s of depression noted. Staff anticipate all resident's needs due to resident's advanced dementia and inability to communicate needs.
[2022-07-28 16:29] VITALS: BMI 30.2
--- NOTE | 2022-07-29 02:00 | PC.NURSE ---
WEEKLY CHARTING - WEEK 4: Vital signs reviewed with no concerns. Temporary and comprehensive care plan reviewed - no change. Documented behavior x1 in the last month - grabbing staff. Currently on escitalopram 20mg daily with no adverse drug effects noted. Staff anticipate needs as resident is unable to communicate needs. Hearing and vision is intact. All medications administered by licensed nurse. Health condition currently stable.
[2022-07-29] MEDS: ACETAMINOPHEN 500 MG TABLET 1000 MG PO ×3 (07:08→19:19)
[2022-07-29] MEDS: ESCITALOPRAM 10 MG TABLET 20 MG PO (07:08)
[2022-07-29] MEDS: polyethylene glycoL 238 GM BULK BOTTLE 17 GM PO (07:09)
[2022-07-29] MEDS: OXYCODONE 5 MG TABLET PO ×3 (07:09→19:19)
[2022-07-29] MEDS: DOLUTEGRAVIR 50 MG 1 EACH PO ×2 (07:09→15:07)
[2022-07-29 08:24] LABS: Basophils Absolute Auto 0.01 K/uL (0.00-0.30); Basophils Percent Auto 0.2 % (0.0-3.0); Eosinophils Absolute Auto 0.12 K/uL (0.00-0.50); Eosinophils Percent Auto 2.4 % (0.0-7.0); Hematocrit 44.4 % (37.0-53.0); Hemoglobin* 15.4 gm/dL (13.5-17.5); Lymphocytes Percent Auto 30.4 % (20-44); Mean Corpuscular HGB Conc 35 gm/dL (32-36); Mean Corpuscular Hemoglobin 33 pg (26-34); Mean Corpuscular Volume 96 fL (80-100); Monocytes Percent Auto 6.3 % (0.0-11.0); Neutrophils Absolute Auto 2.99 K/uL (1.7-7.0); Neutrophils Percent Auto 60.7 % (42.0-72.0); Platelet Count* 151 K/uL (140-440); RDW Coefficient of Variation % 11.6 % (11.5-15.5); Red Blood Count 4.65 m/uL (4.30-5.90); White Blood Count* 4.93 K/uL (4.50-11.00)
[2022-07-29 08:28] LABS: Slide Review Reflex No
[2022-07-29 08:37] LABS: Chloride* 109 mmol/L (96-114)
[2022-07-29 08:38] LABS: Potassium* 3.9 mmol/L (3.6-5.1); Sodium* 139 mmol/L (135-149)
[2022-07-29 08:41] LABS: Blood Urea Nitrogen* 11 mg/dL (5-24); Calcium* 9.2 mg/dL (8.4-10.6); Carbon Dioxide* 23 mmol/L (20-32); Cholesterol* 170 mg/dL (90-199); Creatinine* 0.5 mg/dL (0.5-1.5); Estimated Glomerular Filt Rate 131 ml/min; Glucose* 91 mg/dL (60-115); Triglycerides* 123 mg/dL (40-149)
[2022-07-29 08:42] LABS: HDL Cholesterol* 39 mg/dL (>=40); LDL Cholesterol Calculated 106 mg/dL (<100)
--- NOTE | 2022-07-29 09:46 | PC.NURSE ---
Weekly Charting- Week 4: Comprehensive & temporary care plan reviewed. No changes made. Nothing added to temporary care plan. No changes noted in communication, hearing, vision, or orientation. Needs anticipated by staff. Does not communicate needs. No hearing and visual problems. Is oriented to self. Chronic health condition stable. All medications administered by Nurse. Vital signs reviewed, no concerns. Mood/Behavior: No issues documented in the last month but has one for this month. During cares was grabbing staff butt. Continues on Escitalopram 20mg daily with no adverse effects noted. No change in medication.
[2022-07-30] MEDS: ESCITALOPRAM 10 MG TABLET 20 MG PO (07:46)
[2022-07-30] MEDS: DOLUTEGRAVIR 50 MG 1 EACH PO ×2 (07:46→15:20)
[2022-07-30] MEDS: ACETAMINOPHEN 500 MG TABLET 1000 MG PO ×3 (07:46→20:46)
[2022-07-30] MEDS: OXYCODONE 5 MG TABLET PO ×3 (07:46→20:46)
[2022-07-30] MEDS: polyethylene glycoL 238 GM BULK BOTTLE 17 GM PO (07:46)
[2022-07-30 21:50] LABS: Absolute CD3 1070 cells/uL (570-2400); Absolute CD4:CD8 Ratio 0.57 ratio (0.80-3.90); Absolute CD8 668 cells/uL (210-1200)
[2022-07-31] MEDS: polyethylene glycoL 238 GM BULK BOTTLE 17 GM PO (08:35)
[2022-07-31] MEDS: ACETAMINOPHEN 500 MG TABLET 1000 MG PO ×3 (08:35→19:12)
[2022-07-31] MEDS: DOLUTEGRAVIR 50 MG 1 EACH PO ×2 (08:35→15:54)
[2022-07-31] MEDS: ESCITALOPRAM 10 MG TABLET 20 MG PO (08:35)
[2022-07-31] MEDS: OXYCODONE 5 MG TABLET PO ×3 (08:35→19:12)
[2022-08-01] MEDS: OXYCODONE 5 MG TABLET PO ×3 (08:36→19:28)
[2022-08-01] MEDS: ACETAMINOPHEN 500 MG TABLET 1000 MG PO ×3 (08:36→19:28)
[2022-08-01] MEDS: ESCITALOPRAM 10 MG TABLET 20 MG PO (08:36)
[2022-08-01] MEDS: DOLUTEGRAVIR 50 MG 1 EACH PO ×2 (08:36→16:34)
[2022-08-01] MEDS: polyethylene glycoL 238 GM BULK BOTTLE 17 GM PO (08:36)
[2022-08-02] MEDS: polyethylene glycoL 238 GM BULK BOTTLE 17 GM PO (08:31)
[2022-08-02] MEDS: ACETAMINOPHEN 500 MG TABLET 1000 MG PO ×3 (08:31→19:10)
[2022-08-02] MEDS: DOLUTEGRAVIR 50 MG 1 EACH PO ×2 (08:31→15:04)
[2022-08-02] MEDS: ESCITALOPRAM 10 MG TABLET 20 MG PO (08:31)
[2022-08-02] MEDS: OXYCODONE 5 MG TABLET PO ×3 (08:32→19:11)
[2022-08-03] MEDS: DOLUTEGRAVIR 50 MG 1 EACH PO ×2 (08:14→15:37)
[2022-08-03] MEDS: ACETAMINOPHEN 500 MG TABLET 1000 MG PO ×3 (08:14→19:27)
[2022-08-03] MEDS: ESCITALOPRAM 10 MG TABLET 20 MG PO (08:14)
[2022-08-03] MEDS: polyethylene glycoL 238 GM BULK BOTTLE 17 GM PO (08:14)
[2022-08-03] MEDS: OXYCODONE 5 MG TABLET PO ×3 (08:14→19:27)
[2022-08-03 15:00] VITALS: BP 104/62; PULSE 60; RESP 18; TEMP 36.5
--- NOTE | 2022-08-03 16:37 | PC.NURSE ---
Bath Skin Assessment: No skin concerns noted post bath skin assessment
[2022-08-04] MEDS: polyethylene glycoL 238 GM BULK BOTTLE 17 GM PO (07:00)
[2022-08-04] MEDS: ACETAMINOPHEN 500 MG TABLET 1000 MG PO ×3 (07:00→19:32)
[2022-08-04] MEDS: ESCITALOPRAM 10 MG TABLET 20 MG PO (07:00)
[2022-08-04] MEDS: OXYCODONE 5 MG TABLET PO ×3 (07:00→19:33)
[2022-08-04] MEDS: DOLUTEGRAVIR 50 MG 1 EACH PO ×2 (07:00→15:34)
--- NOTE | 2022-08-04 10:01 | PC.NURSE ---
Labs: Ordered by Maradiaga , Dr. Recinos results faxed.
--- NOTE | 2022-08-04 23:51 | PC.NURSE ---
MDS Clarification: ADLs ? discrepancy noted in ADL charting, staff were interviewed.? Bed mobility: resident was dependent on staff for all occurrences. Ambulation in an out of room: resident is a total lift and unable to ambulate, did not occur any time. Locomotion on and off unit: resident dependent on staff for every occurrence. Toileting: dependent on staff for every occurrence, is a total lift and check and change by staff. All items coded as such.
--- NOTE | 2022-08-05 02:05 | PC.NURSE ---
WEEKLY CHARTING ? WEEK 1: Vital signs reviewed with no concerns. Temporary and comprehensive care plan reviewed ? no changes. Hx of right shoulder pain - etiology unknown. Receives acetaminophen 1000mg TID and oxycodone 5mg TID for pain management which is noted to be effective. Staff monitor for non-verbal sx of pain. Total assist of 2 with dressing, grooming, bathing, and oral cares. Is fed by staff. Requires food to be cut and cues to chew thoroughly. Hx of laughing during meals, swallowing foods whole, and pocketing food. Receives a regular diet with regular textures and thin liquids. Family declines mechanically altered diet at this time.
[2022-08-05] MEDS: DOLUTEGRAVIR 50 MG 1 EACH PO ×2 (07:14→15:18)
[2022-08-05] MEDS: polyethylene glycoL 238 GM BULK BOTTLE 17 GM PO (07:14)
[2022-08-05] MEDS: OXYCODONE 5 MG TABLET PO ×3 (07:14→19:13)
[2022-08-05] MEDS: ACETAMINOPHEN 500 MG TABLET 1000 MG PO ×3 (07:14→19:12)
[2022-08-05] MEDS: ESCITALOPRAM 10 MG TABLET 20 MG PO (07:14)
--- NOTE | 2022-08-05 07:47 | PC.NURSE ---
Weekly Charting, Week 1- ADL's: Comprehensive and temporary care plan reviewed. No changes made, and nothing added to temporary care plan. Resident needs 2 assists with dressing, grooming and bathing. Staff does oral cares. Is feed by staff. Is on regular diet & texture, thin liquids. Staff to cut food. Is able to drink liquids from glass/cup. Occasional coughing with meals noted & keeping food in mouth. Needs coaxing to swallow. Family not in agreement to change diet/food texture. Appetite varies. Vital signs reviewed, no concerns. Pain: Has chronic (R) shoulder pain controlled with? Tylenol 1000mg TID, Oxycodone 5 mg TID. No pain noted/documented the past month. Staff anticipates need for pain through non verbal gestures as resident is not able to communicate needs.
--- NOTE | 2022-08-05 16:12 | PC.SPIRITC ---
I provided visit for connection and support.
[2022-08-06] MEDS: ACETAMINOPHEN 500 MG TABLET 1000 MG PO ×3 (08:27→19:27)
[2022-08-06] MEDS: OXYCODONE 5 MG TABLET PO ×3 (08:27→19:27)
[2022-08-06] MEDS: DOLUTEGRAVIR 50 MG 1 EACH PO ×2 (08:27→15:51)
[2022-08-06] MEDS: ESCITALOPRAM 10 MG TABLET 20 MG PO (08:27)
[2022-08-06] MEDS: polyethylene glycoL 238 GM BULK BOTTLE 17 GM PO (08:27)
--- NOTE | 2022-08-06 10:01 | PC.NURSE ---
Status: Was noted that resident had some dried blood on his L big toe. Resident unable to state how it happened. Intervention started.
[2022-08-07] MEDS: ACETAMINOPHEN 500 MG TABLET 1000 MG PO ×3 (07:04→19:03)
[2022-08-07] MEDS: DOLUTEGRAVIR 50 MG 1 EACH PO ×2 (07:05→15:32)
[2022-08-07] MEDS: OXYCODONE 5 MG TABLET PO ×3 (07:05→19:03)
[2022-08-07] MEDS: polyethylene glycoL 238 GM BULK BOTTLE 17 GM PO (07:05)
[2022-08-07] MEDS: ESCITALOPRAM 10 MG TABLET 20 MG PO (07:05)
[2022-08-08] MEDS: ESCITALOPRAM 10 MG TABLET 20 MG PO (07:06)
[2022-08-08] MEDS: DOLUTEGRAVIR 50 MG 1 EACH PO ×2 (07:06→15:33)
[2022-08-08] MEDS: OXYCODONE 5 MG TABLET PO ×3 (07:06→20:05)
[2022-08-08] MEDS: ACETAMINOPHEN 500 MG TABLET 1000 MG PO ×3 (07:06→20:05)
--- NOTE | 2022-08-08 12:52 | PC.NURSE ---
Scheduled Miralax held this morning as ALLEN reported resident had copious amount of incontinent stool with AM cares. ALLEN reported he had one additional bowel movement before lunch.
[2022-08-09] MEDS: ESCITALOPRAM 10 MG TABLET 20 MG PO (07:00)
[2022-08-09] MEDS: ACETAMINOPHEN 500 MG TABLET 1000 MG PO ×3 (07:00→19:23)
[2022-08-09] MEDS: polyethylene glycoL 238 GM BULK BOTTLE 17 GM PO (07:00)
[2022-08-09] MEDS: OXYCODONE 5 MG TABLET PO ×3 (07:00→19:23)
[2022-08-09] MEDS: DOLUTEGRAVIR 50 MG 1 EACH PO ×2 (07:00→15:01)
[2022-08-10] MEDS: ESCITALOPRAM 10 MG TABLET 20 MG PO (08:28)
[2022-08-10] MEDS: polyethylene glycoL 238 GM BULK BOTTLE 17 GM PO (08:28)
[2022-08-10] MEDS: OXYCODONE 5 MG TABLET PO ×3 (08:28→19:29)
[2022-08-10] MEDS: ACETAMINOPHEN 500 MG TABLET 1000 MG PO ×3 (08:28→19:29)
[2022-08-10] MEDS: DOLUTEGRAVIR 50 MG 1 EACH PO ×2 (08:28→15:10)
[2022-08-10 15:00] VITALS: BP 104/73; PULSE 64; RESP 18; TEMP 36.4; O2SAT 96; BMI 66.6
[2022-08-10] MEDS: MAGNESIUM HYDROXIDE 30 ML ORAL.SUSP PO (15:13)
[2022-08-11] MEDS: OXYCODONE 5 MG TABLET PO ×3 (07:09→19:25)
[2022-08-11] MEDS: polyethylene glycoL 238 GM BULK BOTTLE 17 GM PO (07:09)
[2022-08-11] MEDS: ACETAMINOPHEN 500 MG TABLET 1000 MG PO ×3 (07:09→19:24)
[2022-08-11] MEDS: DOLUTEGRAVIR 50 MG 1 EACH PO ×2 (07:09→15:05)
[2022-08-11] MEDS: ESCITALOPRAM 10 MG TABLET 20 MG PO (07:09)
[2022-08-11] MEDS: bisacodyL 10 MG SUPP.RECT PR (09:10)
--- NOTE | 2022-08-11 23:51 | PC.NURSE ---
WEEKLY CHARTING WEEK2 Vital signs reviewed with no concerns. Comprehensive and temporary care plan reviewed with no changes made.. Resident requires total assist of 1 staff with bed mobility, 1 assist of staff to propel wheelchair to activities and meals. 2 staff assist with the use of Srikanth lift for transfer, Not ambulatory. On ROM program, Right upper extremity once in AM and once in PM. Resident is a low Fall Risk. Fall intervention: call light within the reach, bed in low position with breaks lock, Safety check every hour.
--- NOTE | 2022-08-12 06:50 | PC.NURSE ---
Weekly Charting, Week 2: Mobility: Comprehensive and temporary care plan reviewed. No changes made and nothing added to temporary care plan. ?Resident is non ambulatory. Transfers with 2 assists using the mechanical lift at all times. Can wheel self at times short distance without a purpose. Staff wheels to all destinations. Can make slight changes in body positioning. Staff to check and assist resident make significant changes every 2 hours, reposition/offload. No alarms. Staff to do ROM of (R) upper extremity BID. Vital signs reviewed, no concerns. Continue weekly VS monitoring. Fall: No falls the past month. Remains? a low fall risk according to assessment done on 07/28/22. Fall interventions: call light within reach, bed in low position with brakes locked, not to be left alone in room in w/c, hourly visual checks for safety, dycem in wheelchair, check/change in bed by 0700.
[2022-08-12] MEDS: DOLUTEGRAVIR 50 MG 1 EACH PO ×2 (07:00→15:32)
[2022-08-12] MEDS: polyethylene glycoL 238 GM BULK BOTTLE 17 GM PO (07:00)
[2022-08-12] MEDS: ESCITALOPRAM 10 MG TABLET 20 MG PO (07:00)
[2022-08-12] MEDS: ACETAMINOPHEN 500 MG TABLET 1000 MG PO ×3 (07:00→19:13)
[2022-08-12] MEDS: OXYCODONE 5 MG TABLET PO ×3 (07:00→19:13)
--- NOTE | 2022-08-12 16:15 | PC.SPIRITC ---
I provided visit for support and connection. Regan responded by singing at times and with short replies.
[2022-08-13] MEDS: DOLUTEGRAVIR 50 MG 1 EACH PO ×2 (07:32→15:26)
[2022-08-13] MEDS: OXYCODONE 5 MG TABLET PO ×3 (07:32→19:09)
[2022-08-13] MEDS: ACETAMINOPHEN 500 MG TABLET 1000 MG PO ×3 (07:32→19:09)
[2022-08-13] MEDS: polyethylene glycoL 238 GM BULK BOTTLE 17 GM PO (07:32)
[2022-08-13] MEDS: ESCITALOPRAM 10 MG TABLET 20 MG PO (07:32)
[2022-08-14] MEDS: ACETAMINOPHEN 500 MG TABLET 1000 MG PO ×3 (08:49→19:55)
[2022-08-14] MEDS: DOLUTEGRAVIR 50 MG 1 EACH PO ×2 (08:50→15:51)
[2022-08-14] MEDS: polyethylene glycoL 238 GM BULK BOTTLE 17 GM PO (08:50)
[2022-08-14] MEDS: OXYCODONE 5 MG TABLET PO ×3 (08:50→19:55)
[2022-08-14] MEDS: ESCITALOPRAM 10 MG TABLET 20 MG PO (08:50)
[2022-08-15] MEDS: OXYCODONE 5 MG TABLET PO ×3 (08:30→20:03)
[2022-08-15] MEDS: ACETAMINOPHEN 500 MG TABLET 1000 MG PO ×3 (08:30→20:03)
[2022-08-15] MEDS: DOLUTEGRAVIR 50 MG 1 EACH PO ×2 (08:30→15:38)
[2022-08-15] MEDS: ESCITALOPRAM 10 MG TABLET 20 MG PO (08:30)
[2022-08-15] MEDS: polyethylene glycoL 238 GM BULK BOTTLE 17 GM PO (08:30)
[2022-08-16] MEDS: OXYCODONE 5 MG TABLET PO ×3 (08:18→19:25)
[2022-08-16] MEDS: ACETAMINOPHEN 500 MG TABLET 1000 MG PO ×3 (08:18→19:24)
[2022-08-16] MEDS: DOLUTEGRAVIR 50 MG 1 EACH PO ×2 (08:18→16:19)
[2022-08-16] MEDS: polyethylene glycoL 238 GM BULK BOTTLE 17 GM PO (08:18)
[2022-08-16] MEDS: ESCITALOPRAM 10 MG TABLET 20 MG PO (08:18)
[2022-08-17] MEDS: OXYCODONE 5 MG TABLET PO ×3 (08:10→19:53)
[2022-08-17] MEDS: ESCITALOPRAM 10 MG TABLET 20 MG PO (08:10)
[2022-08-17] MEDS: polyethylene glycoL 238 GM BULK BOTTLE 17 GM PO (08:10)
[2022-08-17] MEDS: ACETAMINOPHEN 500 MG TABLET 1000 MG PO ×3 (08:10→19:42)
[2022-08-17] MEDS: DOLUTEGRAVIR 50 MG 1 EACH PO ×2 (08:10→15:58)
[2022-08-17 15:00] VITALS: BP 113/75; PULSE 96; RESP 18; TEMP 36.7; O2SAT 96; BMI 64.5
[2022-08-18] MEDS: OXYCODONE 5 MG TABLET PO ×3 (07:00→19:55)
[2022-08-18] MEDS: polyethylene glycoL 238 GM BULK BOTTLE 17 GM PO (07:00)
[2022-08-18] MEDS: DOLUTEGRAVIR 50 MG 1 EACH PO ×2 (07:00→16:03)
[2022-08-18] MEDS: ESCITALOPRAM 10 MG TABLET 20 MG PO (07:00)
[2022-08-18] MEDS: ACETAMINOPHEN 500 MG TABLET 1000 MG PO ×3 (07:00→19:55)
--- NOTE | 2022-08-18 11:50 | PC.SPIRITC ---
I took Regan for a walk outside, provided visit for support and connection.
--- NOTE | 2022-08-19 04:03 | PC.NURSE ---
WEEK 3 TOILETING AND SKIN WEEKLY CHARTING Vital signs reviewed and there is no concern. Comprehensive and temporary care plan reviewed. No changes made, nothing added to temporary care plan. Resident is incontinent of bowel and bladder. He is assist of two with transfer using Srikanth. He does not use the toilet , he is check and change at night. He uses? x-large briefs with ultra guard in place. Skin: he has a redness on right small toe which is monitor every shift. Skin is assessed more particularly at bath days.
[2022-08-19] MEDS: OXYCODONE 5 MG TABLET PO ×3 (07:01→19:15)
[2022-08-19] MEDS: DOLUTEGRAVIR 50 MG 1 EACH PO ×2 (07:01→15:11)
[2022-08-19] MEDS: polyethylene glycoL 238 GM BULK BOTTLE 17 GM PO (07:01)
[2022-08-19] MEDS: ESCITALOPRAM 10 MG TABLET 20 MG PO (07:01)
[2022-08-19] MEDS: ACETAMINOPHEN 500 MG TABLET 1000 MG PO ×3 (07:01→19:15)
--- NOTE | 2022-08-19 07:13 | PC.NURSE ---
Weekly Charting, Week 3 - Toileting: Comprehensive and temporary care plan reviewed. No changes made, & nothing added to temporary care plan. Resident is incontinent of bowel and bladder. Does not use the toilet. Is checked and changed in bed @ 0700, before and after meals and PRN. Wears x-large briefs with ultra guard in place. Needs 2 assists with all toileting including pads, anel cares & clothing management. Vital signs reviewed, no concerns. Continue with weekly monitoring. Skin: No issues at this time. Skin is routinely checked during cares and on bath days.
[2022-08-20] MEDS: DOLUTEGRAVIR 50 MG 1 EACH PO ×2 (08:23→15:41)
[2022-08-20] MEDS: OXYCODONE 5 MG TABLET PO ×3 (08:23→19:12)
[2022-08-20] MEDS: polyethylene glycoL 238 GM BULK BOTTLE 17 GM PO (08:23)
[2022-08-20] MEDS: ACETAMINOPHEN 500 MG TABLET 1000 MG PO ×3 (08:23→19:12)
[2022-08-20] MEDS: ESCITALOPRAM 10 MG TABLET 20 MG PO (08:23)
[2022-08-21] MEDS: OXYCODONE 5 MG TABLET PO ×3 (07:17→19:18)
[2022-08-21] MEDS: ESCITALOPRAM 10 MG TABLET 20 MG PO (07:17)
[2022-08-21] MEDS: polyethylene glycoL 238 GM BULK BOTTLE 17 GM PO (07:17)
[2022-08-21] MEDS: ACETAMINOPHEN 500 MG TABLET 1000 MG PO ×3 (07:17→19:18)
[2022-08-21] MEDS: DOLUTEGRAVIR 50 MG 1 EACH PO ×2 (07:17→15:26)
[2022-08-22] MEDS: ACETAMINOPHEN 500 MG TABLET 1000 MG PO ×3 (07:16→19:37)
[2022-08-22] MEDS: polyethylene glycoL 238 GM BULK BOTTLE 17 GM PO (07:16)
[2022-08-22] MEDS: ESCITALOPRAM 10 MG TABLET 20 MG PO (07:16)
[2022-08-22] MEDS: OXYCODONE 5 MG TABLET PO ×3 (07:17→19:37)
[2022-08-22] MEDS: DOLUTEGRAVIR 50 MG 1 EACH PO ×2 (07:17→15:00)
--- NOTE | 2022-08-22 12:35 | PC.NURSE ---
Behavior note: Resident had at least 3 episodes of trying to grab this functional tester typewriters when assisting him with lunch today, along with trying to pinch this functional tester typewriters's side when assisting another resident. Staff redirected resident each time.
[2022-08-23] MEDS: ACETAMINOPHEN 500 MG TABLET 1000 MG PO ×3 (07:02→19:12)
[2022-08-23] MEDS: ESCITALOPRAM 10 MG TABLET 20 MG PO (07:02)
[2022-08-23] MEDS: DOLUTEGRAVIR 50 MG 1 EACH PO ×2 (07:03→15:00)
[2022-08-23] MEDS: polyethylene glycoL 238 GM BULK BOTTLE 17 GM PO (07:03)
[2022-08-23] MEDS: OXYCODONE 5 MG TABLET PO ×3 (07:05→19:12)
[2022-08-24] MEDS: OXYCODONE 5 MG TABLET PO ×3 (08:47→19:41)
[2022-08-24] MEDS: DOLUTEGRAVIR 50 MG 1 EACH PO ×2 (08:47→15:38)
[2022-08-24] MEDS: ACETAMINOPHEN 500 MG TABLET 1000 MG PO ×3 (08:47→19:41)
[2022-08-24] MEDS: polyethylene glycoL 238 GM BULK BOTTLE 17 GM PO (08:47)
[2022-08-24] MEDS: ESCITALOPRAM 10 MG TABLET 20 MG PO (08:47)
[2022-08-24 15:00] VITALS: BP 101/68; PULSE 73; RESP 18; TEMP 36.4; O2SAT 100; BMI 27.3
[2022-08-25] MEDS: OXYCODONE 5 MG TABLET PO ×3 (07:18→19:10)
[2022-08-25] MEDS: ACETAMINOPHEN 500 MG TABLET 1000 MG PO ×3 (07:18→19:09)
[2022-08-25] MEDS: polyethylene glycoL 238 GM BULK BOTTLE 17 GM PO (07:18)
[2022-08-25] MEDS: ESCITALOPRAM 10 MG TABLET 20 MG PO (07:18)
[2022-08-25] MEDS: DOLUTEGRAVIR 50 MG 1 EACH PO ×2 (07:18→15:32)
--- NOTE | 2022-08-25 14:06 | PC.PHA1 ---
RAIL ASSEMBLER PHARMACIST'S MEDICATION REVIEW: MEDICATION MONITORING:Escitalopram 20 mg daily antivirals - emtricitabine-tenofovir 200/25 mg daily and dolutegravir 50 mg bid IRREGULARITY OR COMMENTS:Per nursing notes patient is having issues with chewing and swallowing and weight continues to decline, I also note the trend of a least one new note each month regarding grabbing female staff while they care for him or while helping others at dining room table. For these reasons, I agree with providers that a GDR at this time for citalopram is clinically contraindicated. Oxycodone and acetaminophen scheduled for chronic shoulder pain. SUGGESTED COURSE OF ACTION TAKEN: Care team could consider liver function tests and then consider need for medication changes based on hepatic clearance.
--- NOTE | 2022-08-26 01:56 | PC.NURSE ---
WEEKLY CHARTING WEEK 4: Vital signs reviewed with no concerns. Temporary and comprehensive care plan reviewed with no changes made. Documented behavior x1 in the last month - was trying grabbing staff. Currently on Escitalopram 20mg daily with no adverse effects noted. No changes of communication, hearing, cognition noted. Staff anticipate needs as resident is unable to communicate needs. Hearing and vision is intact. All medications administered by licensed nurse. Health condition currently stable.
[2022-08-26] MEDS: ACETAMINOPHEN 500 MG TABLET 1000 MG PO ×3 (07:00→19:39)
[2022-08-26] MEDS: DOLUTEGRAVIR 50 MG 1 EACH PO ×2 (07:01→15:09)
[2022-08-26] MEDS: ESCITALOPRAM 10 MG TABLET 20 MG PO (07:01)
[2022-08-26] MEDS: OXYCODONE 5 MG TABLET PO ×3 (07:01→19:39)
[2022-08-26] MEDS: polyethylene glycoL 238 GM BULK BOTTLE 17 GM PO (07:01)
--- NOTE | 2022-08-26 13:28 | PC.NURSE ---
Weekly Charting- Week 4: Comprehensive & temporary care plan reviewed. No changes made. Nothing added to temporary care plan. No changes noted in communication, hearing, vision, or orientation. Needs anticipated by staff. Does not communicate needs. No hearing and visual problems. Is oriented to self. Chronic health condition stable. All medications administered by Nurse. Vital signs reviewed, no concerns. Mood/Behavior: has one episode of grabbing staff butt during cares. Continues on Escitalopram 20mg daily with no adverse effects noted. No change in medication.
[2022-08-27] MEDS: DOLUTEGRAVIR 50 MG 1 EACH PO ×2 (07:10→15:33)
[2022-08-27] MEDS: ACETAMINOPHEN 500 MG TABLET 1000 MG PO ×3 (07:10→19:55)
[2022-08-27] MEDS: polyethylene glycoL 238 GM BULK BOTTLE 17 GM PO (07:10)
[2022-08-27] MEDS: OXYCODONE 5 MG TABLET PO ×3 (07:10→19:55)
[2022-08-27] MEDS: ESCITALOPRAM 10 MG TABLET 20 MG PO (07:10)
--- NOTE | 2022-08-27 08:50 | PC.SPIRITC ---
I provided visit for connection and support.
[2022-08-28] MEDS: DOLUTEGRAVIR 50 MG 1 EACH PO ×2 (08:49→15:45)
[2022-08-28] MEDS: polyethylene glycoL 238 GM BULK BOTTLE 17 GM PO (08:49)
[2022-08-28] MEDS: ACETAMINOPHEN 500 MG TABLET 1000 MG PO ×3 (08:49→19:38)
[2022-08-28] MEDS: ESCITALOPRAM 10 MG TABLET 20 MG PO (08:49)
[2022-08-28] MEDS: OXYCODONE 5 MG TABLET PO ×3 (08:50→19:39)
[2022-08-29] MEDS: ACETAMINOPHEN 500 MG TABLET 1000 MG PO ×3 (08:56→19:18)
[2022-08-29] MEDS: ESCITALOPRAM 10 MG TABLET 20 MG PO (08:57)
[2022-08-29] MEDS: polyethylene glycoL 238 GM BULK BOTTLE 17 GM PO (08:57)
[2022-08-29] MEDS: OXYCODONE 5 MG TABLET PO ×3 (08:58→19:18)
[2022-08-29] MEDS: DOLUTEGRAVIR 50 MG 1 EACH PO ×2 (08:58→15:29)
[2022-08-30] MEDS: ACETAMINOPHEN 500 MG TABLET 1000 MG PO ×3 (08:34→19:19)
[2022-08-30] MEDS: DOLUTEGRAVIR 50 MG 1 EACH PO ×2 (08:34→15:25)
[2022-08-30] MEDS: polyethylene glycoL 238 GM BULK BOTTLE 17 GM PO (08:34)
[2022-08-30] MEDS: ESCITALOPRAM 10 MG TABLET 20 MG PO (08:34)
[2022-08-30] MEDS: OXYCODONE 5 MG TABLET PO ×3 (08:35→19:21)
--- NOTE | 2022-08-30 11:50 | PC.NURSE ---
Skin: Resident cut while shaving. Area washed, intervention set up
[2022-08-31] MEDS: OXYCODONE 5 MG TABLET PO ×3 (08:29→19:20)
[2022-08-31] MEDS: ESCITALOPRAM 10 MG TABLET 20 MG PO (08:29)
[2022-08-31] MEDS: DOLUTEGRAVIR 50 MG 1 EACH PO ×2 (08:29→15:11)
[2022-08-31] MEDS: ACETAMINOPHEN 500 MG TABLET 1000 MG PO ×3 (08:29→19:20)
[2022-08-31] MEDS: polyethylene glycoL 238 GM BULK BOTTLE 17 GM PO (08:29)
[2022-08-31 15:00] VITALS: BP 96/66; PULSE 77; RESP 18; TEMP 36.6; O2SAT 98
[2022-08-31 19:54] VITALS: BMI 64.2
--- NOTE | 2022-08-31 21:36 | PC.NURSE ---
Bath: Resident schedule bath and body audit done, skin abrasion noted to left upper lip from shaving, rest of skin is intact
[2022-09-01] MEDS: ACETAMINOPHEN 500 MG TABLET 1000 MG PO ×3 (07:04→19:00)
[2022-09-01] MEDS: polyethylene glycoL 238 GM BULK BOTTLE 17 GM PO (07:04)
[2022-09-01] MEDS: ESCITALOPRAM 10 MG TABLET 20 MG PO (07:04)
[2022-09-01] MEDS: DOLUTEGRAVIR 50 MG 1 EACH PO ×2 (07:04→15:51)
[2022-09-01] MEDS: OXYCODONE 5 MG TABLET PO ×3 (07:04→19:00)
[2022-09-02] MEDS: OXYCODONE 5 MG TABLET PO ×3 (07:01→19:01)
[2022-09-02] MEDS: polyethylene glycoL 238 GM BULK BOTTLE 17 GM PO (07:01)
[2022-09-02] MEDS: ACETAMINOPHEN 500 MG TABLET 1000 MG PO ×3 (07:01→19:01)
[2022-09-02] MEDS: ESCITALOPRAM 10 MG TABLET 20 MG PO (07:01)
[2022-09-02] MEDS: DOLUTEGRAVIR 50 MG 1 EACH PO ×2 (07:01→15:57)
[2022-09-03] MEDS: ACETAMINOPHEN 500 MG TABLET 1000 MG PO ×3 (08:33→19:24)
[2022-09-03] MEDS: DOLUTEGRAVIR 50 MG 1 EACH PO ×2 (08:34→15:26)
[2022-09-03] MEDS: ESCITALOPRAM 10 MG TABLET 20 MG PO (08:34)
[2022-09-03] MEDS: polyethylene glycoL 238 GM BULK BOTTLE 17 GM PO (08:34)
[2022-09-03] MEDS: OXYCODONE 5 MG TABLET PO ×3 (08:35→19:24)
--- NOTE | 2022-09-03 08:41 | PC.SPIRITC ---
I provided visit for connection while Regan waited for breakfast.
[2022-09-03 16:36] VITALS: BMI 29.9
[2022-09-03 21:30] VITALS: BMI 65.9
[2022-09-04] MEDS: ESCITALOPRAM 10 MG TABLET 20 MG PO (08:33)
[2022-09-04] MEDS: ACETAMINOPHEN 500 MG TABLET 1000 MG PO ×3 (08:33→19:52)
[2022-09-04] MEDS: DOLUTEGRAVIR 50 MG 1 EACH PO ×2 (08:34→15:56)
[2022-09-04] MEDS: polyethylene glycoL 238 GM BULK BOTTLE 17 GM PO (08:34)
[2022-09-04] MEDS: OXYCODONE 5 MG TABLET PO ×3 (08:34→19:52)
--- NOTE | 2022-09-04 10:51 | PC.NURSE ---
Recert Visit: Resident seen by Dr. Curtis. Orders reviewed and renewed of 75 days with no changes. Infectious Disease note from 07/23/22 sent to be scan.
[2022-09-05] MEDS: ACETAMINOPHEN 500 MG TABLET 1000 MG PO ×3 (07:14→19:16)
[2022-09-05] MEDS: DOLUTEGRAVIR 50 MG 1 EACH PO ×2 (07:15→15:33)
[2022-09-05] MEDS: polyethylene glycoL 238 GM BULK BOTTLE 17 GM PO (07:15)
[2022-09-05] MEDS: ESCITALOPRAM 10 MG TABLET 20 MG PO (07:15)
[2022-09-05] MEDS: OXYCODONE 5 MG TABLET PO ×3 (07:16→19:16)
[2022-09-06] MEDS: ESCITALOPRAM 10 MG TABLET 20 MG PO (07:00)
[2022-09-06] MEDS: ACETAMINOPHEN 500 MG TABLET 1000 MG PO ×3 (07:00→19:17)
[2022-09-06] MEDS: polyethylene glycoL 238 GM BULK BOTTLE 17 GM PO (07:00)
[2022-09-06] MEDS: DOLUTEGRAVIR 50 MG 1 EACH PO ×2 (07:00→15:33)
[2022-09-06] MEDS: OXYCODONE 5 MG TABLET PO ×3 (07:00→19:17)
[2022-09-07] MEDS: ACETAMINOPHEN 500 MG TABLET 1000 MG PO ×3 (07:14→19:58)
[2022-09-07] MEDS: ESCITALOPRAM 10 MG TABLET 20 MG PO (07:14)
[2022-09-07] MEDS: polyethylene glycoL 238 GM BULK BOTTLE 17 GM PO (07:14)
[2022-09-07] MEDS: DOLUTEGRAVIR 50 MG 1 EACH PO ×2 (07:15→15:42)
[2022-09-07] MEDS: OXYCODONE 5 MG TABLET PO ×3 (07:16→20:00)
[2022-09-07 15:00] VITALS: BP 93/66; PULSE 76; RESP 18; TEMP 36.3; O2SAT 97
[2022-09-07 22:38] VITALS: BMI 65.0
[2022-09-08] MEDS: ACETAMINOPHEN 500 MG TABLET 1000 MG PO ×3 (07:09→19:45)
[2022-09-08] MEDS: ESCITALOPRAM 10 MG TABLET 20 MG PO (07:09)
[2022-09-08] MEDS: DOLUTEGRAVIR 50 MG 1 EACH PO ×2 (07:10→15:47)
[2022-09-08] MEDS: polyethylene glycoL 238 GM BULK BOTTLE 17 GM PO (07:10)
[2022-09-08] MEDS: OXYCODONE 5 MG TABLET PO ×3 (07:13→19:45)
--- NOTE | 2022-09-09 00:43 | PC.NURSE ---
Weekly Charting Week 1: Vital signs reviewed with no concerns. Temporary and comprehensive care plan reviewed with no changes made. Has history of right shoulder pain. Receives Acetaminophen 1000mg TID and Oxycodone 5mg TID for pain management which is noted to be effective. Staff monitor for non-verbal signs of pain due to Res unable to communicate pain well verbally. Total assist of 1 with dressing, grooming, bathing, and oral cares. Sat on the feeding table due to history of chocking episode while eating. Receives a regular diet with regular textures and thin liquids. Family declines mechanically altered diet at this time.
[2022-09-09] MEDS: polyethylene glycoL 238 GM BULK BOTTLE 17 GM PO (07:00)
[2022-09-09] MEDS: DOLUTEGRAVIR 50 MG 1 EACH PO ×2 (07:00→15:13)
[2022-09-09] MEDS: OXYCODONE 5 MG TABLET PO ×3 (07:00→19:07)
[2022-09-09] MEDS: ACETAMINOPHEN 500 MG TABLET 1000 MG PO ×3 (07:00→19:07)
[2022-09-09] MEDS: ESCITALOPRAM 10 MG TABLET 20 MG PO (07:00)
--- NOTE | 2022-09-09 14:21 | PC.NURSE ---
Weekly Charting, Week 1- ADL's: Comprehensive and temporary care plan reviewed. No changes made, and nothing added to temporary care plan. Resident needs 2 assists with dressing, grooming and bathing. Staff does oral cares. Is feed by staff. Is on regular diet & texture, thin liquids. Will sometimes feed self with finger foods. Is able to drink liquids from glass/cup. Occasional coughing with meals noted. Resident will keep food in mouth. Needs a lot of coaxing to swallow. Vital signs reviewed, no concerns. Pain: Chronic pain is managed with? Tylenol 1000mg TID, Oxycodone 5 mg TID. No pain noted. Staff anticipates need for pain through non verbal gestures as resident is not able to communicate needs.
[2022-09-10] MEDS: ESCITALOPRAM 10 MG TABLET 20 MG PO (07:23)
[2022-09-10] MEDS: ACETAMINOPHEN 500 MG TABLET 1000 MG PO ×3 (07:23→19:19)
[2022-09-10] MEDS: polyethylene glycoL 238 GM BULK BOTTLE 17 GM PO (07:24)
[2022-09-10] MEDS: DOLUTEGRAVIR 50 MG 1 EACH PO ×2 (07:24→15:16)
[2022-09-10] MEDS: OXYCODONE 5 MG TABLET PO ×3 (07:30→19:19)
[2022-09-11] MEDS: ACETAMINOPHEN 500 MG TABLET 1000 MG PO ×3 (08:51→19:25)
[2022-09-11] MEDS: ESCITALOPRAM 10 MG TABLET 20 MG PO (08:51)
[2022-09-11] MEDS: DOLUTEGRAVIR 50 MG 1 EACH PO ×2 (08:52→15:13)
[2022-09-11] MEDS: OXYCODONE 5 MG TABLET PO ×3 (08:52→19:25)
[2022-09-12] MEDS: ACETAMINOPHEN 500 MG TABLET 1000 MG PO ×3 (08:43→19:20)
[2022-09-12] MEDS: polyethylene glycoL 238 GM BULK BOTTLE 17 GM PO (08:43)
[2022-09-12] MEDS: ESCITALOPRAM 10 MG TABLET 20 MG PO (08:43)
[2022-09-12] MEDS: DOLUTEGRAVIR 50 MG 1 EACH PO ×2 (08:44→15:00)
[2022-09-12] MEDS: OXYCODONE 5 MG TABLET PO ×3 (08:44→19:20)
[2022-09-13] MEDS: ACETAMINOPHEN 500 MG TABLET 1000 MG PO ×3 (08:42→19:33)
[2022-09-13] MEDS: OXYCODONE 5 MG TABLET PO ×3 (08:43→19:33)
[2022-09-13] MEDS: polyethylene glycoL 238 GM BULK BOTTLE 17 GM PO (08:43)
[2022-09-13] MEDS: DOLUTEGRAVIR 50 MG 1 EACH PO ×2 (08:43→15:38)
[2022-09-13] MEDS: ESCITALOPRAM 10 MG TABLET 20 MG PO (08:43)
[2022-09-14] MEDS: DOLUTEGRAVIR 50 MG 1 EACH PO ×2 (08:29→15:28)
[2022-09-14] MEDS: polyethylene glycoL 238 GM BULK BOTTLE 17 GM PO (08:29)
[2022-09-14] MEDS: ACETAMINOPHEN 500 MG TABLET 1000 MG PO ×3 (08:29→19:02)
[2022-09-14] MEDS: ESCITALOPRAM 10 MG TABLET 20 MG PO (08:29)
[2022-09-14] MEDS: OXYCODONE 5 MG TABLET PO ×3 (08:30→19:03)
[2022-09-14 13:39] VITALS: BMI 30.4
[2022-09-14 15:00] VITALS: BP 100/66; PULSE 67; RESP 16; TEMP 36.8; O2SAT 95
[2022-09-15] MEDS: DOLUTEGRAVIR 50 MG 1 EACH PO ×2 (07:07→15:50)
[2022-09-15] MEDS: polyethylene glycoL 238 GM BULK BOTTLE 17 GM PO (07:07)
[2022-09-15] MEDS: ESCITALOPRAM 10 MG TABLET 20 MG PO (07:07)
[2022-09-15] MEDS: ACETAMINOPHEN 500 MG TABLET 1000 MG PO ×3 (07:07→19:15)
[2022-09-15] MEDS: OXYCODONE 5 MG TABLET PO ×3 (07:07→19:15)
--- NOTE | 2022-09-16 02:36 | PC.NURSE ---
WEEKLY CHARTING WEEK 2 : MOBILITY Vital signs reviewed, no concerns. Continue weekly vitals monitoring. Comprehensive and temporary care plan reviewed. No changes made and nothing added to temporary care plan. ?Resident is non ambulatory. Transfers with 2 assists using the mechanical lift at all times. Can wheel self at times short distance without a purpose. Staff wheels to all destinations. Can make slight changes in body positioning. Staff to check and assist resident make significant changes every 2 hours, reposition/offload. No alarms. Staff do ROM of (R) upper extremity BID. Fall: No falls the past month. Remains? a low fall risk according to assessment done on 07/28/22. Fall interventions: call light within reach, bed in low position with brakes locked, not to be left alone in room in w/c, hourly visual checks for safety, dycem? in wheelchair, check/change in bed by 0700.
[2022-09-16] MEDS: ACETAMINOPHEN 500 MG TABLET 1000 MG PO ×3 (07:12→19:26)
[2022-09-16] MEDS: OXYCODONE 5 MG TABLET PO ×3 (07:12→19:26)
[2022-09-16] MEDS: polyethylene glycoL 238 GM BULK BOTTLE 17 GM PO (07:12)
[2022-09-16] MEDS: DOLUTEGRAVIR 50 MG 1 EACH PO ×2 (07:12→15:17)
[2022-09-16] MEDS: ESCITALOPRAM 10 MG TABLET 20 MG PO (07:12)
--- NOTE | 2022-09-16 07:16 | PC.NURSE ---
Weekly Charting, Week 2: Mobility: Comprehensive and temporary care plan reviewed. No changes made and nothing added to temporary care plan. ?Resident is non ambulatory. Transfers with 2 assists using the mechanical lift at all times. Can wheel self at times short distance without a purpose. Staff wheels to all destinations. Can make slight changes in body positioning. Staff to check and assist resident make significant changes every 2 hours, reposition/offload. No alarms. Staff to do ROM of (R) upper extremity BID. Vital signs reviewed, no concerns. Continue weekly VS monitoring. Fall: No falls the past month. Remains? a low fall risk according to assessment done on 07/28/22. Fall interventions: call light within reach, bed in low position with brakes locked, not to be left alone in room in w/c, hourly visual checks for safety, dycem? in wheelchair, check/change in bed by 0700.
--- NOTE | 2022-09-16 14:35 | PC.SPIRITC ---
Entry from September 15, 2022: I provided visit for connection and support, along with frances Spears outside to walk around the [facility] area.
--- NOTE | 2022-09-16 16:15 | PC.SPIRITC ---
I provided visit for connection and to take Regan outside to walk around the [facility] area.
[2022-09-17] MEDS: MAGNESIUM HYDROXIDE 30 ML ORAL.SUSP PO (08:12)
[2022-09-17] MEDS: ACETAMINOPHEN 500 MG TABLET 1000 MG PO ×3 (08:18→19:45)
[2022-09-17] MEDS: OXYCODONE 5 MG TABLET PO ×3 (08:18→19:45)
[2022-09-17] MEDS: polyethylene glycoL 238 GM BULK BOTTLE 17 GM PO (08:18)
[2022-09-17] MEDS: ESCITALOPRAM 10 MG TABLET 20 MG PO (08:18)
[2022-09-17] MEDS: DOLUTEGRAVIR 50 MG 1 EACH PO ×2 (08:18→16:04)
[2022-09-17 19:58] VITALS: BMI 64.5
[2022-09-18] MEDS: ACETAMINOPHEN 500 MG TABLET 1000 MG PO ×3 (07:17→19:35)
[2022-09-18] MEDS: OXYCODONE 5 MG TABLET PO ×3 (07:18→19:35)
[2022-09-18] MEDS: polyethylene glycoL 238 GM BULK BOTTLE 17 GM PO (07:18)
[2022-09-18] MEDS: ESCITALOPRAM 10 MG TABLET 20 MG PO (07:18)
[2022-09-18] MEDS: DOLUTEGRAVIR 50 MG 1 EACH PO ×2 (07:18→15:43)
[2022-09-19] MEDS: ACETAMINOPHEN 500 MG TABLET 1000 MG PO ×3 (07:04→19:13)
[2022-09-19] MEDS: ESCITALOPRAM 10 MG TABLET 20 MG PO (07:04)
[2022-09-19] MEDS: OXYCODONE 5 MG TABLET PO ×3 (07:05→19:14)
[2022-09-19] MEDS: DOLUTEGRAVIR 50 MG 1 EACH PO ×2 (07:05→15:53)
[2022-09-19] MEDS: polyethylene glycoL 238 GM BULK BOTTLE 17 GM PO (07:05)
[2022-09-20] MEDS: ESCITALOPRAM 10 MG TABLET 20 MG PO (07:04)
[2022-09-20] MEDS: ACETAMINOPHEN 500 MG TABLET 1000 MG PO ×3 (07:04→19:33)
[2022-09-20] MEDS: polyethylene glycoL 238 GM BULK BOTTLE 17 GM PO (07:04)
[2022-09-20] MEDS: DOLUTEGRAVIR 50 MG 1 EACH PO ×2 (07:05→15:43)
[2022-09-20] MEDS: OXYCODONE 5 MG TABLET PO ×3 (07:05→19:33)
[2022-09-21] MEDS: OXYCODONE 5 MG TABLET PO ×3 (08:45→19:18)
[2022-09-21] MEDS: ESCITALOPRAM 10 MG TABLET 20 MG PO (08:48)
[2022-09-21] MEDS: polyethylene glycoL 238 GM BULK BOTTLE 17 GM PO (08:48)
[2022-09-21] MEDS: DOLUTEGRAVIR 50 MG 1 EACH PO ×2 (08:48→15:46)
[2022-09-21] MEDS: ACETAMINOPHEN 500 MG TABLET 1000 MG PO ×3 (08:48→19:17)
[2022-09-21 15:00] VITALS: BP 98/65; PULSE 77; RESP 16; TEMP 36.9; O2SAT 96; BMI 29.2
[2022-09-22] MEDS: ACETAMINOPHEN 500 MG TABLET 1000 MG PO ×3 (07:06→19:12)
[2022-09-22] MEDS: ESCITALOPRAM 10 MG TABLET 20 MG PO (07:06)
[2022-09-22] MEDS: polyethylene glycoL 238 GM BULK BOTTLE 17 GM PO (07:06)
[2022-09-22] MEDS: DOLUTEGRAVIR 50 MG 1 EACH PO ×2 (07:06→15:25)
[2022-09-22] MEDS: OXYCODONE 5 MG TABLET PO ×3 (07:08→19:13)
--- NOTE | 2022-09-22 12:12 | PC.SPIRITC ---
I provided visit and walk on patio for support and connection.
--- NOTE | 2022-09-23 01:17 | PC.NURSE ---
Weekly Charting Week 3: Toileting ans Skin: Vital signs reviewed with no concerns. Comprehensive and temporary care plan reviewed with no changes made. Resident is incontinent of bowel and bladder. Is checked and changed in bed at first round and 3rd round NOC. Wears x-large briefs with ultra guard in place. Needs 1 assists changing pads, anel cares & clothing management. Skin is clear and intact. Skin check on bath days and during cares.
[2022-09-23] MEDS: ACETAMINOPHEN 500 MG TABLET 1000 MG PO ×3 (07:00→19:28)
[2022-09-23] MEDS: ESCITALOPRAM 10 MG TABLET 20 MG PO (07:00)
[2022-09-23] MEDS: OXYCODONE 5 MG TABLET PO ×3 (07:00→19:28)
[2022-09-23] MEDS: polyethylene glycoL 238 GM BULK BOTTLE 17 GM PO (07:01)
[2022-09-23] MEDS: DOLUTEGRAVIR 50 MG 1 EACH PO ×2 (07:01→15:23)
--- NOTE | 2022-09-23 16:03 | PC.SPIRITC ---
I walked with Regan around outside and looked at a bird book with him along with helping him watch the lawn being mowed.
[2022-09-24] MEDS: polyethylene glycoL 238 GM BULK BOTTLE 17 GM PO (07:17)
[2022-09-24] MEDS: ACETAMINOPHEN 500 MG TABLET 1000 MG PO ×3 (07:17→19:45)
[2022-09-24] MEDS: ESCITALOPRAM 10 MG TABLET 20 MG PO (07:17)
[2022-09-24] MEDS: DOLUTEGRAVIR 50 MG 1 EACH PO ×2 (07:17→15:08)
[2022-09-24] MEDS: OXYCODONE 5 MG TABLET PO ×3 (07:17→19:45)
[2022-09-25] MEDS: ACETAMINOPHEN 500 MG TABLET 1000 MG PO ×3 (08:34→19:21)
[2022-09-25] MEDS: ESCITALOPRAM 10 MG TABLET 20 MG PO (08:35)
[2022-09-25] MEDS: DOLUTEGRAVIR 50 MG 1 EACH PO ×2 (08:35→15:57)
[2022-09-25] MEDS: MAGNESIUM HYDROXIDE 30 ML ORAL.SUSP PO (08:35)
[2022-09-25] MEDS: OXYCODONE 5 MG TABLET PO ×3 (08:35→19:21)
[2022-09-25] MEDS: polyethylene glycoL 238 GM BULK BOTTLE 17 GM PO (08:35)
--- NOTE | 2022-09-25 10:17 | PC.NURSE ---
Status: Resident choked on morning medications. Resident was laughing after taking medications which caused him to choke. Lung sounds clear and temp 97.6. Intervention set up
[2022-09-25 10:19] VITALS: TEMP 36.8
[2022-09-25 15:00] VITALS: TEMP 36.5
[2022-09-25 23:00] VITALS: TEMP 36.6
[2022-09-26 08:00] VITALS: TEMP 36.4
[2022-09-26] MEDS: ESCITALOPRAM 10 MG TABLET 20 MG PO (08:11)
[2022-09-26] MEDS: polyethylene glycoL 238 GM BULK BOTTLE 17 GM PO (08:11)
[2022-09-26] MEDS: OXYCODONE 5 MG TABLET PO ×3 (08:11→19:24)
[2022-09-26] MEDS: DOLUTEGRAVIR 50 MG 1 EACH PO ×2 (08:11→16:13)
[2022-09-26] MEDS: ACETAMINOPHEN 500 MG TABLET 1000 MG PO ×3 (08:11→19:24)
[2022-09-26 15:00] VITALS: TEMP 36.7
[2022-09-26 23:00] VITALS: TEMP 36.9
[2022-09-27] MEDS: ESCITALOPRAM 10 MG TABLET 20 MG PO (07:26)
[2022-09-27] MEDS: ACETAMINOPHEN 500 MG TABLET 1000 MG PO ×3 (07:26→19:21)
[2022-09-27] MEDS: OXYCODONE 5 MG TABLET PO ×3 (07:27→19:21)
[2022-09-27] MEDS: polyethylene glycoL 238 GM BULK BOTTLE 17 GM PO (07:27)
[2022-09-27] MEDS: DOLUTEGRAVIR 50 MG 1 EACH PO ×2 (07:27→15:02)
[2022-09-27 10:39] VITALS: TEMP 36.2
[2022-09-28] MEDS: ACETAMINOPHEN 500 MG TABLET 1000 MG PO ×3 (07:31→19:06)
[2022-09-28] MEDS: polyethylene glycoL 238 GM BULK BOTTLE 17 GM PO (07:32)
[2022-09-28] MEDS: ESCITALOPRAM 10 MG TABLET 20 MG PO (07:32)
[2022-09-28] MEDS: OXYCODONE 5 MG TABLET PO ×3 (07:32→19:07)
[2022-09-28] MEDS: DOLUTEGRAVIR 50 MG 1 EACH PO ×2 (07:32→15:27)
[2022-09-28 15:00] VITALS: BP 101/70; PULSE 88; RESP 16; TEMP 36.9; O2SAT 9
[2022-09-29] MEDS: ACETAMINOPHEN 500 MG TABLET 1000 MG PO ×3 (07:14→19:02)
[2022-09-29] MEDS: ESCITALOPRAM 10 MG TABLET 20 MG PO (07:14)
[2022-09-29] MEDS: DOLUTEGRAVIR 50 MG 1 EACH PO ×2 (07:15→15:40)
[2022-09-29] MEDS: polyethylene glycoL 238 GM BULK BOTTLE 17 GM PO (07:15)
[2022-09-29] MEDS: OXYCODONE 5 MG TABLET PO ×3 (07:16→19:02)
--- NOTE | 2022-09-30 02:14 | PC.NURSE ---
WEEKLY CHARTING WEEK 4 : COMMUNICATION, HEARING/VISION, COGNITION/BEHAVIORS Vital signs reviewed, no concerns. Comprehensive and temporary care plan reviewed, no changes made. No changes noted in communication, hearing, vision, or orientation. Resident does not communicate needs, it`s anticipated by staff. No hearing and visual problems. He is oriented to self. Chronic health condition stable. All medications administered by Nurse. Mood/Behavior:? no latest behaviors ; Continues on Escitalopram 20mg daily with no adverse effects noted. No change in medication.
[2022-09-30] MEDS: polyethylene glycoL 238 GM BULK BOTTLE 17 GM PO (07:00)
[2022-09-30] MEDS: ESCITALOPRAM 10 MG TABLET 20 MG PO (07:00)
[2022-09-30] MEDS: ACETAMINOPHEN 500 MG TABLET 1000 MG PO ×3 (07:00→19:27)
[2022-09-30] MEDS: DOLUTEGRAVIR 50 MG 1 EACH PO ×2 (07:00→15:47)
[2022-09-30] MEDS: OXYCODONE 5 MG TABLET PO ×3 (07:00→19:27)
--- NOTE | 2022-09-30 07:54 | PC.NURSE ---
Weekly Charting- Week 4: Comprehensive & temporary care plan reviewed. No changes made. Nothing added to temporary care plan. No changes noted in communication, hearing, vision, or orientation. Needs anticipated by staff. Does not communicate needs. No hearing and visual problems. Is oriented to self. Chronic health condition stable. All medications administered by Nurse. Vital signs reviewed, no concerns. Mood/Behavior:? Has one episode trying to bite staff during cares. Continues on Escitalopram 20mg daily with no adverse effects noted. No change in medication.Continue to monitor changes and refer to provider as needed.
--- NOTE | 2022-09-30 09:32 | PC.PHA1 ---
KENNEL OPERATOR PHARMACIST'S MEDICATION REVIEW: MEDICATION MONITORING:citalopram 20 mg daily IRREGULARITY OR COMMENTS:Patient has been loosing weight. MD note mentions since he had case of Covid. Swallowing solids is difficult, shakes are easier for him. Patient continues on same HIV antiviral regimen. SUGGESTED COURSE OF ACTION TAKEN: Could consider adding mirtazapine for appetite and behavior improvements. Low starting dose will make patient drowse.
[2022-10-01] MEDS: ESCITALOPRAM 10 MG TABLET 20 MG PO (07:24)
[2022-10-01] MEDS: ACETAMINOPHEN 500 MG TABLET 1000 MG PO ×3 (07:24→19:49)
[2022-10-01] MEDS: DOLUTEGRAVIR 50 MG 1 EACH PO ×2 (07:25→15:21)
[2022-10-01] MEDS: polyethylene glycoL 238 GM BULK BOTTLE 17 GM PO (07:25)
[2022-10-01] MEDS: MAGNESIUM HYDROXIDE 30 ML ORAL.SUSP PO (07:25)
[2022-10-01] MEDS: OXYCODONE 5 MG TABLET PO ×3 (07:25→19:49)
[2022-10-02] MEDS: OXYCODONE 5 MG TABLET PO ×3 (07:18→20:05)
[2022-10-02] MEDS: ACETAMINOPHEN 500 MG TABLET 1000 MG PO ×3 (07:18→20:04)
[2022-10-02] MEDS: polyethylene glycoL 238 GM BULK BOTTLE 17 GM PO (07:18)
[2022-10-02] MEDS: DOLUTEGRAVIR 50 MG 1 EACH PO ×2 (07:18→15:26)
[2022-10-02] MEDS: ESCITALOPRAM 10 MG TABLET 20 MG PO (07:18)
[2022-10-03] MEDS: ACETAMINOPHEN 500 MG TABLET 1000 MG PO ×3 (07:01→19:19)
[2022-10-03] MEDS: DOLUTEGRAVIR 50 MG 1 EACH PO ×2 (07:01→15:44)
[2022-10-03] MEDS: OXYCODONE 5 MG TABLET PO ×3 (07:01→19:19)
[2022-10-03] MEDS: polyethylene glycoL 238 GM BULK BOTTLE 17 GM PO (07:01)
[2022-10-03] MEDS: ESCITALOPRAM 10 MG TABLET 20 MG PO (07:01)
[2022-10-04] MEDS: ACETAMINOPHEN 500 MG TABLET 1000 MG PO ×3 (07:00→19:19)
[2022-10-04] MEDS: polyethylene glycoL 238 GM BULK BOTTLE 17 GM PO (07:01)
[2022-10-04] MEDS: ESCITALOPRAM 10 MG TABLET 20 MG PO (07:01)
[2022-10-04] MEDS: DOLUTEGRAVIR 50 MG 1 EACH PO ×2 (07:01→15:14)
[2022-10-04] MEDS: OXYCODONE 5 MG TABLET PO ×3 (07:01→19:19)
--- NOTE | 2022-10-04 07:02 | PC.NURSE ---
Addendum entered by Ashwini Duarte RN 10/04/22 13:55: Lung sounds clear to all lobes bilaterally with temp of 96.7 Marketing Representative set up intervention to monitor lung sounds & temp x 3 days due to coughing episode with medications this morning. Original Note: Health status note: Resident noted to have some coughing when taking AM medications whole this morning. He spit one of his 500 mg Tylenol tabs out. Marketing Representative reattempted new Tylenol tab given in applesauce with no further coughing noted.
[2022-10-04 08:00] VITALS: TEMP 35.9
[2022-10-04 15:00] VITALS: TEMP 36.3
--- NOTE | 2022-10-04 18:19 | PC.NURSE ---
Resident had a choking episode during supper, coughing with watery eyes and nasal drainage also had a large emesis , took a piece of cantaloupe and attempted to swallow it with out chewing, remains afebrile lungs clear, assisted with supper and Prison Guard Supervisor did notice Resident not chewing food before swallowing, encourage by staff to chew with each bite.
[2022-10-04 23:00] VITALS: TEMP 36.1
[2022-10-05 06:54] VITALS: TEMP 36.2
[2022-10-05] MEDS: ACETAMINOPHEN 500 MG TABLET 1000 MG PO ×3 (07:01→19:20)
[2022-10-05] MEDS: ESCITALOPRAM 10 MG TABLET 20 MG PO (07:01)
[2022-10-05] MEDS: DOLUTEGRAVIR 50 MG 1 EACH PO ×2 (07:01→15:56)
[2022-10-05] MEDS: OXYCODONE 5 MG TABLET PO ×3 (07:01→19:20)
[2022-10-05] MEDS: polyethylene glycoL 238 GM BULK BOTTLE 17 GM PO (07:01)
[2022-10-05 15:00] VITALS: BP 100/70; PULSE 76; RESP 18; TEMP 36.6; O2SAT 95; BMI 29.9
[2022-10-05 23:00] VITALS: TEMP 36.7
[2022-10-06] MEDS: ACETAMINOPHEN 500 MG TABLET 1000 MG PO ×3 (07:13→19:11)
[2022-10-06] MEDS: polyethylene glycoL 238 GM BULK BOTTLE 17 GM PO (07:13)
[2022-10-06] MEDS: ESCITALOPRAM 10 MG TABLET 20 MG PO (07:13)
[2022-10-06] MEDS: DOLUTEGRAVIR 50 MG 1 EACH PO ×2 (07:13→15:03)
[2022-10-06] MEDS: OXYCODONE 5 MG TABLET PO ×3 (07:14→19:12)
[2022-10-06 10:35] VITALS: TEMP 36.6
[2022-10-06 15:00] VITALS: TEMP 36.6
[2022-10-06 23:00] VITALS: TEMP 36.6
--- NOTE | 2022-10-07 01:48 | PC.NURSE ---
Weekly Charting Week 1: Vital signs reviewed with no concerns. Temporary and comprehensive care plan reviewed? with no changes made. Has history of right shoulder pain.? Receives Acetaminophen 1000mg TID and Oxycodone 5mg TID for pain management which is noted to be effective. Staff monitor for non-verbal signs of pain due to Res unable to communicate pain well verbally.? Total assist of 1 with dressing, grooming, bathing, and oral cares. Sat on the feeding table due to history of chocking episode while eating and taking medications.? Receives a regular diet with regular textures and thin liquids. Family declines mechanically altered diet at this time.
[2022-10-07 06:57] VITALS: TEMP 36.8
[2022-10-07] MEDS: polyethylene glycoL 238 GM BULK BOTTLE 17 GM PO (07:00)
[2022-10-07] MEDS: ACETAMINOPHEN 500 MG TABLET 1000 MG PO ×3 (07:00→19:06)
[2022-10-07] MEDS: ESCITALOPRAM 10 MG TABLET 20 MG PO (07:00)
[2022-10-07] MEDS: OXYCODONE 5 MG TABLET PO ×3 (07:00→19:06)
[2022-10-07] MEDS: DOLUTEGRAVIR 50 MG 1 EACH PO ×2 (07:00→15:21)
--- NOTE | 2022-10-08 06:50 | PC.NURSE ---
Weekly Charting, Week 1- ADL's: Comprehensive and temporary care plan reviewed. No changes made, and nothing added to temporary care plan. Resident needs 2 assists with dressing, grooming and bathing. Staff does oral cares. Is feed by staff. Is on regular diet & texture, thin liquids. Will sometimes feed self with finger foods. Is able to drink liquids from glass/cup. Had a choking episode laughing while taking medication. Temps and lung sounds monitored QS x 3 days and were fine. Resident will keep food in mouth. Needs encouragement/coaxing to swallow. Vital signs reviewed, no concerns. Pain: Chronic pain is managed with? Tylenol 1000mg TID, Oxycodone 5 mg TID. No pain noted. Staff anticipates need for pain through non verbal gestures as resident is not able to communicate needs.
[2022-10-08] MEDS: ACETAMINOPHEN 500 MG TABLET 1000 MG PO ×3 (07:00→20:02)
[2022-10-08] MEDS: DOLUTEGRAVIR 50 MG 1 EACH PO ×2 (07:00→15:13)
[2022-10-08] MEDS: OXYCODONE 5 MG TABLET PO ×3 (07:00→20:02)
[2022-10-08] MEDS: polyethylene glycoL 238 GM BULK BOTTLE 17 GM PO (07:00)
[2022-10-08] MEDS: ESCITALOPRAM 10 MG TABLET 20 MG PO (07:00)
[2022-10-09] MEDS: DOLUTEGRAVIR 50 MG 1 EACH PO ×2 (08:43→15:30)
[2022-10-09] MEDS: polyethylene glycoL 238 GM BULK BOTTLE 17 GM PO (08:43)
[2022-10-09] MEDS: ESCITALOPRAM 10 MG TABLET 20 MG PO (08:43)
[2022-10-09] MEDS: ACETAMINOPHEN 500 MG TABLET 1000 MG PO ×3 (08:43→19:18)
[2022-10-09] MEDS: OXYCODONE 5 MG TABLET PO ×3 (08:43→19:18)
[2022-10-10] MEDS: DOLUTEGRAVIR 50 MG 1 EACH PO ×2 (07:27→15:36)
[2022-10-10] MEDS: ACETAMINOPHEN 500 MG TABLET 1000 MG PO ×3 (07:27→19:30)
[2022-10-10] MEDS: OXYCODONE 5 MG TABLET PO ×3 (07:27→19:30)
[2022-10-10] MEDS: ESCITALOPRAM 10 MG TABLET 20 MG PO (07:27)
[2022-10-10] MEDS: polyethylene glycoL 238 GM BULK BOTTLE 17 GM PO (07:27)
[2022-10-11] MEDS: DOLUTEGRAVIR 50 MG 1 EACH PO ×2 (08:32→16:08)
[2022-10-11] MEDS: ESCITALOPRAM 10 MG TABLET 20 MG PO (08:32)
[2022-10-11] MEDS: polyethylene glycoL 238 GM BULK BOTTLE 17 GM PO (08:32)
[2022-10-11] MEDS: ACETAMINOPHEN 500 MG TABLET 1000 MG PO ×3 (08:32→19:22)
[2022-10-11] MEDS: OXYCODONE 5 MG TABLET PO ×3 (08:33→19:22)
--- NOTE | 2022-10-11 19:20 | PC.NURSE ---
Choking: Resident had choking episode on snack in the afternoon. Was eating a rice krispie bar and began to choke. Was able to cough up and clear airway. Intervention in place for nursing to monitor temperature and lung sounds for the next 72 hours.
[2022-10-11 20:00] VITALS: TEMP 36.6
[2022-10-11 23:00] VITALS: TEMP 36.6
[2022-10-12] MEDS: DOLUTEGRAVIR 50 MG 1 EACH PO ×2 (07:21→15:39)
[2022-10-12] MEDS: OXYCODONE 5 MG TABLET PO ×3 (07:21→19:47)
[2022-10-12] MEDS: ACETAMINOPHEN 500 MG TABLET 1000 MG PO ×3 (07:21→19:47)
[2022-10-12] MEDS: polyethylene glycoL 238 GM BULK BOTTLE 17 GM PO (07:21)
[2022-10-12] MEDS: ESCITALOPRAM 10 MG TABLET 20 MG PO (07:21)
[2022-10-12 09:54] VITALS: TEMP 36.4
--- NOTE | 2022-10-12 11:47 | PC.SPIRITC ---
Provided visit for connection and support.
[2022-10-12 15:00] VITALS: BP 119/71; PULSE 67; RESP 18; TEMP 36.8; O2SAT 96
[2022-10-12] MEDS: MAGNESIUM HYDROXIDE 30 ML ORAL.SUSP PO (15:48)
[2022-10-12 23:00] VITALS: TEMP 36.6
--- NOTE | 2022-10-13 06:21 | PC.NURSE ---
Bowel note: Last evening's nurse and NOC nurse report resident had BM last evening. Therefore, he is not on bowel protocol today.
[2022-10-13] MEDS: ESCITALOPRAM 10 MG TABLET 20 MG PO (07:00)
[2022-10-13] MEDS: ACETAMINOPHEN 500 MG TABLET 1000 MG PO ×3 (07:00→19:24)
[2022-10-13] MEDS: DOLUTEGRAVIR 50 MG 1 EACH PO ×2 (07:01→15:24)
[2022-10-13] MEDS: OXYCODONE 5 MG TABLET PO ×3 (07:01→19:25)
[2022-10-13] MEDS: polyethylene glycoL 238 GM BULK BOTTLE 17 GM PO (07:01)
[2022-10-13 08:00] VITALS: TEMP 36.8
[2022-10-13 15:00] VITALS: TEMP 36.6
[2022-10-13 23:00] VITALS: TEMP 36.7
--- NOTE | 2022-10-14 01:07 | PC.NURSE ---
Weekly Charting Week 2: Mobility. Vital signs reviewed with no concerns. Comprehensive and temporary care plan reviewed with no changes made. Resident requires extensive assist of 2 staff with bed mobility. Transfers with 2 assists using the mechanical lift at all times. Staff wheels to all destinations. Able to proper himself in short distance. Staff to check and assist resident make significant changes every 2 hours, reposition/offload. Non ambulatory. No alarms. Staff to do ROM of (R) upper extremity BID. Fall: No falls the past month. Remains? a low fall risk according to assessment done on 07/28/22. Fall interventions: call light within reach, bed in low position with brakes locked, hourly safety visual checks for safety, dycem? in wheelchair.
--- NOTE | 2022-10-14 07:16 | PC.NURSE ---
Weekly Charting Week 2: Mobility Vital signs reviewed with no concerns noted over the last week. Temporary and comprehensive care plans have been reviewed with no changes made. Extensive assist of 2 with bed mobility required. Resident is able to propel himself independently in wheelchair for short distance though is total assist of 1 with wheelchair locomotion to and from destinations. Resident is non-ambulatory and requires total assist of 2 with transferring using EZ lift. Resident requires repositioning Q2H as well as staff checking brief as resident is incontinent of both bowel and bladder. Resident does not use side rails. He is low risk for fall per latest fall risk assessment completed. Interventions in place to help prevent falls include: non-slip footwear worn when out of bed, Dycem in wheelchair, call light within reach, visual hourly safety checks, bed in lowest position with bed brakes locked, staff anticipating needs and keeping environment clear of clutter. ROM program in place to be completed to RUE BID with no refusals noted over the last month.
[2022-10-14] MEDS: polyethylene glycoL 238 GM BULK BOTTLE 17 GM PO (07:25)
[2022-10-14] MEDS: ESCITALOPRAM 10 MG TABLET 20 MG PO (07:25)
[2022-10-14] MEDS: DOLUTEGRAVIR 50 MG 1 EACH PO ×2 (07:25→16:23)
[2022-10-14] MEDS: OXYCODONE 5 MG TABLET PO ×3 (07:25→19:21)
[2022-10-14] MEDS: ACETAMINOPHEN 500 MG TABLET 1000 MG PO ×3 (07:25→19:21)
[2022-10-14 09:48] VITALS: TEMP 36.6
--- NOTE | 2022-10-14 12:20 | PC.NURSE ---
Health status: Resident noted to having choking episode at lunch when he started coughing on Bulgarian garcia he was eating. Resident was able to clear food and spit Bulgarian garcia out. Floor nurse updated. Nursing staff to continue with lung sounds & temp every shift x 72 hours from now.
[2022-10-14 15:00] VITALS: TEMP 36.8
[2022-10-14 23:00] VITALS: TEMP 36.4
[2022-10-15] MEDS: ACETAMINOPHEN 500 MG TABLET 1000 MG PO ×3 (07:26→19:16)
[2022-10-15] MEDS: ESCITALOPRAM 10 MG TABLET 20 MG PO (07:26)
[2022-10-15] MEDS: DOLUTEGRAVIR 50 MG 1 EACH PO ×2 (07:26→15:17)
[2022-10-15] MEDS: OXYCODONE 5 MG TABLET PO ×3 (07:26→19:16)
[2022-10-15] MEDS: polyethylene glycoL 238 GM BULK BOTTLE 17 GM PO (07:26)
[2022-10-15 10:35] VITALS: TEMP 36.3
[2022-10-15 15:00] VITALS: TEMP 36.9
--- NOTE | 2022-10-15 15:39 | PC.SOCIAL ---
Attempted to complete PHQ-9 with resident x3 today. Resident is unable to communicate due to advanced dementia diagnosis. Staff interview completed.
[2022-10-15 23:00] VITALS: TEMP 36.6
[2022-10-16] MEDS: DOLUTEGRAVIR 50 MG 1 EACH PO ×2 (06:46→15:05)
[2022-10-16] MEDS: ESCITALOPRAM 10 MG TABLET 20 MG PO (06:46)
[2022-10-16] MEDS: ACETAMINOPHEN 500 MG TABLET 1000 MG PO ×3 (06:46→19:24)
[2022-10-16] MEDS: OXYCODONE 5 MG TABLET PO ×3 (06:46→19:24)
[2022-10-16] MEDS: polyethylene glycoL 238 GM BULK BOTTLE 17 GM PO (07:15)
[2022-10-16 08:00] VITALS: TEMP 36.9
[2022-10-16] MEDS: bisacodyL 10 MG SUPP.RECT PR (13:36)
[2022-10-16 15:00] VITALS: TEMP 36.7
[2022-10-17] MEDS: ACETAMINOPHEN 500 MG TABLET 1000 MG PO ×3 (07:18→19:31)
[2022-10-17] MEDS: polyethylene glycoL 238 GM BULK BOTTLE 17 GM PO (07:19)
[2022-10-17] MEDS: DOLUTEGRAVIR 50 MG 1 EACH PO ×2 (07:19→15:23)
[2022-10-17] MEDS: ESCITALOPRAM 10 MG TABLET 20 MG PO (07:19)
[2022-10-17] MEDS: OXYCODONE 5 MG TABLET PO ×3 (07:21→19:31)
[2022-10-17 08:00] VITALS: TEMP 36.8
--- NOTE | 2022-10-17 21:27 | PC.NURSE ---
Glucose monitoring: Resident 8 pm blood glucose is 71, requested ade crackers and milk for snack , snack given and eaten.
[2022-10-18] MEDS: ESCITALOPRAM 10 MG TABLET 20 MG PO (07:00)
[2022-10-18] MEDS: OXYCODONE 5 MG TABLET PO ×3 (07:01→19:38)
[2022-10-18] MEDS: DOLUTEGRAVIR 50 MG 1 EACH PO ×2 (07:01→15:28)
[2022-10-18] MEDS: polyethylene glycoL 238 GM BULK BOTTLE 17 GM PO (07:01)
[2022-10-18] MEDS: ACETAMINOPHEN 500 MG TABLET 1000 MG PO ×3 (07:02→19:38)
[2022-10-19] MEDS: ACETAMINOPHEN 500 MG TABLET 1000 MG PO ×3 (07:54→19:11)
[2022-10-19] MEDS: ESCITALOPRAM 10 MG TABLET 20 MG PO (07:55)
[2022-10-19] MEDS: OXYCODONE 5 MG TABLET PO ×3 (07:55→19:12)
[2022-10-19] MEDS: polyethylene glycoL 238 GM BULK BOTTLE 17 GM PO (07:55)
[2022-10-19] MEDS: DOLUTEGRAVIR 50 MG 1 EACH PO ×2 (07:55→15:36)
[2022-10-19 15:00] VITALS: BP 114/72; PULSE 66; RESP 18; TEMP 36.6; O2SAT 98
[2022-10-20] MEDS: ACETAMINOPHEN 500 MG TABLET 1000 MG PO ×3 (07:09→19:16)
[2022-10-20] MEDS: ESCITALOPRAM 10 MG TABLET 20 MG PO (07:10)
[2022-10-20] MEDS: DOLUTEGRAVIR 50 MG 1 EACH PO ×2 (07:11→15:11)
[2022-10-20] MEDS: polyethylene glycoL 238 GM BULK BOTTLE 17 GM PO (07:13)
[2022-10-20] MEDS: OXYCODONE 5 MG TABLET PO ×3 (07:14→19:17)
[2022-10-20 10:48] VITALS: BMI 29.8
--- NOTE | 2022-10-20 13:15 | PC.NURSE ---
Seen by EUGENIO Crews . Instructed to discontinue Tylenol 1000mg TID and start on Tylenol 1000mg BID
[2022-10-20 15:40] VITALS: BMI 29.8
--- NOTE | 2022-10-21 01:25 | PC.NURSE ---
Weekly charting Week 3. Toileting and Skin. Vital signs reviewed with no concerns. Comprehensive and temporary care plan reviewed with no changes made. Resident is incontinent of bowel and bladder. Requires total assist of 2 for toileting needs including anel-cares, pad, and clothing management. Wears XL brief with ultra guard in place. Is checked and changed on first and third rounds at night. SKIN: skin is clear no skin issue. Skin check done on bath days and during cares.
[2022-10-21] MEDS: ACETAMINOPHEN 500 MG TABLET 1000 MG PO ×2 (06:47→19:30)
[2022-10-21] MEDS: OXYCODONE 5 MG TABLET PO ×3 (06:47→19:30)
[2022-10-21] MEDS: ESCITALOPRAM 10 MG TABLET 20 MG PO (06:47)
[2022-10-21] MEDS: DOLUTEGRAVIR 50 MG 1 EACH PO ×2 (06:47→15:55)
[2022-10-21] MEDS: polyethylene glycoL 238 GM BULK BOTTLE 17 GM PO (08:07)
--- NOTE | 2022-10-21 09:00 | PC.NURSE ---
CAITLYN ATTEMPT: Attempted to do CAITLYN assessments, resident was unable to participate. Resident laughed at this nurse but did not respond verbally to any questions.
--- NOTE | 2022-10-21 11:38 | PC.NURSE ---
Weekly Charting- Week 3: Toileting & Skin Vital signs reviewed with no concerns noted. Temporary and comprehensive care plans reviewed with no changes made. No skin concerns noted with skin checks completed weekly on bath day and with cares. Resident wears XL briefs with ultra guard in place. He is incontinent of bowel and bladder. Total assist of 2 required for toileting including changing of brief, anel cares and clothing management. Staff check and change resident's brief as he is unable to alert staff when he needs to be changed and he does not use the toilet.
--- NOTE | 2022-10-21 14:00 | PC.NURSE ---
CAITLYN ATTEMPT #2: Attempted to do CAITLYN assessments, resident was unable to participate. Resident was unable to respond verbally or non-verbally to any questions when asked.
--- NOTE | 2022-10-21 16:15 | PC.SPIRITC ---
I provided visit for support and connection.
[2022-10-22] MEDS: DOLUTEGRAVIR 50 MG 1 EACH PO ×2 (06:37→15:33)
[2022-10-22] MEDS: ACETAMINOPHEN 500 MG TABLET 1000 MG PO ×2 (06:37→15:33)
[2022-10-22] MEDS: OXYCODONE 5 MG TABLET PO ×3 (06:37→19:16)
[2022-10-22] MEDS: ESCITALOPRAM 10 MG TABLET 20 MG PO (06:37)
[2022-10-22] MEDS: polyethylene glycoL 238 GM BULK BOTTLE 17 GM PO (07:34)
[2022-10-22] MEDS: MAGNESIUM HYDROXIDE 30 ML ORAL.SUSP PO (16:22)
[2022-10-23] MEDS: bisacodyL 10 MG SUPP.RECT PR (06:48)
[2022-10-23] MEDS: ACETAMINOPHEN 500 MG TABLET 1000 MG PO ×2 (08:41→15:49)
[2022-10-23] MEDS: ESCITALOPRAM 10 MG TABLET 20 MG PO (08:42)
[2022-10-23] MEDS: polyethylene glycoL 238 GM BULK BOTTLE 17 GM PO (08:42)
[2022-10-23] MEDS: OXYCODONE 5 MG TABLET PO ×3 (08:42→19:37)
[2022-10-23] MEDS: DOLUTEGRAVIR 50 MG 1 EACH PO ×2 (08:42→15:49)
[2022-10-24] MEDS: ACETAMINOPHEN 500 MG TABLET 1000 MG PO ×2 (07:38→16:44)
[2022-10-24] MEDS: OXYCODONE 5 MG TABLET PO ×3 (07:38→19:35)
[2022-10-24] MEDS: ESCITALOPRAM 10 MG TABLET 20 MG PO (07:38)
[2022-10-24] MEDS: DOLUTEGRAVIR 50 MG 1 EACH PO ×2 (07:38→16:44)
[2022-10-24] MEDS: polyethylene glycoL 238 GM BULK BOTTLE 17 GM PO (07:38)
[2022-10-25] MEDS: DOLUTEGRAVIR 50 MG 1 EACH PO ×2 (07:28→15:41)
[2022-10-25] MEDS: polyethylene glycoL 238 GM BULK BOTTLE 17 GM PO (07:28)
[2022-10-25] MEDS: ESCITALOPRAM 10 MG TABLET 20 MG PO (07:28)
[2022-10-25] MEDS: ACETAMINOPHEN 500 MG TABLET 1000 MG PO ×2 (07:28→15:41)
[2022-10-25] MEDS: OXYCODONE 5 MG TABLET PO ×3 (07:28→19:35)
[2022-10-26] MEDS: DOLUTEGRAVIR 50 MG 1 EACH PO ×2 (07:13→15:56)
[2022-10-26] MEDS: ACETAMINOPHEN 500 MG TABLET 1000 MG PO ×2 (07:13→15:55)
[2022-10-26] MEDS: polyethylene glycoL 238 GM BULK BOTTLE 17 GM PO (07:13)
[2022-10-26] MEDS: ESCITALOPRAM 10 MG TABLET 20 MG PO (07:13)
[2022-10-26] MEDS: OXYCODONE 5 MG TABLET PO ×3 (07:14→19:35)
[2022-10-26 15:00] VITALS: BP 94/59; PULSE 77; RESP 18; TEMP 36.9; O2SAT 96
[2022-10-26] MEDS: MAGNESIUM HYDROXIDE 30 ML ORAL.SUSP PO (16:07)
[2022-10-27] MEDS: ACETAMINOPHEN 500 MG TABLET 1000 MG PO ×2 (07:06→15:30)
[2022-10-27] MEDS: ESCITALOPRAM 10 MG TABLET 20 MG PO (07:06)
[2022-10-27] MEDS: DOLUTEGRAVIR 50 MG 1 EACH PO ×2 (07:07→15:30)
[2022-10-27] MEDS: polyethylene glycoL 238 GM BULK BOTTLE 17 GM PO (07:07)
[2022-10-27] MEDS: OXYCODONE 5 MG TABLET PO ×3 (07:09→19:24)
--- NOTE | 2022-10-27 13:12 | PC.SPIRITC ---
I provided visit for support and connection.
--- NOTE | 2022-10-28 01:56 | PC.NURSE ---
WEEKLY CHARTING WEEK 4 : COMMUNICATION, HEARING/VISION, COGNITION/BEHAVIORS Vital signs reviewed, no concerns. Comprehensive and temporary care plan reviewed, no changes made since 04/08/22. No changes noted in communication, hearing, vision, or orientation. Resident does not communicate needs, it`s anticipated by staff. No hearing and visual problems. He is oriented to self. Chronic health condition stable. All medications administered by Nurse. Mood/Behavior:? no latest behaviors ; Continues on Escitalopram 20mg daily with no adverse effects noted. No change in medication.
--- NOTE | 2022-10-28 06:55 | PC.NURSE ---
Weekly Charting- Week 4: Vital signs reviewed with lower B/P of 94/59 noted on 10/26/22. Resident's B/P does trend lower at times. No hypotensive s/s noted or reported with staff encouraging fluids as tolerated. Nursing to continue to monitor and updated provider with concerns PRN. Comprehensive and temporary care plans reviewed with no changes made. No additions to temporary care plan. No behaviors documented within the last month. Resident continues on Lexapro 20 mg daily with no adverse side effects noted. No changes in cognition as resident remains alert & oriented to self. Vision and hearing noted to be intact with no assistive devices used. EMERGENCY ROOM PHYSICIAN ASSISTANT gave order to decrease scheduled Tylenol 1000 mg to BID on 10/20/22. All medications are administered by licensed nurse with no adverse effects noted.
[2022-10-28] MEDS: DOLUTEGRAVIR 50 MG 1 EACH PO ×2 (07:01→16:08)
[2022-10-28] MEDS: ESCITALOPRAM 10 MG TABLET 20 MG PO (07:01)
[2022-10-28] MEDS: ACETAMINOPHEN 500 MG TABLET 1000 MG PO ×2 (07:01→16:08)
[2022-10-28] MEDS: OXYCODONE 5 MG TABLET PO ×3 (07:01→19:32)
[2022-10-28] MEDS: polyethylene glycoL 238 GM BULK BOTTLE 17 GM PO (07:01)
[2022-10-29] MEDS: ESCITALOPRAM 10 MG TABLET 20 MG PO (07:08)
[2022-10-29] MEDS: polyethylene glycoL 238 GM BULK BOTTLE 17 GM PO (07:08)
[2022-10-29] MEDS: ACETAMINOPHEN 500 MG TABLET 1000 MG PO ×2 (07:08→15:02)
[2022-10-29] MEDS: DOLUTEGRAVIR 50 MG 1 EACH PO ×2 (07:08→15:03)
[2022-10-29] MEDS: OXYCODONE 5 MG TABLET PO ×3 (07:09→19:02)
[2022-10-30] MEDS: ACETAMINOPHEN 500 MG TABLET 1000 MG PO ×2 (06:44→15:56)
[2022-10-30] MEDS: ESCITALOPRAM 10 MG TABLET 20 MG PO (06:44)
[2022-10-30] MEDS: DOLUTEGRAVIR 50 MG 1 EACH PO ×2 (06:44→15:56)
[2022-10-30] MEDS: OXYCODONE 5 MG TABLET PO ×3 (06:45→19:03)
[2022-10-30] MEDS: polyethylene glycoL 238 GM BULK BOTTLE 17 GM PO (08:09)
[2022-10-30] MEDS: bisacodyL 10 MG SUPP.RECT PR (13:38)
--- NOTE | 2022-10-30 21:25 | PC.NURSE ---
PER COACH PROFESSIONAL [employer]THLETES fax received from Dr Grisel Clemens for the following labs: HIV 1 quantitative NAAT and and CD4 count for immune monitoring
[2022-10-31] MEDS: ESCITALOPRAM 10 MG TABLET 20 MG PO (07:09)
[2022-10-31] MEDS: ACETAMINOPHEN 500 MG TABLET 1000 MG PO ×2 (07:09→15:39)
[2022-10-31] MEDS: DOLUTEGRAVIR 50 MG 1 EACH PO ×2 (07:10→15:40)
[2022-10-31] MEDS: polyethylene glycoL 238 GM BULK BOTTLE 17 GM PO (07:10)
[2022-10-31] MEDS: OXYCODONE 5 MG TABLET PO ×3 (07:11→19:07)
[2022-11-01] MEDS: OXYCODONE 5 MG TABLET PO ×3 (06:53→19:14)
[2022-11-01] MEDS: polyethylene glycoL 238 GM BULK BOTTLE 17 GM PO (06:53)
[2022-11-01] MEDS: ESCITALOPRAM 10 MG TABLET 20 MG PO (06:53)
[2022-11-01] MEDS: ACETAMINOPHEN 500 MG TABLET 1000 MG PO ×2 (06:53→15:33)
[2022-11-01] MEDS: DOLUTEGRAVIR 50 MG 1 EACH PO ×2 (06:53→15:33)
[2022-11-01 13:35] LABS: Absolute CD3 1785 cells/uL (570-2400); Absolute CD4:CD8 Ratio 0.61 ratio (0.80-3.90); Absolute CD8 1093 cells/uL (210-1200)
[2022-11-02] MEDS: ACETAMINOPHEN 500 MG TABLET 1000 MG PO ×2 (08:26→15:23)
[2022-11-02] MEDS: DOLUTEGRAVIR 50 MG 1 EACH PO ×2 (08:27→15:24)
[2022-11-02] MEDS: MAGNESIUM HYDROXIDE 30 ML ORAL.SUSP PO ×2 (08:27→15:25)
[2022-11-02] MEDS: OXYCODONE 5 MG TABLET PO ×3 (08:27→19:30)
[2022-11-02] MEDS: polyethylene glycoL 238 GM BULK BOTTLE 17 GM PO (08:27)
[2022-11-02] MEDS: ESCITALOPRAM 10 MG TABLET 20 MG PO (08:27)
[2022-11-02 15:00] VITALS: BP 127/81; PULSE 74; RESP 18; TEMP 36.9; O2SAT 94; BMI 30.5
--- NOTE | 2022-11-02 22:24 | PC.NURSE ---
MDS CLARIFICATION: Discrepancies suspected in ALLEN ADL charting. Staff were interviewed for clarification. Bed mobility: resident required total staff assist for all occurrences during the lookback. Coded as such. Amb in room and corridor: resident is total assist with deandre, does not ambulate or stand at any time. Did not occur any time during the lookback?coded as such. Loc on and off unit: Resident was dependent on staff for loc on and off unit during the entire lookback. Coded as such. Dressing: resident required total staff assist during the entire lookback. Coded as such. Toileting: resident was unable to provide any assistance during the lookback. Is dependent on staff at all times. Coded as such. Hygiene: resident was unable to provide any assistance with hygiene, total dependence on staff for all occurrences during the lookback. Coded as such.
[2022-11-03] MEDS: ESCITALOPRAM 10 MG TABLET 20 MG PO (07:00)
[2022-11-03] MEDS: polyethylene glycoL 238 GM BULK BOTTLE 17 GM PO (07:00)
[2022-11-03] MEDS: ACETAMINOPHEN 500 MG TABLET 1000 MG PO ×2 (07:00→15:21)
[2022-11-03] MEDS: DOLUTEGRAVIR 50 MG 1 EACH PO ×2 (07:00→15:21)
[2022-11-03] MEDS: OXYCODONE 5 MG TABLET PO ×3 (07:00→19:15)
--- NOTE | 2022-11-03 12:34 | PC.SPIRITC ---
I provided visit for support and connection and to walk Regan around outside.
--- NOTE | 2022-11-03 15:21 | PC.NURSE ---
CARE CONFERENCE: meeting held with care team members from nursing, dietary activities, and social worker aide. NAKITA Gudinot attempted to attend via phone, but had difficulty connecting during meeting time. This customs entry writer sent an E-mail to Sherice with update. Nursing reviewed that resident continues to need 2 ALLEN total assistance with dressing, grooming, mobility and bathing. Propelled by staff in wheelchair to and from activities. Chancellor advised team that weights are stable, gradually increasing since last review.?reforestation worker updated team that mood is stable and no concerns at this time. And Drying Supervisor Cooking Casing noted that resident is having increased coughing/choking episodes with eating and taking medications. This resolves with reminders to try not laugh while eating or drinking as Regan is documented to have episodes while laughing. RN/LPNs are listening to lung sounds and monitoring temp for 72 hours after any episodes. POLST reviewed. Is DNR/DNI. Uses no restraints.?Medications administered by nurse. Vulnerability- is at risk for being harmed due to mobility limitations and cognition. Family visits regularly. Resident has appointment tomorrow, 11/04/22 with infectious disease MD at [facility] at 4pm. This customs entry writer and NAKITA will attend appointment with resident. There are no discharge plans. No further questions/concerns at this time.
--- NOTE | 2022-11-03 15:35 | PC.SOCIAL ---
Resident's care conference was held today. No family was present. Resident has had a stable quarter no s/s of depression. Family is supportive.
[2022-11-04] MEDS: ACETAMINOPHEN 500 MG TABLET 1000 MG PO ×2 (07:02→15:50)
[2022-11-04] MEDS: OXYCODONE 5 MG TABLET PO ×3 (07:02→20:50)
[2022-11-04] MEDS: polyethylene glycoL 238 GM BULK BOTTLE 17 GM PO (07:02)
[2022-11-04] MEDS: DOLUTEGRAVIR 50 MG 1 EACH PO ×2 (07:02→15:51)
[2022-11-04] MEDS: ESCITALOPRAM 10 MG TABLET 20 MG PO (07:02)
--- NOTE | 2022-11-04 17:14 | PC.NURSE ---
Resident had appointment today with Infectious Disease provider at [facility] via virtual visit. His [id number], Sherice attended scheduled and attended appointment. Provider reviewed recent lab work and did not make any changes to medications or regimen. Concerns regarding resident's choking/swallowing were addressed, but no recommendations made. Will continue to monitor his swallowing and update provider with increasing episodes. MD recommended follow up in 6 months with regular provider Dr. Clemens. Sherice will make appointment when nearing this timeline. MD states they will send lab orders prior to appointment so they can be reviewed. All questions answered.
[2022-11-05] MEDS: DOLUTEGRAVIR 50 MG 1 EACH PO ×2 (07:02→15:40)
[2022-11-05] MEDS: OXYCODONE 5 MG TABLET PO ×3 (07:02→19:11)
[2022-11-05] MEDS: ESCITALOPRAM 10 MG TABLET 20 MG PO (07:02)
[2022-11-05] MEDS: ACETAMINOPHEN 500 MG TABLET 1000 MG PO ×2 (07:02→15:40)
[2022-11-05] MEDS: polyethylene glycoL 238 GM BULK BOTTLE 17 GM PO (07:02)
--- NOTE | 2022-11-05 14:47 | PC.PHA1 ---
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 Still quite hesitant to GDR SSRI due to past behaviors. SUGGESTED COURSE OF ACTION TAKEN: No medication recommendations this review.
[2022-11-06] MEDS: ACETAMINOPHEN 500 MG TABLET 1000 MG PO ×2 (07:05→15:19)
[2022-11-06] MEDS: polyethylene glycoL 238 GM BULK BOTTLE 17 GM PO (07:05)
[2022-11-06] MEDS: ESCITALOPRAM 10 MG TABLET 20 MG PO (07:05)
[2022-11-06] MEDS: OXYCODONE 5 MG TABLET PO ×3 (07:06→20:20)
[2022-11-06] MEDS: DOLUTEGRAVIR 50 MG 1 EACH PO ×2 (07:06→15:21)
--- NOTE | 2022-11-06 17:35 | PC.NURSE ---
[facility] sent lab orders to be reviewed for his appt. in 6 months. Orders placed in chart.
[2022-11-07] MEDS: ESCITALOPRAM 10 MG TABLET 20 MG PO (07:51)
[2022-11-07] MEDS: OXYCODONE 5 MG TABLET PO ×3 (07:51→19:34)
[2022-11-07] MEDS: polyethylene glycoL 238 GM BULK BOTTLE 17 GM PO (07:51)
[2022-11-07] MEDS: ACETAMINOPHEN 500 MG TABLET 1000 MG PO ×2 (07:51→15:10)
[2022-11-07] MEDS: DOLUTEGRAVIR 50 MG 1 EACH PO ×2 (07:51→15:10)
[2022-11-08] MEDS: ACETAMINOPHEN 500 MG TABLET 1000 MG PO ×2 (07:32→15:28)
[2022-11-08] MEDS: ESCITALOPRAM 10 MG TABLET 20 MG PO (07:33)
[2022-11-08] MEDS: OXYCODONE 5 MG TABLET PO ×3 (07:33→19:25)
[2022-11-08] MEDS: DOLUTEGRAVIR 50 MG 1 EACH PO ×2 (07:33→15:28)
[2022-11-08] MEDS: polyethylene glycoL 238 GM BULK BOTTLE 17 GM PO (07:34)
[2022-11-09] MEDS: polyethylene glycoL 238 GM BULK BOTTLE 17 GM PO (07:01)
[2022-11-09] MEDS: OXYCODONE 5 MG TABLET PO ×3 (07:01→20:58)
[2022-11-09] MEDS: ESCITALOPRAM 10 MG TABLET 20 MG PO (07:01)
[2022-11-09] MEDS: ACETAMINOPHEN 500 MG TABLET 1000 MG PO ×2 (07:01→16:15)
[2022-11-09] MEDS: DOLUTEGRAVIR 50 MG 1 EACH PO ×2 (07:01→16:15)
[2022-11-09 15:00] VITALS: BP 109/68; PULSE 64; RESP 18; TEMP 36.7; O2SAT 94; BMI 29.9
--- NOTE | 2022-11-09 15:06 | PC.SPIRITC ---
I provided visit for support and connection.
[2022-11-10] MEDS: ACETAMINOPHEN 500 MG TABLET 1000 MG PO ×2 (07:06→15:22)
[2022-11-10] MEDS: polyethylene glycoL 238 GM BULK BOTTLE 17 GM PO (07:07)
[2022-11-10] MEDS: ESCITALOPRAM 10 MG TABLET 20 MG PO (07:07)
[2022-11-10] MEDS: OXYCODONE 5 MG TABLET PO ×3 (07:07→20:12)
[2022-11-10] MEDS: DOLUTEGRAVIR 50 MG 1 EACH PO ×2 (07:07→15:23)
--- NOTE | 2022-11-10 11:11 | PC.NURSE ---
Recert Visit: Resident seen by CHANNEL INSTALLERMars. Orders reviewed and renewed of 75 days with no changes.
--- NOTE | 2022-11-11 02:02 | PC.NURSE ---
WEEKLY CHARTING ? WEEK 1: PAIN AND ADL`S Vital signs reviewed ? no concerns. Temporary and comprehensive care plan reviewed ? no change. Resident requires assist of two with dressing, grooming, bathing, and oral cares. History of laughing during meals, swallowing foods whole, and pocketing food in mouth. Assisted at meals times, foods cut up and reminder to chew thoroughly. Family declines mechanically altered diet. Gradual weight loss noted. PAIN Resident has history of chronic right shoulder pain of unknown etiology ;receives Oxycodone 5mg TID and acetaminophen 1000mg changed to BID (11/03/22) for pain management which is noted to be effective.
[2022-11-11] MEDS: ACETAMINOPHEN 500 MG TABLET 1000 MG PO ×2 (07:03→15:31)
[2022-11-11] MEDS: DOLUTEGRAVIR 50 MG 1 EACH PO ×2 (07:03→15:31)
[2022-11-11] MEDS: polyethylene glycoL 238 GM BULK BOTTLE 17 GM PO (07:03)
[2022-11-11] MEDS: OXYCODONE 5 MG TABLET PO ×3 (07:03→19:10)
[2022-11-11] MEDS: ESCITALOPRAM 10 MG TABLET 20 MG PO (07:03)
--- NOTE | 2022-11-11 11:26 | PC.NURSE ---
Weekly Charting, Week 1- ADL's: Comprehensive and temporary care plan reviewed. No changes made, and nothing added to temporary care plan. Resident needs 2 assists with dressing, grooming and bathing. Staff does oral cares. Is feed by staff. Is on regular diet & texture, thin liquids. Will sometimes feed self with finger foods. Is able to drink liquids from glass/cup. Resident will keep food in mouth. Needs encouragement/coaxing to swallow. Vital signs reviewed, per his baseline. Continue with weekly monitoring. Pain: Chronic pain is managed with? Tylenol 1000mg TID, Oxycodone 5 mg TID. No pain noted. Staff anticipates need for pain through non verbal gestures as resident is not able to communicate needs.
--- NOTE | 2022-11-11 14:06 | PC.SPIRITC ---
I provided visit for support and connection.
[2022-11-12] MEDS: ESCITALOPRAM 10 MG TABLET 20 MG PO (07:46)
[2022-11-12] MEDS: DOLUTEGRAVIR 50 MG 1 EACH PO ×2 (07:46→15:23)
[2022-11-12] MEDS: polyethylene glycoL 238 GM BULK BOTTLE 17 GM PO (07:46)
[2022-11-12] MEDS: OXYCODONE 5 MG TABLET PO ×3 (07:46→19:09)
[2022-11-12] MEDS: ACETAMINOPHEN 500 MG TABLET 1000 MG PO ×2 (07:46→15:23)
[2022-11-13] MEDS: OXYCODONE 5 MG TABLET PO ×3 (07:10→19:08)
[2022-11-13] MEDS: ESCITALOPRAM 10 MG TABLET 20 MG PO (07:10)
[2022-11-13] MEDS: ACETAMINOPHEN 500 MG TABLET 1000 MG PO ×2 (07:10→15:41)
[2022-11-13] MEDS: DOLUTEGRAVIR 50 MG 1 EACH PO ×2 (07:10→15:41)
[2022-11-13] MEDS: polyethylene glycoL 238 GM BULK BOTTLE 17 GM PO (08:06)
[2022-11-14] MEDS: ESCITALOPRAM 10 MG TABLET 20 MG PO (07:06)
[2022-11-14] MEDS: OXYCODONE 5 MG TABLET PO ×3 (07:06→19:03)
[2022-11-14] MEDS: DOLUTEGRAVIR 50 MG 1 EACH PO ×2 (07:06→15:50)
[2022-11-14] MEDS: ACETAMINOPHEN 500 MG TABLET 1000 MG PO ×2 (07:06→15:50)
[2022-11-14] MEDS: polyethylene glycoL 238 GM BULK BOTTLE 17 GM PO (08:33)
[2022-11-15] MEDS: DOLUTEGRAVIR 50 MG 1 EACH PO ×2 (07:32→15:53)
[2022-11-15] MEDS: ACETAMINOPHEN 500 MG TABLET 1000 MG PO ×2 (07:32→15:53)
[2022-11-15] MEDS: OXYCODONE 5 MG TABLET PO ×3 (07:32→19:15)
[2022-11-15] MEDS: ESCITALOPRAM 10 MG TABLET 20 MG PO (07:32)
[2022-11-15] MEDS: polyethylene glycoL 238 GM BULK BOTTLE 17 GM PO (07:32)
[2022-11-16] MEDS: DOLUTEGRAVIR 50 MG 1 EACH PO ×2 (07:11→15:37)
[2022-11-16] MEDS: polyethylene glycoL 238 GM BULK BOTTLE 17 GM PO (07:11)
[2022-11-16] MEDS: ACETAMINOPHEN 500 MG TABLET 1000 MG PO ×2 (07:11→15:37)
[2022-11-16] MEDS: OXYCODONE 5 MG TABLET PO ×3 (07:11→19:17)
[2022-11-16] MEDS: ESCITALOPRAM 10 MG TABLET 20 MG PO (07:11)
[2022-11-16 15:00] VITALS: BP 104/72; PULSE 78; RESP 16; TEMP 36.6; O2SAT 93
[2022-11-17] MEDS: OXYCODONE 5 MG TABLET PO ×3 (07:15→19:19)
[2022-11-17] MEDS: ESCITALOPRAM 10 MG TABLET 20 MG PO (07:15)
[2022-11-17] MEDS: polyethylene glycoL 238 GM BULK BOTTLE 17 GM PO (07:15)
[2022-11-17] MEDS: ACETAMINOPHEN 500 MG TABLET 1000 MG PO ×2 (07:15→15:24)
[2022-11-17] MEDS: DOLUTEGRAVIR 50 MG 1 EACH PO ×2 (07:15→15:24)
--- NOTE | 2022-11-18 00:56 | PC.NURSE ---
Weekly Charting Week 2: Mobility Vital signs reviewed with no concerns. Comprehensive and temporary care plan reviewed with no changes made. Resident needs extensive assist 1- 2 staff with bed mobility. Total assist of 2 assist with transfers using the mechanical lift at all times. Staff wheels to all destinations. Able to proper himself in short distance. Staff to check and assist resident make significant changes every 2 hours, reposition/offload. Non ambulatory. No alarms. Staff to do ROM of (R) upper extremity BID noted refusal on the past month. Fall: No falls the past month. Remains?a low fall risk according to assessment done on 10/21/22. Fall interventions: call light within reach, bed in low position with brakes locked, hourly safety visual checks for safety, dycem? in wheelchair. Able to use call light for needs, Staff to check as needed.
[2022-11-18] MEDS: ACETAMINOPHEN 500 MG TABLET 1000 MG PO ×2 (07:00→15:06)
[2022-11-18] MEDS: ESCITALOPRAM 10 MG TABLET 20 MG PO (07:00)
[2022-11-18] MEDS: DOLUTEGRAVIR 50 MG 1 EACH PO ×2 (07:00→15:06)
[2022-11-18] MEDS: polyethylene glycoL 238 GM BULK BOTTLE 17 GM PO (07:01)
[2022-11-18] MEDS: OXYCODONE 5 MG TABLET PO ×3 (07:01→19:38)
--- NOTE | 2022-11-18 07:43 | PC.NURSE ---
Weekly Charting, Week 2: Mobility: Comprehensive and temporary care plan reviewed. No changes made and nothing added to temporary care plan. ?Resident is non ambulatory. Transfers with 2 assists using the mechanical lift at all times. Can wheel self at times short distance without a purpose. Staff wheels to all destinations. Can make slight changes in body positioning. Staff to check and assist resident make significant changes every 2 hours, reposition/offload. No alarms. Staff to do ROM of (R) upper extremity BID. Vital signs reviewed, per his baseline. Continue weekly VS monitoring. Fall: No falls the past month. Remains? a low fall risk according to assessment done on 10/21/22. Fall interventions: call light within reach, bed in low position with brakes locked, not to be left alone in room in w/c, hourly visual checks for safety, dycem? in wheelchair, check/change in bed by 0700.
[2022-11-19] MEDS: ACETAMINOPHEN 500 MG TABLET 1000 MG PO ×2 (07:35→15:28)
[2022-11-19] MEDS: polyethylene glycoL 238 GM BULK BOTTLE 17 GM PO (07:36)
[2022-11-19] MEDS: DOLUTEGRAVIR 50 MG 1 EACH PO ×2 (07:36→15:28)
[2022-11-19] MEDS: ESCITALOPRAM 10 MG TABLET 20 MG PO (07:36)
[2022-11-19] MEDS: OXYCODONE 5 MG TABLET PO ×3 (07:36→19:13)
--- NOTE | 2022-11-19 10:18 | PC.SPIRITC ---
I provided visit while Regan waited for breakfast.
[2022-11-20] MEDS: DOLUTEGRAVIR 50 MG 1 EACH PO ×2 (08:43→15:43)
[2022-11-20] MEDS: polyethylene glycoL 238 GM BULK BOTTLE 17 GM PO (08:43)
[2022-11-20] MEDS: OXYCODONE 5 MG TABLET PO ×3 (08:43→19:25)
[2022-11-20] MEDS: ESCITALOPRAM 10 MG TABLET 20 MG PO (08:43)
[2022-11-20] MEDS: ACETAMINOPHEN 500 MG TABLET 1000 MG PO ×2 (08:43→15:43)
[2022-11-21] MEDS: polyethylene glycoL 238 GM BULK BOTTLE 17 GM PO (07:26)
[2022-11-21] MEDS: ESCITALOPRAM 10 MG TABLET 20 MG PO (07:26)
[2022-11-21] MEDS: OXYCODONE 5 MG TABLET PO ×3 (07:26→20:16)
[2022-11-21] MEDS: DOLUTEGRAVIR 50 MG 1 EACH PO ×2 (07:26→15:26)
[2022-11-21] MEDS: ACETAMINOPHEN 500 MG TABLET 1000 MG PO ×2 (07:26→15:25)
[2022-11-22] MEDS: OXYCODONE 5 MG TABLET PO ×3 (07:13→19:53)
[2022-11-22] MEDS: DOLUTEGRAVIR 50 MG 1 EACH PO ×2 (07:13→15:11)
[2022-11-22] MEDS: ACETAMINOPHEN 500 MG TABLET 1000 MG PO ×2 (07:13→15:10)
[2022-11-22] MEDS: ESCITALOPRAM 10 MG TABLET 20 MG PO (07:13)
[2022-11-22] MEDS: polyethylene glycoL 238 GM BULK BOTTLE 17 GM PO (07:14)
[2022-11-23] MEDS: polyethylene glycoL 238 GM BULK BOTTLE 17 GM PO (08:04)
[2022-11-23] MEDS: ESCITALOPRAM 10 MG TABLET 20 MG PO (08:04)
[2022-11-23] MEDS: ACETAMINOPHEN 500 MG TABLET 1000 MG PO ×2 (08:04→15:08)
[2022-11-23] MEDS: OXYCODONE 5 MG TABLET PO ×3 (08:04→19:54)
[2022-11-23] MEDS: DOLUTEGRAVIR 50 MG 1 EACH PO ×2 (08:04→15:08)
[2022-11-23 15:00] VITALS: BP 103/68; PULSE 74; RESP 16; TEMP 36.7; O2SAT 97
[2022-11-24] MEDS: ACETAMINOPHEN 500 MG TABLET 1000 MG PO ×2 (07:00→15:02)
[2022-11-24] MEDS: polyethylene glycoL 238 GM BULK BOTTLE 17 GM PO (07:00)
[2022-11-24] MEDS: ESCITALOPRAM 10 MG TABLET 20 MG PO (07:00)
[2022-11-24] MEDS: DOLUTEGRAVIR 50 MG 1 EACH PO ×2 (07:00→15:02)
[2022-11-24] MEDS: OXYCODONE 5 MG TABLET PO ×3 (07:00→19:02)
--- NOTE | 2022-11-24 09:49 | PC.SOCIAL ---
Follow up phone call to the following SNF's for possible placement. 1. [facility] in [place]- Left a message. 2. [facility] in [place]- Left a voicemail. 3. [facility] in [place]- Left a voicemail. 4. [facility] in [place]- Spoke to Yuly in admissions and she informed me that resident's referral was declined due to high costs of needed medication. Provided update to resident's family member (Sherice) as requested. Social work will continue to follow up as needed.
--- NOTE | 2022-11-25 02:21 | PC.NURSE ---
WEEK 3 TOILETING AND SKIN WEEKLY CHARTING Vital signs reviewed and there is no concern. Comprehensive and temporary care plan reviewed. No changes made, nothing added to temporary care plan lately. Resident is incontinent of bowel and bladder. He is assist of two with transfer using Srikanth. He does not use the toilet , he is check and change at night. He uses? x-large briefs with ultra guard in place. Skin: Skin is assessed more particularly at bath days. No concerns at this moment.
--- NOTE | 2022-11-25 07:09 | PC.NURSE ---
Weekly Charting, Week 3 - Toileting: Comprehensive and temporary care plan reviewed. No changes made, & nothing added to temporary care plan. Resident is incontinent of bowel and bladder. Does not use the toilet. Is checked and changed in bed @ 0700, before and after meals and PRN. Wears x-large briefs with ultra guard in place. Needs 2 assists with all toileting including pads, anel cares & clothing management. Vital signs reviewed, per his baseline. Continue with weekly monitoring. Skin: No issues at this time. Skin is routinely checked during cares and on bath days.
[2022-11-25] MEDS: polyethylene glycoL 238 GM BULK BOTTLE 17 GM PO (07:14)
[2022-11-25] MEDS: OXYCODONE 5 MG TABLET PO ×3 (07:14→19:12)
[2022-11-25] MEDS: ACETAMINOPHEN 500 MG TABLET 1000 MG PO ×2 (07:14→15:21)
[2022-11-25] MEDS: ESCITALOPRAM 10 MG TABLET 20 MG PO (07:14)
[2022-11-25] MEDS: DOLUTEGRAVIR 50 MG 1 EACH PO ×2 (07:14→15:21)
--- NOTE | 2022-11-25 09:47 | PC.PHA1 ---
OPERATOR CAVITY PUMP PHARMACIST'S MEDICATION REVIEW: MEDICATION MONITORING:Escitalopram 20 mg daily IRREGULARITY OR COMMENTS:Patient continues on same medication regimen, all medications with corresponding indications. Continuation of escitalopram appropriate, GDR clinically contraindicated. Antiviral medications prescribed by [facility] infectious disease specialist. SUGGESTED COURSE OF ACTION TAKEN:No medication recommendations this review.
[2022-11-26] MEDS: MAGNESIUM HYDROXIDE 30 ML ORAL.SUSP PO (07:05)
[2022-11-26] MEDS: ACETAMINOPHEN 500 MG TABLET 1000 MG PO ×2 (07:07→15:27)
[2022-11-26] MEDS: DOLUTEGRAVIR 50 MG 1 EACH PO ×2 (07:08→15:27)
[2022-11-26] MEDS: polyethylene glycoL 238 GM BULK BOTTLE 17 GM PO (07:08)
[2022-11-26] MEDS: OXYCODONE 5 MG TABLET PO ×3 (07:08→19:45)
[2022-11-26] MEDS: ESCITALOPRAM 10 MG TABLET 20 MG PO (07:08)
[2022-11-27] MEDS: DOLUTEGRAVIR 50 MG 1 EACH PO ×2 (07:06→15:27)
[2022-11-27] MEDS: ACETAMINOPHEN 500 MG TABLET 1000 MG PO ×2 (07:06→15:27)
[2022-11-27] MEDS: OXYCODONE 5 MG TABLET PO ×3 (07:06→19:27)
[2022-11-27] MEDS: ESCITALOPRAM 10 MG TABLET 20 MG PO (07:06)
[2022-11-27] MEDS: polyethylene glycoL 238 GM BULK BOTTLE 17 GM PO (07:07)
--- NOTE | 2022-11-27 15:39 | PC.SOCIAL ---
Phone calls to the following SNF's for possible placement. 1. [facility] in [place]- [phone]. Left a voicemail for Marisabel in admissions inquiring on bed availability. 2. [facility] in [place]- [phone]. Left a voicemail for Katelyn in admissions on bed availability. 3. [facility] in [place]- [phone]. Spoke with Jina Villavicencio and there are no LTC beds available. There are Assisted Living openings, but they are not able to accept higher levels of care. Resident is a 2 assist. 4. [facility]- [phone]. There are openings and will accept referral. Fax is [phone]. Family informed they do not want to consider this option. Phone call to resident's family (Sherice Mckeon) and provided update. Discussed [facility] in [place] and [facility] in [place]. Sherice will discuss with family this weekend and will contact this worker on Wednesday. Social work will follow up as needed.
[2022-11-28] MEDS: ESCITALOPRAM 10 MG TABLET 20 MG PO (07:00)
[2022-11-28] MEDS: ACETAMINOPHEN 500 MG TABLET 1000 MG PO ×2 (07:00→15:27)
[2022-11-28] MEDS: DOLUTEGRAVIR 50 MG 1 EACH PO ×2 (07:00→15:28)
[2022-11-28] MEDS: polyethylene glycoL 238 GM BULK BOTTLE 17 GM PO (07:01)
[2022-11-28] MEDS: OXYCODONE 5 MG TABLET PO ×3 (07:01→19:16)
[2022-11-29] MEDS: ESCITALOPRAM 10 MG TABLET 20 MG PO (07:03)
[2022-11-29] MEDS: DOLUTEGRAVIR 50 MG 1 EACH PO ×2 (07:03→15:46)
[2022-11-29] MEDS: OXYCODONE 5 MG TABLET PO ×3 (07:03→19:23)
[2022-11-29] MEDS: ACETAMINOPHEN 500 MG TABLET 1000 MG PO ×2 (07:03→15:45)
[2022-11-29] MEDS: polyethylene glycoL 238 GM BULK BOTTLE 17 GM PO (07:03)
[2022-11-30] MEDS: MAGNESIUM HYDROXIDE 30 ML ORAL.SUSP PO (07:08)
[2022-11-30] MEDS: ESCITALOPRAM 10 MG TABLET 20 MG PO (07:14)
[2022-11-30] MEDS: polyethylene glycoL 238 GM BULK BOTTLE 17 GM PO (07:14)
[2022-11-30] MEDS: OXYCODONE 5 MG TABLET PO ×3 (07:14→19:06)
[2022-11-30] MEDS: ACETAMINOPHEN 500 MG TABLET 1000 MG PO ×2 (07:14→15:01)
[2022-11-30] MEDS: DOLUTEGRAVIR 50 MG 1 EACH PO ×2 (07:14→15:01)
[2022-11-30 09:30] VITALS: BP 118/66; PULSE 72; RESP 18; TEMP 36.4; O2SAT 96
--- NOTE | 2022-11-30 23:58 | PC.NURSE ---
Weekly Charting Week 4 Vital signs reviewed with no concern. Comprehensive and temporary care plan reviewed with no changes made.No behavior documented in the past month. Currently on Escitalopram 20mg daily with no adverse effects noted. No changes of communication, hearing, cognition noted. Staff anticipate needs as resident is unable to communicate needs. Hearing and vision is intact. All medications administered by licensed nurse. Health condition currently stable.
[2022-12-01] MEDS: ESCITALOPRAM 10 MG TABLET 20 MG PO (07:00)
[2022-12-01] MEDS: OXYCODONE 5 MG TABLET PO ×3 (07:00→19:22)
[2022-12-01] MEDS: DOLUTEGRAVIR 50 MG 1 EACH PO ×2 (07:00→15:40)
[2022-12-01] MEDS: polyethylene glycoL 238 GM BULK BOTTLE 17 GM PO (07:00)
[2022-12-01] MEDS: ACETAMINOPHEN 500 MG TABLET 1000 MG PO ×2 (07:00→15:40)
--- NOTE | 2022-12-01 07:14 | PC.NURSE ---
Weekly Charting- Week 4: Comprehensive & temporary care plan reviewed. No changes made. Nothing added to temporary care plan. No changes noted in communication, hearing, vision, or orientation. Needs anticipated by staff. Does not communicate needs. No hearing and visual problems. Is oriented to self. Chronic health condition stable. All medications administered by Nurse. Vital signs reviewed, no concerns. Mood/Behavior: No issues the past month. Continues on Escitalopram 20mg daily with no adverse effects noted. No change in medication.
[2022-12-02] MEDS: polyethylene glycoL 238 GM BULK BOTTLE 17 GM PO (07:01)
[2022-12-02] MEDS: ACETAMINOPHEN 500 MG TABLET 1000 MG PO ×2 (07:01→16:21)
[2022-12-02] MEDS: ESCITALOPRAM 10 MG TABLET 20 MG PO (07:01)
[2022-12-02] MEDS: DOLUTEGRAVIR 50 MG 1 EACH PO ×2 (07:01→16:21)
[2022-12-02] MEDS: OXYCODONE 5 MG TABLET PO ×3 (07:01→19:45)
[2022-12-03] MEDS: ACETAMINOPHEN 500 MG TABLET 1000 MG PO ×2 (07:06→17:00)
[2022-12-03] MEDS: OXYCODONE 5 MG TABLET PO ×3 (07:06→19:02)
[2022-12-03] MEDS: polyethylene glycoL 238 GM BULK BOTTLE 17 GM PO (07:06)
[2022-12-03] MEDS: ESCITALOPRAM 10 MG TABLET 20 MG PO (07:06)
[2022-12-03] MEDS: DOLUTEGRAVIR 50 MG 1 EACH PO ×2 (07:06→17:00)
[2022-12-03 11:27] VITALS: BP 112/75; PULSE 81; RESP 20; TEMP 36.3; O2SAT 98
[2022-12-03 11:28] VITALS: BMI 30.2
--- NOTE | 2022-12-03 11:43 | PC.SOCIAL ---
Addendum entered by VANESSA Gillis 12/03/22 12:45: Received phone call from resident's family member (Sherice Mckeon) stating that she contacted a few facilities near [place] with no luck in finding openings. Family is ok with proceeding with [facility] in [place] if there is still an opening. Family would like resident to be placed on waitlist at [facility]. Informed family this worker will keep them updated. Phone call to Jimena at [facility] and left voicemail informing family would like to be on waitlist. Phone call to Billie at [facility] to see if the facility still has the opening that was offered to resident. Billie will call back and let this worker know as she needs to speak with the research administrator. Social work will follow up as needed. Original Note: Discharge planning- Phone call to [facility] in [place] and spoke to Elvia ([employer]). Elvia informed they are declining pt due to not being able to meet pt's needs. Phone call to Jimena at [facility]. Jimena informs they are declining pt for admission due to not having a private room/private bathroom available at this time. Phone call to pt's family (Sherice) no answer, and unable to leave a message. Sent e-mail to Sherice providing update and asking if this worker could contact [facility] in [place]. Social work will follow up as needed.
[2022-12-04] MEDS: ESCITALOPRAM 10 MG TABLET 20 MG PO (07:46)
[2022-12-04] MEDS: ACETAMINOPHEN 500 MG TABLET 1000 MG PO ×2 (07:46→16:52)
[2022-12-04] MEDS: OXYCODONE 5 MG TABLET PO ×3 (07:46→19:05)
[2022-12-04] MEDS: polyethylene glycoL 238 GM BULK BOTTLE 17 GM PO (07:46)
[2022-12-04] MEDS: DOLUTEGRAVIR 50 MG 1 EACH PO ×2 (07:46→16:52)
--- NOTE | 2022-12-04 16:05 | PC.SOCIAL ---
Spoke to resident's family (Sherice Mckeon) and she informed that the family will continue to try to seek placement after resident moves to [place] as the family does not want resident to stay at [place] [facility]. Family requests that this worker send information to SNF in [place]. Social work will follow up as needed.
[2022-12-05] MEDS: polyethylene glycoL 238 GM BULK BOTTLE 17 GM PO (07:15)
[2022-12-05] MEDS: ACETAMINOPHEN 500 MG TABLET 1000 MG PO ×2 (07:15→16:16)
[2022-12-05] MEDS: ESCITALOPRAM 10 MG TABLET 20 MG PO (07:15)
[2022-12-05] MEDS: DOLUTEGRAVIR 50 MG 1 EACH PO ×2 (07:15→16:16)
[2022-12-05] MEDS: OXYCODONE 5 MG TABLET PO ×3 (07:15→19:24)
[2022-12-06] MEDS: DOLUTEGRAVIR 50 MG 1 EACH PO ×2 (07:17→16:51)
[2022-12-06] MEDS: ESCITALOPRAM 10 MG TABLET 20 MG PO (07:17)
[2022-12-06] MEDS: OXYCODONE 5 MG TABLET PO ×3 (07:17→19:10)
[2022-12-06] MEDS: ACETAMINOPHEN 500 MG TABLET 1000 MG PO ×2 (07:17→16:50)
[2022-12-06] MEDS: polyethylene glycoL 238 GM BULK BOTTLE 17 GM PO (07:18)
--- NOTE | 2022-12-06 19:37 | PC.NURSE ---
Scratch: Was reported by ALLEN that resident had a small scratch on the left side of his scrotum. Not bleeding. Had he apply Sensicare to the area and will have this done with each pad change.
--- NOTE | 2022-12-07 06:37 | PC.NURSE ---
Skin: No scratch noted to scrotum on skin check with bath
[2022-12-07 07:22] VITALS: BP 109/76; PULSE 70; RESP 18; TEMP 36.3; O2SAT 94; BMI 29.7
[2022-12-07] MEDS: DOLUTEGRAVIR 50 MG 1 EACH PO ×2 (08:00→16:48)
[2022-12-07] MEDS: OXYCODONE 5 MG TABLET PO ×3 (08:00→20:33)
[2022-12-07] MEDS: ESCITALOPRAM 10 MG TABLET 20 MG PO (08:00)
[2022-12-07] MEDS: ACETAMINOPHEN 500 MG TABLET 1000 MG PO ×2 (08:00→16:48)
[2022-12-07] MEDS: polyethylene glycoL 238 GM BULK BOTTLE 17 GM PO (08:00)
[2022-12-07 12:48] VITALS: BMI 30.4
[2022-12-08] MEDS: polyethylene glycoL 238 GM BULK BOTTLE 17 GM PO (07:11)
[2022-12-08] MEDS: ACETAMINOPHEN 500 MG TABLET 1000 MG PO ×2 (07:11→15:11)
[2022-12-08] MEDS: OXYCODONE 5 MG TABLET PO ×3 (07:11→19:29)
[2022-12-08] MEDS: ESCITALOPRAM 10 MG TABLET 20 MG PO (07:11)
[2022-12-08] MEDS: DOLUTEGRAVIR 50 MG 1 EACH PO ×2 (07:11→15:11)
--- NOTE | 2022-12-08 15:37 | PC.SOCIAL ---
Completed Preadmission screening for resident to admit to [facility] in [place]. Confirmation #[id number].
[2022-12-09] MEDS: ESCITALOPRAM 10 MG TABLET 20 MG PO (07:00)
[2022-12-09] MEDS: OXYCODONE 5 MG TABLET PO ×2 (07:00→11:02)
[2022-12-09] MEDS: ACETAMINOPHEN 500 MG TABLET 1000 MG PO (07:00)
[2022-12-09] MEDS: polyethylene glycoL 238 GM BULK BOTTLE 17 GM PO (07:00)
[2022-12-09] MEDS: DOLUTEGRAVIR 50 MG 1 EACH PO (07:00)
--- NOTE | 2022-12-09 11:45 | PC.NURSE ---
Resident discharged to [facility] in [place] at this time accompanied by LTC staff. All belongings removed from room and medications sent with LTC nurse.
--- NOTE | 2022-12-09 13:56 | PC.NURSE ---
RECAPITULATION NOTE: Resident was admitted to [facility] on 05/31/2017. 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 Resident was sent with discharge orders, remaining supply of medications, POLST/Advance directives, signed active med list, active care plan and MDS. They did require prescription for controlled substance (Oxycodone). Belongings were inventoried and signed. Discharge summary completed by provider. Resident remains DNR/DNI - comfort focused. Discharge orders and pertinent notes faxed to [facility] at [phone] and E-mailed to BRANDON/Nicole at [email or web address]. Resident was accompanied by RN/Eli to the care center. All questions answered.?
--- NOTE | 2022-12-09 15:37 | PC.SPIRITC ---
I provided visit throughout the week on December 07 for encouragement, companionship, and support.
== END | DRG 892 ==
PROVIDERS: Family Medicine; Admitting Provider Family Medicine; Family Provider Nurse Practitioner Gerontology; PCP Family Medicine; Visit Provider Family Medicine
DX: B20 Human immunodeficiency virus [HIV] disease (principal); F02.80 Dementia in other diseases classified elsewhere, unspecified severity, without behavioral disturbance, psychotic disturbance, mood disturbance, and anxiety; R53.1 Weakness; M19.011 Primary osteoarthritis, right shoulder; K59.00 Constipation, unspecified; F33.9 Major depressive disorder, recurrent, unspecified
CPT/HCPCS: 36415; 80048; 80053; 80061; 85025; 86360; 87502; 87522; 87536; 87631; 87634; 87635; 87798; 87804; 90471; 90686